=== PATIENT | male | born 1940 | race Caucasian/White ===

== ENCOUNTER → 2024-01-06 16:14 | Outpatient (REF) | payer MEDICARE, OTHER, SELFPAY | LOC: RAD 16:14 | PROVIDERS: ATTENDING PHYSICIAN Physician Assistant Medical; FAMILY PHYSICIAN Family Medicine | DX: M79.661 Pain in right lower leg (principal) | CPT/HCPCS: 93971 ==

== ENCOUNTER 2024-01-13 10:51 | Emergency (ER) | payer MEDICARE, OTHER, SELFPAY ==
[2024-01-13 11:08] VITALS: BP 124/60
[2024-01-13 11:27] LABS: % Basophils 0.6 % (0-2); % Eosinophils 2.1 % (0-6); % Immature Granulocytes 0.4 % (0-0.5); % Lymphocytes 11.5 % (20.5-51.1); % Monocytes 6.6 % (1.7-9.3); % Neutrophils 78.8 % (42.2-75.2); Absolute Basophils 0.1 10^3/uL (0-0.2); Absolute Eosinophils 0.3 10^3/uL (0-0.7); Absolute Immature Granulocytes 0.1 10^3/uL (0-0.05); Absolute Lymphocytes 1.5 10^3/uL (1.2-3.4); Absolute Monocytes 0.8 10^3/uL (0.1-0.6); Hematocrit 48.7 % (39.0-52.0); Hemoglobin 16.5 g/dL (13.0-18.0); Mean Corp Hgb Conc. 33.9 g/dL (33.0-37.0); Mean Corpuscular Hgb 29.3 pg (27.0-31.0); Mean Corpuscular Volume 86.3 fL (80.0-94.0); Mean Platelet Volume 9.5 fL (7.4-10.4); Nucleated Red Blood Cells % 0 % (-); Platelet Count 181 10^3/uL (130-400); Red Blood Cell Count 5.64 10^6/uL (4.70-6.10); Red Cell Dist. Width 15.6 % (11.5-14.5); White Blood Cell Count 12.6 10^3/uL (4.8-10.8)
[2024-01-13 11:42] LABS: ALT (SGPT) 22 U/L (0-50); AST (SGOT) 31 U/L (17-59); Albumin 4.7 g/dl (3.5-5.0); Alkaline Phosphatase 147 U/L (38-126); Blood Urea Nitrogen 36 mg/dl (9-20); Carbon Dioxide 25 mmol/L (22-30); Chloride 104 mmol/L (98-107); Glucose 98 mg/dl (70-99); Potassium 4.7 mmol/L (3.5-5.1); Sodium 139 mmol/L (135-145); Total Bilirubin 1.8 mg/dl (0.2-1.3); Total Protein 7.2 g/dl (6.3-8.2); eGFR 34.35
--- NOTE | 2024-01-13 11:59 | ED.GENMED ---
History of Present Illness
General
Chief Complaint: Hallucinations
Source: patient, spouse and family
Time Seen by Provider: 01/13/24 11:49
History of Present Illness
History of Present Illness:
83-year-old male who presents with family was concerned because he was hallucinating today and last night. for example, he was seeing ants on the floor in the waiting room and a woman that wasnt there. the pt does recongnize that he was
hallucinating. he recently had a fall about 2 weeks ago and had a RLE wound. he is on doxy and has been taking tramadol. he last took tramadol last night. he had sutures but they are now out. he has an appointment with wound care thursday. No
headache or vomiting.
Past History
Past History
ED Past Medical History: Arrthythmia (A. fib), CAD, CHF, COPD, GERD, HTN, Hypercholesterolemia, [place], Hypothyroidism and Other (PNA)
ED Past Surgical History: Cardiac (Stents, Pacer/Defib Ablation) and Cholecystectomy
Social History
Tobacco: Former smoker (quit 50 yrs ago)
Alcohol: Occasional
Drug: None
Personal:
Living: with family
Employment: Retired
Family History
Family History: Early CAD
Phy Exam
Physical Exam
Physical Exam:
CONSTITUTIONAL Patient alert and oriented to person, place and time. Well-appearing. Vital signs reviewed.
HEAD atraumatic, normocephalic.
EYES eyelids normal to inspection, Extraocular muscles intact, Conjunctiva normal, Sclera normal.
NECK normal range of motion, Trachea midline, no jugular venous distention.
RESPIRATORY CHEST No respiratory distress noted, Chest expansion equal
ABDOMEN abdomen nontender, Bowel sounds normal. No distention.
BACK normal inspection, no obvious deformities
UPPER EXTREMITY range of motion normal, Motor strength normal, no cyanosis, no edema.
LOWER EXTREMITY range of motion normal, Motor strength normal, no cyanosis, no edema. Healing wound to the right anterior lower leg. There is no surrounding swelling. There is no drainage. There is no surrounding cellulitis. There is no
bleeding.
NEURO Speech normal, No focal motor deficits, [place] coma scale 15, Memory normal, Cranial Nerves intact to screening exam.
SKIN skin warm, dry, and normal in color.
PSYCHIATRIC patient oriented to person place and time, Normal affect.
Course
Orders/Labs/Results
Orders:
Orders
01/13/24 11:17
CMP [Comprehensive Metabolic Panel] Urgent
Complete Blood Count/With Diff Urgent
01/13/24 11:58
CT Head W/o Iv Contrast Urgent
Comment:
Reason For Exam: change in ms, recent fall
01/13/24 12:51
Urinalysis Reflex To Culture Stat
Date Specimen was Collected: 01/13/24
Time Specimen was Collected: 13:08
Abnormal Lab Results
01/13/24
11:17
WBC 12.6 H 10^3/uL
(4.8-10.8)
RDW 15.6 H %
(11.5-14.5)
Abs Immat Gran (auto) 0.1 H 10^3/uL
(0-0.05)
Absolute Neuts (auto) 10.0 H 10^3/uL
(1.4-6.5)
Absolute Monos (auto) 0.8 H 10^3/uL
(0.1-0.6)
Neutrophils % 78.8 H %
(42.2-75.2)
Lymphocytes % 11.5 L %
(20.5-51.1)
BUN 36 H mg/dl
(9-20)
Creatinine 1.9 H mg/dL
(0.7-1.3)
Total Bilirubin 1.8 H mg/dl
(0.2-1.3)
Alkaline Phosphatase 147 H U/L
(38-126)
01/13/24 11:17
01/13/24 11:17
Vital Signs
Initial and Last Documented VS:
Initial Vital Signs
Temp Pulse Resp BP Pulse Ox
97.4 F 63 20 124/60 97
01/13/24 11:08 01/13/24 11:08 01/13/24 11:08 01/13/24 11:08 01/13/24 11:08
Last Documented Vital Signs
Temp Pulse Resp BP Pulse Ox
97.4 F 63 20 124/60 97
01/13/24 11:08 01/13/24 11:08 01/13/24 11:08 01/13/24 11:08 01/13/24 11:08
MDM/Problems Addressed
MDM/Problems Addressed:
Medication reaction, hallucinations, healing wound
*Radiology
Radiology exam reviewed: radiology read reviewed
*Critical Care Note
Total Time (30-74mins, 75-104mins- exclusive of procedures): Not Applicable
Data Reviewed
Source: patient and family
Further Testing Considered But Not Given:
Consider changing antibiotics but wound does appear at the expected stage of healing without evidence of infection
Patient Management
Escalation/DeEscalation of care consider admission/obs:
Patient appears well and does recognize his hallucinations. I suspect this is related to his tramadol and will advise him to stop however await urinalysis to be sure no signs of UTI which I doubt. Will refer to PCP for follow-up. Nonfocal motor
exam. Wound dressing applied and advised him to keep it in place until seen by wound care on Thursday.
ED Attending Note
-
Portions of this chart may have been created with voice recognition software.� Occasional wrong word or��sound alike� substitutions may have occurred due to the inherent limitations of voice recognition software.
Discharge Plan
Departure
Patient with high blood pressure during this ER visit?: No
Discharge Problem:
Acute alteration in mental status, Medication adverse effect
Instructions: Adverse Drug Reactions, Adult ED, Wound Care ED, [facility]
Prescriptions:
No Action
febuxostat 40 MG tablet
40 mg PO DAILY
multivitamin with folic acid [Tab-A-Elizabeth] 1 TABLET tablet
1 tab PO DAILY
nitroglycerin 0.4 MG tablet, sublingual
0.4 mg sublingual Q5-15M PRN (Reason: chest pain)
Patient Comments:
x3 tablets
metoprolol succinate 100 MG tablet extended release 24 hr
100 mg PO DAILY
finasteride 5 MG tablet
5 mg PO DAILY
Trelegy Ellipta 1 EACH blister with device
1 puff inhalation R DAILY
Patient Comments:
100-62.5-25
albuterol sulfate 1 PUFF HFA aerosol inhaler
2 puff inhalation R Q4 PRN (Reason: sob/wheezing)
pantoprazole 40 MG tablet,delayed release (DR/EC)
40 mg PO DAILY
atorvastatin 40 MG tablet
40 mg PO DAILY
ezetimibe 10 MG tablet
10 mg PO DAILY
potassium chloride [Klor-Con M20] 20 MEQ tablet,ER particles/crystals
40 meq PO DAILY
levothyroxine 75 mcg Tablet
75 mcg PO DAILY@0700 Qty: 30 0RF
Eliquis 5 mg Tablet
5 mg PO BID Qty: 1 0RF
risperidone 0.25 mg Tablet
0.25 mg PO HS Qty: 0 0RF
clopidogrel 75 MG tablet
75 mg PO DAILY Qty: 0 0RF
Patient Comments:
09/26/2021: Pt unsure if taking, listed as not taking on ECW
furosemide 40 MG tablet
80 mg PO MOWEFR Qty: 0 0RF
isosorbide mononitrate 60 mg Tablet Extended Release 24 Hr
60 mg PO BID Qty: 1 0RF
Referrals:
Des Hayes MD [Family Provider] -
Activity Restrictions/Additional Instructions:
Please stop your tramadol. Return immediately for changes in mentation, weakness of any kind, vomiting, fevers, headache, motor weakness or any other concerns. Please see wound care as planned on Thursday. Please keep dressing intact until then
Interventions
Interventions:
*Risk Screen - Suicide Last Done: 01/13/24 12:20
ED- Neurological Assessment Last Done: 01/13/24 12:18
ED-Psychological Assessment Last Done: 01/13/24 12:18
Discharge Date and Time
Print Language: SPANISH
[2024-01-13 13:35] LABS: Urine Albumin Negative (Neg - Trace); Urine Bilirubin Negative (Negative); Urine Character Clear (Clear); Urine Color Yellow; Urine Glucose 2+ (Negative); Urine Ketone Negative (Negative); Urine Leukocyte 1+ (Negative); Urine Nitrite Negative (Negative); Urine Occult Blood Negative (Negative); Urine Specific Gravity 1.015 (<1.030); Urine Urobilinogen Negative (Neg - 1+)
[2024-01-13 14:09] LABS: Urine Red Blood Cell 0-2 /HPF (0-2); Urine Squamous Cell 16-20 /LPF (Few)
[2024-01-13 14:10] LABS: Urine Yeast Few (Negative)
[2024-01-13 14:20] VITALS: BP 136/63
== END 2024-01-13 14:30 | disposition home or self-care (01) ==
LOC: EMR 10:51
PROVIDERS: EMERGENCY PHYSICIAN Emergency Medicine; FAMILY PHYSICIAN Family Medicine
DX: R41.82 Altered mental status, unspecified (principal); T40.425A Adverse effect of tramadol, initial encounter; S80.921D Unspecified superficial injury of right lower leg, subsequent encounter; W19.XXXD Unspecified fall, subsequent encounter; Z87.891 Personal history of nicotine dependence
CPT/HCPCS: 99284; 70450; 80053; 81003; 81015; 85025; 87086

== ENCOUNTER 2024-01-15 10:32 | Emergency (ER) | payer MEDICARE, OTHER, SELFPAY ==
[2024-01-15 10:39] VITALS: BP 154/57
--- NOTE | 2024-01-15 11:25 | ED.GENMED ---
History of Present Illness
General
Chief Complaint: Wound Check/Suture Removal
Source: patient and family
Exam Limitations: dementia
Time Seen by Provider: 01/15/24 10:54
Nursing documentation reviewed up to this point in time: agreed with
History of Present Illness
History of Present Illness:
83 y/o M H/O COPD, CHF, CAD, some mild confusion justyn
here by himself
missed his appt for wound care to check on a wound from 2+ weeks ago when he fell, had sutures placed and it never really healed wlel
completed abx
he says his alarm clock didn't ring
so he is here to have it checked
he was also here a few days ago for hallucinations, his work up was neg
today he comes without his daughter whom he lives with and says that he was supposed to be at wound care but he came here instead because he was too late for the apt
daughter wasn't aware he missed the appt, she thought he went, i spokiew ith her on the phone
pt has no pain, fever, drainage, bleeding etc
Past History
Past History
ED Past Medical History: Arrthythmia (A. fib), CAD, CHF, COPD, GERD, HTN, Hypercholesterolemia, [place], Hypothyroidism and Other (PNA)
ED Past Surgical History: Cardiac (Stents, Pacer/Defib Ablation) and Cholecystectomy
Social History
Tobacco: Former smoker (quit 50 yrs ago)
Alcohol: Occasional
Drug: None
Personal:
Living: with family
Employment: Retired
Family History
Family History: Early CAD
Review of Systems
Review of Systems
Allergies reviewed?: Yes
All Other Systems: Not applicable
Phy Exam
Physical Exam
Physical Exam:
GENERAL: Alert , in no apparent distress
NEUROLOGICAL: Alert and oriented, no focal neuro deficits, a& ox 3 currently
SKIN: Warm and dry,
wound is more of an abrasion right anterior lower leg with some grandulation tissue centrally, some underlying ecchymosis/hyperpigmentation and also a little dried blood
does not appear ulcerated
no surroudning erythema or swelling
MUSCULOSKELETAL: No edema, well perfused
PSYCH: Normal and appropriate interaction.
Course
Vital Signs
Initial and Last Documented VS:
Initial Vital Signs
Temp Pulse BP Pulse Ox
98.8 F 61 154/57 99
01/15/24 10:39 01/15/24 10:39 01/15/24 10:39 01/15/24 10:39
Last Documented Vital Signs
Temp Pulse BP Pulse Ox
98.8 F 61 154/57 99
01/15/24 10:39 01/15/24 10:39 01/15/24 10:39 01/15/24 10:39
MDM/Problems Addressed
Differential Diagnosis Includes:
wound check, abrasion, cellulitis
MDM/Problems Addressed:
83 y/o M
some chronic memory issues worsenign recently
here alone
syas he missed his wound care appt and wanted someone to change his dressing
had a wound 2 weeks ago that was sutured but hasn't healed well
no fever/chils
completed abx
wound appears not infected, some granulation, some hyperpigmenation
recommend wound are f/u
i did change the dressing, nonstick and bacitracin
return precautions
i spoke with pt's daughter chloe who will hep him reschedule
*Critical Care Note
Total Time (30-74mins, 75-104mins- exclusive of procedures): Not Applicable
ED Attending Note
-
Portions of this chart may have been created with voice recognition software.� Occasional wrong word or��sound alike� substitutions may have occurred due to the inherent limitations of voice recognition software.
Discharge Plan
Departure
Patient Disposition: Home (Routine Discharge)
Date of Disposition: 01/15/24
Time of Disposition: 11:28
Patient with high blood pressure during this ER visit?: Yes
Condition: Fair
Covid-19: Not Applicable
Discharge Problem:
Encounter for post-traumatic wound check
Instructions: Wound Care (DC)
Prescriptions:
No Action
febuxostat 40 MG tablet
40 mg PO DAILY
multivitamin with folic acid [Tab-A-Elizabeth] 1 TABLET tablet
1 tab PO DAILY
nitroglycerin 0.4 MG tablet, sublingual
0.4 mg sublingual Q5-15M PRN (Reason: chest pain)
Patient Comments:
x3 tablets
metoprolol succinate 100 MG tablet extended release 24 hr
100 mg PO DAILY
finasteride 5 MG tablet
5 mg PO DAILY
Trelegy Ellipta 1 EACH blister with device
1 puff inhalation R DAILY
Patient Comments:
100-62.5-25
albuterol sulfate 1 PUFF HFA aerosol inhaler
2 puff inhalation R Q4 PRN (Reason: sob/wheezing)
pantoprazole 40 MG tablet,delayed release (DR/EC)
40 mg PO DAILY
atorvastatin 40 MG tablet
40 mg PO DAILY
ezetimibe 10 MG tablet
10 mg PO DAILY
potassium chloride [Klor-Con M20] 20 MEQ tablet,ER particles/crystals
40 meq PO DAILY
levothyroxine 75 mcg Tablet
75 mcg PO DAILY@0700 Qty: 30 0RF
Eliquis 5 mg Tablet
5 mg PO BID Qty: 1 0RF
risperidone 0.25 mg Tablet
0.25 mg PO HS Qty: 0 0RF
clopidogrel 75 MG tablet
75 mg PO DAILY Qty: 0 0RF
Patient Comments:
09/26/2021: Pt unsure if taking, listed as not taking on ECW
furosemide 40 MG tablet
80 mg PO MOWEFR Qty: 0 0RF
isosorbide mononitrate 60 mg Tablet Extended Release 24 Hr
60 mg PO BID Qty: 1 0RF
Referrals:
Des Hayes MD [Family Provider] - Follow up in 2-3 days
Activity Restrictions/Additional Instructions:
YOUR WOUND DOES NOT LOOK NEWLY INFECTED BUT YOU SHOULD RESCHEDULE YOUR WOUND CARE APPOINTMENT TO GET THEIR ADVICE ON HELPING THIS HEAL
FOR NOW
ONCE A DAY YOU CAN CLEAN WITH MILD SOAP AND WATER AND APPLY NONSTICK DRESSING AND A WRAP
RETURN FOR WORSENING PAIN, SWELLIGN, REDNESS ETC
I SPOKE WITH RICKEY AND SHE WILL HELP GET YOUR APPOITNMENT WITH WOUND CARE RESCHEDULED
Interventions
Interventions:
*General Assessment Last Done: 01/15/24 10:40
ED- Fall Risk Assessment Last Done: 01/15/24 11:30
*ED COVID-19 Vaccine History Last Done: 01/15/24 10:40
ED-Skin Assessment Last Done: 01/15/24 11:29
Discharge Date and Time
Print Language: WELSH
== END 2024-01-15 11:41 | disposition home or self-care (01) ==
LOC: EMR 10:32
PROVIDERS: EMERGENCY PHYSICIAN Emergency Medicine; FAMILY PHYSICIAN Family Medicine
DX: Z48.02 Encounter for removal of sutures (principal); J44.9 Chronic obstructive pulmonary disease, unspecified; I11.0 Hypertensive heart disease with heart failure; I50.9 Heart failure, unspecified; I25.10 Atherosclerotic heart disease of native coronary artery without angina pectoris; I48.91 Unspecified atrial fibrillation; E78.00 Pure hypercholesterolemia, unspecified; E03.9 Hypothyroidism, unspecified; F03.90 Unspecified dementia, unspecified severity, without behavioral disturbance, psychotic disturbance, mood disturbance, and anxiety; K21.9 Gastro-esophageal reflux disease without esophagitis; Z82.49 Family history of ischemic heart disease and other diseases of the circulatory system; Z87.891 Personal history of nicotine dependence; Z90.49 Acquired absence of other specified parts of digestive tract; Z95.5 Presence of coronary angioplasty implant and graft
CPT/HCPCS: 99282

== ENCOUNTER → 2024-03-08 22:00 | Outpatient (REF) | payer MEDICARE, OTHER, SELFPAY | LOC: DHSLP 22:00 | PROVIDERS: ATTENDING PHYSICIAN Internal Medicine; FAMILY PHYSICIAN Family Medicine | DX: G47.33 Obstructive sleep apnea (adult) (pediatric) (principal); G47.31 Primary central sleep apnea | CPT/HCPCS: 95811 ==

== ENCOUNTER 2024-04-03 15:33 | Inpatient (IN) | payer MEDICARE, OTHER, SELFPAY ==
[2024-04-03] VITALS (16 sets, daily range): BP systolic 101–152; BP diastolic 38–121; BMI 23.6; BMI 22.9
[2024-04-03 13:37] LABS: % Basophils 0.9 % (0-2); % Eosinophils 1.4 % (0-6); % Immature Granulocytes 0.6 % (0-0.5); % Lymphocytes 20.5 % (20.5-51.1); % Monocytes 6.8 % (1.7-9.3); % Neutrophils 69.8 % (42.2-75.2); Absolute Basophils 0.1 10^3/uL (0-0.2); Absolute Eosinophils 0.2 10^3/uL (0-0.7); Absolute Immature Granulocytes 0.1 10^3/uL (0-0.05); Absolute Lymphocytes 2.5 10^3/uL (1.2-3.4); Absolute Monocytes 0.8 10^3/uL (0.1-0.6); Absolute Neutrophils 8.4 10^3/uL (1.4-6.5); Hematocrit 50.4 % (39.0-52.0); Hemoglobin 16.8 g/dL (13.0-18.0); Mean Corp Hgb Conc. 33.3 g/dL (33.0-37.0); Mean Corpuscular Hgb 28.9 pg (27.0-31.0); Mean Corpuscular Volume 86.7 fL (80.0-94.0); Mean Platelet Volume 10.4 fL (7.4-10.4); Nucleated Red Blood Cells % 0 % (-); Platelet Count 214 10^3/uL (130-400); Red Blood Cell Count 5.81 10^6/uL (4.70-6.10); Red Cell Dist. Width 15.5 % (11.5-14.5)
--- NOTE | 2024-04-03 13:37 | ED.GENMED ---
History of Present Illness
General
Chief Complaint: Heart Rate Problem
Source: patient
Exam Limitations: none
Time Seen by Provider: 04/03/24 13:27
History of Present Illness
History of Present Illness:
Daily chest pain for the last 2 weeks. Usually resolved with 1 or 2 nitroglycerin. Much worse later this morning. Patient's defibrillator activated en route to the hospital. Currently asymptomatic.
Past History
Past History
ED Past Medical History: Arrthythmia (A. fib), CAD, CHF, COPD, GERD, HTN, Hypercholesterolemia, [place], Hypothyroidism and Other (PNA)
ED Past Surgical History: Cardiac (Stents, Pacer/Defib Ablation) and Cholecystectomy
Social History
Tobacco: Former smoker (quit 50 yrs ago)
Alcohol: Occasional
Drug: None
Personal:
Living: with family
Employment: Retired
Family History
Family History: Early CAD
Review of Systems
Review of Systems
All Other Systems: Not applicable
Constitutional: Denies fever
Respiratory: Reports no symptoms
ABD/GI: Reports no symptoms
Phy Exam
Physical Exam
Physical Exam:
GENERAL: Alert and oriented in no apparent distress
EYE: Orbits normal.
NECK: Supple
CARDIAC: Tachycardic relatively regular with occasional irregular beat. Midsystolic murmur. Pacemaker upper chest wall
LUNGS: Clear breath sounds,normal
ABDOMEN: Soft, without focal tenderness or distention
NEUROLOGICAL: Alert and oriented , grossly non-focal
SKIN: Warm and dry, no rash or lesion, no discoloration, skin intact.
MUSCULOSKELETAL: No edema,no deformity.Good color
PSYCH: Normal and appropriate interaction.
Course
Orders/Labs/Results
Orders:
Orders
04/03/24 13:22
Electrocardiogram (*1) Urgent
Reason for Study: Other
Other Reason for Exam: heart rate issue
EKG- Treatment ONCE
04/03/24 13:25
Complete Blood Count/With Diff Urgent
Comprehensive Metabolic Panel Urgent
NT-proBNP Urgent
PTT Urgent
Troponin I Urgent
04/03/24 13:27
CXR Port [CR Chest Portable - 1 View] Urgent
Comment:
Reason For Exam: cp
Reason Study Needs to be Portable: Unable to Transport
04/03/24 14:24
Furosemide [Lasix] 40 mg IV NOW STA
04/03/24 14:28
Amiodarone [Cordarone] 900 mg DEXTROSE 5% PVC-free BAG [D5W PVC-free BAG] 500 ml IV NOW
Initial Dose in mg/min:: 1
Duration of initial dose (hours):: 6
Subsequent dose in mg/min:: 0.5
Duration of subsequent dose (hours):: 18
Maximum dose in mg/min:: 1
Hold and notify provider if:: Heart rate < 60 BPM or SBP < 90 mmHg or MAP < 60 mmHg
04/03/24 15:13
Admit/Transfer Patient As Directed
Co-Sign Provider:
Level of Care: Inpatient admission
Assign to:: IMU- Intermediate Care
Physician / Group: kae
Diagnosis: chest pain
Reason for Hospitalization: chest pain
Expected length of stay greater than two midnights?: Yes
ELOS- Estimated Length of Stay in days: 3
I certify the patient meets the requirements for IP care: Yes
PRN Pain Medication Management As Directed
May give lesser potent ordered pain med per pt: Yes
preference::
Protocol:: Medication orders for pain may be administered in a
manner that supports deferring to patient preference
when the pt is:
- Requesting an ordered lesser potent pain medication.
Least to most potent pain medications are defined
as: acetaminophen < NSAID < tramadol < opioids
(morphine, oxycodone, hydromorphone).
- Requesting a lesser dose of the same medication IF
ORDERED.
- Requesting a less intrusive route of administration
if both routes are prescribed by the provider (PO <
IV).
04/03/24 15:18
Code Status As Directed
Resuscitation Status: Full Code
04/03/24 15:27
Urinalysis Reflex To Culture Routine
Abnormal Lab Results
04/03/24
13:25
WBC 12.0 H 10^3/uL
(4.8-10.8)
RDW 15.5 H %
(11.5-14.5)
Abs Immat Gran (auto) 0.1 H 10^3/uL
(0-0.05)
Absolute Neuts (auto) 8.4 H 10^3/uL
(1.4-6.5)
Absolute Monos (auto) 0.8 H 10^3/uL
(0.1-0.6)
Immature Gran % 0.6 H %
(0-0.5)
APTT 22.1 L Sec
(23.4-35.0)
BUN 36 H mg/dl
(9-20)
Creatinine 2.0 H mg/dL
(0.7-1.3)
Glucose 128 H mg/dl
(70-99)
Total Bilirubin 1.7 H mg/dl
(0.2-1.3)
Alkaline Phosphatase 148 H U/L
(38-126)
04/03/24 13:25
04/03/24 13:25
Vital Signs
Initial and Last Documented VS:
Initial Vital Signs
BP
143/82
04/03/24 13:21
Last Documented Vital Signs
Temp Pulse Resp BP Pulse Ox
98.1 F 84 21 152/60 96
04/03/24 13:23 04/03/24 15:00 04/03/24 15:00 04/03/24 15:00 04/03/24 15:00
MDM/Problems Addressed
Differential Diagnosis Includes:
Patient describing unstable angina. In addition it sounds like his defibrillator was activated. Either V. tach or atrial tachycardia. Awaiting [employer] evaluation EKG shows a tachycardic rhythm with ischemic changes that are increased in nature.
Clearly warrants admission
*Radiology
Radiology exam reviewed: preliminary read by ED provider (CHF) and radiology read reviewed (Interstitial edema)
*Pulse Oximetry
Patient hypoxic: no
*EKG
Interpreted by ED Provider?: Yes
Interpretation: abnormal
Comparison EKG: changes noted
Heart Rate: 112
Rate: tachycardiac
Rhythm: other (Atrial tach)
[place]: normal axis
Interval: long QT
Ischemia: T-wave inversion
*Critical Care Note
Total Time (30-74mins, 75-104mins- exclusive of procedures): 40
Data Reviewed
Review of Other/Old Records Reveals: Records, Testing and Discharge Summary
Update Note
Update Note:
I was called into the room emergently on ER arrival. The patient currently stable and asymptomatic. EKG and previous EKG and test results reviewed with cardiology. Workup in progress
Seen by EP. Pacemaker adjustments on the defibrillator. Recommend starting amiodarone and treating for CHF
Case discussed with [employer] rep. Appears to have episodes of atrial tachycardia. Baseline setting of 40.
ED Attending Note
-
Portions of this chart may have been created with voice recognition software.� Occasional wrong word or��sound alike� substitutions may have occurred due to the inherent limitations of voice recognition software.
Discharge Plan
Departure
Patient Disposition: Admit
Date of Disposition: 04/03/24
Time of Disposition: 14:26
Presentation/result/management discussed w/ accepting MD/DO: Cardiology
Discharge Problem:
Unstable angina, Episodes of atrial tachycardia, Defibrillator firing, Pacer setting adjustments, Renal insufficiency
Interventions
Interventions:
*Risk Screen - Suicide Last Done: 04/03/24 13:27
*General Assessment Last Done: 04/03/24 13:23
*Neglect/Abuse Screening Last Done: 04/03/24 13:27
ED- Fall Risk Assessment Last Done: 04/03/24 13:27
*ED COVID-19 Vaccine History Last Done: 04/03/24 13:27
ED- Cardiac Assessment Last Done: 04/03/24 13:27
ED- Pulmonary Assessment Last Done: 04/03/24 13:27
[2024-04-03 14:03] LABS: APTT 22.1 Sec (23.4-35.0)
[2024-04-03 14:08] LABS: NT-proBNP 5010 pg/ml
[2024-04-03 14:10] LABS: ALT (SGPT) 31 U/L (0-50); AST (SGOT) 39 U/L (17-59); Albumin 4.7 g/dl (3.5-5.0); Alkaline Phosphatase 148 U/L (38-126); Blood Urea Nitrogen 36 mg/dl (9-20); Carbon Dioxide 23 mmol/L (22-30); Chloride 104 mmol/L (98-107); Estimated Creatinine Clearance 27 ml/min; Glucose 128 mg/dl (70-99); Potassium 5.1 mmol/L (3.5-5.1); Sodium 143 mmol/L (135-145); Total Bilirubin 1.7 mg/dl (0.2-1.3); Total Protein 7.2 g/dl (6.3-8.2)
--- NOTE | 2024-04-03 14:39 | HPS.HSE ---
Addendum entered and electronically signed by Jorden Lam DO 04/03/24 16:19:
Patient seen and examined independently. Agree with findings and plan as set forth by LAZARA Mora.
Patient is an 83y M with PMH significant for ASCVD, A-Fib and COPD who presents to ED complaining of chest pain for the past 2 weeks. Patient states that he has been having chest pain - mostly in the mornings for 2 weeks. No associated N/V,
dyspnea, diaphoresis, etc. He has been taking NTG daily with improvement in his symptoms - and had no further chest pain throughout the day. However, pain has been a daily AM occurrence for the past 2 weeks or so. This AM, patient had chest pain
and took two NTG, but with no improvement in his symptoms. He had no further NTG to take and so he presented to the ED for further evaluation.
En route to the ED, patient's defibrillator fired. He has had the device in place for about 5 years - no previous discharge.
In the ED, patient is resting comfortably. He has no chest pain or dyspnea at present.
Ass:
Chest Pain / Unstable Angina
Defibrillator Discharge
Paroxysmal A-Fib / Atrial Tachycardia
Chronic HFpEF
CKD III
DM-II
Hypothyroidism
COPD without Acute Exacerbation
Plan:
Admit for further evaluation and treatment.
Started on Amio in the ED after ICD firing en route to the hospital.
Initial troponin non-negative, but no significantly elevated.
Monitor on telemetry.
Follow serial troponin.
Cardiology evaluation / recommendations appreciated.
Continue other usual home medications - including Eliquis.
Original Note:
Family Physician
-
Family Physician: Des Hayes
Chief Complaint
-
mid sternum chest pain
History of Present Illness
83 year old with PMh for atrial fib, CAD, CHF, COPD, HTn, HLD, MO presented to us with non radiating, non exertional chest pain for past two weeks. stated relief with nitro but today he ran out of nitro. his chest pain persisted. his ICD fired with
atrial tachycardia. denied palpitation or sob. denied n,v, or diarrhea. denied fever, chills, runny nose, congestion, cough.denied abdominal pain,n,v,d. denied dysuria or hematuria.
admitting for further management. initiated on IV amio
Medical History
Past Medical History
Past Medical History: Reports Other
Additional Past Medical History:
BPH
PAF
pulm htn
Cindy
GERD
GOUT
cCAD
CKD
heart failure
Past Surgical History: Reports Other
Additional Past Surgical History:
coronary angioplasty
CAD stent
cardiac ablation
ICD
CABG
b/l cataract extraction
Social History
Tobacco: Non-smoker
Alcohol: None
Drug: None
Living: With Family
Family History
Family History: Not pertinent
Allergies / Home Medications
Allergies reflects when Allergies were last updated in [employer].
Home Medications with original date entered in [employer]
Allergy/Medication List:
Allergies
Allergy/AdvReac Type Severity Reaction Status Date / Time
allopurinol Allergy Rash Verified 04/03/24 13:21
meloxicam [From Mobic] Allergy Nausea/dizz Verified 04/03/24 13:21
iness/vomit
ing
meperidine HCl [From Demerol] Allergy Vomiting Verified 04/03/24 13:21
Home Medications
febuxostat 40 mg tablet 40 mg PO DAILY Gout 04/10/14
finasteride 5 mg tablet 5 mg PO DAILY Urinary issue 04/20/20
metoprolol succinate 100 mg tablet,extended release 24 hr 100 mg PO DAILY Heart disease/condition 04/20/20
nitroglycerin 0.4 mg sublingual tablet 0.4 mg sublingual [id number] PRN chest pain 04/20/20
albuterol sulfate 90 mcg/actuation aerosol inhaler 2 puff inhalation R Q4HPRN PRN sob/wheezing 03/05/21
pantoprazole 40 mg tablet,delayed release 40 mg PO DAILY Gastrointestinal issue 03/06/21
atorvastatin 40 mg tablet 40 mg PO HS High cholesterol 09/20/21
ezetimibe 10 mg tablet 10 mg PO DAILY High cholesterol 09/20/21
clopidogrel 75 mg tablet 75 mg PO DAILY Blood clot prevention/tx #0 tabs 08/01/22
apixaban 2.5 mg tablet (Eliquis) 2.5 mg PO BID 04/03/24
empagliflozin 10 mg tablet (Jardiance) 10 mg PO DAILY 04/03/24
fluticasone fur. 100 mcg-umeclid 62.5 mcg-vilant 25 mcg inhalat.powder (Trelegy Ellipta) 1 inh inhalation R DAILY 04/03/24
furosemide 80 mg tablet 80 mg PO MOWEFR 04/03/24
isosorbide mononitrate 60 mg tablet,extended release 24 hr 60 mg PO DAILY 04/03/24
levothyroxine 100 mcg tablet 100 mcg PO DAILY 04/03/24
bqdadkgy-szb-WJ 0.4 mg-calcium 162 mg-iron 18 yo-nphskqh-yergji tablet 1 tab PO DAILY 04/03/24
potassium 1 tab PO MOWEFR 04/03/24
vitamins A,C,V-gpaa-lqyeds 4,296 mcg-226 mg-90 mg capsule (PreserVision AREDS) 1 cap PO DAILY 04/03/24
Review of Systems
-
Constitutional: Reports No Symptoms
EENT: Reports No Symptoms
Respiratory: Reports No Symptoms
Cardiac: Reports No Symptoms and Chest Pain
Abdomen/GI: Reports No Symptoms
: Reports No Symptoms
Musculoskeletal: Reports No Symptoms
Skin: Reports No Symptoms
Neurological: Reports No Symptoms
Endocrine: Reports No Symptoms
Hematologic/Lymphatic: Reports No Symptoms
Psych: Reports No Symptoms
Physical Exam
Vital Signs
Vital Signs
Temp Pulse Resp BP Pulse Ox
98.1 F 124 20 143/82 95
04/03/24 13:23 04/03/24 13:23 04/03/24 13:23 04/03/24 13:23 04/03/24 13:23
Physical Exam
General: Well Developed, Well Nourished and No Apparent Distress
HEENT: NormoCephalic, Moist mucous membranes and Atraumatic
Respiratory: Clear
Cardiac: S1/S2 and Regular Rhythm; No Murmur or Rub
GI: Soft, Non Tender, Non Distended and Normal Bowel Sounds; No Organomegaly
Rectal: Deferred by Provider
Musculoskeletal: No Clubbing, No Cyanosis and No Edema
Skin: No Rash
Neuro: AO x 3 and Nonfocal/grossly intact
Psych: Calm
Laboratory Results
-
04/03/24 13:25
04/03/24 13:25
Laboratory Results
APTT 22.1 Sec (23.4-35.0) L 04/03/24 13:25
Total Bilirubin 1.7 mg/dl (0.2-1.3) H 04/03/24 13:25
AST 39 U/L (17-59) 04/03/24 13:25
ALT 31 U/L (0-50) 04/03/24 13:25
Alkaline Phosphatase 148 U/L (38-126) H 04/03/24 13:25
Troponin I 0.020 ng/ml 04/03/24 13:25
Data Reviewed
-
Lab Data: Labs Reviewed by me
Impression/Plan
-
#unstable angina
#hxt of CAD s/p CAD
#Atrial tachycardia
#hxt of PAF s/p cardiac ablation in the past
-trend trop
-EKg with sinus tachycardia
-amiodarone continued
-eliquis,Imdur, metoprolol continued
-plavix continued
-Nitro prn for chest pain
-cardiology consulted
#leukocytosis likely stress reaction
-wbc 12.0
-obtain UA
-chest x ray pending
-denied any URI and UA symptoms
#CKD stage 3b
-cr 2.0
#Diastolic heart failure
- BNP 5010
-lasix continued
-strict I &O
daily weight
-fluid restriction
#type 2 DM
-Jardiance continued
-CHO diet
-sliding scale
#hypothyroidism
-levothyroxine continued
#GERD
-PPI
#COPD
-albuterol continued
-trelegy continued
#BPH: Finasteride.
#Sleep Apnea: CPAP.
#Hypercholesterolemia
- Atorvastatin and zetia continued
#Gout: febuxostat
#DVT prophylaxis: eliqus
[2024-04-03] MEDS: LASIX 40 MG IV (14:45)
[2024-04-03] MEDS: CORDARONE 518 MG IV (14:46)
[2024-04-03 16:58] LABS: Urine Albumin Negative (Neg - Trace); Urine Bilirubin Negative (Negative); Urine Character Clear (Clear); Urine Color Yellow; Urine Glucose 2+ (Negative); Urine Ketone Negative (Negative); Urine Leukocyte Trace (Negative); Urine Nitrite Negative (Negative); Urine Occult Blood Negative (Negative); Urine Urobilinogen Negative (Neg - 1+); Urine pH 6.5 (5.0-9.0)
[2024-04-03 17:08] LABS: Urine Squamous Cell >30 /LPF (Few)
[2024-04-03 17:10] LABS: Urine Bacteria Few (Negative)
[2024-04-03 20:41] LABS: Troponin I 0.807 ng/ml
[2024-04-03 21:15] LABS: Glucose - Point of Care 138 mg/dl (70-99)
[2024-04-03] MEDS: LIPITOR 40 MG PO (21:41)
[2024-04-03] MEDS: ELIQUIS 2.5 MG PO (21:41)
--- NOTE | 2024-04-03 23:57 | PTCARENOTE ---
Rec'd pt. into room 2249 at change of shift from the ED- AAOx3, VSS, V-paced with frequent PVC's on the monitor. Pt. denied any chest pain/discomfort, very pleasant, no complaints. Amiodarone gtt infusing at 1 mg/min, decreased to 0.5 mg/min at
2049 as per order. HR 60's-80's. Serial troponin's & EKG's completed. Pt. oriented to room, prefers to use urinal in bed at this time; voiding clear yellow urine. CHF packet/education provided.
[2024-04-04] VITALS (13 sets, daily range): BP systolic 87–129; BP diastolic 48–87; BMI 23.0
[2024-04-04 00:19] LABS: Troponin I 0.904 ng/ml
--- NOTE | 2024-04-04 03:45 | PTCARENOTE ---
No runs of VT so far this shift, but patient does have frequent PVC's. Also observed to go into NSR and A-fib at times. Pt. remains chest pain free.
[2024-04-04 04:46] LABS: Hematocrit 43.2 % (39.0-52.0); Hemoglobin 14.6 g/dL (13.0-18.0); Mean Corp Hgb Conc. 33.8 g/dL (33.0-37.0); Mean Corpuscular Hgb 28.9 pg (27.0-31.0); Mean Corpuscular Volume 85.4 fL (80.0-94.0); Platelet Count 163 10^3/uL (130-400); Red Blood Cell Count 5.06 10^6/uL (4.70-6.10); Red Cell Dist. Width 15.5 % (11.5-14.5); White Blood Cell Count 12.1 10^3/uL (4.8-10.8)
[2024-04-04 05:00] LABS: Blood Urea Nitrogen 39 mg/dl (9-20); Calcium 9.2 mg/dl (8.4-10.2); Carbon Dioxide 22 mmol/L (22-30); Chloride 103 mmol/L (98-107); Estimated Creatinine Clearance 25 ml/min; Glucose 104 mg/dl (70-99); HDL Cholesterol 36 mg/dl; LDL Cholesterol, Calculated 41 mg/dl; Magnesium 2.2 mg/dl (1.6-2.3); Potassium 4.6 mmol/L (3.5-5.1); Sodium 139 mmol/L (135-145); Total Cholesterol 99 mg/dl (50-199); Triglyceride 113 mg/dl (10-149); Very Low Density Lipoprotein 22 mg/dl (0-30); eGFR 30.47
[2024-04-04 05:11] LABS: Troponin I 0.717 ng/ml
[2024-04-04] MEDS: SYNTHROID 100 MCG PO (05:38)
--- NOTE | 2024-04-04 06:48 | W.PN.HOSP.TC ---
Today's Communication/Plan
-
.
Assessment / Plan
Assessment / Plan
Physical Exam
General: Well Developed, Well Nourished and No Apparent Distress
HEENT: Normocephalic, Moist mucous membranes and Atraumatic
Respiratory: Clear
Cardiac: S1/S2 and Regular Rhythm; No Murmur or Rub
GI: Soft, Non Tender, Non Distended and Normal Bowel Sounds; No Organomegaly
Rectal: no rectal bleeding
Musculoskeletal: No Clubbing, No Cyanosis and No Edema
Skin: No Rash
Neuro: AO x 3 and Nonfocal/grossly intact
Psych: Calm
#unstable angina/ NSTEMI
#hxt of CAD s/p CAD
#Atrial tachycardia
#hxt of PAF s/p cardiac ablation in the past
No chest pain over night
Troponin peak at 0.9 then down to 0.7
c/w Plavix, Aspirin
Already on Eliquis
Consulted cardiology, Keep nPO for possible cardiac procedure , hold Eliquis
# NSVT, post shock with ICD
c/w amiodarone gtt
# #leukocytosis likely stress reaction
-wbc 12.0
-Clear UA
-chest x ray : Increased interstitial markings within the lower lungs, most suggestive of interstitial edema pattern. No significant pleural effusion.
- No cough or hypoxia
-denied any URI and UA symptoms
#CKD stage 3b
-cr 2.0 on admission
- creatinine 1.9 in January 2024
- Monitor for retention, add bladder scan
- Will do NS urban- procedure for renal prophylaxis
# Chronic systolic heart failure
Last echo in system was in 2022 showed EF 35%. Global hypokinesis, with moderate MR& AR
- BNP 5010
# Not DM per pt
Stop glucose monitoring
#hypothyroidism
-levothyroxine continued
#GERD
-PPI
#COPD
No wheezes
-albuterol continued
-Trelegy continued
#BPH: Finasteride.
#Sleep Apnea: CPAP.
#Hypercholesterolemia
- Atorvastatin and Zetia continued
#Gout: febuxostat
#DVT prophylaxis: Eliquis
# Paroxysmal atrial fibrillation/flutter status post ablation
- In Paced rhythm
-On Apixaban
Total time spent to see the patient, examine the patient on the floor, review data and lab results, discuss treatment plan with patient, nursing staff around 55 minutes
Anticipated Discharge: > 48 hours
Subjective/Interval History
-
Date of Service: April 04, 2024
No chest pain
No sob this morning or over night
d/w night nurse
Objective Data
-
Labs:
Laboratory Results
04/04/24
04:30
WBC 12.1 H
Hgb 14.6
Hct 43.2
Plt Count 163 D
Sodium 139
Potassium 4.6
Chloride 103
Carbon Dioxide 22
BUN 39 H
Creatinine 2.1 H
Glucose 104 H
Calcium 9.2
Vital Signs:
Vital Signs
Temp Pulse Resp BP Pulse Ox
98.4 F 70 18 112/69 94
04/04/24 04:20 04/04/24 04:19 04/04/24 04:20 04/04/24 04:19 04/04/24 04:20
I&O
04/02/24 04/03/24 04/04/24
06:59 06:59 06:59
Intake Total 473 / 473
Output Total 900 / 900
Balance -427 / -427
[2024-04-04 07:27] LABS: Glucose - Point of Care 99 mg/dl (70-99)
--- NOTE | 2024-04-04 07:50 | PTCARENOTE ---
Assumed care of pt from prev nsg shift; Pt AAOx3 w/no c/o CP or SOB. Pt's VS stable w/HR 70 & BP this AM 129/48; Pt is V-paced w/occas PVC's & underlying SR on telemetry monitoring. Pt w/IV Amio drip infusing through patent IV line as ordered. Pt
NPO awaiting cardiology for plan of care. Pt w/call cain within reach & plan of care ongoing.
[2024-04-04] MEDS: SPIRIVA RESPIMAT 2.5 MCG 2 PUFF INH (07:55)
[2024-04-04] MEDS: SYMBICORT 80/4.5 MCG INHALER 2 PUFF INH ×2 (07:55→19:42)
--- NOTE | 2024-04-04 08:34 | CON.CAR ---
Addendum entered and electronically signed by Gwyn Niño MD 04/04/24 11:41:
I saw and examined the patient.
The TEMPERING MACHINE OPERATOR's note was reviewed and I agree with the note.
Comment:
NSTEMI
Very severe navajo CAD
Recent increased angina with prolonged CP day of admit, ICD shock after CP onset
ICD interrogation showed ICD shock was for monomorphic VT and that led to appropriate ICD shock.
Agree with amio for VT
Will progress to cath for his increased angina and NSVT
Echo to follow valve disease
Last LVEDP was only 10 so perhaps we can use even less Lasix
Original Note:
Consultation
Consultation Request
Date/Time Consultation Requested: 04/03/2024 16:00
Date/Time Consultation Performed: 04/04/2024 07:50
Requesting Provider: LAZARA Mora
Performing Provider: LAZARA Yoo for Dr. Niño
Reason for Consultation: Chest pain, ICD fire
Medical History
-
Chief Complaint: chest pain
History of Present Illness:
Mr. Gan is an 83-year-old male with CAD (PCI 1994, 2004, 2019, 2020 & 2022), CABG x5 in 1995, hypertension, dyslipidemia, COPD, obstructive sleep apnea, gout, pulmonary hypertension, VT status post MDT SC ICD implant November 2017, HFmrEF, CKD,
recurrent atrial fibrillation and atrial flutter status post PVI and flutter ablation 09/20/[address] Saxena, who is here with complaints of chest pain. He has been having chest pain in the morning. This has been ongoing for about 2 weeks. He
describes it as a midsternal anterior pressure sensation. He has no associated symptoms of nausea, diaphoresis, nor dizziness. He has been taking a sublingual nitroglycerin and resting. Normally he has relief after 1 tablet. Yesterday, he
required a second tablet and decided to come to the emergency department when the pain persisted and he was out of nitroglycerin. While in the car with his daughter, he had an ICD shock. He had no symptoms prior to his ICD shock. Interrogation of
his Med[employer] device reveals a 35 J shock for ventricular tachycardia which restored sinus rhythm. At present, he has no cardiovascular complaints.
Past Medical History
Past Medical History: Arrhythmias (Paroxysmal atrial flutter/fibrillation s/p PVI 09/2021, VT with ICD), CAD (multiple PCI recent 04/2021), CHF (HFmrEF), COPD, GERD, HTN, Hypercholesterolemia, Renal Failure and Other (RAVINDRA, pulmonary hypertension)
Past Surgical History: Cardiac (Paroxysmal atrial flutter/fibrillation ablation 09/2021, MDT SC ICD 11/2017, CABG x 5 07/1995)
Social History
Tobacco: Former Smoker
Alcohol: None
Drug: None
Living: With Family
Employment: Retired
Family History
Family History: Early CAD (father age 43 PA)
Allergies / Home Medications
Allergy/AdvReac Type Severity Reaction Status Date / Time
allopurinol Allergy Rash Verified 04/03/24 13:21
meloxicam [From Mobic] Allergy Nausea/dizz Verified 04/03/24 13:21
iness/vomit
ing
meperidine HCl [From Demerol] Allergy Vomiting Verified 04/03/24 13:21
�Medication �Instructions �Recorded �Confirmed �Type
febuxostat 40 mg tablet 40 mg PO DAILY Gout 04/10/14 04/03/24 History
finasteride 5 mg tablet 5 mg PO DAILY Urinary issue 04/20/20 04/03/24 History
metoprolol succinate 100 mg 100 mg PO DAILY Heart 04/20/20 04/03/24 History
tablet,extended release 24 hr disease/condition
nitroglycerin 0.4 mg sublingual 0.4 mg sublingual [id number] PRN 04/20/20 04/03/24 History
tablet chest pain
albuterol sulfate 90 mcg/actuation 2 puff inhalation R Q4HPRN PRN 03/05/21 04/03/24 History
aerosol inhaler sob/wheezing
pantoprazole 40 mg tablet,delayed 40 mg PO DAILY Gastrointestinal 03/06/21 04/03/24 History
release issue
atorvastatin 40 mg tablet 40 mg PO HS High cholesterol 09/20/21 04/03/24 History
ezetimibe 10 mg tablet 10 mg PO DAILY High cholesterol 09/20/21 04/03/24 History
clopidogrel 75 mg tablet 75 mg PO DAILY Blood clot 08/01/22 04/03/24 Rx
prevention/tx #0 tabs
apixaban 2.5 mg tablet (Eliquis) 2.5 mg PO BID 04/03/24 04/03/24 History
empagliflozin 10 mg tablet 10 mg PO DAILY 04/03/24 04/03/24 History
(Jardiance)
fluticasone fur. 100 mcg-umeclid 1 inh inhalation R DAILY 04/03/24 04/03/24 History
62.5 mcg-vilant 25 mcg
inhalat.powder (Trelegy Ellipta)
furosemide 80 mg tablet 80 mg PO MOWEFR 04/03/24 04/03/24 History
isosorbide mononitrate 60 mg 60 mg PO DAILY 04/03/24 04/03/24 History
tablet,extended release 24 hr
levothyroxine 100 mcg tablet 100 mcg PO DAILY 04/03/24 04/03/24 History
tagsvwpk-lje-UE 0.4 mg-calcium 162 1 tab PO DAILY 04/03/24 04/03/24 History
mg-iron 18 vd-kavihiu-ewcnqh tablet
potassium 1 tab PO MOWEFR 04/03/24 04/03/24 History
vitamins A,C,E-ytsj-kaccpk 4,296 1 cap PO DAILY 04/03/24 04/03/24 History
mcg-226 mg-90 mg capsule
(PreserVision AREDS)
Review of Systems
-
History Source: Patient
All other systems: Negative unless noted
Constitutional: No Symptoms
EENT: No Symptoms
Respiratory: No Symptoms
Cardiac: No Symptoms
Abdomen/GI: No Symptoms
: No Symptoms
Musculoskeletal: No Symptoms
Skin: No Symptoms
Neurological: No Symptoms
Endocrine: No Symptoms
Hematologic/Lymphatic: No Symptoms
Physical Exam
Vital Signs
Temp Pulse Resp BP Pulse Ox
98.0 F 53 20 129/48 98
04/04/24 07:38 04/04/24 08:02 04/04/24 08:02 04/04/24 07:29 04/04/24 08:02
Lab Results
04/04/24 04:30
04/04/24 04:30
Troponin I 0.717 ng/ml H* 04/04/24 04:30
Bfl-Y-Rzcfawafqjs Pept 5010 pg/ml 04/03/24 13:25
Physical Exam
General: Well Developed, Well Nourished and No Apparent Distress
HEENT: Normocephalic, Anicteric and Moist Mucous Membranes
Respiratory: Non Labored Respirations
Cardiac: S1/S2 and Regular Rhythm
Breast: Deferred by me
GI: Soft, Non Tender, Non Distended and Normal Bowel Sounds
Rectal: Deferred by Provider
Genito-urinary: No Costovertebral Tender
Musculoskeletal: No Clubbing, No Cyanosis and No Edema
Skin: Warm and Dry
Neuro: AO x 3
Psych: Calm
Impression / Plan
-
NSTEMI
-Chest pain requiring daily nitroglycerin for the past 2 weeks
-ICD shock for VT as below
-Peak troponin 0.940
-Hold apixaban, give ASA 324 mg STAT
-Cardiac catheterization today
ICD Shock (Medtonic)
Ventricular tachycardia
-04/03/2024 ~12:30, 35J for VT
-On amiodarone drip
CAD
-CABG 1995
-PCI 2004, 2020, 2023
-Cardiac catheterization as above
-Continue medical therapy (LDL at goal, HgbA1c 5%)
Heart failure with mildly reduced EF (EF 42%, 2022), chronic
Ischemic cardiomyopathy
-He does not appear to be in acute/decompensated heart failure
-Lying flat without shortness of breath
-He has an abnormal proBNP but he also has chronic kidney disease
-Follow daily weight, I/O
-Update echocardiogram
Paroxysmal atrial fibrillation/flutter status post ablation
-Stable in sinus rhythm
-Oral Anticoagulation: Apixaban 2.5 mg twice daily on hold (age 83, creatinine >1.5)
-[id number]: Score at least 5 (Heart failure, HTN, age 75 or more, Vascular disease)
Hypertension, stable
CKD, stable
Dyslipidemia, LDL below goal on current therapy, continue
COPD, stable without acute exacerbation
Pulmonary hypertension
RAVINDRA, he plans to be evaluated for the inspire implant
Former smoker, continue station recommended
DATA:
Transthoracic echocardiogram, 08/06/2022:
Mildly reduced left ventricular systolic function.
Left ventricular ejection fraction is 42% by Pratt's method.
Global hypokinesis, with the apical reece best preserved.
Stage III diastolic dysfunction suggestive of restrictive filling pattern and
increased filling pressures.
Moderate mitral regurgitation.
Mild to moderate aortic regurgitation.
Moderate to severe tricuspid regurgitation with severe pulmonary hypertension.
Cardiac catheterization, 08/03/2022:
1: Moderate global hypokinesis with EF 37%
2: Severe multivessel CAD as described with patent MARTINI-LAD and patent but diseased SVG-OM2.
3. Successful stenting of 80% lesion in remotely stented segment in the proximal SVG-OM2 bypass graft (which is 27 yrs old) using 4.0 x 15 Xience CAITLIN with outstanding result
4. We will continue aspirin, Plavix, Eliquis for 3 days then transition to Eliquis and Plavix only for the next 12 months
Data Reviewed
-
EKG: Report Reviewed by me (Ventricular paced rhythm, PVCs, rate 69)
Medical Tests (Nuc Med, Echo etc): Report Reviewed by me (Prior echocardiogram cardiac catheterization as above)
Labs: Labs Reviewed by me
Old Records: Reviewed
[2024-04-04] MEDS: TOPROL XL 100 MG PO (09:24)
[2024-04-04] MEDS: PLAVIX 75 MG PO (09:24)
[2024-04-04] MEDS: LASIX 80 MG PO (09:24)
[2024-04-04] MEDS: LOW STRENGTH ASPIRIN 324 MG PO (09:24)
[2024-04-04] MEDS: PROTONIX 40 MG PO (09:24)
[2024-04-04] MEDS: FARXIGA 10 MG PO (09:25)
[2024-04-04] MEDS: ULORIC 40 MG PO (09:25)
[2024-04-04] MEDS: ZETIA 10 MG PO (09:25)
[2024-04-04] MEDS: IMDUR (EXTENDED RELEASE) 60 MG PO (09:25)
[2024-04-04] MEDS: PROSCAR 5 MG PO (09:25)
[2024-04-04] MEDS: ELIQUIS PO (09:40)
[2024-04-04] MEDS: NSS 1000 IV (10:17)
--- NOTE | 2024-04-04 10:45 | PTCARENOTE ---
Report given to Fabby in the screedman/laborer; Pt transported to screedman/laborer in bed at 1040 w/IV amio gtt & IVF still infusing.
--- NOTE | 2024-04-04 13:02 | ITS.CL.CATH ---
Electronic Gluing Machine Operator - Catheterization
Cardiac Catheterization
Procedure Report:
CARDIAC CATHETERIZATION REPORT
Date of Procedure: 04/04/2024
Referring: Gwyn Niño M.D.
INDICATION: Ventricular tachycardia, known coronary artery disease.
PROCEDURE:
1. Left heart catheterization.
2. Coronary angiography.
3. Bypass angiography.
ACCESS:
6 Indonesian left radial artery.
CATHETERS:
1. 5 Indonesian TRINITY.
2. 5 Indonesian JL 4.
3. 5 Indonesian JR4.
4. 5 Indonesian AL-1
HEMODYNAMIC DATA
Weight (kg): 68.5
AO (s/d/x, mmHg): 111/55/77
LV (s/x mmHg): 115/16
LEFT VENTRICULOGRAPHY: Not performed.
CORONARY ANGIOGRAPHY
Dominance: Right.
Left Main: Normal size, trifurcating vessel. There is a densely calcified, 80% lesion throughout the entire left main leading into the circumflex and LAD.
LAD: Normal size vessel giving rise to 1 significant diagonal. The vessel is chronically totally occluded in its midportion and supplied by patent MARTINI graft. There is a 95% lesion in the ostium of the first diagonal. There is a long, 40-50%
lesion in the mid LAD immediately after the MARTINI anastomosis.
Ramus: Small size vessel supplying the proximal anterolateral wall. The vessel is diffusely diseased.
Circumflex: Nondominant vessel which is chronically totally occluded in its proximal margin. The only visible obtuse marginal is supplied by a patent vein graft.
RCA: Normal size, dominant vessel. There are patent stents throughout the entire proximal and mid vessel. There is 10-20% in-stent restenosis within the stented segments. There are luminal irregularities in the distal RCA.
BYPASS GRAFT ANGIOGRAPHY
MARTINI to LAD: Normal size graft with end-to-side anastomosis to the mid LAD. There is no evidence of stenosis or degeneration.
SVG to OM1: Normal size graft with end-to-side anastomosis to the first obtuse marginal. Patent stents are visible in the proximal third of the vessel with approximately 20-30% in-stent restenosis. There is a patent stent in the distal graft
leading into the algaaciq vessel with approximately 10% in-stent restenosis.
SVG to diagonal: Chronically occluded at its origin.
INTERVENTION(S)
None.
Closure Device: Vascular band.
Radiation (mGy): 321.04
DAP (cm2.Gy): 21.6174
Fluoroscopy time (minutes): 4.1
Sedation time (minutes): 42
CONCLUSIONS
1. Right dominant circulation with an 80% lesion throughout the entire left main, chronically totally occluded mid LAD, 95% ostial D1, 40-50% mid LAD lesion, chronically occluded circumflex and its proximal margin and 10-20% in-stent restenosis
lesions within the proximal/mid RCA, status post prior bypass (patent MARTINI to LAD, patent SVG to OM, occluded SVG to D1) with 20-30% in-stent restenosis in the proximal stented segment of the vein graft to obtuse marginal and a 10% in-stent
restenosis lesion in the stented segment from the SVG into the algaaciq marginal.
2. Mildly elevated filling pressures (LVEDP = 16 mmHg at 68.5 kg).
3. No obvious nidus for new ventricular tachycardia/ICD shock.
RECOMMENDATIONS:
1. Expectant management after cardiac catheterization via left radial approach.
2. Limited weight bearing on the left for one week.
3. Continue aggressive secondary prevention.
4. Guideline directed medical therapy as hemodynamics will tolerate.
5. Amiodarone.
6. Echocardiogram ordered and pending.
Copy to: Gwyn Niño M.D., Des Hayes M.D.
Denzel Peacock DO, FACC, FACP
--- NOTE | 2024-04-04 14:52 | CM ---
Reviewed chart. Met with Mr. Cabral to review discharge plans. He states prior to admission he resides with his spouse and daughter in an apartment. He states he is planning on moving to a new apartment at [facility] tomorrow. This apartment is a
first floor apartment without any steps to enter. He states prior to admission he was independent with ambulation and adls. He states he does not have any DME . He states he has a prescription plan and uses [facility]. Medical work-up in
progress. The discharge plan is to return home with his spouse and daughter when medically stable. .
[2024-04-04] MEDS: PACERONE 200 MG PO (20:58)
[2024-04-04] MEDS: ELIQUIS 2.5 MG PO (20:58)
[2024-04-04] MEDS: DESENEX/MITRAZOL/ZEASORB 1 APPLIC TOPICAL (20:59)
[2024-04-04] MEDS: LIPITOR 40 MG PO (21:01)
[2024-04-04 22:01] LABS: Glucose - Point of Care 114 mg/dl (70-99)
[2024-04-05 04:01] VITALS: BP 124/50
[2024-04-05 04:19] VITALS: BMI 22.8
[2024-04-05] MEDS: SYNTHROID 100 MCG PO (04:25)
[2024-04-05 04:38] LABS: Hematocrit 42.6 % (39.0-52.0); Hemoglobin 14.5 g/dL (13.0-18.0); Mean Corpuscular Hgb 28.8 pg (27.0-31.0); Mean Corpuscular Volume 84.7 fL (80.0-94.0); Mean Platelet Volume 9.9 fL (7.4-10.4); Platelet Count 161 10^3/uL (130-400); Red Blood Cell Count 5.03 10^6/uL (4.70-6.10); Red Cell Dist. Width 15.3 % (11.5-14.5); White Blood Cell Count 11.6 10^3/uL (4.8-10.8)
[2024-04-05 05:00] LABS: Blood Urea Nitrogen 41 mg/dl (9-20); Carbon Dioxide 23 mmol/L (22-30); Chloride 102 mmol/L (98-107); Estimated Creatinine Clearance 26 ml/min; Glucose 102 mg/dl (70-99); Potassium 4.7 mmol/L (3.5-5.1); Sodium 140 mmol/L (135-145)
--- NOTE | 2024-04-05 06:34 | W.PN.HOSP.TC ---
Today's Communication/Plan
-
f/w cardiology recommendation
dc planning
Assessment / Plan
Assessment / Plan
Physical Exam
General: Well Developed, Well Nourished and No Apparent Distress
HEENT: Normocephalic, Moist mucous membranes and Atraumatic
Respiratory: Clear
Cardiac: S1/S2 and Regular Rhythm; No Murmur or Rub
GI: Soft, Non Tender, Non Distended and Normal Bowel Sounds; No Organomegaly
Rectal: no rectal bleeding
Musculoskeletal: No Clubbing, No Cyanosis and No Edema
Skin: No Rash
Neuro: AO x 3 and Nonfocal/grossly intact
Psych: Calm
#unstable angina/ NSTEMI
#hxt of CAD s/p CAD
#Atrial tachycardia
#hxt of PAF s/p cardiac ablation in the past
No chest pain over night
Troponin peak at 0.9 then down to 0.7
c/w Plavix, Aspirin
Already on Eliquis
Echo showed LVEF 35-40%, stage II diastolic dysfunction, Moderate to severe MR(progressed), mild to moderate AI( improved ), moderate to severe TR( improved ).
s/p cath, obvious nidus for new ventricular tachycardia, c/w directed medical therapy
Consulted cardiology, input appreciated
# NSVT, post shock with ICD
s/p amiodarone gtt, on oral amiodarone
# #leukocytosis likely stress reaction
-wbc 12.0
-Clear UA
-chest x ray : Increased interstitial markings within the lower lungs, most suggestive of interstitial edema pattern. No significant pleural effusion.
- No cough or hypoxia
-denied any URI and UA symptoms
#CKD stage 3b
-cr 2.0 on admission
- creatinine 1.9 in January 2024
- Monitor for retention, add bladder scan
- Will do NS urban- procedure for renal prophylaxis
# Chronic systolic heart failure
Last echo in system was in 2022 showed EF 35%. Global hypokinesis, with moderate MR& AR
- BNP 5010
# Not DM per pt
Stop glucose monitoring
#hypothyroidism
-levothyroxine continued
#GERD
-PPI
#COPD
No wheezes
-albuterol continued
-Trelegy continued
#BPH: Finasteride.
#Sleep Apnea: CPAP.
#Hypercholesterolemia
- Atorvastatin and Zetia continued
#Gout: febuxostat
#DVT prophylaxis: Eliquis
# Paroxysmal atrial fibrillation/flutter status post ablation
- In Paced rhythm
-On Apixaban
Total dc time spent to see the patient, examine the patient on the floor, review data and lab results, discuss discharge plan with patient, nursing staff around 65 minutes
Anticipated Discharge: Today
Subjective/Interval History
-
Date of Service: April 05, 2024
No chest pain
No sob
Objective Data
-
Labs:
Laboratory Results
04/05/24
04:09
WBC 11.6 H
Hgb 14.5
Hct 42.6
Plt Count 161
Sodium 140
Potassium 4.7
Chloride 102
Carbon Dioxide 23
BUN 41 H
Creatinine 2.0 H
Glucose 102 H
Calcium 9.0
Vital Signs:
Vital Signs
Temp Pulse Resp BP Pulse Ox
97.8 F 60 19 124/50 96
04/05/24 04:02 04/05/24 05:00 04/05/24 04:02 04/05/24 04:01 04/05/24 04:02
I&O
04/03/24 04/04/24 04/05/24
06:59 06:59 06:59
Intake Total 473 / 473 210 / 210
Output Total 900 / 900 425 / 425
Balance -427 / -427 -215 / -215
--- NOTE | 2024-04-05 07:05 | PTCARENOTE ---
Pt NSR with occasionally V paced. VSS, Pt denies Cp or any discomfort. Safety measures in place
[2024-04-05] MEDS: SPIRIVA RESPIMAT 2.5 MCG 2 PUFF INH (08:01)
[2024-04-05] MEDS: SYMBICORT 80/4.5 MCG INHALER 2 PUFF INH (08:02)
[2024-04-05 08:09] VITALS: BP 125/47
[2024-04-05 08:12] LABS: Glucose - Point of Care 102 mg/dl (70-99)
[2024-04-05] MEDS: ULORIC 40 MG PO (09:25)
[2024-04-05] MEDS: PROTONIX 40 MG PO (09:25)
[2024-04-05] MEDS: TOPROL XL 100 MG PO (09:25)
[2024-04-05] MEDS: IMDUR (EXTENDED RELEASE) 60 MG PO (09:25)
[2024-04-05] MEDS: ZETIA 10 MG PO (09:25)
[2024-04-05] MEDS: PACERONE 200 MG PO (09:25)
[2024-04-05] MEDS: ELIQUIS 2.5 MG PO (09:25)
[2024-04-05] MEDS: FARXIGA 10 MG PO (09:25)
[2024-04-05] MEDS: PLAVIX 75 MG PO (09:25)
[2024-04-05] MEDS: DESENEX/MITRAZOL/ZEASORB 1 APPLIC TOPICAL (09:25)
[2024-04-05] MEDS: PROSCAR 5 MG PO (09:25)
--- NOTE | 2024-04-05 09:40 | PTCARENOTE ---
Assumed care of pt from prev nsg shift; Pt AAOx3 w/no c/o CP or SOB. Pt's VS stable w/HR 60's & BP this AM 125/47. Pt is SR w/occas V-pacing w/PVC's on telemetry monitoring. Pt's R radial site w/dressing C/D/I w/no signs & symptoms of bleeding or
hematoma. Pt w/call cain within reach & plan of care ongoing.
--- NOTE | 2024-04-05 10:31 | W.PN.CD ---
Today's Communication / Plan
-
Med Rx for CAD/NSTEMI
- Back on Plavix with Eliquis
Amio for VT
Ok for home
F/u arranged
Impression / Plan
-
NSTEMI
-Chest pain requiring daily nitroglycerin for the past 2 weeks
-ICD shock for VT as below
-Peak troponin 0.940
-Cardiac catheterization: no new disease
ICD Shock (Medtronic)
- Ventricular tachycardia
- 04/03/2024 ~12:30, 35J for VT
- PO Amio
CAD
-CABG 1995
-PCI 2004, 2020, 2022
-Cardiac catheterization as above
-Continue medical therapy (LDL at goal, HgbA1c 5%)
Heart failure with mildly reduced EF (EF 42%, 2022), chronic
Ischemic cardiomyopathy
-He does not appear to be in acute/decompensated heart failure
-Lying flat without shortness of breath
-He has an abnormal proBNP but he also has chronic kidney disease
-Follow daily weight, I/O
-Update echocardiogram
Paroxysmal atrial fibrillation/flutter status post ablation
-Stable in sinus rhythm
-Oral Anticoagulation: Apixaban 2.5 mg twice daily on hold (age 83, creatinine >1.5)
-[id number]: Score at least 5 (Heart failure, HTN, age 75 or more, Vascular disease)
Hypertension, stable
CKD, stable
Dyslipidemia, LDL below goal on current therapy, continue
COPD, stable without acute exacerbation
Pulmonary hypertension
RAVINDRA, he plans to be evaluated for the inspire implant
Former smoker, continue station recommended
Subjective:
Feels well. Tele fine. NSR some V pace (VVI pacing)
DATA:
Transthoracic echocardiogram, 08/06/2022:
Mildly reduced left ventricular systolic function.
Left ventricular ejection fraction is 42% by Pratt's method.
Global hypokinesis, with the apical reece best preserved.
Stage III diastolic dysfunction suggestive of restrictive filling pattern and
increased filling pressures.
Moderate mitral regurgitation.
Mild to moderate aortic regurgitation.
Moderate to severe tricuspid regurgitation with severe pulmonary hypertension.
Cardiac catheterization, 08/03/2022:
1: Moderate global hypokinesis with EF 37%
2: Severe multivessel CAD as described with patent MARTINI-LAD and patent but diseased SVG-OM2.
3. Successful stenting of 80% lesion in remotely stented segment in the proximal SVG-OM2 bypass graft (which is 27 yrs old) using 4.0 x 15 Xience CAITLIN with outstanding result
4. We will continue aspirin, Plavix, Eliquis for 3 days then transition to Eliquis and Plavix only for the next 12 months
Physical Exam
Vital Signs/Labs
Vital Signs
Temp Pulse Resp BP Pulse Ox
97.6 F 61 18 125/47 96
04/05/24 08:13 04/05/24 08:09 04/05/24 08:13 04/05/24 08:09 04/05/24 08:13
04/04/24 04/05/24 04/06/24
06:59 06:59 06:59
Actual Weight 68.7 kg 67.9 kg
04/05/24 04:09
04/05/24 04:09
APTT 22.1 Sec (23.4-35.0) L 04/03/24 13:25
Magnesium 2.2 mg/dl (1.6-2.3) 04/04/24 04:30
Triglycerides 113 mg/dl (10-149) 04/04/24 04:30
LDL Cholesterol, Calc 41 mg/dl 04/04/24 04:30
VLDL Cholesterol, Calc 22 mg/dl (0-30) 04/04/24 04:30
HDL Cholesterol 36 mg/dl 04/04/24 04:30
04/03/24
13:25
Dnp-J-Cuhksijnswj Pept 5010
LAB Results
04/03/24 04/03/24 04/03/24
13:25 16:46 20:01
Troponin I 0.020 0.300 H* D 0.807 H* D
04/03/24 04/04/24
23:18 04:30
Troponin I 0.904 H* 0.717 H*
Physical Exam
Constitutional: No acute distress
EENT: Anicteric
Cardiovascular: Rhythm & rate is regular and Pedal edema is absent
Respiratory: Respiratory effort normal and Lungs clear to auscul.
GI: Soft and Distention absent
Data Reviewed
-
Date of Service: April 05, 2024
[2024-04-05 11:29] VITALS: BP 102/48
[2024-04-05 11:31] VITALS: BP 99/47
--- NOTE | 2024-04-05 13:35 | CM ---
Reviewed chart. Received consult for [facility]. Met with Mr. Gan to review discharge plans. Reviewed [facility] with him. He is declining VNA Service at this time. Prior to admission he resides with his spouse and daughter in an
apartment. He is planning on moving into a new apartment at [facility] soon. Prior to admission he was independent with ambulation and adls. He does not have any DME in the home. He has a prescription plan and uses [facility]. Medical work-up in
progress. The discharge plan is to return home with his spouse and daughter when medically stable.
[2024-04-05] MEDS: FLUAD (65 yr+) 2024-2025 FORMULA 0.5 ML IM (13:39)
--- NOTE | 2024-04-05 14:00 | PTCARENOTE ---
D/C'd pt's IV line & telemetry pack. Assisted pt w/dressing to leave & discussed D/C instructions w/pt. 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 Pt escorted out via wheelchair w/daughter driving him home.
--- NOTE | 2024-04-05 14:21 | W.DCSUMMARY ---
Discharge Summary
Discharge Data
Date of Admission: 04/03/24
Date of Discharge: 04/05/24
-
Pending Results: No
Hospital Course
83 years old male presented with chest pain. Patient described pain that midsternal pressure type, not associated with diaphoresis. Patient was taking sublingual nitroglycerin and resting. Patient decided to come to the emergency room and while
he was in the car with his daughter, he had an ICD shock. Interrogation of his Medtronic device revealed at 35 J shock for ventricular tachycardia with successful quaker of sinus rhythm. Patient had positive troponin with peak at 0.94.
Patient was started on intravenous amiodarone drip. He was evaluated by pre coder and underwent left heart catheterization that did not show any new obstructive coronary disease with no source for ventricular tachycardia found. Echocardiogram
showed left ventricular ejection fraction of 35 to 40%, stage II diastolic dysfunction, Moderate to severe MR(progressed), mild to moderate AI( improved ), moderate to severe TR( improved ). Patient did not have recurrent ventricular tachycardia.
He was maintained on Eliquis and Plavix. He was hemodynamically stable. He was started on oral amiodarone. He had mild leukocytosis which was felt to be reactive. He had clear urine with chest radiography that did not show infiltrate. He had no
cough or hypoxia. Patient had a stable creatinine around 2.0 upon discharge. Patient was scheduled to follow with cardiology in the office. He was discharged in a stable condition. Patient remained independent and declined home care services.
Discharge Plan
-
Patient Disposition: Home with Home Care
Discharge Diagnosis/Procedures: NSTEMI: status post cardiac catheterization
ICD Shock (Medtronic), ventricular tachycardia, you were started on medicine called amiodarone.
Diet: As tolerated
Driving Restrictions: No driving for 24 hours
Stand Alone Forms: DC Instructions- Cath/EP Lab
Referrals:
Susan Carranza CRNP [Specified Professional Personl] - 04/20/24 8:40 am
Des Hayes MD [Family Provider] - in one to two weeks
Prescriptions:
New
amiodarone 200 mg Tablet
200 mg PO BID Qty: 60 0RF
Continued
febuxostat 40 MG tablet
40 mg PO DAILY
nitroglycerin 0.4 MG tablet, sublingual
0.4 mg sublingual [id number] PRN (Reason: chest pain)
metoprolol succinate 100 MG tablet extended release 24 hr
100 mg PO DAILY
finasteride 5 MG tablet
5 mg PO DAILY
albuterol sulfate 1 PUFF HFA aerosol inhaler
2 puff inhalation R Q4HPRN PRN (Reason: sob/wheezing)
pantoprazole 40 MG tablet,delayed release (DR/EC)
40 mg PO DAILY
atorvastatin 40 MG tablet
40 mg PO HS
ezetimibe 10 MG tablet
10 mg PO DAILY
clopidogrel 75 MG tablet
75 mg PO DAILY Qty: 0 0RF
furosemide 80 mg Tablet
80 mg PO MOWEFR
yg-jxq-XV-Nm-Wp-qozbkef-lutein 0.4-162-18 mg Tablet
1 tab PO DAILY
PreserVision AREDS 4,296 mcg-226 mg-90 mg Capsule
1 cap PO DAILY
Eliquis 2.5 mg Tablet
2.5 mg PO BID
Jardiance 10 mg Tablet
10 mg PO DAILY
Trelegy Ellipta 100-62.5-25 mcg Blister With Device
1 inh INHALATION R DAILY
isosorbide mononitrate 60 mg tablet extended release 24 hr
60 mg PO DAILY
levothyroxine 100 mcg Tablet
100 mcg PO DAILY
potassium tablet
1 tab PO MOWEFR
Discharge Orders:
Discharge Patient (As Directed); Ordered 04/05/24
Ordered By: Smith Brown
Care Plan Goals
Care Plan Goals:
Problem: Readiness for enhanced knowledge related to diagnosis and treatment plan
Goal: Understand your diagnosis and treatment plan needs, including medications if applicable.
Instructions: Know your diagnosis, underlying causes and treatment plan options, including medications if applicable. Consult with your health care team to learn about your diagnosis and treatment plan, including medications if applicable.
Discharge Date and Time
Print Language: VIETNAMESE
== END 2024-04-05 14:30 | disposition home or self-care (01) | DRG 281 ==
LOC: IVU 15:33
PROVIDERS: Internal Medicine Cardiovascular Disease; Registered Nurse; ADMITTING PHYSICIAN Hospitalist; ATTENDING PHYSICIAN Internal Medicine; CONSULT PHYSICIAN Internal Medicine Cardiovascular Disease; EMERGENCY PHYSICIAN Emergency Medicine; FAMILY PHYSICIAN Family Medicine
PROC: B2131ZZ Fluoroscopy of Multiple Coronary Artery Bypass Grafts using Low Osmolar Contrast (ICD-10-PCS; 2024-04-04)
PROC: 4A023N7 Measurement of Cardiac Sampling and Pressure, Left Heart, Percutaneous Approach (ICD-10-PCS; 2024-04-04)
PROC: B2111ZZ Fluoroscopy of Multiple Coronary Arteries using Low Osmolar Contrast (ICD-10-PCS; 2024-04-04)
PROC: B2181ZZ Fluoroscopy of Left Internal Mammary Bypass Graft using Low Osmolar Contrast (ICD-10-PCS; 2024-04-04)
DX: I21.4 Non-ST elevation (NSTEMI) myocardial infarction (principal); I13.0 Hypertensive heart and chronic kidney disease with heart failure and stage 1 through stage 4 chronic kidney disease, or unspecified chronic kidney disease; I47.20 Ventricular tachycardia, unspecified; I50.32 Chronic diastolic (congestive) heart failure; I48.92 Unspecified atrial flutter; J44.1 Chronic obstructive pulmonary disease with (acute) exacerbation; I25.10 Atherosclerotic heart disease of native coronary artery without angina pectoris; I48.0 Paroxysmal atrial fibrillation; N18.32 Chronic kidney disease, stage 3b; E03.9 Hypothyroidism, unspecified; I25.5 Ischemic cardiomyopathy; G47.33 Obstructive sleep apnea (adult) (pediatric); I08.3 Combined rheumatic disorders of mitral, aortic and tricuspid valves; Z87.891 Personal history of nicotine dependence; Z79.01 Long term (current) use of anticoagulants; Z79.02 Long term (current) use of antithrombotics/antiplatelets
CPT/HCPCS: 71045; 80048; 80053; 80061; 81003; 81015; 82962; 83036; 83735; 83880; 84484; 85025; 85027; 85730; 90662; 93005; 93306; 93459; 94640; 96374; 96375; 99291; C1894; G0008; Q9967

== ENCOUNTER → 2024-04-27 14:28 | Outpatient (REF) | payer MEDICARE, OTHER, SELFPAY | LOC: RAD 14:28 | PROVIDERS: ATTENDING PHYSICIAN Family Medicine | DX: E44.1 Mild protein-calorie malnutrition (principal) | CPT/HCPCS: 71046 ==

== ENCOUNTER → 2024-05-03 09:11 | Outpatient (REF) | payer MEDICARE, OTHER, SELFPAY | LOC: RAD 09:11 | PROVIDERS: ATTENDING PHYSICIAN Family Medicine | DX: E44.1 Mild protein-calorie malnutrition (principal) | CPT/HCPCS: 74177; Q9967 ==

== ENCOUNTER 2024-05-20 16:36 | Inpatient (IN) | payer MEDICARE, OTHER, SELFPAY ==
[2024-05-20] VITALS (7 sets, daily range): BP systolic 108–143; BP diastolic 51–69; BMI 21.0
[2024-05-20 13:22] LABS: % Basophils 0.5 % (0-2); % Eosinophils 0.9 % (0-6); % Immature Granulocytes 0.5 % (0-0.5); % Lymphocytes 10.8 % (20.5-51.1); % Monocytes 5.6 % (1.7-9.3); % Neutrophils 81.7 % (42.2-75.2); Absolute Basophils 0.1 10^3/uL (0-0.2); Absolute Eosinophils 0.1 10^3/uL (0-0.7); Absolute Immature Granulocytes 0.1 10^3/uL (0-0.05); Absolute Lymphocytes 1.4 10^3/uL (1.2-3.4); Absolute Monocytes 0.7 10^3/uL (0.1-0.6); Absolute Neutrophils 10.7 10^3/uL (1.4-6.5); Hematocrit 49.5 % (39.0-52.0); Hemoglobin 16.8 g/dL (13.0-18.0); Mean Corp Hgb Conc. 33.9 g/dL (33.0-37.0); Mean Corpuscular Hgb 29.1 pg (27.0-31.0); Mean Corpuscular Volume 85.8 fL (80.0-94.0); Mean Platelet Volume 10.2 fL (7.4-10.4); Nucleated Red Blood Cells % 0 % (-); Platelet Count 212 10^3/uL (130-400); Red Blood Cell Count 5.77 10^6/uL (4.70-6.10); Red Cell Dist. Width 16.2 % (11.5-14.5); White Blood Cell Count 13.1 10^3/uL (4.8-10.8)
[2024-05-20 13:38] LABS: ALT (SGPT) 24 U/L (0-50); AST (SGOT) 29 U/L (17-59); Albumin 4.7 g/dl (3.5-5.0); Alkaline Phosphatase 157 U/L (38-126); Blood Urea Nitrogen 86 mg/dl (9-20); Calcium 10.2 mg/dl (8.4-10.2); Carbon Dioxide 19 mmol/L (22-30); Chloride 99 mmol/L (98-107); Glucose 101 mg/dl (70-99); Potassium 5.3 mmol/L (3.5-5.1); Sodium 138 mmol/L (135-145); Total Bilirubin 1.3 mg/dl (0.2-1.3); Total Protein 7.2 g/dl (6.3-8.2); eGFR 17.71
--- NOTE | 2024-05-20 14:15 | ED.GENMED ---
History of Present Illness
General
Chief Complaint: Abnormal Lab Value
Source: patient and family
Exam Limitations: none
Time Seen by Provider: 05/20/24 13:28
History of Present Illness
History of Present Illness:
83-year-old male who presents due to abnormal labs. Patient states for about a week he has been fatigued and weak and has had nausea. Patient states he has had difficulty sleeping and unable to eat or drink very much at all. Patient denies any
abdominal pain. States he tried to eat the other night and he vomited. Denies abdominal distention. No fevers.
Past History
Past History
ED Past Medical History: Arrthythmia (A. fib), CAD, CHF, COPD, GERD, HTN, Hypercholesterolemia, [place], Hypothyroidism and Other (PNA)
ED Past Surgical History: Cardiac (Stents, Pacer/Defib Ablation) and Cholecystectomy
Social History
Tobacco: Former smoker (quit 50 yrs ago)
Alcohol: Occasional
Drug: None
Personal:
Living: with family
Employment: Retired
Family History
Family History: Early CAD
Phy Exam
Physical Exam
Physical Exam:
CONSTITUTIONAL Patient alert and oriented to person, place and time. Well-appearing. Vital signs reviewed. Dry mucous membranes
HEAD atraumatic, normocephalic.
EYES eyelids normal to inspection, Extraocular muscles intact, Conjunctiva normal, Sclera normal.
NECK normal range of motion, Trachea midline, no jugular venous distention.
RESPIRATORY CHEST No respiratory distress noted, Chest expansion equal
ABDOMEN abdomen nontender, Bowel sounds normal. No distention.
UPPER EXTREMITY range of motion normal, Motor strength normal, no cyanosis, no edema.
LOWER EXTREMITY range of motion normal, Motor strength normal, no cyanosis, no edema.
NEURO Speech normal, No focal motor deficits, [place] coma scale 15, Memory normal, Cranial Nerves intact to screening exam.
SKIN skin warm, dry, and normal in color.
Course
Orders/Labs/Results
Orders:
Orders
05/20/24 13:05
CMP [Comprehensive Metabolic Panel] Urgent
Complete Blood Count/With Diff Urgent
05/20/24 14:13
Electrocardiogram (*1) Urgent
Reason for Study: Other
Other Reason for Exam: hyperkalemia
Bladder Scan- Treatment ONCE
EKG- Treatment ONCE
05/20/24 14:14
0.9% Sodium Chloride 1000 ml [Nss] 1,000 ml IV BOLUS
Abnormal Lab Results
05/20/24
13:05
WBC 13.1 H 10^3/uL
(4.8-10.8)
RDW 16.2 H %
(11.5-14.5)
Abs Immat Gran (auto) 0.1 H 10^3/uL
(0-0.05)
Absolute Neuts (auto) 10.7 H 10^3/uL
(1.4-6.5)
Absolute Monos (auto) 0.7 H 10^3/uL
(0.1-0.6)
Neutrophils % 81.7 H %
(42.2-75.2)
Lymphocytes % 10.8 L %
(20.5-51.1)
Potassium 5.3 H mmol/L
(3.5-5.1)
Carbon Dioxide 19 L mmol/L
(22-30)
BUN 86 H mg/dl
(9-20)
Creatinine 3.3 H mg/dL
(0.7-1.3)
Glucose 101 H mg/dl
(70-99)
Alkaline Phosphatase 157 H U/L
(38-126)
05/20/24 13:05
05/20/24 13:05
Vital Signs
Initial and Last Documented VS:
Initial Vital Signs
Temp Pulse Resp BP Pulse Ox
98.1 F 69 18 122/57 98
05/20/24 12:58 05/20/24 12:58 05/20/24 12:58 05/20/24 12:58 05/20/24 12:58
Last Documented Vital Signs
Temp Pulse Resp BP Pulse Ox
98.1 F 69 18 122/57 98
05/20/24 12:58 05/20/24 12:58 05/20/24 12:58 05/20/24 12:58 05/20/24 12:58
MDM/Problems Addressed
MDM/Problems Addressed:
Acute kidney injury, volume depletion
*Pulse Oximetry
Patient hypoxic: no
*Central Sterilization Technician Interpretation
Rate: normal
Interpretation: abnormal
Rhythm: ventricular paced
*Critical Care Note
Total Time (30-74mins, 75-104mins- exclusive of procedures): Not Applicable
Data Reviewed
Review of Other/Old Records Reveals: Labs (Previous labs reviewed)
Source: patient and family
Prescriptions/Medications Considered But Not Given:
Considered insulin for hyperkalemia but not needed at this time and watch closely. Paced on EKG
Patient Management
Discussion with other providers: Hospitalist
Escalation/DeEscalation of care consider admission/obs:
Worsening renal failure. Patient does appear dry. Unable to eat and drink and unclear source as to whether this could be related to his renal dysfunction or something else. His abdomen is benign. Admit for further workup, hydration and
reassessment of renal for
ED Attending Note
-
Portions of this chart may have been created with voice recognition software.� Occasional wrong word or��sound alike� substitutions may have occurred due to the inherent limitations of voice recognition software.
Discharge Plan
Departure
Patient Disposition: Admit
Date of Disposition: 05/20/24
Time of Disposition: 14:47
Admit to: Telemetry
Presentation/result/management discussed w/ accepting MD/DO: Hospitalist
Discharge Problem:
Acute renal failure
Prescriptions:
No Action
febuxostat 40 MG tablet
40 mg PO DAILY
nitroglycerin 0.4 MG tablet, sublingual
0.4 mg sublingual [id number] PRN (Reason: chest pain)
metoprolol succinate 100 MG tablet extended release 24 hr
100 mg PO DAILY
finasteride 5 MG tablet
5 mg PO DAILY
albuterol sulfate 1 PUFF HFA aerosol inhaler
2 puff inhalation R Q4HPRN PRN (Reason: sob/wheezing)
pantoprazole 40 MG tablet,delayed release (DR/EC)
40 mg PO DAILY
atorvastatin 40 MG tablet
40 mg PO HS
ezetimibe 10 MG tablet
10 mg PO DAILY
clopidogrel 75 MG tablet
75 mg PO DAILY Qty: 0 0RF
furosemide 80 mg Tablet
80 mg PO MOWEFR
es-eab-YM-Zq-Iv-nogjyfb-lutein 0.4-162-18 mg Tablet
1 tab PO DAILY
PreserVision AREDS 4,296 mcg-226 mg-90 mg Capsule
1 cap PO DAILY
Eliquis 2.5 mg Tablet
2.5 mg PO BID
Jardiance 10 mg Tablet
10 mg PO DAILY
Trelegy Ellipta 100-62.5-25 mcg Blister With Device
1 inh INHALATION R DAILY
isosorbide mononitrate 60 mg tablet extended release 24 hr
60 mg PO DAILY
levothyroxine 100 mcg Tablet
100 mcg PO DAILY
potassium tablet
1 tab PO MOWEFR
amiodarone 200 mg Tablet
200 mg PO BID Qty: 60 0RF
Referrals:
Emilia Rodriguez MD [Family Provider] -
Interventions
Interventions:
*Risk Screen - Suicide Last Done: 05/20/24 13:00
*General Assessment Last Done: 05/20/24 13:00
*Neglect/Abuse Screening Last Done: 05/20/24 13:00
ED- Fall Risk Assessment Last Done: 05/20/24 13:40
*ED COVID-19 Vaccine History Last Done: 05/20/24 13:00
Discharge Date and Time
Print Language: FAROESE
[2024-05-20] MEDS: NSS 1000 IV ×2 (14:20→18:26)
--- NOTE | 2024-05-20 15:41 | HPS.HSE ---
Family Physician
-
Family Physician: Emilia Rodriguez
Chief Complaint
-
Weakness and Poor Appetite
History of Present Illness
Patient is a 83 y/o male past medical history of CAD, CHF, A-Fib, CKD and COPD who presents with weakness and poor appetite. Patient reports worsening symptoms over the past week. He reports no appetite stating he has consumed a few Boost shakes
over the past few days, but when he tried to eat some solid food on Thursday night he developed vomiting. He repots weight loss related to poor oral intake. He denies abdominal pain, diarrhea or constipation. He reports some difficulty urinating
over the past week. He denies dysuria.
Medical History
Past Medical History
Past Medical History: Reports Other
Additional Past Medical History:
Coronary Artery Disease s/p CABG and Stent
Chronic HFrEF (EF 35-40%. Stage II diastolic dysfunction)
Valvular Heart Disease: Moderate/Severe Mitral Regurg, Moderate/Severe Tricuspid Regurg, Mild/Moderate Aortic Regurg
Paroxysmal Atrial Fibrillation
Ventricular Tachycardia
Hyperlipidemia
CKD Stage IIIB
COPD
Pulmonary Hypertension
Hypothyroidism
BPH
RAVINDRA
Gout
Past Surgical History: Reports Other
Additional Past Surgical History:
CABG
Cardiac Stent
Cardiac Ablation
ICD
Social History
Tobacco: Non-smoker
Alcohol: None
Drug: None
Living: With Family
Family History
Family History: Not pertinent
Allergies / Home Medications
Allergies reflects when Allergies were last updated in [employer].
Home Medications with original date entered in [employer]
Allergy/Medication List:
Allergies
Allergy/AdvReac Type Severity Reaction Status Date / Time
allopurinol Allergy Rash Verified 05/20/24 12:59
meloxicam [From Mobic] Allergy Nausea/dizz Verified 05/20/24 12:59
iness/vomit
ing
meperidine HCl [From Demerol] Allergy Vomiting Verified 05/20/24 12:59
Home Medications
febuxostat 40 mg tablet 40 mg PO DAILY Gout 04/10/14
finasteride 5 mg tablet 5 mg PO DAILY Urinary issue 04/20/20
metoprolol succinate 100 mg tablet,extended release 24 hr 100 mg PO DAILY Heart disease/condition 04/20/20
nitroglycerin 0.4 mg sublingual tablet 0.4 mg sublingual [id number] PRN chest pain 04/20/20
albuterol sulfate 90 mcg/actuation aerosol inhaler 2 puff inhalation R Q4HPRN PRN sob/wheezing 03/05/21
pantoprazole 40 mg tablet,delayed release 40 mg PO DAILY Gastrointestinal issue 03/06/21
atorvastatin 40 mg tablet 40 mg PO HS High cholesterol 09/20/21
ezetimibe 10 mg tablet 10 mg PO DAILY High cholesterol 09/20/21
clopidogrel 75 mg tablet 75 mg PO DAILY Blood clot prevention/tx #0 tabs 08/01/22
apixaban 2.5 mg tablet (Eliquis) 2.5 mg PO BID 04/03/24
empagliflozin 10 mg tablet (Jardiance) 10 mg PO DAILY 04/03/24
fluticasone fur. 100 mcg-umeclid 62.5 mcg-vilant 25 mcg inhalat.powder (Trelegy Ellipta) 1 inh inhalation R DAILY 04/03/24
furosemide 80 mg tablet 80 mg PO MOWEFR 04/03/24
isosorbide mononitrate 60 mg tablet,extended release 24 hr 60 mg PO DAILY 04/03/24
levothyroxine 100 mcg tablet 100 mcg PO DAILY 04/03/24
hydrvkji-yrf-AF 0.4 mg-calcium 162 mg-iron 18 qy-bsttwhw-fwenny tablet (Centravites) 1 tab PO DAILY 04/03/24
potassium chloride 20 mEq tablet,extended release 20 meq PO MOWEFR ##0 04/03/24
vitamins A,C,A-dvzu-xyuzcx 4,296 mcg-226 mg-90 mg capsule (PreserVision AREDS) 1 cap PO DAILY 04/03/24
amiodarone 200 mg tablet 200 mg PO BID #60 tabs 04/05/24
sulfamethoxazole 800 mg-trimethoprim 160 mg tablet (Bactrim DS) 1 tab PO BID 05/20/24
Review of Systems
-
A 12 point ROS was completed and negative except as noted: Yes
Constitutional: Denies Fever or Chills
Respiratory: Denies Cough or Trouble Breathing
Cardiac: Denies Chest Pain or Palpitations
Abdomen/GI: Reports See HPI
Physical Exam
Vital Signs
Vital Signs
Temp Pulse Resp BP Pulse Ox
98.1 F 78 23 108/59 99
05/20/24 12:58 05/20/24 15:30 05/20/24 15:30 05/20/24 15:00 05/20/24 15:30
Physical Exam
General: Comfortable and Conversant
HEENT: NormoCephalic, Anicteric and Atraumatic
Respiratory: Clear and Non Labored Respirations
Cardiac: S1/S2 and Regular Rhythm
GI: Soft, Non Tender and Normal Bowel Sounds
Genito-urinary: Other (Palpable distended bladder)
Musculoskeletal: No Clubbing and No Cyanosis
Skin: Warm and Dry
Neuro: Awake, Alert, Oriented and Nonfocal/grossly intact
Psych: Calm
Laboratory Results
-
05/20/24 13:05
05/20/24 13:05
Laboratory Results
Total Bilirubin 1.3 mg/dl (0.2-1.3) 05/20/24 13:05
AST 29 U/L (17-59) 05/20/24 13:05
ALT 24 U/L (0-50) 05/20/24 13:05
Alkaline Phosphatase 157 U/L (38-126) H 05/20/24 13:05
Data Reviewed
-
Lab Data: Labs Reviewed by me
Old Records: Reviewed
Impression/Plan
-
Acute Kidney Injury on CKD Stage IIIB with mild Hyperkalemia, multifactorial related to hypovolemia due to poor oral intake, recent Bactrim and possible urinary retention given palpable bladder on exam
-Check renal/bladder ultrasound
-Monitor bladder scans
-Hold Lasix and Jardiance
-Stop Bactrim which was started two days ago
-Continue IVFs
-Recheck labs in AM
Coronary Artery Disease s/p CABG and Stent
-Continue Plavix
-Continue Isosorbide mononitrate
Chronic HFrEF (EF 35-40%. Stage II diastolic dysfunction)
Valvular Heart Disease: Moderate/Severe Mitral Regurg, Moderate/Severe Tricuspid Regurg, Mild/Moderate Aortic Regurg
-Lasix and Jardience on hold
-Monitor Is&Os and Daily Weights
Paroxysmal Atrial Fibrillation
Hx NSVT s/p ICD
-Continue Eliquis
-Continue amiodarone and Toprol XL
Hyperlipidemia
-Continue atorvastatin and ezetimibe
COPD, no acute exacerbation
-Continue Trelegy
Hypothyroidism
-Continue levothyroxine
BPH
-Continue finasteride
DVT proph: Eliquis
Code Status: Full Code
--- NOTE | 2024-05-20 16:01 | W.PN.UPDATE ---
Update Note
Progress Note Update
This is an addendum to the H&P written by Radha Arellano on 05/20/2024. Patient seen and examined independently with PA.
83-year-old male past medical history of CAD status post stent, atrial tachycardia, paroxysmal atrial fibrillation status post ablation on Eliquis, chronic HFrEF,, NSVT with ICD, CKD 3, hypothyroidism, COPD, GERD, BPH, sleep apnea,
hypercholesteremia, gout, presenting with fatigue, nausea, decreased p.o. intake over the past 2 weeks.
Was started on Bactrim 2 days ago for abnormal urinalysis although denied specific urinary symptoms.
He has been having difficulty urinating over the past week and has to pump his penis to urinate. On examination there appears to be some bladder fullness. Bladder scan reportedly only showed 100 cc of fluid.
Labs show leukocytosis, BRITTANIE on CKD with creatinine of 3.3 from 2 and hyperkalemia with potassium 5.3. Patient with symptomatic uremia. Causes of BRITTANIE could be multifactorial secondary to hypovolemia, urinary retention and recent addition of Bactrim
2 days ago for abnormal urinalysis. IV fluids, bladder scan protocol and Morton if necessary, renal ultrasound, hold Bactrim. Hold Lasix, potassium, Jardiance.
[2024-05-20 16:44] LABS: Urine Albumin Trace (Neg - Trace); Urine Bilirubin Negative (Negative); Urine Character Slightly Cloudy (Clear); Urine Color Yellow; Urine Glucose Negative (Negative); Urine Ketone Negative (Negative); Urine Leukocyte 2+ (Negative); Urine Nitrite Negative (Negative); Urine Occult Blood 2+ (Negative); Urine Urobilinogen Negative (Neg - 1+)
[2024-05-20 16:52] LABS: Urine Bacteria Many (Negative); Urine Red Blood Cell 0-2 /HPF (0-2); Urine White Cell >100 /HPF (0-5)
--- NOTE | 2024-05-20 19:06 | W.PN.UPDATE ---
Update Note
Progress Note Update
Renal Ultrasound without evidence of hydronephrosis, and post-void residual of 100cc.
Urinalysis is consistent with urinary tract infection. Given patient reports increased urinary hesitancy will start empiric Ceftriaxone.
[2024-05-20] MEDS: SYMBICORT 80/4.5 MCG INHALER 2 PUFF INH (19:47)
[2024-05-20] MEDS: ELIQUIS 2.5 MG PO (20:02)
[2024-05-20] MEDS: PACERONE 200 MG PO (20:02)
[2024-05-20] MEDS: STERILE WATER FOR INJECTION 10 ML IV (20:05)
[2024-05-20] MEDS: ROCEPHIN 1000 MG IV (20:05)
[2024-05-20] MEDS: LIPITOR 40 MG PO (20:11)
[2024-05-21] VITALS (7 sets, daily range): BP systolic 113–140; BP diastolic 54–67; PULSE 66–70; O2SAT 98–99; BMI 21.2
[2024-05-21] MEDS: SYNTHROID 100 MCG PO (05:59)
[2024-05-21] MEDS: NSS 1000 IV ×2 (05:59→19:38)
[2024-05-21] MEDS: PLAVIX 75 MG PO (08:05)
[2024-05-21] MEDS: PACERONE 200 MG PO ×2 (08:05→19:39)
[2024-05-21] MEDS: ELIQUIS 2.5 MG PO ×2 (08:05→19:38)
[2024-05-21] MEDS: PROTONIX 40 MG PO (08:05)
[2024-05-21] MEDS: IMDUR (EXTENDED RELEASE) 60 MG PO (08:05)
[2024-05-21] MEDS: PROSCAR 5 MG PO (08:06)
[2024-05-21] MEDS: ZETIA 10 MG PO (08:07)
[2024-05-21] MEDS: TOPROL XL PO (08:07)
[2024-05-21] MEDS: SYMBICORT 80/4.5 MCG INHALER 2 PUFF INH ×2 (08:20→20:50)
[2024-05-21] MEDS: SPIRIVA RESPIMAT 2.5 MCG 2 PUFF INH (08:21)
[2024-05-21 08:27] LABS: Blood Urea Nitrogen 70 mg/dl (9-20); Calcium 8.8 mg/dl (8.4-10.2); Carbon Dioxide 21 mmol/L (22-30); Chloride 104 mmol/L (98-107); Estimated Creatinine Clearance 17 ml/min; Glucose 70 mg/dl (70-99); Magnesium 2.1 mg/dl (1.6-2.3); Phosphorus 3.7 mg/dl (2.5-4.5); Potassium 4.3 mmol/L (3.5-5.1); Sodium 140 mmol/L (135-145); eGFR 20.68
[2024-05-21 08:47] LABS: TSH Reflex To Free T4 2.27 uIU/ml (0.47-4.68)
[2024-05-21 09:26] LABS: Hematocrit 43.3 % (39.0-52.0); Hemoglobin 14.1 g/dL (13.0-18.0); Mean Corp Hgb Conc. 32.6 g/dL (33.0-37.0); Mean Corpuscular Hgb 28.7 pg (27.0-31.0); Mean Corpuscular Volume 88.2 fL (80.0-94.0); Mean Platelet Volume 10.1 fL (7.4-10.4); Platelet Count 164 10^3/uL (130-400); Red Blood Cell Count 4.91 10^6/uL (4.70-6.10); Red Cell Dist. Width 15.6 % (11.5-14.5); White Blood Cell Count 8.2 10^3/uL (4.8-10.8)
--- NOTE | 2024-05-21 09:41 | W.PN.HOSP.TC ---
Today's Communication/Plan
-
see bold
Assessment / Plan
Assessment / Plan
Gen: NAD, awake and alert
Eyes: EOMI, PERRLA, no scleral icterus.
Neck: supple.
CV: RRR, +S1/S2, no m/r/g.
Resp: CTAB, no rales, wheezes, or rhonchi.
Abd: +BS, soft, NT, ND
Skin: No rashes.
Neuro: CN 2-12 intact, non-focal.
Psych: Normal mood and affect.
Renal U/S: Unremarkable exam of the kidneys. Moderate prostate hypertrophy. Stable. Moderate postvoid bladder residual. New.
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
-with mild Hyperkalemia, multifactorial related to hypovolemia due to poor oral intake, recent Bactrim and possible urinary retention given palpable bladder on exam
-Renal/bladder U/S unremarkable
-Monitor bladder scans
-Holding Lasix and Jardiance
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
-Continue IVFs
Chronic HFrEF (EF 35-40%. Stage II diastolic dysfunction)
Valvular Heart Disease: Moderate/Severe Mitral Regurg, Moderate/Severe Tricuspid Regurg, Mild/Moderate Aortic Regurg
-Lasix and Jardience on hold
-Monitor Is&Os and Daily Weights
Other problems:
Hyperkalemia, resolved
CAD s/p CABG and Stent: cont Plavix/Imdur
PAF, h/o NSVT s/p ICD: cont amio/BB/Eliquis
Hyperlipidemia: cont atorvastatin/ezetimibe
COPD: no acute exacerbation, cont Trelegy
Hypothyroidism: cont levothyroxine
BPH: cont finasteride
FULL/Eliquis
Anticipated Discharge: 24 - 48 hours
Subjective/Interval History
-
Date of Service: May 21, 2024
No acute complaints.
Objective Data
-
Labs:
Laboratory Results
05/21/24
07:09
WBC 8.2
Hgb 14.1
Hct 43.3
Plt Count 164 D
Sodium 140
Potassium 4.3
Chloride 104
Carbon Dioxide 21 L
BUN 70 H
Creatinine 2.9 H
Glucose 70
Calcium 8.8
Vital Signs:
Vital Signs
Temp Pulse Resp BP Pulse Ox
97.8 F 71 18 113/63 97
05/21/24 07:00 05/21/24 08:29 05/21/24 08:29 05/21/24 08:07 05/21/24 08:29
I&O
05/20/24 05/21/24 05/22/24
06:59 06:59 06:59
Intake Total 1380 / 1380
Output Total 250 / 250
Balance 1130 / 1130
--- NOTE | 2024-05-21 15:39 | CM ---
international project manager reviewed patient's chart and met with patient and patient lives with his spouse and daughter in a 1st floor apartment, no steps to enter, patient is independent with adl's and ambulation, no dme. Physical therapy are recommending home
health for patient, options reviewed and patient has selected [facility]. Referral sent to [facility].
PCP: Emilia Rodriguez
Pharmacy [facility]
Plan; Home with spouse and [facility] when stable.
[2024-05-21] MEDS: ROCEPHIN 1000 MG IV (19:38)
[2024-05-21] MEDS: STERILE WATER FOR INJECTION 10 ML IV (19:38)
[2024-05-21] MEDS: LIPITOR 40 MG PO (19:39)
[2024-05-22 03:43] VITALS: BP 129/62
[2024-05-22 05:46] VITALS: BMI 21.3
[2024-05-22] MEDS: SYNTHROID 100 MCG PO (05:54)
[2024-05-22 07:10] VITALS: BP 114/60
[2024-05-22] MEDS: ZETIA PO (07:32)
[2024-05-22] MEDS: ELIQUIS PO (07:32)
[2024-05-22] MEDS: PACERONE PO (07:32)
[2024-05-22] MEDS: TOPROL XL PO (07:32)
[2024-05-22] MEDS: PLAVIX PO (07:32)
[2024-05-22] MEDS: PROSCAR PO (07:32)
[2024-05-22] MEDS: PROTONIX PO (07:32)
[2024-05-22] MEDS: IMDUR (EXTENDED RELEASE) PO (07:32)
[2024-05-22] MEDS: NSS 1000 IV (07:36)
[2024-05-22] MEDS: PLAVIX 75 MG PO (07:58)
[2024-05-22] MEDS: ZETIA 10 MG PO (07:58)
[2024-05-22] MEDS: PACERONE 200 MG PO ×2 (07:59→20:32)
[2024-05-22] MEDS: PROSCAR 5 MG PO (07:59)
[2024-05-22] MEDS: ELIQUIS 2.5 MG PO ×2 (07:59→20:32)
[2024-05-22] MEDS: PROTONIX 40 MG PO (07:59)
[2024-05-22] MEDS: IMDUR (EXTENDED RELEASE) 60 MG PO (07:59)
[2024-05-22] MEDS: SPIRIVA RESPIMAT 2.5 MCG 2 PUFF INH (08:02)
[2024-05-22] MEDS: SYMBICORT 80/4.5 MCG INHALER 2 PUFF INH ×2 (08:03→20:21)
--- NOTE | 2024-05-22 10:44 | W.PN.HOSP.TC ---
Today's Communication/Plan
-
see bold
Assessment / Plan
Assessment / Plan
Gen: NAD, awake and alert
Eyes: EOMI, PERRLA, no scleral icterus.
Neck: supple.
CV: Remains RRR, +S1/S2, no m/r/g.
Resp: Remains CTAB, no rales, wheezes, or rhonchi.
Abd: Remains +BS, soft, NT, ND
Skin: No rashes.
Neuro: CN 2-12 intact, non-focal.
Psych: Normal mood and affect.
Renal U/S: Unremarkable exam of the kidneys. Moderate prostate hypertrophy. Stable. Moderate postvoid bladder residual. New.
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
-with mild Hyperkalemia, multifactorial related to hypovolemia due to poor oral intake, recent Bactrim and possible urinary retention given palpable bladder on exam
-Renal/bladder U/S unremarkable
-Monitor bladder scans
-Holding Lasix and Jardiance
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
-Continue IVFs, today's Cr pending
Chronic HFrEF (EF 35-40%. Stage II diastolic dysfunction)
Valvular Heart Disease: Moderate/Severe Mitral Regurg, Moderate/Severe Tricuspid Regurg, Mild/Moderate Aortic Regurg
-Lasix and Jardience on hold
-Monitor Is&Os and Daily Weights
Other problems:
Hyperkalemia, resolved
CAD s/p CABG and Stent: cont Plavix/Imdur
PAF, h/o NSVT s/p ICD: cont amio/BB/Eliquis
Hyperlipidemia: cont atorvastatin/ezetimibe
COPD: no acute exacerbation, cont Trelegy
Hypothyroidism: cont levothyroxine
BPH: cont finasteride
FULL/Eliquis
Anticipated Discharge: Within 24 hours
Subjective/Interval History
-
Date of Service: May 22, 2024
No new complaints.
Objective Data
-
Vital Signs:
Vital Signs
Temp Pulse Resp BP Pulse Ox
97.8 F 68 14 114/60 98
05/22/24 07:10 05/22/24 08:08 05/22/24 08:08 05/22/24 07:32 05/22/24 08:08
I&O
05/21/24 05/22/24 05/23/24
06:59 06:59 06:59
Intake Total 1380 / 1380 2520 / 2520
Output Total 250 / 250 1050 / 1050
Balance 1130 / 1130 1470 / 1470
[2024-05-22 11:06] VITALS: BP 105/41
[2024-05-22 11:43] LABS: Blood Urea Nitrogen 48 mg/dl (9-20); Calcium 8.6 mg/dl (8.4-10.2); Carbon Dioxide 16 mmol/L (22-30); Chloride 111 mmol/L (98-107); Estimated Creatinine Clearance 22 ml/min; Glucose 118 mg/dl (70-99); Potassium 4.2 mmol/L (3.5-5.1); Sodium 142 mmol/L (135-145); eGFR 28.81
[2024-05-22 15:25] VITALS: BP 112/54
[2024-05-22 19:54] VITALS: BP 106/74
[2024-05-22] MEDS: ROCEPHIN 1000 MG IV (20:34)
[2024-05-22] MEDS: STERILE WATER FOR INJECTION 10 ML IV (20:34)
[2024-05-22] MEDS: LIPITOR 40 MG PO (22:26)
[2024-05-22 23:10] VITALS: BP 95/47
[2024-05-23 03:29] VITALS: BP 119/58
[2024-05-23] MEDS: SYNTHROID 100 MCG PO (05:00)
[2024-05-23 05:46] VITALS: BMI 21.5
[2024-05-23 07:40] VITALS: BP 141/59
[2024-05-23] MEDS: PROSCAR 5 MG PO (07:55)
[2024-05-23] MEDS: PACERONE 200 MG PO (07:55)
[2024-05-23] MEDS: TOPROL XL 100 MG PO (07:55)
[2024-05-23] MEDS: IMDUR (EXTENDED RELEASE) 60 MG PO (07:56)
[2024-05-23] MEDS: PROTONIX 40 MG PO (07:56)
[2024-05-23] MEDS: ZETIA 10 MG PO (07:56)
[2024-05-23] MEDS: ELIQUIS 2.5 MG PO (07:56)
[2024-05-23] MEDS: PLAVIX 75 MG PO (07:56)
[2024-05-23] MEDS: SPIRIVA RESPIMAT 2.5 MCG 2 PUFF INH (08:15)
[2024-05-23] MEDS: SYMBICORT 80/4.5 MCG INHALER 2 PUFF INH (08:15)
[2024-05-23 08:33] LABS: Hematocrit 45.6 % (39.0-52.0); Hemoglobin 14.6 g/dL (13.0-18.0); Mean Corpuscular Volume 90.7 fL (80.0-94.0); Mean Platelet Volume 10.1 fL (7.4-10.4); Platelet Count 178 10^3/uL (130-400); Red Blood Cell Count 5.03 10^6/uL (4.70-6.10); Red Cell Dist. Width 16.5 % (11.5-14.5); White Blood Cell Count 9.9 10^3/uL (4.8-10.8)
[2024-05-23 09:23] LABS: Blood Urea Nitrogen 40 mg/dl (9-20); Calcium 9.4 mg/dl (8.4-10.2); Carbon Dioxide 16 mmol/L (22-30); Chloride 111 mmol/L (98-107); Estimated Creatinine Clearance 26 ml/min; Glucose 91 mg/dl (70-99); Potassium 4.7 mmol/L (3.5-5.1); Sodium 144 mmol/L (135-145); eGFR 34.35
[2024-05-23 11:19] VITALS: BP 132/58
[2024-05-23 11:48] VITALS: BP 130/64; PULSE 70; O2SAT 98
[2024-05-23 15:00] VITALS: BP 117/58
--- NOTE | 2024-05-23 15:02 | CM ---
Patient seen at bedside with physicians. Patient stated that he would go home with [facility] and a daughter. Patient completed IMM and form placed on chart. CM will confirm with [facility] and follow for discharge planning needs.
PLan; home with [facility]
--- NOTE | 2024-05-23 15:38 | VNURNOTE ---
Home Health Liaison spoke with patient to discuss [facility] nurse/therapy, visits, schedule and homebound status. Patient is agreeable and understands that visits at home will be 2-3 x per week to assess and teach medical management. Patient is aware
that [facility] will contact them for start of care in 1-2 days after discharge from .
[facility] referral updated in [facility].
--- NOTE | 2024-05-23 16:35 | W.PN.HOSP.TC ---
Addendum entered and electronically signed by Aram Calvo MD, Resident 05/24/24 16:03:
Per nutrition this patient meets criteria for severe protein calorie malnutrition
Addendum entered and electronically signed by Jayla Jose MD 05/24/24 08:44:
as per nutrition: pt meets criteria for protein calorie malnutrition
Addendum entered and electronically signed by Jayla Jose MD 05/23/24 19:20:
I saw and evaluated the patient independently. I reviewed the resident�s note and agree with findings and plan as documented by Dr. Calvo.
GENERAL: well developed, well nourished, male in no apparent distress
HEENT: NC/AT
HEART: regular rate and rhythm, +S1, +S2
LUNGS : clear to auscultation bilaterally
ABDOM: soft, nontender, nondistended, + bowel sounds
EXT: no cyanosis, clubbing, or edema
NEUROLOGIC: grossly intact
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
Chronic HFrEF (EF 35-40%. Stage II diastolic dysfunction)/Valvular Heart Disease: Moderate/Severe Mitral Regurg, Moderate/Severe Tricuspid Regurg, Mild/Moderate Aortic Regurg--Resume Lasix and Jardiance--cont daily weights, I/Os
Abnormal UA--urine culture with lactobacillus--was on ceftriaxone--consideration for f/u with urology--pt denies sexual activity
CAD s/p CABG and Stent-- cont Plavix/Imdur
PAF, h/o NSVT s/p ICD-- cont amio/BB/Eliquis
Hyperlipidemia-- cont atorvastatin/ezetimibe
COPD-- no acute exacerbation, cont Trelegy
Hypothyroidism-- cont levothyroxine
BPH-- cont finasteride
code status --FULL
DVT proph --Eliquis
Original Note:
Today's Communication/Plan
-
Discharge home with visiting nurse
Assessment / Plan
Assessment / Plan
83-year-old male past medical history of CAD status post stent, atrial tachycardia, paroxysmal atrial fibrillation status post ablation on Eliquis, chronic HFrEF,, NSVT with ICD, CKD 3, hypothyroidism, COPD, GERD, BPH, sleep apnea,
hypercholesteremia, gout, presented with fatigue, nausea, decreased p.o. intake over the past 2 weeks on day of admission.
05/20/24 Renal U/S: Unremarkable exam of the kidneys. Moderate prostate hypertrophy. Stable. Moderate postvoid bladder residual. New.
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
-mild Hyperkalemia, multifactorial related to hypovolemia due to poor oral intake, recent Bactrim and possible urinary retention given palpable bladder on exam-resolved
-Renal/bladder U/S unremarkable
-Resume Lasix and Jardiance
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
-Creatinine 1.9 today (baseline around 2.0)
#Chronic HFrEF (EF 35-40%. Stage II diastolic dysfunction)
Valvular Heart Disease: Moderate/Severe Mitral Regurg, Moderate/Severe Tricuspid Regurg, Mild/Moderate Aortic Regurg
-Resume Lasix and Jardience
# Abnormal UA
-Stop IV ceftriaxone
Chronic problems:
CAD s/p CABG and Stent: cont Plavix/Imdur
PAF, h/o NSVT s/p ICD: cont amio/BB/Eliquis
Hyperlipidemia: cont atorvastatin/ezetimibe
COPD: no acute exacerbation, cont Trelegy
Hypothyroidism: cont levothyroxine
BPH: cont finasteride
FULL/Eliquis
Anticipated Discharge: Today
Subjective/Interval History
-
Date of Service: May 23, 2024
Interval events: No new complaints
Objective Data
-
Labs:
Laboratory Results
05/23/24
08:09
WBC 9.9
Hgb 14.6
Hct 45.6
Plt Count 178
Sodium 144
Potassium 4.7
Chloride 111 H
Carbon Dioxide 16 L
BUN 40 H
Creatinine 1.9 H
Glucose 91
Calcium 9.4
Vital Signs:
Vital Signs
Temp Pulse Resp BP Pulse Ox
97.9 F 77 18 117/58 99
05/23/24 15:00 05/23/24 15:00 05/23/24 15:00 05/23/24 15:00 05/23/24 15:00
I&O
05/22/24 05/23/24 05/24/24
06:59 06:59 06:59
Intake Total 2520 / 2520 720 / 720 480 / 480
Output Total 1050 / 1050 850 / 850
Balance 1470 / 1470 -130 / -130 480 / 480
Review of Systems
-
History Source: Patient
Constitutional: Reports No Symptoms
Respiratory: Reports No Symptoms
Cardiac: Reports No Symptoms
Abdomen/GI: Reports No Symptoms
Genitourinary: Reports No Symptoms
Skin: Reports No Symptoms
Neuro: Reports No Symptoms
Physical Exam
-
General: Well Developed, Well Nourished and No Apparent Distress
Respiratory: Clear to Auscultation
Cardiac: Regular Rhythm and S1/S2
GI: Soft and Nontender
Musculoskeletal: No Edema
Skin: Warm and Dry
Neuro: Awake, Alert and Oriented
Psych: Calm
Data Reviewed
-
Labs: Labs Reviewed by me, Discussed with Physician and Discussed with Patient
--- NOTE | 2024-05-23 17:10 | W.DCSUMMARY ---
Addendum entered and electronically signed by Jayla Jose MD 05/23/24 20:29:
Read, reviewed, and agree. See same day progress note for additional details. Time spent coordinating care, DC planning, review of DC plan of care with resident, transition of care, review of records in EMR, med rec, consults, notes, d/w
consultants, nursing, family, and CM = 43 minutes
Original Note:
Discharge Summary
Discharge Data
Date of Admission: 05/20/24
Date of Discharge: 05/23/24
Total time spent discharging patient (in min): 43
-
Pending Results: No
Hospital Course
Discharging Physician : Aram Calvo MD ; Jayla Jose MD
Disposition : Home with [facility]
Primary care physician : Emilia Rodriguez MD
Principal Discharge diagnosis : BRITTANIE on CKD3b
Chronic Discharge diagnosis : Chronic HFrEF (EF 35-40%. Stage II diastolic dysfunction), CAD s/p CABG and Stent, PAF, h/o NSVT s/p ICD, Hyperlipidemia, COPD, Hypothyroidism, BPH
Hospital Course : 83-year-old male past medical history of CAD status post stent, atrial tachycardia, paroxysmal atrial fibrillation status post ablation on Eliquis, chronic HFrEF,, NSVT with ICD, CKD 3, hypothyroidism, COPD, GERD, BPH, sleep
apnea, hypercholesteremia, gout, presented with fatigue, nausea, decreased p.o. intake over the past 2 weeks on day of admission. Blood work showed creatinine of 3.3 and BUN of 86. His Bactrim was discontinued which he was taking for abnormal
urinalysis. Bladder scan was done; results below. He was started on IV fluids. Empiric IV ceftriaxone was started given his repeat abdominal urinalysis and complains of increased urinary hesitancy. He completed 3-day course. Daily blood work
showed creatinine trending down to 1.9 on day of discharge. Advised to resume home medications and follow-up with family doctor within a week. Mr. Gan verified understanding and agreed with the plan. 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
nurse.
Important imaging findings : US Renal With Bladder: IMPRESSION: unremarkable exam of the kidneys.
Moderate prostate hypertrophy. Stable
Moderate postvoid bladder residual. New
Discharge Plan
-
Patient Disposition: Home with Home Care
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 Stage II diastolic dysfunction), CAD s/p CABG and Stent, PAF, h/o NSVT s/p ICD, Hyperlipidemia, COPD, Hypothyroidism, BPH
Condition: Good
Diet: 2 Gram Sodium
Activity: No restrictions and As tolerated
Driving Restrictions: As prior to admission
Bathing Restrictions: None
Other Services: [facility]
Referrals:
Emilia Rodriguez MD [Family Provider] - in less than 1 week
Additional Discharge Medication Instructions: Resume all home medications as noted below.
Discontinue Bactrim.
Prescriptions:
Continued
febuxostat 40 MG tablet
40 mg PO DAILY
nitroglycerin 0.4 MG tablet, sublingual
0.4 mg sublingual [id number] PRN (Reason: chest pain)
metoprolol succinate 100 MG tablet extended release 24 hr
100 mg PO DAILY
finasteride 5 MG tablet
5 mg PO DAILY
albuterol sulfate 1 PUFF HFA aerosol inhaler
2 puff inhalation R [id number] PRN (Reason: sob/wheezing)
pantoprazole 40 MG tablet,delayed release (DR/EC)
40 mg PO DAILY
atorvastatin 40 MG tablet
40 mg PO HS
ezetimibe 10 MG tablet
10 mg PO DAILY
clopidogrel 75 MG tablet
75 mg PO DAILY Qty: 0 0RF
Trelegy Ellipta 100-62.5-25 mcg Blister With Device
1 inh INHALATION R DAILY
amiodarone 200 mg Tablet
200 mg PO BID Qty: 60 0RF
levothyroxine 100 mcg Tablet
100 mcg PO DAILY Qty: 0 0RF
isosorbide mononitrate 60 mg tablet extended release 24 hr
60 mg PO DAILY Qty: 0 0RF
furosemide 80 mg Tablet
80 mg PO MOWEFR Qty: 0 0RF
Centravites 0.4-162-18 mg Tablet
1 tab PO DAILY Qty: 0 0RF
PreserVision AREDS 4,296 mcg-226 mg-90 mg Capsule
1 cap PO DAILY Qty: 0 0RF
Eliquis 2.5 mg Tablet
2.5 mg PO BID Qty: 0 0RF
potassium chloride 20 mEq Tablet Extended Release
20 meq PO MOWEFR Qty: 0 0RF
Patient Comments:
no pharmacy fills
Jardiance 10 mg Tablet
10 mg PO DAILY Qty: 0 0RF
Discontinued
sulfamethoxazole-trimethoprim [Bactrim DS] 800-160 mg Tablet
1 tab PO BID
Discharge Orders:
Discharge Patient (As Directed); Ordered 05/23/24
Ordered By: Aram Calvo
Discharge Date and Time
Print Language: SPANISH
--- NOTE | 2024-05-24 07:19 | PN.CDI ---
CDI
- -
CDI:
Physician Documentation Request
Admit Date: 05/20/24 16:36
Dear Doctor Umesh,
Please review the following and provide your response in the progress notes.
Clinical Indicators:
Pt admitted with acute kidney injury.
05/21 dietitian note: 'Consult weight loss, poor appetite.... Po intake remains poor <25% per intake records. 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
CBW (05/21) 139lb 6oz BMI 21.2 normal wt/ht, (05/20) 138lb
Wt hx per previous admissions- (04/05) 149lb, (04/04) 151lb, (04/03) 155lb, (01/12) 158lb. Significant 7% wt loss x the past 1 months and 11.5% wt loss over the past 3 months....Pt meets criteria for severe protein calorie malnutrition of chronic
illness with >5% wt loss x 1 month, >7.5% wt loss x 3 months and prolonged poor intake at present time and prior to admission...'
Based on the above information and your assessment, which of the following most accurately represents the patient's nutritional status?
Severe protein calorie malnutrition
Other (please specify)
[place] Criteria (ACP Hospitalist 2017)
2 or more criteria must be present for either
non severe or severe malnutrition
Note that the criteria differs related to the
presence of an acute or chronic illness
Chronic Illness
Energy Intake Non Severe: <75% for >1 month
Severe: <75% for >1 month
Weight Loss Non Severe: 5% over 1 month
7.5% over 3 months
10% over 6 months
20% over 1 year
Severe: >5% over 1 month
>7.5% over 3 months
>10% over 6 months
>20% over 1 year
Additional criteria that can be used to Determine if Mild or Moderate Malnutrition ([employer]ck Manual 2018)
Use of terms such as suspected, likely, concern for, or probable (associated with a specific diagnosis that is being evaluated, monitored, or treated as if it exists) are acceptable and can be coded in the inpatient setting, when documented at the
time of discharge.
Thank you,
Shelby Cruz RN, BSN
CDI Specialist
Available via [employer]
Please use your independent medical judgment in providing your response.
== END 2024-05-23 18:33 | disposition home health service (06) | DRG 683 ==
LOC: 4 WEST ACU 16:36
PROVIDERS: Emergency Medicine; Internal Medicine; Physician Assistant Medical; ADMITTING PHYSICIAN Hospitalist; ATTENDING PHYSICIAN Internal Medicine; EMERGENCY PHYSICIAN Emergency Medicine; FAMILY PHYSICIAN Family Medicine
DX: N17.9 Acute kidney failure, unspecified (principal); E46 Unspecified protein-calorie malnutrition; I13.0 Hypertensive heart and chronic kidney disease with heart failure and stage 1 through stage 4 chronic kidney disease, or unspecified chronic kidney disease; J44.0 Chronic obstructive pulmonary disease with (acute) lower respiratory infection; N39.0 Urinary tract infection, site not specified; E87.5 Hyperkalemia; N18.32 Chronic kidney disease, stage 3b; E86.1 Hypovolemia; I25.10 Atherosclerotic heart disease of native coronary artery without angina pectoris; I48.0 Paroxysmal atrial fibrillation; E78.00 Pure hypercholesterolemia, unspecified; E03.9 Hypothyroidism, unspecified; Z95.1 Presence of aortocoronary bypass graft; Z68.21 Body mass index [BMI] 21.0-21.9, adult; Z87.891 Personal history of nicotine dependence
CPT/HCPCS: 51798; 76770; 80048; 80053; 81003; 81015; 83735; 84100; 84443; 85025; 85027; 87086; 93005; 94640; 96360; 97116; 97162; 97166; 99285

== ENCOUNTER 2024-06-02 18:16 | Inpatient (IN) | payer MEDICARE, OTHER, SELFPAY ==
[2024-06-02] VITALS (8 sets, daily range): BP systolic 88–146; BP diastolic 58–75; BMI 21.1; BMI 20.4
--- NOTE | 2024-06-02 16:01 | ED.GENMED ---
History of Present Illness
General
Chief Complaint: Failure to Thrive
Source: patient and family
Time Seen by Provider: 06/02/24 15:42
History of Present Illness
History of Present Illness:
83-year-old male presents to the emergency room for evaluation due to inability to eat or drink. Patient states when he tries to consume anything he has a horrible taste in his mouth. Because of this he has had very little intake of food or water.
Patient does not believe he is had a fever. He does feel nauseous but has not vomited. He had diarrhea today but is not having diarrhea on a regular basis. He does not believe that he is having an obstruction of swallowing but rather the
horrible taste and nauseous was preventing him from swallowing. He is lost about 12 pounds since being discharged from the hospital per his daughter. He does have a cough. Patient was hospitalized for similar symptoms and discharged on May
. Patient denies abdominal pain.
Past History
Past History
ED Past Medical History: Arrthythmia (A. fib), CAD, CHF, COPD, GERD, HTN, Hypercholesterolemia, MO, Hypothyroidism and Other (PNA)
ED Past Surgical History: Cardiac (Stents, Pacer/Defib Ablation) and Cholecystectomy
Social History
Tobacco: Former smoker (quit 50 yrs ago)
Alcohol: Occasional
Drug: None
Personal:
Living: with family
Employment: Retired
Family History
Family History: Early CAD
Phy Exam
Physical Exam
Physical Exam:
General: Awake, Alert, Oriented X3. Ill-appearing
Vitals: Mildly hypotensive
Head: Atraumatic
Eyes: Pupils equal, EOMI
Throat: Airway intact, no exudates, very dry mucosa
Neck: Trachea midline
Lungs: Clear and equal b/l
Heart: Regular rate, no murmurs
Abd: Soft, Nontender, No pulsatile mass
Neuro: Grossly nonfocal
Skin: Warm, dry, no rash
Extremities: pulses equal b/l, no edema
Course
Orders/Labs/Results
Orders:
Orders
06/02/24 Dinner
Regular
At Your Request: Full Participation
Does patient need a safe tray?: No
06/02/24 15:55
Urinalysis Reflex To Culture Urgent
06/02/24 16:00
0.9% Sodium Chloride 1000 ml [Nss] 1,000 ml IV BOLUS
CR Chest - 2 Views Urgent
Comment:
Reason For Exam: cough, weakness
06/02/24 16:06
Complete Blood Count/With Diff Urgent
Comprehensive Metabolic Panel Urgent
Lipase Urgent
06/02/24 17:16
Bladder Scan- Treatment ONCE
06/02/24 17:23
US Abdomen Complete/Upper Urgent
Comment:
Reason For Exam: elevated lipase, acute on chronic renal failure
06/02/24 17:30
0.9% Sodium Chloride 1000 ml [Nss] 1,000 ml IV 200 mls/hr
06/02/24 17:49
Admit/Transfer Patient As Directed
Co-Sign Provider:
Level of Care: Inpatient admission
Assign to:: Telemetry
Physician / Group: Delores
Diagnosis: BRITTANIE on CKD
Reason for Telemetry: Arrhythmia
Date to Stop Telemetry: 06/05/24
Time to Stop Telemetry: 11:00
Reason for Hospitalization: IVF, nephrology consult
Expected length of stay greater than two midnights?: Yes
ELOS- Estimated Length of Stay in days: 3
I certify the patient meets the requirements for IP care: Yes
PRN Pain Medication Management As Directed
May give lesser potent ordered pain med per pt: Yes
preference::
Protocol:: Medication orders for pain may be administered in a
manner that supports deferring to patient preference
when the pt is:
- Requesting an ordered lesser potent pain medication.
Least to most potent pain medications are defined
as: acetaminophen < NSAID < tramadol < opioids
(morphine, oxycodone, hydromorphone).
- Requesting a lesser dose of the same medication IF
ORDERED.
- Requesting a less intrusive route of administration
if both routes are prescribed by the provider (PO <
IV).
06/02/24 17:53
Code Status As Directed
Resuscitation Status: Full Code
06/02/24 19:33
0.9% Sodium Chloride 1000 ml [Nss] 1,000 ml IV 100 mls/hr
Acetaminophen [Tylenol] 650 mg PO Q6HPRN PRN
Albuterol [ProAIR HFA INHALER] 2 puff INH R Q4HPRN PRN
Nitroglycerin Sublingual [Nitrostat (Sublingual)] 0.4 mg SL [id number] PRN
06/02/24 19:33
NEPHROLOGY CONSULT Routine
Consulting Provider: Chasity Vick
Was physician already notified: Yes
Activity As Directed
Activity Level: Ambulate
Ot Eval And Treat Routine
Pt Eval And Treat Routine
Activity Level: With Assistance
06/02/24 20:00
Apixaban [Eliquis] 2.5 mg PO BID
Fluticasone/Salmeterol 230/21 [Advair Hfa 230/21 Mcg Inhaler] 2 puff INH R BID
06/02/24 22:00
Atorvastatin [Lipitor] 40 mg PO HS
06/03/24 06:00
BMP [Basic Metabolic Panel] IN AM
Levothyroxine [Synthroid] 100 mcg PO DAILY@0600
06/03/24 08:00
Amiodarone [Pacerone] 200 mg PO DAILY
Clopidogrel Bisulfate [Plavix] 75 mg PO DAILY
Ezetimibe [Zetia] 10 mg PO DAILY
Febuxostat (Non-Form) [Uloric] 40 mg PO DAILY
Finasteride [Proscar] 5 mg PO DAILY
Pantoprazole [Protonix] 40 mg PO DAILY
Tiotropium Morgan 2.5 Mcg [Spiriva Respimat 2.5 Mcg] 2 puff INH R DAILY
06/04/24 06:00
BMP [Basic Metabolic Panel] IN AM
06/05/24 06:00
BMP [Basic Metabolic Panel] IN AM
06/05/24 11:00
DC Protocol for Telemetry ONCE
Abnormal Lab Results
06/02/24
16:06
RDW 16.6 H %
(11.5-14.5)
Abs Immat Gran (auto) 0.1 H 10^3/uL
(0-0.05)
Absolute Neuts (auto) 6.9 H 10^3/uL
(1.4-6.5)
Absolute Lymphs (auto) 1.1 L 10^3/uL
(1.2-3.4)
Immature Gran % 0.6 H %
(0-0.5)
Neutrophils % 78.8 H %
(42.2-75.2)
Lymphocytes % 12.7 L %
(20.5-51.1)
Carbon Dioxide 19 L mmol/L
(22-30)
BUN 47 H mg/dl
(9-20)
Creatinine 3.0 H mg/dL
(0.7-1.3)
Glucose 112 H mg/dl
(70-99)
Alkaline Phosphatase 177 H U/L
(38-126)
Lipase 623 H U/L
(23-300)
06/02/24 16:06
06/02/24 16:06
Vital Signs
Initial and Last Documented VS:
Initial Vital Signs
Pulse Resp BP Pulse Ox
64 16 95/60 96
06/02/24 15:39 06/02/24 15:39 06/02/24 15:39 06/02/24 15:39
Last Documented Vital Signs
Temp Pulse Resp BP Pulse Ox
98.2 F 80 13 146/75 97
06/02/24 19:42 06/02/24 20:44 06/02/24 20:44 06/02/24 19:42 06/02/24 20:44
MDM/Problems Addressed
Differential Diagnosis Includes:
dehydration, acute renal failure, electrolyte abn, esophageal dysfunction
MDM/Problems Addressed:
Patient presents with weakness, poor oral intake. Labs show significant change in his renal function with a BUN of 47 and creatinine 3.0. In particular creatinine is significantly elevated from when he was discharged a couple weeks ago. IV fluid
resuscitation initiated. Bladder scan obtained which shows no significant urinary retention. Chest x-ray is unremarkable. Abdominal ultrasound shows no evidence of hydronephrosis nor any pancreatic abnormalities though somewhat obscured by bowel
gas. Patient require hospitalization for continued hydration and evaluation for the reason the patient is unable to tolerate oral intake
*Radiology
Radiology exam reviewed: preliminary read by ED provider (No acute disease noted on chest x-ray) and radiology read reviewed
*Pulse Oximetry
Patient hypoxic: no
*Critical Care Note
Total Time (30-74mins, 75-104mins- exclusive of procedures): Not Applicable
ED Attending Note
-
Portions of this chart may have been created with voice recognition software.� Occasional wrong word or��sound alike� substitutions may have occurred due to the inherent limitations of voice recognition software.
Discharge Plan
Departure
Patient Disposition: Admit
Date of Disposition: 06/02/24
Time of Disposition: 17:26
Admit to: Med/Surg
Presentation/result/management discussed w/ accepting MD/DO: Hospitalist
Condition: Fair
Discharge Problem:
Acute on chronic renal failure, Acute dehydration
Interventions
Interventions:
*Risk Screen - Suicide Last Done: 06/02/24 15:39
*General Assessment Last Done: 06/02/24 16:15
*Neglect/Abuse Screening Last Done: 06/02/24 15:39
ED- Fall Risk Assessment Last Done: 06/02/24 16:15
*ED COVID-19 Vaccine History Last Done: 06/02/24 16:15
*Nursing Disposition Last Done: 06/02/24 19:31
Discharge Date and Time
Discharge Date/Time: 06/02/24 19:32
[2024-06-02] MEDS: NSS 1000 IV ×2 (16:08→19:55)
[2024-06-02 16:20] LABS: % Basophils 0.7 % (0-2); % Eosinophils 0.3 % (0-6); % Immature Granulocytes 0.6 % (0-0.5); % Lymphocytes 12.7 % (20.5-51.1); % Monocytes 6.9 % (1.7-9.3); % Neutrophils 78.8 % (42.2-75.2); Absolute Basophils 0.1 10^3/uL (0-0.2); Absolute Immature Granulocytes 0.1 10^3/uL (0-0.05); Absolute Lymphocytes 1.1 10^3/uL (1.2-3.4); Absolute Monocytes 0.6 10^3/uL (0.1-0.6); Absolute Neutrophils 6.9 10^3/uL (1.4-6.5); Hemoglobin 15.9 g/dL (13.0-18.0); Mean Corp Hgb Conc. 33.1 g/dL (33.0-37.0); Mean Corpuscular Hgb 28.6 pg (27.0-31.0); Mean Corpuscular Volume 86.5 fL (80.0-94.0); Mean Platelet Volume 9.7 fL (7.4-10.4); Nucleated Red Blood Cells % 0 % (-); Platelet Count 213 10^3/uL (130-400); Red Blood Cell Count 5.55 10^6/uL (4.70-6.10); Red Cell Dist. Width 16.6 % (11.5-14.5); White Blood Cell Count 8.7 10^3/uL (4.8-10.8)
[2024-06-02 17:07] LABS: ALT (SGPT) 41 U/L (0-50); AST (SGOT) 36 U/L (17-59); Albumin 4.1 g/dl (3.5-5.0); Alkaline Phosphatase 177 U/L (38-126); Blood Urea Nitrogen 47 mg/dl (9-20); Calcium 9.3 mg/dl (8.4-10.2); Carbon Dioxide 19 mmol/L (22-30); Chloride 105 mmol/L (98-107); Estimated Creatinine Clearance 16 ml/min; Glucose 112 mg/dl (70-99); Lipase 623 U/L (23-300); Potassium 4.6 mmol/L (3.5-5.1); Sodium 141 mmol/L (135-145); Total Bilirubin 1.3 mg/dl (0.2-1.3); Total Protein 6.7 g/dl (6.3-8.2); eGFR 19.86
--- NOTE | 2024-06-02 17:57 | HPS.HSE ---
Family Physician
-
Family Physician: Emilia Rodriguez
Chief Complaint
-
Hold falls, anorexia, abnormal taste
History of Present Illness
83-year-old male with chronic kidney disease here with complaints of 15 pound weight loss over the past few weeks, metallic taste in his mouth, anorexia.
Recently hospitalized and discharged May 23 with a diagnosis of BRITTANIE on CKD, attributed to Bactrim exposure.
Does not have a social work assistant. Only new home medication is sertraline. Denies dysphagia or odynophagia. Does have mild intermittent nausea but no vomiting.
Medical History
Past Medical History
Past Medical History: Reports Other
Additional Past Medical History:
CKD 3B
CAD
Paroxysmal atrial fibrillation
Chronic heart failure reduced EF
COPD
GERD
RAVINDRA
Gout
NSVT
Hyperlipidemia
Hypothyroidism
BPH
Pulmonary hypertension
Valvular heart disease
Past Surgical History: Reports Other
Additional Past Surgical History:
CABG
ICD
Social History
Tobacco: Non-smoker
Alcohol: None
Drug: None
Family History
Family History: Not pertinent
Allergies / Home Medications
Allergies reflects when Allergies were last updated in [employer].
Home Medications with original date entered in [employer]
Allergy/Medication List:
Allergies
Allergy/AdvReac Type Severity Reaction Status Date / Time
allopurinol Allergy Rash Verified 06/02/24 15:41
meloxicam [From Mobic] Allergy Nausea/dizz Verified 06/02/24 15:41
iness/vomit
ing
meperidine HCl [From Demerol] Allergy Vomiting Verified 06/02/24 15:41
Home Medications
febuxostat 40 mg tablet 40 mg PO DAILY Gout 04/10/14
finasteride 5 mg tablet 5 mg PO DAILY Urinary issue 10/16/20
metoprolol succinate 100 mg tablet,extended release 24 hr 100 mg PO DAILY Heart disease/condition 04/20/20
nitroglycerin 0.4 mg sublingual tablet 0.4 mg sublingual [id number] PRN chest pain 04/20/20
albuterol sulfate 90 mcg/actuation aerosol inhaler 2 puff inhalation R Q4HPRN PRN sob/wheezing 03/05/21
pantoprazole 40 mg tablet,delayed release 40 mg PO DAILY Gastrointestinal issue 03/06/21
atorvastatin 40 mg tablet 40 mg PO HS High cholesterol 09/20/21
ezetimibe 10 mg tablet 10 mg PO DAILY High cholesterol 09/20/21
clopidogrel 75 mg tablet 75 mg PO DAILY Blood clot prevention/tx #0 tabs 08/01/22
fluticasone fur. 100 mcg-umeclid 62.5 mcg-vilant 25 mcg inhalat.powder (Trelegy Ellipta) 1 inh inhalation R DAILY 04/03/24
apixaban 2.5 mg tablet (Eliquis) 2.5 mg PO BID Arrhythmia #0 tabs 05/23/24
empagliflozin 10 mg tablet (Jardiance) 10 mg PO DAILY Heart disease/condition #0 tabs 05/23/24
furosemide 80 mg tablet 80 mg PO MOWEFR Heart disease/condition #0 tabs 05/23/24
isosorbide mononitrate 60 mg tablet,extended release 24 hr 60 mg PO DAILY Heart disease/condition #0 tabs 05/23/24
levothyroxine 100 mcg tablet 100 mcg PO DAILY Thyroid #0 tabs 05/23/24
dfiidbkw-qrj-TW 0.4 mg-calcium 162 mg-iron 18 ib-aivkchy-qciujm tablet (Centravites) 1 tab PO DAILY Supplement #0 tabs 05/23/24
vitamins A,C,Z-jcjq-hkxhqm 4,296 mcg-226 mg-90 mg capsule (PreserVision AREDS) 1 cap PO DAILY Eye condition #0 caps 05/23/24
amiodarone 200 mg tablet 200 mg PO DAILY Arrhythmia 06/02/24
amlodipine 5 mg tablet (Norvasc) 5 mg PO DAILY 06/02/24
potassium 99 mg tablet 99 mg PO MOWEFR 06/02/24
sertraline 25 mg tablet 25 mg PO DAILY 06/02/24
spironolactone 25 mg tablet 25 mg PO DAILY 06/02/24
Review of Systems
-
History Source: Patient and Family
A 12 point ROS was completed and negative except as noted: Yes
Physical Exam
Vital Signs
Vital Signs
Temp Pulse Resp BP Pulse Ox
97.5 F 69 20 115/63 98
06/02/24 16:04 06/02/24 17:15 06/02/24 17:15 06/02/24 17:00 06/02/24 17:15
Physical Exam
General: Well Developed, Well Nourished, No Apparent Distress and Comfortable
HEENT: NormoCephalic and Anicteric; No Moist mucous membranes
Respiratory: Clear
Cardiac: S1/S2 and Regular Rhythm
GI: Soft, Non Tender and Non Distended
Genito-urinary: Deferred by me
Musculoskeletal: No Clubbing, No Cyanosis and No Edema
Skin: Warm and Dry
Neuro: AO x 3
Hematologic/Lymphatic: No Lymphadenopathy
Psych: Calm
Laboratory Results
-
06/02/24 16:06
06/02/24 16:06
Laboratory Results
Total Bilirubin 1.3 mg/dl (0.2-1.3) 06/02/24 16:06
AST 36 U/L (17-59) 06/02/24 16:06
ALT 41 U/L (0-50) 06/02/24 16:06
Alkaline Phosphatase 177 U/L (38-126) H 06/02/24 16:06
Lipase 623 U/L (23-300) H 06/02/24 16:06
Impression/Plan
-
Hypovolemic shock -due to profound volume depletion. Blood pressure improved with IV fluid bolus in the emergency room. Continue IV fluids. Admit to telemetry. Hold antihypertensives, diuretics.
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 Stop diuretics, antihypertensives. No evidence of retention on bladder scan. Consult nephrology, unclear etiology of chronic kidney disease.
Renal ultrasound on May 20 showed unremarkable kidneys, moderate prostatic hypertrophy, moderate postvoid bladder residual, 105 cc. Chronic bladder outlet obstruction likely contributing to CKD. Will need outpatient urology follow-up.
Asymptomatic lipase elevation -623. Clinically does not have pancreatitis.
CAD/CABG -stable.
Paroxysmal atrial fibrillation -continue Eliquis.
Chronic heart failure with reduced EF -hold furosemide in light of volume depletion, BRITTANIE.
COPD without exacerbation
Hyperlipidemia -atorvastatin.
Hypothyroidism -continue levothyroxine. Recent TSH 2.2.
Severe protein calorie malnutrition
Gout
Full code
Updated daughter at the bedside.
--- NOTE | 2024-06-02 20:00 | PTCARENOTE ---
Pt arrived from ED via stretcher and ambulated to bed. Pt is AAOx3, VSS, and w/o complaints of pain. Pt is oriented to unit, resting comfortably w/ call cain within reach.
[2024-06-02] MEDS: ADVAIR HFA 230/21 MCG INHALER 2 PUFF INH (20:40)
[2024-06-02] MEDS: LIPITOR 40 MG PO (20:59)
[2024-06-02] MEDS: ELIQUIS 2.5 MG PO (20:59)
[2024-06-02] MEDS: TYLENOL 650 MG PO (22:38)
[2024-06-03] VITALS (8 sets, daily range): BP systolic 123–178; BP diastolic 56–67; PULSE 62–63; O2SAT 100; BMI 20.4; BMI 21.0
[2024-06-03 05:38] LABS: Urine Albumin Negative (Neg - Trace); Urine Bilirubin Negative (Negative); Urine Character Clear (Clear); Urine Color Yellow; Urine Glucose 1+ (Negative); Urine Ketone 1+ (Negative); Urine Leukocyte Negative (Negative); Urine Nitrite Negative (Negative); Urine Occult Blood Negative (Negative); Urine Urobilinogen Negative (Neg - 1+)
[2024-06-03] MEDS: NSS 1000 IV (05:56)
[2024-06-03] MEDS: SYNTHROID 100 MCG PO (05:56)
[2024-06-03] MEDS: SPIRIVA RESPIMAT 2.5 MCG 2 PUFF INH (06:59)
[2024-06-03] MEDS: ADVAIR HFA 230/21 MCG INHALER 2 PUFF INH ×2 (06:59→20:02)
--- NOTE | 2024-06-03 08:34 | VNURNOTE ---
Chart reviewed. Patient is current with [facility] nursing, PT. Will continue to follow hospital course and DC plans.
[2024-06-03] MEDS: PROTONIX 40 MG PO (08:39)
[2024-06-03] MEDS: PLAVIX 75 MG PO (08:39)
[2024-06-03] MEDS: PACERONE 200 MG PO (08:39)
[2024-06-03] MEDS: PROSCAR 5 MG PO (08:39)
[2024-06-03] MEDS: ZETIA 10 MG PO (08:39)
[2024-06-03] MEDS: ELIQUIS 2.5 MG PO ×2 (08:39→20:30)
[2024-06-03] MEDS: ULORIC 40 MG PO (08:39)
[2024-06-03] MEDS: DESENEX/MITRAZOL/ZEASORB 1 APPLIC TOPICAL (08:40)
[2024-06-03 09:41] LABS: Blood Urea Nitrogen 42 mg/dl (9-20); Calcium 8.4 mg/dl (8.4-10.2); Carbon Dioxide 18 mmol/L (22-30); Chloride 111 mmol/L (98-107); Estimated Creatinine Clearance 19 ml/min; Glucose 82 mg/dl (70-99); Potassium 4.1 mmol/L (3.5-5.1); Sodium 142 mmol/L (135-145); eGFR 24.72
--- NOTE | 2024-06-03 10:21 | W.PN.HOSP.TC ---
Addendum entered and electronically signed by Scott Estrella DO 06/03/24 16:25:
Spoke with daughter and appears that his symptoms of dysgeusia started in August 2022 when he had COVID infection.
Therefore suspect COVID induced dysgeusia.
We can give a trial of steroids, zinc, clonazepam. Discussed with ENT, Dr. Domínguez.
Consult nutrition.
Monitor electrolytes.
Original Note:
Today's Communication/Plan
-
Check labs
Nephrology consult
PT/OT
Assessment / Plan
Assessment / Plan
Gen-AAOx3, NAD
HEENT-NC, AT, anicteric, clear oral mm
Neck-supple
CV-reg, no M, +S1/S2
Lungs-clear B/L
Abd-soft, NT, ND
Ext-no edema
Musculoskeletal-no cyanosis, clubbing
Skin-warm and dry
Neuro-grossly non-focal
Psych-calm, cooperative
Dysgeusia -present for several weeks now. Severe enough to cause hypotension, shock, BRITTANIE on arrival. Etiology unclear but differential diagnosis includes medication induced versus vitamin deficiency versus chronic kidney disease. It can also be
due to normal aging. Check B12 level. TSH recently normal.
He is on several medications that can cause this problem including clopidogrel
Hypovolemic shock -due to profound volume depletion. Shock resolved with IV fluids.
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 Stop diuretics, antihypertensives. No evidence of retention on bladder scan. Consult nephrology, unclear etiology of chronic kidney disease. Renal function improving with IV fluids.
Renal ultrasound on May 20 showed unremarkable kidneys, moderate prostatic hypertrophy, moderate postvoid bladder residual, 105 cc. Chronic bladder outlet obstruction likely contributing to CKD. Will need outpatient urology follow-up.
Asymptomatic lipase elevation -623. Clinically does not have pancreatitis.
CAD/CABG -stable.
Paroxysmal atrial fibrillation -continue Eliquis.
Chronic heart failure with reduced EF -hold furosemide in light of volume depletion, BRITTANIE.
COPD without exacerbation
Hyperlipidemia -atorvastatin.
Hypothyroidism -continue levothyroxine. Recent TSH 2.2.
Severe protein calorie malnutrition
Gout
Full code
Anticipated Discharge: 24 - 48 hours
Subjective/Interval History
-
Date of Service: June 03, 2024
Patient seen and examined. Still with metallic taste in the mouth but managed to eat most of his breakfast. Looks better overall. No complaints.
Objective Data
-
Labs:
Laboratory Results
06/03/24
08:20
Sodium 142
Potassium 4.1
Chloride 111 H
Carbon Dioxide 18 L
BUN 42 H
Creatinine 2.5 H
Glucose 82
Calcium 8.4
Vital Signs:
Vital Signs
Temp Pulse Resp BP Pulse Ox
97.5 F 68 20 143/67 99
06/03/24 07:14 06/03/24 08:39 06/03/24 07:14 06/03/24 08:39 06/03/24 07:14
I&O
06/02/24 06/03/24 06/04/24
06:59 06:59 06:59
Intake Total 480 / 480
Output Total 150 / 150
Balance 330 / 330
Review of Systems
-
History Source: Patient
All other systems: Reviewed and negative
[2024-06-03] MEDS: TYLENOL 650 MG PO (10:33)
--- NOTE | 2024-06-03 11:00 | PTCARENOTE ---
Made Dr. Estrella aware of pt's weight gain over night, up 4 lbs. No noted edema, no SOB.
[2024-06-03 12:11] LABS: Vitamin B12 978 pg/ml (239-931)
--- NOTE | 2024-06-03 12:22 | W.CON.NEPH ---
Consultation
-
Date/Time Consultation Requested: 06/02/24 193
Date/Time Consultation Performed: 06/03/24 1200
Requesting Provider: Thomas Michaud
Performing Provider: Chasity Chong
Reason for Consultation: BRITTANIE with CKD
Medical History
-
Chief Complaint: anorexia, abnormal taste, fall
History of Present Illness:
83-year-old male with a past medical history of cardiomyopathy EF of 35-40% on lasix, valvular heart disease mitral regurgitation, tricuspid regurgitation, history of ventricular tachycardia s/p ICD started on amiodarone in Mar 2024, on goal
directed therapy with Jardiance and spironolactone, CAD status post stent, atrial tachycardia, paroxysmal atrial fibrillation status post ablation on Eliquis rate control with the metoprolol, CKD 3b baseline creatinine 1.9 recently, hypothyroidism,
COPD, GERD, BPH, sleep apnea, hypercholesteremia, gout on Uloric presentsd with complaints of 15 pound weight loss over the past few weeks, metallic taste in his mouth, anorexia. patient reports he cannot taste any food, denies any nausea or
abdominal pain. Had loose bowel movements, no constipation. Reports no fever or chest pain or shortness of breath. Complains about dizziness. On arrival blood pressures were low 80-90s systolic, creatinine elevated at 3, started with IV fluids
with improvement of creatinine to 2.5. Denies any dysuria. He reports taking sertraline only a few doses since the last discharge.
Past Medical History
CKD 3B
CAD
Paroxysmal atrial fibrillation
Chronic heart failure reduced EF 35-40%
COPD
GERD
RAVINDRA
Gout
NSVT
Hyperlipidemia
Hypothyroidism
BPH
Pulmonary hypertension
Valvular heart disease
Past Surgical History: Other (CABG ICD)
Social History
Tobacco: Non-Smoker
Alcohol: None
Drug: None
Personal:
Living: With Family
Family History
no CKD
Family History: Not Pertinent
Allergies / Home Medications
Allergy/AdvReac Type Severity Reaction Status Date / Time
allopurinol Allergy Rash Verified 06/02/24 15:41
meloxicam [From Mobic] Allergy Nausea/dizz Verified 06/02/24 15:41
iness/vomit
ing
meperidine HCl [From Demerol] Allergy Vomiting Verified 06/02/24 15:41
�Medication �Instructions �Recorded �Confirmed �Type
febuxostat 40 mg tablet 40 mg PO DAILY Gout 04/10/14 06/02/24 History
finasteride 5 mg tablet 5 mg PO DAILY Urinary issue 04/20/20 06/02/24 History
metoprolol succinate 100 mg 100 mg PO DAILY Heart 04/20/20 06/02/24 History
tablet,extended release 24 hr disease/condition
nitroglycerin 0.4 mg sublingual 0.4 mg sublingual [id number] PRN 04/20/20 06/02/24 History
tablet chest pain
albuterol sulfate 90 mcg/actuation 2 puff inhalation R [id number] PRN 03/05/21 06/02/24 History
aerosol inhaler sob/wheezing
pantoprazole 40 mg tablet,delayed 40 mg PO DAILY Gastrointestinal 03/06/21 06/02/24 History
release issue
atorvastatin 40 mg tablet 40 mg PO HS High cholesterol 09/20/21 06/02/24 History
ezetimibe 10 mg tablet 10 mg PO DAILY High cholesterol 09/20/21 06/02/24 History
clopidogrel 75 mg tablet 75 mg PO DAILY Blood clot 08/01/22 06/02/24 Rx
prevention/tx #0 tabs
fluticasone fur. 100 mcg-umeclid 1 inh inhalation R DAILY 04/03/24 06/02/24 History
62.5 mcg-vilant 25 mcg Lung/Breathing Issues
inhalat.powder (Trelegy Ellipta)
apixaban 2.5 mg tablet (Eliquis) 2.5 mg PO BID Arrhythmia #0 tabs 05/23/24 06/02/24 Rx
empagliflozin 10 mg tablet 10 mg PO DAILY Heart 05/23/24 06/02/24 Rx
(Jardiance) disease/condition #0 tabs
furosemide 80 mg tablet 80 mg PO MOWEFR Heart 05/23/24 06/02/24 Rx
disease/condition #0 tabs
isosorbide mononitrate 60 mg 60 mg PO DAILY Heart 05/23/24 06/02/24 Rx
tablet,extended release 24 hr disease/condition #0 tabs
levothyroxine 100 mcg tablet 100 mcg PO DAILY Thyroid #0 tabs 05/23/24 06/02/24 Rx
bclrbwpp-ofh-VK 0.4 mg-calcium 162 1 tab PO DAILY Supplement #0 tabs 05/23/24 06/02/24 Rx
mg-iron 18 jm-eqghlqb-asnudr
tablet (Centravites)
vitamins A,C,M-irpy-keosxw 4,296 1 cap PO DAILY Eye condition #0 05/23/24 06/02/24 Rx
mcg-226 mg-90 mg capsule caps
(PreserVision AREDS)
amiodarone 200 mg tablet 200 mg PO DAILY Arrhythmia 06/02/24 06/02/24 History
amlodipine 5 mg tablet (Norvasc) 5 mg PO DAILY Blood Pressure 06/02/24 06/02/24 History
potassium 99 mg tablet 99 mg PO MOWEFR Electrolyte 06/02/24 06/02/24 History
Repletion
sertraline 25 mg tablet 25 mg PO DAILY Depression 06/02/24 06/02/24 History
spironolactone 25 mg tablet 25 mg PO DAILY Fluid 06/02/24 06/02/24 History
Retention/Swelling
Review of Systems
-
all completed to help address his tumor been inquired and found negative other than stated in HPI
Physical Exam
Vital Signs
Vital Signs
Temp Pulse Resp BP Pulse Ox
97.4 F 67 20 125/58 99
06/03/24 11:52 06/03/24 11:52 06/03/24 11:52 06/03/24 11:52 06/03/24 11:52
Lab Results
WBC 8.7 10^3/uL (4.8-10.8) 06/02/24 16:06
RBC 5.55 10^6/uL (4.70-6.10) 06/02/24 16:06
Hgb 15.9 g/dL (13.0-18.0) 06/02/24 16:06
Hct 48.0 % (39.0-52.0) 06/02/24 16:06
Plt Count 213 10^3/uL (130-400) 06/02/24 16:06
Sodium 142 mmol/L (135-145) 06/03/24 08:20
Potassium 4.1 mmol/L (3.5-5.1) 06/03/24 08:20
Chloride 111 mmol/L (98-107) H 06/03/24 08:20
Carbon Dioxide 18 mmol/L (22-30) L 06/03/24 08:20
BUN 42 mg/dl (9-20) H 06/03/24 08:20
Creatinine 2.5 mg/dL (0.7-1.3) H 06/03/24 08:20
eGFR 24.72 06/03/24 08:20
Glucose 82 mg/dl (70-99) 06/03/24 08:20
Calcium 8.4 mg/dl (8.4-10.2) 06/03/24 08:20
Albumin 4.1 g/dl (3.5-5.0) 06/02/24 16:06
US abd:
COMPARISON: June 02, 2024
FINDINGS: The liver is normal in size, measuring 13.2 cm with a smooth capsular contour and homogeneous relative diffuse increased echogenicity. There is no focal hepatic lesion or intrahepatic biliary dilation. The gallbladder is surgically
absent.. The common duct is normal, measuring 0.41 cm. The pancreas, abdominal aorta and IVC are significantly obscured, most likely by overlying bowel gas. The spleen is normal in size and shows no focal abnormality. There is a suggestion of some
bilateral chronic medical renal disease. There are no findings to suggest renal collecting system dilatation bilaterally. The right kidney measured 9.0 cm in greatest length; the left kidney measured 9.1 cm in greatest length. No free fluid is seen
in the abdomen. Normal directional blood flow is seen in the main portal vein.
IMPRESSION: Prior cholecystectomy. No findings to suggest biliary tract dilatation.
Probable diffuse fatty liver.
Pancreas, abdominal aorta and IVC significantly obscured, most likely by overlying bowel gas.
Findings suggesting bilateral chronic medical renal disease. No renal collecting system dilatation bilaterally.
CXR:
IMPRESSION:
No acute pulmonary process.
Physical Exam
General: Awake, Alert, Oriented, AOx3, No Distress and Nontoxic
HEENT: EOMI, Anicteric, Conjunctivae Clear, Facial Symmetry and Neck Supple
Respiratory: Clear, Normal Excursion and Nonlabored Respirations
Cardiac: S1/S2 and Regular Rate/Rhythm
Abdomen: Soft, Nontender and Nondistended
Musculoskeletal: No Cyanosis and No Edema
Skin: No Rash
Neuro: Nonfocal/Grossly Intact
Psych: Mood/afflect pleasant, Insight/judgement good and Appropriate
Data Reviewed
-
Radiology: Report Reviewed by me, Discussed with Patient and Discussed with Family
Labs: Labs Reviewed by me, Discussed with Patient and Discussed with Family
Assessment/Plan
-
IMP:
Dysgeusia -present for several weeks now.
Hypotension
BRITTANIE with CKD [id number]
Non gap met acidosis
Asymptomatic lipase elevation -623.
CAD/CABG
Paroxysmal atrial fibrillation
Chronic heart failure with reduced EF 35-40%
Mod to severe MR and mod to severe TR
COPD without exacerbation
Pulm HTN
Hyperlipidemia
Hypothyroidism
Severe protein calorie malnutrition
Gout
Plan:
A/w anorexia, dysgeusia and wt loss
no clear etiology, stopped sertraline only few doses
Amiodarone was new since Sep visit for VT
TSH recently was good, check cortisol
Brittanie with CKD-prerenal, bland UA and non acute renal US
follow bladder scan , monitor UOP
cont IVF for another day or till po intake is adequate
change to 1/2ns with bicarb for met acidosis
BP better holding meds-BB and AMlodipine
cont to hold lasix, Spironolactone and jardiance
labs in am
d/w pt and family
d/w primary
--- NOTE | 2024-06-03 16:17 | CM ---
Alert awake oriented patient who lives with his johanna Henderson who lives in an apartment with 0 step to enter. He is assisted in all activities of daily living.He was offered VN he requested [facility] . Sonja Torrez liaison notified .
[facility] hx / No SNF history
Pharmacy [facility]
PCP DR Emilia Rodriguez
PLAN Home with [facility] if accepted
[2024-06-03] MEDS: ZINC 50 MG PO (16:25)
[2024-06-03] MEDS: SODIUM BICARBONATE 1075 MEQ IV (16:26)
[2024-06-03 16:47] LABS: Magnesium 1.8 mg/dl (1.6-2.3)
--- NOTE | 2024-06-03 18:26 | PTCARENOTE ---
Pt complaining of feeling nauseous, no abdominal pain. Pt continues to complain of nothing having any taste, having no appetite. Dr. Estrella aware of nausea, ordering PRN med for pt. Updated pt on plan.
[2024-06-03] MEDS: COMPAZINE 5 MG IV (18:38)
[2024-06-03] MEDS: LIPITOR 40 MG PO (20:30)
[2024-06-03] MEDS: KLONOPIN 0.5 MG PO (20:30)
[2024-06-04] MEDS: NSS 1000 IV (01:06)
[2024-06-04 03:10] VITALS: BP 118/54
[2024-06-04] MEDS: SYNTHROID 100 MCG PO (05:07)
[2024-06-04 06:00] VITALS: BMI 21.1
[2024-06-04 07:11] LABS: Blood Urea Nitrogen 32 mg/dl (9-20); Calcium 8.2 mg/dl (8.4-10.2); Carbon Dioxide 20 mmol/L (22-30); Chloride 111 mmol/L (98-107); Estimated Creatinine Clearance 25 ml/min; Glucose 70 mg/dl (70-99); Magnesium 1.7 mg/dl (1.6-2.3); Phosphorus 3.5 mg/dl (2.5-4.5); Sodium 144 mmol/L (135-145)
[2024-06-04 07:25] VITALS: BP 118/57
[2024-06-04] MEDS: ADVAIR HFA 230/21 MCG INHALER 2 PUFF INH ×2 (08:36→19:34)
[2024-06-04] MEDS: SPIRIVA RESPIMAT 2.5 MCG 2 PUFF INH (08:37)
[2024-06-04] MEDS: PROTONIX 40 MG PO (09:06)
[2024-06-04] MEDS: PROSCAR 5 MG PO (09:06)
[2024-06-04] MEDS: PACERONE 200 MG PO (09:06)
[2024-06-04] MEDS: ELIQUIS 2.5 MG PO ×2 (09:06→19:43)
[2024-06-04] MEDS: ULORIC 40 MG PO (09:06)
[2024-06-04] MEDS: ZINC 50 MG PO (09:06)
[2024-06-04] MEDS: ZETIA 10 MG PO (09:07)
[2024-06-04] MEDS: PLAVIX 75 MG PO (09:07)
[2024-06-04] MEDS: DELTASONE 30 MG PO (09:08)
[2024-06-04] MEDS: NITROSTAT (SUBLINGUAL) 0.4 MG SL (10:01)
--- NOTE | 2024-06-04 10:24 | PTCARENOTE ---
Addendum entered by Abraham Kenney RN 06/04/24 10:45:
Chest pain now completely resolved.
Original Note:
Pt calls and reports 03/15 mid/sub sternal chest pain. EKG done. Dr Estrella made aware. Troponins ordered. PRN nitro administered. Pain 4-5 5-10min post nitro. 15min later pain 1-2. Pt resting in bed.
--- NOTE | 2024-06-04 10:45 | W.PN.HOSP.TC ---
Today's Communication/Plan
-
Check troponin
Assessment / Plan
Assessment / Plan
Gen-AAOx3, NAD
HEENT-NC, AT, anicteric, clear oral mm
Neck-supple
CV-reg, no M, +S1/S2
Lungs-clear B/L
Abd-soft, NT, ND
Ext-no edema
Musculoskeletal-no cyanosis, clubbing
Skin-warm and dry
Neuro-grossly non-focal
Psych-calm, cooperative
Chronic dysgeusia -suspect due to COVID infection last year. Getting empiric steroids, zinc, Klonopin. If no improvement, may need feeding tube placement as his poor oral intake is causing severe malnutrition. Discussed in detail with patient and
family.
Hypovolemic shock -due to profound volume depletion. Shock resolved with IV fluids.
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 Diuretics on hold. No evidence of retention on bladder scan. Renal function improving with IV fluids.
Renal ultrasound on May 20 showed unremarkable kidneys, moderate prostatic hypertrophy, moderate postvoid bladder residual, 105 cc. Chronic bladder outlet obstruction likely contributing to CKD. Will need outpatient urology follow-up.
Asymptomatic lipase elevation -623. Clinically does not have pancreatitis.
CAD/CABG -stable. Episode of chest pain this morning with nonspecific EKG changes. Troponin pending. Chest pain resolved with nitroglycerin.
Paroxysmal atrial fibrillation -continue Eliquis.
Chronic heart failure with reduced EF -hold furosemide in light of volume depletion, BRITTANIE.
COPD without exacerbation
Hyperlipidemia -atorvastatin.
Hypothyroidism -continue levothyroxine. Recent TSH 2.2.
Severe protein calorie malnutrition -nutrition consulted.
Gout
Full code
Anticipated Discharge: > 48 hours
Subjective/Interval History
-
Date of Service: June 04, 2024
Patient seen and examined. Still complaining of metallic taste, poor appetite. Had chest pain this morning but now resolved.
Objective Data
-
Labs:
Laboratory Results
06/04/24
05:55
Sodium 144
Potassium 4.0
Chloride 111 H
Carbon Dioxide 20 L
BUN 32 H
Creatinine 2.0 H
Glucose 70
Calcium 8.2 L
Vital Signs:
Vital Signs
Temp Pulse Resp BP Pulse Ox
97.6 F 75 16 148/75 96
06/04/24 07:25 06/04/24 08:41 06/04/24 08:41 06/04/24 10:06 06/04/24 08:41
I&O
06/03/24 06/04/24 06/05/24
06:59 06:59 06:59
Intake Total 480 / 480 2380 / 2380
Output Total 150 / 150 250 / 250
Balance 330 / 330 2130 / 2130
Review of Systems
-
History Source: Patient
All other systems: Reviewed and negative
[2024-06-04 10:56] LABS: Troponin I 0.024 ng/ml
[2024-06-04 11:05] VITALS: BP 153/69
--- NOTE | 2024-06-04 12:11 | W.PN.NEPH.PH ---
Today's Communication / Plan
-
Poor p.o. and fluid intake
Maintain IV fluids
Assessment/Plan
-
IMP:
Dysgeusia -present for several weeks now.
Hypotension
MAGGIE with CKD [id number]
Non gap met acidosis
Asymptomatic lipase elevation -623.
CAD/CABG
Paroxysmal atrial fibrillation
Chronic heart failure with reduced EF 35-40%
Mod to severe MR and mod to severe TR
COPD without exacerbation
Pulm HTN
Hyperlipidemia
Hypothyroidism
Severe protein calorie malnutrition
Gout
Plan:
A/w anorexia, dysgeusia and wt loss , poor po and fluid intake
no clear etiology, stopped sertraline only few doses
Amiodarone was new since Mar visit for VT
TSH recently was good, check cortisol
Maggie with CKD-prerenal, bland UA and non acute renal US , creatinine at baseline 2.0
No hydronephrosis on abdominal ultrasound
follow bladder scan , monitor UOP
continue to 1/2ns with bicarb for met acidosis and hypernatremia
BP better holding meds-BB and Amlodipine
continue to hold lasix, Spironolactone and jardiance
labs in am
-
-
Date of Service: June 04, 2024
CC / HPI / ROS
-
Chief Complaint:
Acute kidney injury
History of Present Illness:
Serum sodium up to 144
Metabolic acidosis improving with alkaline IV fluid
Creatinine down to 2
Review of Systems:
Oliguric at 250 cc
Weight stable
Extremely poor p.o. intake
No fevers
Labs
-
Labs:
WBC 8.7 10^3/uL (4.8-10.8) 06/02/24 16:06
RBC 5.55 10^6/uL (4.70-6.10) 06/02/24 16:06
Hgb 15.9 g/dL (13.0-18.0) 06/02/24 16:06
Hct 48.0 % (39.0-52.0) 06/02/24 16:06
Plt Count 213 10^3/uL (130-400) 06/02/24 16:06
Sodium 144 mmol/L (135-145) 06/04/24 05:55
Potassium 4.0 mmol/L (3.5-5.1) 06/04/24 05:55
Chloride 111 mmol/L (98-107) H 06/04/24 05:55
Carbon Dioxide 20 mmol/L (22-30) L 06/04/24 05:55
BUN 32 mg/dl (9-20) H 06/04/24 05:55
Creatinine 2.0 mg/dL (0.7-1.3) H 06/04/24 05:55
eGFR 32.30 06/04/24 05:55
Glucose 70 mg/dl (70-99) 06/04/24 05:55
Calcium 8.2 mg/dl (8.4-10.2) L 06/04/24 05:55
Phosphorus 3.5 mg/dl (2.5-4.5) 06/04/24 05:55
Albumin 4.1 g/dl (3.5-5.0) 06/02/24 16:06
Physical Exam
-
Vital Signs:
Vital Signs
Temp Pulse Resp BP Pulse Ox
97.6 F 67 16 153/69 98
06/04/24 11:05 06/04/24 11:05 06/04/24 11:05 06/04/24 11:05 06/04/24 11:05
Cardiovascular:: Regular rate and rhythm
Respiratory:: Bilateral: CTA
Lung Excursion:: Normal
Abdomen:: Nontender and Soft
Bowel Sounds:: Decreased
Extremity Edema:: None: Bilateral:
Morton Catheter: No
[2024-06-04] MEDS: NSS IV (12:57)
[2024-06-04] MEDS: 0.45%NACL 500 IV ×2 (13:20→19:03)
[2024-06-04 15:25] VITALS: BP 158/65
[2024-06-04 17:52] LABS: Troponin I 0.032 ng/ml
--- NOTE | 2024-06-04 18:14 | PTCARENOTE ---
Troponin 0.032. Pt is not having chest pain. Dr Estrella notified. No new orders.
[2024-06-04 19:49] VITALS: BP 137/56
[2024-06-04] MEDS: KLONOPIN 0.5 MG PO (20:32)
[2024-06-04] MEDS: LIPITOR 40 MG PO (20:32)
[2024-06-04 23:06] VITALS: BP 133/49
[2024-06-04 23:39] LABS: Troponin I 0.034 ng/ml
[2024-06-05] MEDS: 0.45%NACL 500 IV ×4 (01:17→21:33)
[2024-06-05 03:24] VITALS: BP 143/59
[2024-06-05] MEDS: SYNTHROID 100 MCG PO (04:45)
[2024-06-05 06:00] VITALS: BMI 21.6
[2024-06-05 07:25] VITALS: BP 126/61
[2024-06-05] MEDS: SPIRIVA RESPIMAT 2.5 MCG 2 PUFF INH (07:56)
[2024-06-05] MEDS: ADVAIR HFA 230/21 MCG INHALER 2 PUFF INH ×2 (07:56→20:52)
[2024-06-05] MEDS: PACERONE 200 MG PO (08:29)
[2024-06-05] MEDS: ZETIA 10 MG PO (08:29)
[2024-06-05] MEDS: DELTASONE 30 MG PO (08:30)
[2024-06-05] MEDS: PLAVIX 75 MG PO (08:30)
[2024-06-05] MEDS: ELIQUIS 2.5 MG PO (08:30)
[2024-06-05] MEDS: PROTONIX 40 MG PO (08:30)
[2024-06-05] MEDS: ULORIC 40 MG PO (08:30)
[2024-06-05] MEDS: PROSCAR 5 MG PO (08:30)
[2024-06-05] MEDS: ZINC 50 MG PO (08:31)
[2024-06-05 09:25] LABS: Troponin I 0.029 ng/ml
[2024-06-05 09:38] LABS: Blood Urea Nitrogen 28 mg/dl (9-20); Calcium 8.3 mg/dl (8.4-10.2); Carbon Dioxide 20 mmol/L (22-30); Chloride 110 mmol/L (98-107); Estimated Creatinine Clearance 33 ml/min; Glucose 120 mg/dl (70-99); Magnesium 1.7 mg/dl (1.6-2.3); Phosphorus 3.4 mg/dl (2.5-4.5); Sodium 141 mmol/L (135-145); eGFR 45.62
[2024-06-05 11:25] VITALS: BP 155/70
--- NOTE | 2024-06-05 12:16 | W.PN.HOSP.TC ---
Today's Communication/Plan
-
Continue current care
Encourage p.o. intake
Assessment / Plan
Assessment / Plan
Gen-AAOx3, NAD
HEENT-NC, AT, anicteric, clear oral mm
Neck-supple
CV-reg, no M, +S1/S2
Lungs-clear B/L
Abd-soft, NT, ND
Ext-no edema
Musculoskeletal-no cyanosis, clubbing
Skin-warm and dry
Neuro-grossly non-focal
Psych-calm, cooperative
Chronic dysgeusia -suspect due to COVID infection last year. Getting empiric steroids, zinc, Klonopin. If no improvement, may need feeding tube placement as his poor oral intake is causing severe malnutrition. Discussed in detail with patient and
family. Today he states less metallic taste in his mouth.
Hypovolemic shock -due to profound volume depletion. Shock resolved with IV fluids.
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 Diuretics on hold. No evidence of retention on bladder scan. Renal function improving with IV fluids.
Renal ultrasound on May 20 showed unremarkable kidneys, moderate prostatic hypertrophy, moderate postvoid bladder residual, 105 cc. Chronic bladder outlet obstruction likely contributing to CKD. Will need outpatient urology follow-up.
Asymptomatic lipase elevation -623. Clinically does not have pancreatitis.
CAD/CABG -stable. Episode of chest pain this morning with nonspecific EKG changes. Troponin negative. Chest pain resolved with nitroglycerin.
Paroxysmal atrial fibrillation -continue Eliquis.
Chronic heart failure with reduced EF -hold furosemide in light of volume depletion, BRITTANIE.
COPD without exacerbation
Hyperlipidemia -atorvastatin.
Hypothyroidism -continue levothyroxine. Recent TSH 2.2.
Severe protein calorie malnutrition -nutrition consulted. Ensure 3 times daily.
Gout
Full code
Updated daughter Milagros on the phone.
Anticipated Discharge: 24 - 48 hours
Subjective/Interval History
-
Date of Service: June 05, 2024
Patient seen/examined. Less dysgeusia today but appetite still not good.
Objective Data
-
Labs:
Laboratory Results
06/05/24
07:13
Sodium 141
Potassium 4.0
Chloride 110 H
Carbon Dioxide 20 L
BUN 28 H
Creatinine 1.5 H
Glucose 120 H
Calcium 8.3 L
Vital Signs:
Vital Signs
Temp Pulse Resp BP Pulse Ox
97.6 F 75 16 155/70 97
06/05/24 11:25 06/05/24 11:25 06/05/24 11:25 06/05/24 11:25 06/05/24 11:25
I&O
06/04/24 06/05/24 06/06/24
06:59 06:59 06:59
Intake Total 2380 / 2380 1200 / 1200
Output Total 250 / 250 500 / 500
Balance 2130 / 2130 700 / 700
Review of Systems
-
History Source: Patient
All other systems: Reviewed and negative
--- NOTE | 2024-06-05 13:38 | PTCARENOTE ---
Pt has 3 small skin tears on his right AC area. Pressure dressing applied yesterday and renewed today d/t continued bleeding, small amount of blood. Dr Martines notified. Advised to contact IV team to apply Quickclot to the site. IVT applied
Quickclot dressing and a new pressure dressing was applied. Eliquis placed on hold.
--- NOTE | 2024-06-05 15:24 | W.PN.NEPH.PH ---
Today's Communication / Plan
-
Observe off Lasix
No more IV fluid
Creatinine better than baseline
Assessment/Plan
-
IMP:
Dysgeusia -present for several weeks now.
Hypotension
MAGGIE with CKD [id number]
Non gap met acidosis
Asymptomatic lipase elevation -623.
CAD/CABG
Paroxysmal atrial fibrillation
Chronic heart failure with reduced EF 35-40%
Mod to severe MR and mod to severe TR
COPD without exacerbation
Pulm HTN
Hyperlipidemia
Hypothyroidism
Severe protein calorie malnutrition
Gout
Plan:
A/w anorexia, dysgeusia and wt loss , poor po and fluid intake
no clear etiology, stopped sertraline only few doses
Amiodarone was new since Mar visit for VT
TSH recently was good, check cortisol
Maggie with CKD-prerenal, bland UA and non acute renal US , creatinine better then baseline 1.5
No hydronephrosis on abdominal ultrasound
follow bladder scan , monitor UOP
DC further IV fluids given history of cardiomyopathy and increasing weights
Will likely reinitiate Lasix tomorrow
BP better holding meds-BB and Amlodipine
continue to hold lasix, Spironolactone and jardiance
labs in am
-
-
Date of Service: June 05, 2024
CC / HPI / ROS
-
Chief Complaint:
Acute kidney injury
History of Present Illness:
Serum sodium down to 141
Metabolic acidosis improving with alkaline IV fluid
Creatinine down to 1.5
Review of Systems:
Nonoliguric
Weight slightly up
Starting to eat
Noted some diarrhea after Ensure given
No fevers
Labs
-
Labs:
WBC 8.7 10^3/uL (4.8-10.8) 06/02/24 16:06
RBC 5.55 10^6/uL (4.70-6.10) 06/02/24 16:06
Hgb 15.9 g/dL (13.0-18.0) 06/02/24 16:06
Hct 48.0 % (39.0-52.0) 06/02/24 16:06
Plt Count 213 10^3/uL (130-400) 06/02/24 16:06
Sodium 141 mmol/L (135-145) 06/05/24 07:13
Potassium 4.0 mmol/L (3.5-5.1) 06/05/24 07:13
Chloride 110 mmol/L (98-107) H 06/05/24 07:13
Carbon Dioxide 20 mmol/L (22-30) L 06/05/24 07:13
BUN 28 mg/dl (9-20) H 06/05/24 07:13
Creatinine 1.5 mg/dL (0.7-1.3) H 06/05/24 07:13
eGFR 45.62 06/05/24 07:13
Glucose 120 mg/dl (70-99) H 06/05/24 07:13
Calcium 8.3 mg/dl (8.4-10.2) L 06/05/24 07:13
Phosphorus 3.4 mg/dl (2.5-4.5) 06/05/24 07:13
Albumin 4.1 g/dl (3.5-5.0) 06/02/24 16:06
Physical Exam
-
Vital Signs:
Vital Signs
Temp Pulse Resp BP Pulse Ox
97.6 F 75 16 155/70 97
06/05/24 11:25 06/05/24 11:25 06/05/24 11:25 06/05/24 11:25 06/05/24 11:25
Cardiovascular:: Regular rate and rhythm
Respiratory:: Bilateral: CTA
Lung Excursion:: Normal
Abdomen:: Nontender and Soft
Bowel Sounds:: Decreased
Extremity Edema:: None: Bilateral:
Morton Catheter: No
[2024-06-05 15:25] VITALS: BP 157/61
--- NOTE | 2024-06-05 16:27 | CM ---
Pt still not interested in eating much.
Plan: Discharge to home with [facility].
[2024-06-05] MEDS: KLONOPIN 0.5 MG PO (21:33)
[2024-06-05] MEDS: LIPITOR 40 MG PO (21:33)
[2024-06-05 23:25] VITALS: BP 137/65
[2024-06-06] MEDS: SYNTHROID 100 MCG PO (05:35)
[2024-06-06] MEDS: ADVAIR HFA 230/21 MCG INHALER 2 PUFF INH ×2 (07:15→19:55)
[2024-06-06] MEDS: SPIRIVA RESPIMAT 2.5 MCG 2 PUFF INH (07:15)
[2024-06-06] MEDS: PLAVIX 75 MG PO (07:58)
[2024-06-06] MEDS: DELTASONE 30 MG PO (07:58)
[2024-06-06] MEDS: PROSCAR 5 MG PO (07:58)
[2024-06-06] MEDS: ULORIC 40 MG PO (07:58)
[2024-06-06] MEDS: PROTONIX 40 MG PO (07:58)
[2024-06-06] MEDS: ZETIA 10 MG PO (07:58)
[2024-06-06] MEDS: ZINC 50 MG PO (07:58)
[2024-06-06] MEDS: PACERONE 200 MG PO (07:59)
[2024-06-06 08:10] VITALS: BP 134/69
--- NOTE | 2024-06-06 08:49 | W.PN.HOSP.TC ---
Today's Communication/Plan
-
Monitor renal function
Assessment / Plan
Assessment / Plan
Gen-AAOx3, NAD
HEENT-NC, AT, anicteric, clear oral mm
Neck-supple
CV-reg, no M, +S1/S2
Lungs-clear B/L
Abd-soft, NT, ND
Ext-no edema
Musculoskeletal-no cyanosis, clubbing
Skin-warm and dry
Neuro-grossly non-focal
Psych-calm, cooperative
A/P:
Chronic dysgeusia -suspect due to COVID infection last year but would recommend OP formal ENT eval. Getting empiric steroids, zinc, Klonopin.
Hypovolemic shock -due to profound volume depletion. Shock resolved with IV fluids.
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 Cr down to 1.3 today. Diuretics on hold. No evidence of retention on bladder scan. Renal function improved with IV fluids.
Renal ultrasound on May 20 showed unremarkable kidneys, moderate prostatic hypertrophy, moderate postvoid bladder residual, 105 cc. Chronic bladder outlet obstruction likely contributing to CKD. Will need outpatient urology follow-up.
Asymptomatic lipase elevation -623. Clinically does not have pancreatitis.
CAD/CABG -stable. Episode of chest pain this morning with nonspecific EKG changes. Troponin negative. Chest pain resolved with nitroglycerin.
Paroxysmal atrial fibrillation -continue Eliquis.
Chronic heart failure with reduced EF -hold furosemide in light of volume depletion, BRITTANIE. Restart when ok with nephro
COPD without exacerbation
Hyperlipidemia -atorvastatin.
Hypothyroidism -continue levothyroxine. Recent TSH 2.2.
Severe protein calorie malnutrition -nutrition consulted. Ensure 3 times daily.
DVT prophylaxis--> Eliquis
Full code
Anticipated Discharge: 24 - 48 hours
Subjective/Interval History
-
Date of Service: June 06, 2024
Patient feels better today. States he is eating a bit more. Afebrile
Objective Data
-
Labs:
Laboratory Results
06/06/24
08:39
Sodium Pending
Potassium Pending
Chloride Pending
Carbon Dioxide Pending
BUN Pending
Creatinine Pending
Glucose Pending
Calcium Pending
Vital Signs:
Vital Signs
Temp Pulse Resp BP Pulse Ox
97.8 F 76 18 134/69 98
06/06/24 08:10 06/06/24 08:10 06/06/24 08:10 06/06/24 08:10 06/06/24 08:10
I&O
06/05/24 06/06/24 06/07/24
06:59 06:59 06:59
Intake Total 1200 / 1200 2000 / 2000
Output Total 500 / 500 630 / 630
Balance 700 / 700 1370 / 1370
[2024-06-06 11:29] LABS: Blood Urea Nitrogen 28 mg/dl (9-20); Calcium 8.7 mg/dl (8.4-10.2); Carbon Dioxide 19 mmol/L (22-30); Chloride 108 mmol/L (98-107); Estimated Creatinine Clearance 39 ml/min; Glucose 117 mg/dl (70-99); Magnesium 1.8 mg/dl (1.6-2.3); Phosphorus 2.8 mg/dl (2.5-4.5); Sodium 140 mmol/L (135-145); eGFR 54.17
--- NOTE | 2024-06-06 15:18 | W.PN.NEPH.PH ---
Today's Communication / Plan
-
encourage po intake
Assessment/Plan
-
IMP:
Dysgeusia -present for several weeks now.
Hypotension
MAGGIE with CKD [id number]
Non gap met acidosis
Asymptomatic lipase elevation -623.
CAD/CABG
Paroxysmal atrial fibrillation
Chronic heart failure with reduced EF 35-40%
Mod to severe MR and mod to severe TR
COPD without exacerbation
Pulm HTN
Hyperlipidemia
Hypothyroidism
Severe protein calorie malnutrition
Gout
Plan:
A/w anorexia, dysgeusia and wt loss , poor po intake
Maggie with CKD-prerenal, bland UA and non acute renal US
cr is improving to 1.3, po intake remain poor so holding lasix still and d/c IVF
follow bladder scan , monitor UOP
monitor daily wts and resume lasix as needed
BP stable holding meds-BB and Amlodipine
monitor met acidosis
continue to hold lasix, Spironolactone and jardiance
follow labs
-
-
Date of Service: June 06, 2024
CC / HPI / ROS
-
Chief Complaint:
Acute kidney injury
History of Present Illness:
Serum sodium down to 140
Metabolic acidosis stable bicarb at 19
Creatinine down to 1.3
Review of Systems:
Nonoliguric
Weight slightly up, not done today
still metallic taste
No fevers
no cp or sob
no dizziness
Labs
-
Labs:
WBC 8.7 10^3/uL (4.8-10.8) 06/02/24 16:06
RBC 5.55 10^6/uL (4.70-6.10) 06/02/24 16:06
Hgb 15.9 g/dL (13.0-18.0) 06/02/24 16:06
Hct 48.0 % (39.0-52.0) 06/02/24 16:06
Plt Count 213 10^3/uL (130-400) 06/02/24 16:06
Sodium 140 mmol/L (135-145) 06/06/24 08:39
Potassium 4.0 mmol/L (3.5-5.1) 06/06/24 08:39
Chloride 108 mmol/L (98-107) H 06/06/24 08:39
Carbon Dioxide 19 mmol/L (22-30) L 06/06/24 08:39
BUN 28 mg/dl (9-20) H 06/06/24 08:39
Creatinine 1.3 mg/dL (0.7-1.3) 06/06/24 08:39
eGFR 54.17 06/06/24 08:39
Glucose 117 mg/dl (70-99) H 06/06/24 08:39
Calcium 8.7 mg/dl (8.4-10.2) 06/06/24 08:39
Phosphorus 2.8 mg/dl (2.5-4.5) 06/06/24 08:39
Albumin 4.1 g/dl (3.5-5.0) 06/02/24 16:06
Physical Exam
-
Vital Signs:
Vital Signs
Temp Pulse Resp BP Pulse Ox
97.8 F 76 18 134/69 95
06/06/24 08:10 06/06/24 08:10 06/06/24 08:10 06/06/24 08:10 06/06/24 11:00
Cardiovascular:: Regular rate and rhythm
Respiratory:: Bilateral: CTA (anteriorly)
Lung Excursion:: Normal
Abdomen:: Nontender and Soft
Extremity Edema:: None: Bilateral:
Morton Catheter: No
[2024-06-06 15:27] VITALS: BP 134/69; PULSE 76; O2SAT 95
[2024-06-06 16:04] VITALS: BP 150/60
[2024-06-06] MEDS: LIPITOR 40 MG PO (22:54)
[2024-06-06] MEDS: KLONOPIN 0.5 MG PO (22:54)
[2024-06-06 23:25] VITALS: BP 141/66
[2024-06-07 05:47] LABS: Blood Urea Nitrogen 27 mg/dl (9-20); Calcium 8.8 mg/dl (8.4-10.2); Carbon Dioxide 21 mmol/L (22-30); Chloride 110 mmol/L (98-107); Estimated Creatinine Clearance 39 ml/min; Glucose 108 mg/dl (70-99); Potassium 4.2 mmol/L (3.5-5.1); Sodium 139 mmol/L (135-145); eGFR 54.17
[2024-06-07] MEDS: SYNTHROID 100 MCG PO (05:47)
[2024-06-07 06:00] VITALS: BMI 21.8
[2024-06-07 07:05] VITALS: BP 150/70
--- NOTE | 2024-06-07 07:48 | W.PN.HOSP.TC ---
Today's Communication/Plan
-
Discharge planning today.
Assessment / Plan
Assessment / Plan
Gen-AAOx3, NAD
HEENT-NC, AT, anicteric, clear oral mm
Neck-supple
CV-reg, no M, +S1/S2
Lungs-clear B/L
Abd-soft, NT, ND
Ext-no edema
Musculoskeletal-no cyanosis, clubbing
Skin-warm and dry
Neuro-grossly non-focal
Psych-calm, cooperative
A/P:
Chronic dysgeusia -suspect due to COVID infection last year but would recommend OP formal ENT eval or long COVID clinic evaluation at a tertiary care center. Getting empiric steroids, zinc. No need for Klonopin. Discussed with daughter over the
phone today.
Hypovolemic shock -due to profound volume depletion. Shock resolved with IV fluids.
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 Cr down to 1.3 today. Diuretics on hold but can be resumed upon discharge. No evidence of retention on bladder scan. Renal function improved with IV fluids.
Renal ultrasound on May 20 showed unremarkable kidneys, moderate prostatic hypertrophy, moderate postvoid bladder residual, 105 cc. Chronic bladder outlet obstruction likely contributing to CKD. Will need outpatient urology follow-up.
Asymptomatic lipase elevation -623. Clinically does not have pancreatitis.
CAD/CABG -stable. Episode of chest pain this morning with nonspecific EKG changes. Troponin negative. Chest pain resolved with nitroglycerin.
Paroxysmal atrial fibrillation -continue Eliquis.
Chronic heart failure with reduced EF -hold furosemide in light of volume depletion, BRITTANIE. Restart upon discharge since renal function has remained stable over the last 48 hours.
COPD without exacerbation
Hyperlipidemia -atorvastatin.
Hypothyroidism -continue levothyroxine. Recent TSH 2.2.
Severe protein calorie malnutrition -nutrition consulted. Ensure 3 times daily while in house.
DVT prophylaxis--> Eliquis
Full code
Anticipated Discharge: Today
Subjective/Interval History
-
Date of Service: June 07, 2024
Patient feels overall better. Still has a metallic taste in his mouth but able to eat and drink a little bit more. His renal function remained stable. No chest pain or shortness of breath. Afebrile
Objective Data
-
Labs:
Laboratory Results
06/07/24
04:29
Sodium 139
Potassium 4.2
Chloride 110 H
Carbon Dioxide 21 L
BUN 27 H
Creatinine 1.3
Glucose 108 H
Calcium 8.8
Vital Signs:
Vital Signs
Temp Pulse Resp BP Pulse Ox
97.6 F 76 19 141/66 96
06/06/24 23:25 06/06/24 23:25 06/06/24 23:25 06/06/24 23:25 06/06/24 23:25
I&O
06/06/24 06/07/24 06/08/24
06:59 06:59 06:59
Intake Total 1999 / 1999 0 / 0
Output Total 630 / 630 400 / 400
Balance 1370 / 1370 -400 / -400
[2024-06-07] MEDS: SPIRIVA RESPIMAT 2.5 MCG 2 PUFF INH (08:11)
[2024-06-07] MEDS: ADVAIR HFA 230/21 MCG INHALER 2 PUFF INH (08:11)
[2024-06-07] MEDS: ULORIC 40 MG PO (09:28)
[2024-06-07] MEDS: ZETIA 10 MG PO (09:28)
[2024-06-07] MEDS: PROTONIX 40 MG PO (09:28)
[2024-06-07] MEDS: DELTASONE 30 MG PO (09:29)
[2024-06-07] MEDS: PACERONE 200 MG PO (09:29)
[2024-06-07] MEDS: PROSCAR 5 MG PO (09:29)
[2024-06-07] MEDS: ZINC 50 MG PO (09:29)
[2024-06-07] MEDS: PLAVIX 75 MG PO (09:30)
--- NOTE | 2024-06-07 13:03 | W.DCSUMMARY ---
Discharge Summary
Discharge Data
Date of Admission: 06/02/24
Date of Discharge: 06/07/24
-
Pending Results: No
Hospital Course
Patient 83 years old male with history of CHF, valvular heart disease, ventricular tachycardia with AICD, CKD, paroxysmal A-fib, COPD, presented to the hospital with anorexia, dysgeusia, and BRITTANIE along with hypotension. Patient was started on IV
fluids and diuretics and hypertensive and antiheart failure medications were held. Patient hemodynamics improved as well as his kidney function. It was also felt that he had some long COVID symptoms and he was started empirically on short course
of steroids and zinc as well as Klonopin that was subsequently discontinued there is no role for that. He was able to eat more as inpatient. We discussed that if symptoms persist or come back he is to follow-up with long COVID clinic as outpatient
and or ENT. Nephrology follow him throughout this hospital stay. Patient's renal function has remained stable and given his underlying heart failure it was recommended to resume his oral diuretics upon discharge. Also we recommend to have a
follow-up BMP patient within the next week or so. Otherwise, patient is afebrile hemodynamically stable and able to ambulate without any problems. He participated with PT and OT who recommended home health. Creatinine upon discharge is 1.3 and at
its peak it was 3.3. Patient will be discharged in stable condition today.
Discharge duration: 35 minutes
Discharge Plan
-
Patient Disposition: Home with Home Care
Discharge Diagnosis/Procedures: Acute kidney injury. 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 Chronic systolic congestive heart failure. Severe protein calorie malnutrition.
Diet: Regular
Activity: As tolerated
Blood Work: Please PCP to order CBC, BMP within 1 week
Referrals:
Emilia Rodriguez MD [Family Provider] - in less than 1 week
Chasity Vick MD [Active] - in one to two weeks
Prescriptions:
New
zinc sulfate 50 mg zinc (220 mg) Capsule
50 mg PO DAILY 30 Days Qty: 30 0RF
prednisone 10 mg Tablet
See Rx Instructions .ROUTE .COMPLEX Qty: 30 0RF
Rx Instructions:
Take By Mouth:
40 mg daily x3 days, 30 mg daily x3 days,
20 mg daily x3 days, 10 mg daily x3 days.
Continued
febuxostat 40 MG tablet
40 mg PO DAILY
nitroglycerin 0.4 MG tablet, sublingual
0.4 mg sublingual [id number] PRN (Reason: chest pain)
metoprolol succinate 100 MG tablet extended release 24 hr
100 mg PO DAILY
finasteride 5 MG tablet
5 mg PO DAILY
albuterol sulfate 1 PUFF HFA aerosol inhaler
2 puff inhalation R Q4HPRN PRN (Reason: sob/wheezing)
pantoprazole 40 MG tablet,delayed release (DR/EC)
40 mg PO DAILY
atorvastatin 40 MG tablet
40 mg PO HS
ezetimibe 10 MG tablet
10 mg PO DAILY
clopidogrel 75 MG tablet
75 mg PO DAILY Qty: 0 0RF
Trelegy Ellipta 100-62.5-25 mcg Blister With Device
1 inh INHALATION R DAILY
levothyroxine 100 mcg Tablet
100 mcg PO DAILY Qty: 0 0RF
isosorbide mononitrate 60 mg tablet extended release 24 hr
60 mg PO DAILY Qty: 0 0RF
furosemide 80 mg Tablet
80 mg PO MOWEFR Qty: 0 0RF
Centravites 0.4-162-18 mg Tablet
1 tab PO DAILY Qty: 0 0RF
PreserVision AREDS 4,296 mcg-226 mg-90 mg Capsule
1 cap PO DAILY Qty: 0 0RF
Eliquis 2.5 mg Tablet
2.5 mg PO BID Qty: 0 0RF
Jardiance 10 mg Tablet
10 mg PO DAILY Qty: 0 0RF
amlodipine [Norvasc] 5 mg Tablet
5 mg PO DAILY
Patient Comments:
06/02/24- ecw has this stopped on 04/14/24 but spouse stay she still gives this to patient
spironolactone 25 mg Tablet
25 mg PO DAILY
potassium 99 mg Tablet
99 mg PO MOWEFR
sertraline 25 mg Tablet
25 mg PO DAILY
amiodarone 200 mg tablet
200 mg PO DAILY
Discharge Orders:
Discharge Patient (As Directed); Ordered 06/07/24
Ordered By: Pepito Hernández
Discharge Date and Time
Discharge Date/Time: 06/07/24 16:32
Print Language: ALBANIAN
--- NOTE | 2024-06-07 14:01 | CM ---
entered order for discharge.
Spoke with pts Gayle [phone] she agrees with dc.
IMM reviewed and she agreed with IMM .
Pt set up with [facility].
Milagros dgt will drive pt home.
PLAN Home with [facility]
--- NOTE | 2024-06-07 15:44 | W.PN.NEPH.PH ---
Today's Communication / Plan
-
seee plan
Assessment/Plan
-
IMP:
Dysgeusia -present for several weeks now.
Hypotension
MAGGIE with CKD [id number]
Non gap met acidosis
Asymptomatic lipase elevation -623.
CAD/CABG
Paroxysmal atrial fibrillation
Chronic heart failure with reduced EF 35-40%
Mod to severe MR and mod to severe TR
COPD without exacerbation
Pulm HTN
Hyperlipidemia
Hypothyroidism
Severe protein calorie malnutrition
Gout
Plan:
A/w anorexia, dysgeusia and wt loss , poor po intake
Maggie with CKD-prerenal, bland UA and non acute renal US
cr is stable at 1.3, holding lasix still
resume lasix for any symp or wt gain
encourage po intake, on steroids
follow bladder scan , monitor UOP
monitor daily wts
BP are increasing trend likely resume BB and Amlodipine later
slowly improving met acidosis
slowly resume Spironolactone and jardiance in out pt setting if cr stable
if d/c today, BMP on Thursday with PCP
d/w pt
-
-
Date of Service: June 07, 2024
CC / HPI / ROS
-
Chief Complaint:
Acute kidney injury
History of Present Illness:
Metabolic acidosis stable bicarb at 21
BP increasing trend, no fever
Creatinine stable at 1.3
Review of Systems:
Nonoliguric
Weight slightly up
improving metallic taste
No fevers
no cp or sob
no dizziness
Labs
-
Labs:
WBC 8.7 10^3/uL (4.8-10.8) 06/02/24 16:06
RBC 5.55 10^6/uL (4.70-6.10) 06/02/24 16:06
Hgb 15.9 g/dL (13.0-18.0) 06/02/24 16:06
Hct 48.0 % (39.0-52.0) 06/02/24 16:06
Plt Count 213 10^3/uL (130-400) 06/02/24 16:06
Sodium 139 mmol/L (135-145) 06/07/24 04:29
Potassium 4.2 mmol/L (3.5-5.1) 06/07/24 04:29
Chloride 110 mmol/L (98-107) H 06/07/24 04:29
Carbon Dioxide 21 mmol/L (22-30) L 06/07/24 04:29
BUN 27 mg/dl (9-20) H 06/07/24 04:29
Creatinine 1.3 mg/dL (0.7-1.3) 06/07/24 04:29
eGFR 54.17 06/07/24 04:29
Glucose 108 mg/dl (70-99) H 06/07/24 04:29
Calcium 8.8 mg/dl (8.4-10.2) 06/07/24 04:29
Phosphorus 2.8 mg/dl (2.5-4.5) 06/06/24 08:39
Albumin 4.1 g/dl (3.5-5.0) 06/02/24 16:06
Physical Exam
-
Vital Signs:
Vital Signs
Temp Pulse Resp BP Pulse Ox
97.4 F 70 15 150/70 95
06/07/24 07:05 06/07/24 08:17 06/07/24 08:17 06/07/24 07:05 06/07/24 08:17
Cardiovascular:: Regular rate and rhythm
Respiratory:: Bilateral: CTA
Lung Excursion:: Normal
Abdomen:: Nontender and Soft
Extremity Edema:: None: Bilateral:
Morton Catheter: No
== END 2024-06-07 16:32 | disposition home health service (06) | DRG 91 ==
LOC: 4 EAST ACU 18:16
PROVIDERS: ADMITTING PHYSICIAN Hospitalist; ATTENDING PHYSICIAN Hospitalist; CONSULT PHYSICIAN Internal Medicine; EMERGENCY PHYSICIAN Emergency Medicine; FAMILY PHYSICIAN Family Medicine
DX: R43.2 Parageusia (principal); E43 Unspecified severe protein-calorie malnutrition; R57.1 Hypovolemic shock; I50.22 Chronic systolic (congestive) heart failure; I13.0 Hypertensive heart and chronic kidney disease with heart failure and stage 1 through stage 4 chronic kidney disease, or unspecified chronic kidney disease; J44.0 Chronic obstructive pulmonary disease with (acute) lower respiratory infection; N17.9 Acute kidney failure, unspecified; I47.20 Ventricular tachycardia, unspecified; I42.9 Cardiomyopathy, unspecified; E87.20 Acidosis, unspecified; E87.0 Hyperosmolality and hypernatremia; U09.9 Post COVID-19 condition, unspecified; R62.7 Adult failure to thrive; R19.7 Diarrhea, unspecified; E03.9 Hypothyroidism, unspecified; K76.0 Fatty (change of) liver, not elsewhere classified; E86.0 Dehydration; R63.4 Abnormal weight loss; E78.00 Pure hypercholesterolemia, unspecified; N18.32 Chronic kidney disease, stage 3b; I25.10 Atherosclerotic heart disease of native coronary artery without angina pectoris; G47.33 Obstructive sleep apnea (adult) (pediatric); M10.9 Gout, unspecified; N40.0 Benign prostatic hyperplasia without lower urinary tract symptoms; I27.20 Pulmonary hypertension, unspecified; K21.9 Gastro-esophageal reflux disease without esophagitis; N32.0 Bladder-neck obstruction; I48.0 Paroxysmal atrial fibrillation; Z87.891 Personal history of nicotine dependence; Z95.5 Presence of coronary angioplasty implant and graft; Z90.49 Acquired absence of other specified parts of digestive tract; Z68.21 Body mass index [BMI] 21.0-21.9, adult; Z88.6 Allergy status to analgesic agent; Z88.8 Allergy status to other drugs, medicaments and biological substances; Z79.02 Long term (current) use of antithrombotics/antiplatelets; Z79.01 Long term (current) use of anticoagulants; Z79.84 Long term (current) use of oral hypoglycemic drugs; Z79.890 Hormone replacement therapy; Z79.51 Long term (current) use of inhaled steroids; Z95.1 Presence of aortocoronary bypass graft; Z95.810 Presence of automatic (implantable) cardiac defibrillator; Z86.79 Personal history of other diseases of the circulatory system
CPT/HCPCS: 51798; 71046; 76700; 80048; 80053; 81003; 82607; 83690; 83735; 84100; 84484; 85025; 93005; 94640; 96360; 97116; 97163; 97166; 97530; 99285; J7030

== ENCOUNTER 2024-06-15 21:10 | Inpatient (IN) | payer MEDICARE, OTHER, SELFPAY ==
[2024-06-15] VITALS (7 sets, daily range): BP systolic 106–133; BP diastolic 53–84; BMI 21.5
[2024-06-15 13:41] LABS: % Basophils 0.1 % (0-2); % Immature Granulocytes 0.7 % (0-0.5); % Lymphocytes 5.8 % (20.5-51.1); % Monocytes 4.4 % (1.7-9.3); Absolute Immature Granulocytes 0.1 10^3/uL (0-0.05); Absolute Lymphocytes 0.9 10^3/uL (1.2-3.4); Absolute Monocytes 0.7 10^3/uL (0.1-0.6); Absolute Neutrophils 13.6 10^3/uL (1.4-6.5); Hematocrit 48.2 % (39.0-52.0); Hemoglobin 15.7 g/dL (13.0-18.0); Mean Corp Hgb Conc. 32.6 g/dL (33.0-37.0); Mean Corpuscular Hgb 29.5 pg (27.0-31.0); Mean Corpuscular Volume 90.4 fL (80.0-94.0); Mean Platelet Volume 10.2 fL (7.4-10.4); Nucleated Red Blood Cells % 0.2 % (-); Platelet Count 182 10^3/uL (130-400); Red Blood Cell Count 5.33 10^6/uL (4.70-6.10); Red Cell Dist. Width 19.5 % (11.5-14.5); White Blood Cell Count 15.3 10^3/uL (4.8-10.8)
[2024-06-15 15:45] LABS: AST (SGOT) 41 U/L (17-59); Alkaline Phosphatase 100 U/L (38-126); Blood Urea Nitrogen 48 mg/dl (9-20); Calcium 9.1 mg/dl (8.4-10.2); Carbon Dioxide 20 mmol/L (22-30); Chloride 105 mmol/L (98-107); Glucose 118 mg/dl (70-99); Sodium 140 mmol/L (135-145); Total Bilirubin 1.8 mg/dl (0.2-1.3); Total Protein 6.4 g/dl (6.3-8.2)
[2024-06-15 16:10] LABS: ALT (SGPT) 63 U/L (0-50)
--- NOTE | 2024-06-15 16:19 | ED.GENMED ---
History of Present Illness
General
Chief Complaint: Failure to Thrive
Time Seen by Provider: 06/15/24 15:56
History of Present Illness
History of Present Illness:
83-year-old male history of COPD, atrial fibrillation, CHF, CAD, hypertension presenting with failure to thrive. Family reports poor p.o. intake for the past 2 months, 2 hospitalizations for dehydration. Patient states that he was just discharged
approximately 10 days ago. Patient states that he is lost 15 pounds since admission. Patient states that after having COVID earlier this year, he lost his sense of taste and smell and has had food aversion. Patient reports poor p.o. intake.
Patient denies chest pain, shortness of breath, fever, chills, abdominal pain, nausea, or vomiting. Patient reports diarrhea starting 10 days ago. Family at bedside states that patient has been having visual hallucinations starting today, seeing
people, which happened during previous hospitalization
Past History
Past History
ED Past Medical History: Arrthythmia (A. fib), CAD, CHF, COPD, GERD, HTN, Hypercholesterolemia, CO, Hypothyroidism and Other (PNA)
ED Past Surgical History: Cardiac (Stents, Pacer/Defib Ablation) and Cholecystectomy
Social History
Tobacco: Former smoker (quit 50 yrs ago)
Alcohol: Occasional
Drug: None
Personal:
Living: with family
Employment: Retired
Family History
Family History: Early CAD
Phy Exam
Physical Exam
Physical Exam:
General: Alert, no acute distress, thin appearing
Head: NCAT
Eyes: clear conjunctiva
Neck: supple
Cardiac: regular rate and rhythm, no murmur
Lungs: clear to auscultation bilaterally. No wheezes, rales, or rhonchi. Speaking full unlabored sentences. No respiratory distress.
Abdomen: soft, nondistended nontender. No rebound or guarding.
MSK: no lower extremity edema bilaterally. No deformity
Skin: warm, dry. stage 1 sacral wound, no discharge
Neuro: Alert and oriented x3. no focal deficits
Course
Orders/Labs/Results
Orders:
Orders
06/15/24 Breakfast
Sodium, 2 Gram
Oral Supplement (If unsure of flavor order apple or vanilla): Ensure Enlive Vanilla
Supplement Frequency: TID
06/15/24 13:28
Complete Blood Count/With Diff Urgent
Comprehensive Metabolic Panel Urgent
06/15/24 16:17
CXR2 [CR Chest - 2 Views ] Urgent
Comment:
Reason For Exam: r/o pneumonia
06/15/24 16:18
0.9% Sodium Chloride 1000 ml [Nss] 1,000 ml IV BOLUS
06/15/24 18:38
UA Reflex to Culture [Urinalysis Reflex To Culture] Urgent
Date Specimen was Collected: 06/15/24
Time Specimen was Collected: 18:36
Urine Microscopic Reflex Cult Urgent
06/15/24 20:32
Admit/Transfer Patient As Directed
Co-Sign Provider:
Level of Care: Inpatient admission
Assign to:: Medical/Surgical
Physician / Group: Paty
Diagnosis: BRITTANIE
Reason for Hospitalization: IVFs
Expected length of stay greater than two midnights?: Yes
ELOS- Estimated Length of Stay in days: 3
I certify the patient meets the requirements for IP care: Yes
06/15/24 20:33
Code Status As Directed
Resuscitation Status: Full Code
PRN Pain Medication Management As Directed
May give lesser potent ordered pain med per pt: Yes
preference::
Protocol:: Medication orders for pain may be administered in a
manner that supports deferring to patient preference
when the pt is:
- Requesting an ordered lesser potent pain medication.
Least to most potent pain medications are defined
as: acetaminophen < NSAID < tramadol < opioids
(morphine, oxycodone, hydromorphone).
- Requesting a lesser dose of the same medication IF
ORDERED.
- Requesting a less intrusive route of administration
if both routes are prescribed by the provider (PO <
IV).
06/15/24 22:18
0.9% Sodium Chloride 1000 ml [Nss] 1,000 ml IV 60 mls/hr
Acetaminophen [Tylenol] 650 mg PO Q4HPRN PRN
Atorvastatin [Lipitor] 40 mg PO HS
06/15/24 22:18
DIETARY CONSULT Routine
Reason for Consult: weight loss
Activity As Directed
Activity Level: Out of Bed-Early Mobility
With Assistance
Calorie Count As Directed
Duration: 3
Comment: 3 Days
I&O [Intake/ Output] As Directed
Frequency: q12h
Vital Signs As Directed
Frequency: Per unit guidelines
Weight As Directed
Frequency: Daily
06/16/24 06:00
Basic Metabolic Panel IN AM
Complete Blood Count/No Diff IN AM
Levothyroxine [Synthroid] 100 mcg PO DAILY @ 0600
06/16/24 08:00
Amiodarone [Pacerone] 200 mg PO DAILY
Amlodipine [Norvasc] 5 mg PO DAILY
Apixaban [Eliquis] 2.5 mg PO BID
Clopidogrel Bisulfate [Plavix] 75 mg PO DAILY
Dapagliflozin [Farxiga] 10 mg PO DAILY
Ezetimibe [Zetia] 10 mg PO DAILY
Febuxostat (Non-Form) [Uloric] 40 mg PO DAILY
Finasteride [Proscar] 5 mg PO DAILY
ISOSORBIDE MONOnitrate ER [Imdur (Extended Release)] 60 mg PO DAILY
Metoprolol Xl [Toprol Xl] 100 mg PO DAILY
Pantoprazole [Protonix] 40 mg PO DAILY
Prednisone [Deltasone] 10 mg PO DAILY
Sertraline HCl [Zoloft] 50 mg PO DAILY
Zinc 50mg (Zinc Sulfate 220mg) [Zinc] 50 mg PO DAILY
fmemdjhlhcw-kvwgowmyh-dlqqriwv [Trelegy Ellipta] 1 inh INH R DAILY
Abnormal Lab Results
06/15/24 06/15/24
13:28 18:38
WBC 15.3 H 10^3/uL
(4.8-10.8)
MCHC 32.6 L g/dL
(33.0-37.0)
RDW 19.5 H %
(11.5-14.5)
Abs Immat Gran (auto) 0.1 H 10^3/uL
(0-0.05)
Absolute Neuts (auto) 13.6 H 10^3/uL
(1.4-6.5)
Absolute Lymphs (auto) 0.9 L 10^3/uL
(1.2-3.4)
Absolute Monos (auto) 0.7 H 10^3/uL
(0.1-0.6)
Immature Gran % 0.7 H %
(0-0.5)
Neutrophils % 89.0 H %
(42.2-75.2)
Lymphocytes % 5.8 L %
(20.5-51.1)
Carbon Dioxide 20 L mmol/L
(22-30)
BUN 48 H mg/dl
(9-20)
Creatinine 2.0 H mg/dL
(0.7-1.3)
Glucose 118 H mg/dl
(70-99)
Total Bilirubin 1.8 H mg/dl
(0.2-1.3)
ALT 63 H U/L
(0-50)
Leukocyte Esterase Rfl Trace A
(Negative)
Urine Bacteria (Reflex) Few A
(Negative)
Urine Glucose 3+ A
(Negative)
06/15/24 13:28
06/15/24 13:28
Vital Signs
Initial and Last Documented VS:
Initial Vital Signs
Temp Pulse Resp BP Pulse Ox
98.2 F 70 16 128/53 98
06/15/24 13:18 06/15/24 13:18 06/15/24 13:18 06/15/24 13:18 06/15/24 13:18
Last Documented Vital Signs
Temp Pulse Resp BP Pulse Ox
98.2 F 70 18 129/70 98
06/15/24 13:18 06/15/24 21:15 06/15/24 21:15 06/15/24 21:00 06/15/24 21:15
MDM/Problems Addressed
Differential Diagnosis Includes:
BRITTANIE, electrolyte abnormality, UTI, pneumonia, viral syndrome
MDM/Problems Addressed:
83-year-old male history of COPD, atrial fibrillation, CHF, CAD, hypertension presenting with failure to thrive. Patient reports decreased p.o. intake ever since he got COVID months ago and has had metallic taste in his mouth/food aversion.
Patient states that he was just discharged from the hospital for dehydration. Family reports 15 pound weight loss since discharge 10 days ago. Family discussed with primary care doctor who recommended feeding tube, or if patient did not want it
then hospice. Patient agreeable for feeding tube. Labs reviewed, remarkable for WBC 15.3. Creatinine 2 (baseline 1.3), electrolytes within normal limits. UA negative for UTI. Gave 1 L normal saline for hydration. Discussed with hospitalist for
admission
*Critical Care Note
Total Time (30-74mins, 75-104mins- exclusive of procedures): Not Applicable
ED Attending Note
-
Portions of this chart may have been created with voice recognition software.� Occasional wrong word or��sound alike� substitutions may have occurred due to the inherent limitations of voice recognition software.
Discharge Plan
Departure
Patient Disposition: Admit
Date of Disposition: 06/15/24
Time of Disposition: 20:03
Presentation/result/management discussed w/ accepting MD/DO: Hospitalist
Discharge Problem:
Failure to thrive
Interventions
Interventions:
*Risk Screen - Suicide Last Done: 06/15/24 13:18
*General Assessment Last Done: 06/15/24 16:04
*Neglect/Abuse Screening Last Done: 06/15/24 13:18
ED- Fall Risk Assessment Last Done: 06/15/24 16:46
*ED COVID-19 Vaccine History Last Done: 06/15/24 16:04
[2024-06-15] MEDS: NSS 1000 IV ×2 (16:27→23:38)
[2024-06-15 18:45] LABS: Urine Albumin Negative (Neg - Trace); Urine Bilirubin Negative (Negative); Urine Character Clear (Clear); Urine Color Yellow; Urine Glucose 3+ (Negative); Urine Ketone Negative (Negative); Urine Leukocyte Trace (Negative); Urine Nitrite Negative (Negative); Urine Occult Blood Negative (Negative); Urine Urobilinogen Negative (Neg - 1+)
[2024-06-15 19:49] LABS: Urine Bacteria Few (Negative); Urine Hyaline Cast 0-2 /LPF (0-2); Urine Red Blood Cell 0-2 /HPF (0-2)
--- NOTE | 2024-06-15 20:06 | HPS.HSE ---
Family Physician
-
Family Physician: Emilia Rodriguez
Chief Complaint
-
Poor oral intake
History of Present Illness
Patient is an 83 y/o male past medical history of CAD, CHF, A-Fib, CKD and COPD who presents with poor oral intake. Patient reports he had COVID about 2m months ago, and ever since then he has had poor oral intake. He reports all food and drink
has a metallic taste which makes him not want to eat. He has lost about 15lb over the last two months. This will be his third hospitalization for acute kidney injury due to volume depletion and poor oral intake.
Medical History
Past Medical History
Past Medical History: Reports Other
Additional Past Medical History:
Coronary Artery Disease s/p CABG and Stent
Chronic HFrEF (EF 35-40%. Stage II diastolic dysfunction)
Valvular Heart Disease: Moderate/Severe Mitral Regurg, Moderate/Severe Tricuspid Regurg, Mild/Moderate Aortic Regurg
Paroxysmal Atrial Fibrillation
Ventricular Tachycardia
Hyperlipidemia
CKD Stage IIIB
COPD
Pulmonary Hypertension
Hypothyroidism
BPH
RAVINDRA
Gout
Past Surgical History: Reports Other
Additional Past Surgical History:
CABG
Cardiac Stent
Cardiac Ablation
ICD
Social History
Tobacco: Non-smoker
Alcohol: None
Drug: None
Living: With Family
Family History
Family History: Not pertinent
Allergies / Home Medications
Allergies reflects when Allergies were last updated in [facility].
Home Medications with original date entered in [facility]
Allergy/Medication List:
Allergies
Allergy/AdvReac Type Severity Reaction Status Date / Time
allopurinol Allergy Rash Verified 06/15/24 13:20
meloxicam [From Mobic] Allergy Nausea/dizz Verified 06/15/24 13:20
iness/vomit
ing
meperidine HCl [From Demerol] Allergy Vomiting Verified 06/15/24 13:20
Home Medications
febuxostat 40 mg tablet 40 mg PO DAILY Gout 04/10/14
finasteride 5 mg tablet 5 mg PO DAILY Urinary issue 04/20/20
metoprolol succinate 100 mg tablet,extended release 24 hr 100 mg PO DAILY Heart disease/condition 04/20/20
nitroglycerin 0.4 mg sublingual tablet 0.4 mg sublingual [id number] PRN chest pain 04/20/20
albuterol sulfate 90 mcg/actuation aerosol inhaler 2 puff inhalation R [id number] PRN sob/wheezing 03/05/21
pantoprazole 40 mg tablet,delayed release 40 mg PO DAILY Gastrointestinal issue 03/06/21
atorvastatin 40 mg tablet 40 mg PO HS High cholesterol 09/20/21
ezetimibe 10 mg tablet 10 mg PO DAILY High cholesterol 09/20/21
clopidogrel 75 mg tablet 75 mg PO DAILY Blood clot prevention/tx #0 tabs 08/01/22
fluticasone fur. 100 mcg-umeclid 62.5 mcg-vilant 25 mcg inhalat.powder (Trelegy Ellipta) 1 inh inhalation R DAILY Lung/Breathing Issues 04/03/24
apixaban 2.5 mg tablet (Eliquis) 2.5 mg PO BID Arrhythmia #0 tabs 05/23/24
empagliflozin 10 mg tablet (Jardiance) 10 mg PO DAILY Heart disease/condition #0 tabs 05/23/24
furosemide 80 mg tablet 80 mg PO MOWEFR Heart disease/condition #0 tabs 05/23/24
isosorbide mononitrate 60 mg tablet,extended release 24 hr 60 mg PO DAILY Heart disease/condition #0 tabs 05/23/24
levothyroxine 100 mcg tablet 100 mcg PO DAILY Thyroid #0 tabs 05/23/24
rsizllhf-tpk-XB 0.4 mg-calcium 162 mg-iron 18 gx-oumlgzh-xyvihy tablet (Centravites) 1 tab PO DAILY Supplement #0 tabs 05/23/24
vitamins A,C,H-curm-htwoyk 4,296 mcg-226 mg-90 mg capsule (PreserVision AREDS) 1 cap PO DAILY Eye condition #0 caps 05/23/24
amiodarone 200 mg tablet 200 mg PO DAILY Arrhythmia 06/02/24
amlodipine 5 mg tablet (Norvasc) 5 mg PO DAILY Blood Pressure 06/02/24
potassium 99 mg tablet 99 mg PO MOWEFR Electrolyte Repletion 06/02/24
spironolactone 25 mg tablet 25 mg PO DAILY Fluid Retention/Swelling 06/02/24
prednisone 10 mg tablet See Rx Instructions .Route .COMPLEX #30 tabs 06/07/24
zinc sulfate 50 mg zinc (220 mg) capsule 50 mg PO DAILY 30 days #30 caps 06/07/24
sertraline 50 mg tablet 50 mg PO DAILY 06/15/24
Review of Systems
-
A 12 point ROS was completed and negative except as noted: Yes
Constitutional: Reports Weight Loss
Respiratory: Denies Cough or Trouble Breathing
Cardiac: Denies Chest Pain or Palpitations
Physical Exam
Vital Signs
Vital Signs
Temp Pulse Resp BP Pulse Ox
98.2 F 70 22 133/58 95
06/15/24 13:18 06/15/24 19:08 06/15/24 19:08 06/15/24 19:08 06/15/24 19:08
Physical Exam
General: Comfortable and Conversant
HEENT: NormoCephalic and Atraumatic
Respiratory: Clear and Non Labored Respirations
Cardiac: S1/S2 and Regular Rhythm
GI: Soft and Non Tender
Rectal: Deferred by Provider
Musculoskeletal: No Clubbing, No Cyanosis and No Edema
Skin: Warm and Dry
Neuro: Awake, Alert, Oriented and Nonfocal/grossly intact
Psych: Calm
Laboratory Results
-
06/15/24 13:28
06/15/24 13:28
Laboratory Results
Total Bilirubin 1.8 mg/dl (0.2-1.3) H 12/11/24 13:28
AST 41 U/L (17-59) 06/15/24 13:28
ALT 63 U/L (0-50) H 06/15/24 13:28
Alkaline Phosphatase 100 U/L (38-126) 06/15/24 13:28
Data Reviewed
-
Lab Data: Labs Reviewed by me
Old Records: Reviewed
Impression/Plan
-
BRITTANIE on CKD IIIB secondary to volume depletion
-Give 1L IVFs overnight
-Hold furosemide and spironolactone
-Recheck Cr in AM
Chronic Dysgeusia
-Patient reports metallic taste of all food/drink since COVID two months ago
-Recommended patient follow-up with ENT or long COVID clinic at tertiary care center as outpatient
-Discussed trying smell retraining therapy to help recover both sense of smell and taste
Severe Protein Calore Malnutrition
-Consult Dietary
-Plan for calorie count during hospitalization
-Continue supplements
Coronary Artery Disease s/p CABG and Stent
-Continue Plavix
-Continue Isosorbide mononitrate
Chronic HFrEF (EF 35-40%. Stage II diastolic dysfunction)
Valvular Heart Disease: Moderate/Severe Mitral Regurg, Moderate/Severe Tricuspid Regurg, Mild/Moderate Aortic Regurg
-Hold Lasix and Spironolactone
-Continue Jardiance
-Monitor Is&Os and Daily Weights
Paroxysmal Atrial Fibrillation
Hx NSVT s/p ICD
-Continue Eliquis
-Continue amiodarone and Toprol XL
Essential Hypertension
-Continue amlodipine and metoprolol with hold parameters
Hyperlipidemia
-Continue atorvastatin and ezetimibe
COPD, no acute exacerbation
-Continue Trelegy
Hypothyroidism
-Continue levothyroxine
GERD
-Continue Protonix
BPH
-Continue finasteride
Depression
-Continue sertraline
DVT proph: Eliquis
Code Status: Full Code
--- NOTE | 2024-06-15 20:40 | W.PN.UPDATE ---
Update Note
Progress Note Update
Patient seen and conjunction with ADMINISTRATIVE STAFF SUPERVISOR. I agree with the findings on history and physical. I concur with the assessment and plan unless stated otherwise.
This is an 83-year-old with past medical history that is complex including proximal atrial fibrillation, congestive heart failure, pulmonary hypertension, CKD, COPD, CAD status post AICD, presenting to the emergency department for recurrent episodes
of failure to thrive and BRITTANIE. Patient was admitted here about 3 weeks ago for similar symptoms. At that time he had BRITTANIE with a creatinine that peaked around 3 but improved with appropriate management including initial hydration and holding of
diuretics. Patient has been having dysgeusia for several months with weight loss per family 15 pounds in the last 3 weeks since discharge. They reported their findings and his lack of p.o. intake due to dysgeusia to the PMD who recommended
evaluation at the hospital and possible feeding tube. Patient and family reports muscle wasting, weakness and ambulatory dysfunction. They denied any signs of acute infection.
In the emergency department he was hemodynamically stable with a blood pressure of 133/68 pulse of 70 afebrile and normal saturation on room air. He had a white count of 15 otherwise CBC was unremarkable. His BUN was 48 with a creatinine of 2.0,
electrolytes were unremarkable except for a bicarb of 20. Lactic acid was normal. LFTs normal Htay bilirubin slightly elevated 1.8. UA was unremarkable.
Exam shows slightly cachectic man with facial tissue loss but no prominent bones. Dry mucous membrane. Otherwise exam is unremarkable without crackles or peripheral edema.
Assessment and plan
Failure to thrive secondary to persistent dysgeusia possibly secondary to COVID - Suspect trial of medical management, training and pyschosocial adjustment appropriate before feeding tube. However family fearful that they do not have time to wait
for ENT or long COVID clinic appointments. Prior trial of klonopin for dysgeusia unsuccessful.
BRITTANIE - hold furosemide, IV fluids, daily weights and serial creatinine and exams. Avoid nephrotoxins. Nephrology consult if no improvement in 24 hours.
Failure to thrive - Start calorie counts. Supplements. Dietary consult. Readdress issue of PEG tube after calorie evaluation
CHF - continue imdur, metoprolol, aldactone and jardiance for now
HTN - in addition, continue amlodipine, monitor BP
AFIB - continue amio and eliquis
DVT PPx - on apixaban
Code status - Full Code
[2024-06-15] MEDS: LIPITOR 40 MG PO (23:38)
[2024-06-16 01:30] VITALS: BMI 21.4
[2024-06-16 01:31] VITALS: BP 129/61
[2024-06-16 01:32] VITALS: BMI 21.4
[2024-06-16] MEDS: SYNTHROID 100 MCG PO (06:00)
[2024-06-16 07:49] LABS: Hematocrit 43.7 % (39.0-52.0); Hemoglobin 13.7 g/dL (13.0-18.0); Mean Corp Hgb Conc. 31.4 g/dL (33.0-37.0); Mean Corpuscular Hgb 28.9 pg (27.0-31.0); Mean Corpuscular Volume 92.2 fL (80.0-94.0); Mean Platelet Volume 10.5 fL (7.4-10.4); Platelet Count 117 10^3/uL (130-400); Red Blood Cell Count 4.74 10^6/uL (4.70-6.10); White Blood Cell Count 10.5 10^3/uL (4.8-10.8)
[2024-06-16 07:52] VITALS: BP 120/56
[2024-06-16 07:54] LABS: Blood Urea Nitrogen 41 mg/dl (9-20); Calcium 8.3 mg/dl (8.4-10.2); Carbon Dioxide 20 mmol/L (22-30); Chloride 112 mmol/L (98-107); Estimated Creatinine Clearance 32 ml/min; Glucose 94 mg/dl (70-99); Potassium 3.6 mmol/L (3.5-5.1); Sodium 139 mmol/L (135-145); eGFR 45.62
[2024-06-16] MEDS: SYMBICORT 80/4.5 MCG INHALER 2 PUFF INH ×2 (08:01→19:13)
[2024-06-16] MEDS: SPIRIVA RESPIMAT 2.5 MCG 2 PUFF INH (08:01)
[2024-06-16] MEDS: DELTASONE 10 MG PO (08:16)
[2024-06-16] MEDS: PLAVIX 75 MG PO (08:16)
[2024-06-16] MEDS: ZETIA 10 MG PO (08:16)
[2024-06-16] MEDS: IMDUR (EXTENDED RELEASE) 60 MG PO (08:16)
[2024-06-16] MEDS: ELIQUIS 2.5 MG PO ×2 (08:16→20:44)
[2024-06-16] MEDS: TOPROL XL 100 MG PO (08:16)
[2024-06-16] MEDS: FARXIGA 10 MG PO (08:16)
[2024-06-16] MEDS: PROSCAR 5 MG PO (08:16)
[2024-06-16] MEDS: PROTONIX 40 MG PO (08:16)
[2024-06-16] MEDS: ZOLOFT 50 MG PO (08:17)
[2024-06-16] MEDS: NORVASC 5 MG PO (08:17)
[2024-06-16] MEDS: PACERONE 200 MG PO (08:17)
--- NOTE | 2024-06-16 08:41 | VNURNOTE ---
Chart reviewed. Patient is current with [facility] nursing, PT. Will continue to follow hospital course and DC plans.
[2024-06-16] MEDS: ULORIC 40 MG PO (08:44)
[2024-06-16] MEDS: ZINC 50 MG PO (08:44)
--- NOTE | 2024-06-16 10:48 | CM ---
Patient seen at bedside.
IA completed
Dx: BRITTANIE
PMH: AFIB, COPD, CAD, COVID 2mos ago
recent hospitalizations - recurrent failure to thrive
?palliative
dietary consult, calorie counts
Patient current with [facility]
CM to continue to follow
PT screen only-tt hospitalist for therapy orders
PCP: Emilia Rodriguez
Pharmacy: [facility] (in [place])
PLAN: Discharge when medically stable, [facility]
[2024-06-16 11:00] VITALS: BMI 21.4
--- NOTE | 2024-06-16 11:29 | PTCARENOTE ---
Pt c/o nausea, MD made aware, new order provided, see MAR. Will obtain ECG per order.
[2024-06-16] MEDS: ZOFRAN 4 MG IV (11:30)
[2024-06-16 15:00] VITALS: BP 105/54
--- NOTE | 2024-06-16 15:42 | RESPNOTE ---
Patient did not bring his own CPAP machine from home. He is not interested in using one of the hospital machines.
--- NOTE | 2024-06-16 16:00 | W.PN.HOSP.TC ---
Today's Communication/Plan
-
Add Remeron for appetite
Nystatin
500 ml IVF
PT OT
Assessment / Plan
Assessment / Plan
83-year-old man presented with poor p.o. intake patient had COVID 2 months ago and ever since then his p.o. intake has been poor. He has a metallic taste in his mouth lost 15 pounds in 2 months this is third hospitalization for volume depletion and
acute kidney injury
Oral thrush
CVS: S1-S2 normal
Chest: CTA B/L
Abdomen: Soft, NT
Extremities: No edema
# BRITTANIE on CKD stage III
Likely prerenal reasons because of poor p.o. intake
IV fluids given
Holding Lasix and Aldactone
Follow creatinine
# Dysgeusia for the past 2 months metallic taste Since his COVID 2 months ago
Patient was started on steroids for long COVID symptoms. Discontinue steroids. Clearly has not helped him
He has Oral thrush on exam
Add Nystatin.
Outpatient follow-up with ENT/long COVID clinic at tertiary facility
Recent CT scan of the abdomen and pelvis on 05/03/2024 without any masses or indicative of malignancy he also had an ultrasound on 05/25/2024.
Patient does not likely need Aldactone and Lasix at discharge
# Severe protein calorie malnutrition-dietary evaluation. Calorie count ordered. Continue supplements
# Coronary artery disease with history of CABG 1995 and stents-continue Plavix, Imdur
# Chronic HFrEF and also stage II diastolic dysfunction
Hold Lasix and Aldactone. Continue Jardiance
Daily weights and intake output charting
# Mild thrombocytopenia-follow
# Valvular heart disease-moderate to severe MR, moderate to severe TR, mild to moderate AI
# Paroxysmal atrial fibrillation-history of ablation 2021-continue amiodarone, Toprol-XL, Eliquis
# History of NSVT status post ICD 2017-continue Amiodarone
# Essential Hypertension-continue Amlodipine, Metoprolol
# Hyperlipidemia-continue atorvastatin and Zetia
# COPD-continue Trelegy. Chronic respiratory failure on home oxygen
# Hypothyroidism-continue Synthroid 100 mcg daily
# GERD/Batres's esophagus/hiatal hernia-continue Protonix
# Gout-continue febuxostat
# Enlarged prostate-continue finasteride
# Depression-continue sertraline
# Sleep apnea-CPAP
# Spinal stenosis
# DVT prophylaxis-continue Eliquis
# Full code
Discussed with patient's and daughter on the phone
Anticipated Discharge: 24 - 48 hours
Subjective/Interval History
-
Date of Service: June 16, 2024
Objective Data
-
Labs:
Laboratory Results
06/16/24
06:59
WBC 10.5
Hgb 13.7
Hct 43.7
Plt Count 117 L D
Sodium 139
Potassium 3.6
Chloride 112 H
Carbon Dioxide 20 L
BUN 41 H
Creatinine 1.5 H
Glucose 94
Calcium 8.3 L
Vital Signs:
Vital Signs
Temp Pulse Resp BP Pulse Ox
97.6 F 71 18 120/56 100
06/16/24 07:52 06/16/24 08:17 06/16/24 08:06 06/16/24 08:17 06/16/24 08:06
[2024-06-16] MEDS: VITAMIN B1 100 MG PO (16:22)
[2024-06-16] MEDS: NSS IV (16:22)
[2024-06-16] MEDS: MYCOSTATIN ORAL SUSPENSION 5 ML PO ×2 (18:16→21:05)
[2024-06-16] MEDS: NSS 500 IV (18:16)
[2024-06-16] MEDS: LIPITOR 40 MG PO (21:05)
[2024-06-16] MEDS: REMERON 7.5 MG PO (21:05)
--- NOTE | 2024-06-16 22:53 | PTCARENOTE ---
Pts roommate 317-1 from earlier in the day tested positive for covid. Pt moved from room 317-2 to 321. Will swab pt for covid tomorrow.
[2024-06-16 23:56] VITALS: BP 102/61
[2024-06-17] MEDS: SYNTHROID 100 MCG PO (05:04)
[2024-06-17 06:33] LABS: Hemoglobin 13.2 g/dL (13.0-18.0); Mean Corp Hgb Conc. 32.2 g/dL (33.0-37.0); Mean Corpuscular Hgb 29.5 pg (27.0-31.0); Mean Corpuscular Volume 91.5 fL (80.0-94.0); Mean Platelet Volume 10.3 fL (7.4-10.4); Platelet Count 115 10^3/uL (130-400); Red Blood Cell Count 4.48 10^6/uL (4.70-6.10); Red Cell Dist. Width 18.8 % (11.5-14.5); White Blood Cell Count 11.2 10^3/uL (4.8-10.8)
[2024-06-17 06:36] VITALS: BMI 21.2
[2024-06-17 06:40] VITALS: BMI 21.4
[2024-06-17 06:59] LABS: Blood Urea Nitrogen 32 mg/dl (9-20); Calcium 7.9 mg/dl (8.4-10.2); Carbon Dioxide 20 mmol/L (22-30); Chloride 113 mmol/L (98-107); Estimated Creatinine Clearance 39 ml/min; Glucose 75 mg/dl (70-99); Magnesium 2.3 mg/dl (1.6-2.3); Phosphorus 2.9 mg/dl (2.5-4.5); Potassium 3.9 mmol/L (3.5-5.1); Sodium 139 mmol/L (135-145); eGFR 59.26
[2024-06-17 07:30] VITALS: BP 129/62
[2024-06-17] MEDS: SYMBICORT 80/4.5 MCG INHALER 2 PUFF INH ×2 (08:17→18:07)
[2024-06-17] MEDS: SPIRIVA RESPIMAT 2.5 MCG 2 PUFF INH (08:17)
[2024-06-17] MEDS: PACERONE 200 MG PO (09:56)
[2024-06-17] MEDS: PROSCAR 5 MG PO (09:56)
[2024-06-17] MEDS: PROTONIX 40 MG PO (09:56)
[2024-06-17] MEDS: ZOLOFT 50 MG PO (09:56)
[2024-06-17] MEDS: TOPROL XL 100 MG PO (09:56)
[2024-06-17] MEDS: ZETIA 10 MG PO (09:57)
[2024-06-17] MEDS: NORVASC 5 MG PO (09:57)
[2024-06-17] MEDS: VITAMIN B1 100 MG PO (09:57)
[2024-06-17] MEDS: PLAVIX 75 MG PO (09:57)
[2024-06-17] MEDS: FARXIGA 10 MG PO (09:57)
[2024-06-17] MEDS: ZINC 50 MG PO (09:57)
[2024-06-17] MEDS: ULORIC 40 MG PO (09:58)
[2024-06-17] MEDS: IMDUR (EXTENDED RELEASE) 60 MG PO (09:58)
[2024-06-17] MEDS: MYCOSTATIN ORAL SUSPENSION 5 ML PO ×4 (09:58→21:09)
[2024-06-17] MEDS: ELIQUIS 2.5 MG PO ×2 (09:58→21:09)
--- NOTE | 2024-06-17 10:05 | PN.CDI ---
CDI
- -
CDI:
Physician Documentation Request
Admit Date: 06/15/24 21:10
Dear Doctor Efe,
Patient admitted with BRITTANIE.
06/16 Nursing skin assessment, 'Stage 2 sacral pressure injury, POA.'
Physician documentation of the type and location of wounds is required for compliant documentation. Based on the above clinical findings and your assessment, please provide the following in your progress note:
Type (etiology) of ulcer/wound:
- Pressure (decubitus) ulcer
- Other
- Unable to determine
For a pressure ulcer, please also include the stage* of the ulcer:
- Stage 1 - Skin intact, non-blanchable redness
- Stage 2 - Partial thickness loss of dermis, includes intact or open blister
- Stage 3 - Full thickness tissue not including bone, tendon or muscle
- Stage 4 - Full thickness tissue loss, including exposed bone, tendon or muscle
- Unstageable - Full thickness loss in which the base of the ulcer is covered by slough (yellow, camejo, king, green or brown) and/or eschar (camejo, brown or black) in the wound bed.
- Unable to determine
Use of terms such as suspected, likely, concern for, or probable (associated with a specific diagnosis that is being evaluated, monitored, or treated as if it exists) are acceptable and can be coded in the inpatient setting, when documented at the
time of discharge.
Thank you,
Kayli COELHO,RN,CCDS
CDI Specialist
Available via tiger text
Please use your independent medical judgment in providing your response.
*Source: National Pressure Ulcer Advisory Panel (NPUAP)
--- NOTE | 2024-06-17 10:17 | W.PN.HOSP.TC ---
Today's Communication/Plan
-
see A/P
Assessment / Plan
Assessment / Plan
HPI: 83-year-old man presented with poor p.o. intake. Patient had COVID 2 months ago and ever since his p.o. intake has been poor. He has a metallic taste in his mouth, lost 15 pounds in 2 months, this is third hospitalization for volume depletion
and acute kidney injury
A/P:
# Clinical deconditioning with loss of appetite, poor PO intake and FTT, since COVID infection 2 months ago
# Severe protein calorie malnutrition-dietary evaluation.
Recent CT scan of the abdomen and pelvis on 05/03/2024 without any masses or indicative of malignancy
Calorie count ordered. Continue supplements
Follow COVID test result
Check CRP, ESR to r/o underlying inflammatory/infectious conditions
UA noted, urine WBC 3-5 which does NOT suggest UTI
Could depression be contributing to his CUONG?
Pt already on Zoloft, consider Remeron, Psych CS to assist with assessment and meds
PT OT eval
# Prerenal BRITTANIE on CKD stage III
BRITTANIE has resolved
Cr 2.0 on admission to 1.2
Can hold further IVF
Holding Lasix and Aldactone, consider DC altogether going forward
Follow creatinine
# Dysgeusia for the past 2 months with metallic taste, started since COVID infection 2 months ago
Patient was started with steroids for long COVID symptoms.
Discontinued steroids since not helping him
SPL eval to assess for concurrent dysphagia
Outpatient follow-up with ENT/long COVID clinic at tertiary facility
# Oral thrush on exam
Added Nystatin.
Other medical conditions:
# Depression
continue sertraline
# Coronary artery disease with history of CABG 1995 and stents
continue Plavix, Imdur
# Chronic HFrEF and also stage II diastolic dysfunction
Hold Lasix and Aldactone. Continue Jardiance
Daily weights and intake output charting
# Mild thrombocytopenia
follow
# Mild leucocytosis, likely reactive
follow
# Valvular heart disease
moderate to severe MR, moderate to severe TR, mild to moderate AI
# Paroxysmal atrial fibrillation
# history of ablation 2021
continue amiodarone, Toprol-XL, Eliquis
# History of NSVT status post ICD 2018
continue Amiodarone
# Essential Hypertension
continue Amlodipine, Metoprolol
# Hyperlipidemia
continue atorvastatin and Zetia
# COPD
continue Trelegy. Chronic respiratory failure on home oxygen
# Hypothyroidism
continue Synthroid 100 mcg daily
# GERD/Batres's esophagus/hiatal hernia
continue Protonix
# Gout
continue febuxostat
# Enlarged prostate
continue finasteride
# Sleep apnea-CPAP
# Spinal stenosis
DVT prophylaxis-continue Eliquis
Full code
Discussed with daughter Milagros on the phone
total time spent 51 min
Anticipated Discharge: > 48 hours
Subjective/Interval History
-
Date of Service: June 17, 2024
Objective Data
-
Labs:
Laboratory Results
06/17/24
06:14
WBC 11.2 H
Hgb 13.2
Hct 41.0
Plt Count 115 L
Sodium 139
Potassium 3.9
Chloride 113 H
Carbon Dioxide 20 L
BUN 32 H
Creatinine 1.2
Glucose 75
Calcium 7.9 L
Vital Signs:
Vital Signs
Temp Pulse Resp BP Pulse Ox
36.2 C 71 18 129/62 99
06/17/24 07:30 06/17/24 07:30 06/17/24 07:30 06/17/24 07:30 06/17/24 07:30
I&O
06/16/24 06/17/24 06/18/24
06:59 06:59 06:59
Intake Total 740 / 740
Output Total 200 / 200
Balance 540 / 540
Review of Systems
-
All other systems: Reviewed and negative
Physical Exam
-
General: Well Developed, Well Nourished, No Apparent Distress, Comfortable and Appears Chronically Ill
HEENT: Nose Appears Normal and Ears Appear Normal
Respiratory: Clear to Auscultation and Non Labored Respirations; Negative Accessory Resp Muscle Use
Cardiac: Regular Rhythm and S1/S2
GI: Soft, Nontender, Nondistended and Normal Bowel Sounds
Musculoskeletal: No Edema
Skin: Warm and Dry
Neuro: Awake and Alert
Psych: Calm and Depressed
Data Reviewed
-
Labs: Labs Reviewed by me
--- NOTE | 2024-06-17 12:20 | W.PN.UPDATE ---
Update Note
Progress Note Update
Psychiatric evaluation dictated.
patient seems depressed although he denies symptoms and is not aware as to why he was placed on Zoloft. His affect is flat and restricted, mood seems sad. Has very poor appetite and reports insomnia. Denies hopelessness or suicidal thoughts.
Will decrease the Zoloft to 25 mg and plan to D/C
Would continue the Remeron 7.5 which was started yesterday, can increase to 15 mg hs if needed.
We will F/U
[2024-06-17 12:33] LABS: Erythrocyte Sed Rate 6 mm/hour (0-20)
[2024-06-17 12:39] VITALS: BP 125/57; BP 129/66; PULSE 71; O2SAT 96
[2024-06-17 12:40] VITALS: BP 125/57; BP 129/66; PULSE 72; O2SAT 98
[2024-06-17 13:10] LABS: COVID-19 Antigen Negative (Negative)
--- NOTE | 2024-06-17 14:42 | PTOTSP ---
Dysphagia Evaluation
Oral/pharyngeal swallowing within functional limits for limited PO accepted (thin liquids). Patient refused additional solid trials. Patient with risk factors for dysphagia (i.e., COPD, GERD, Batres's esophagus, hiatal hernia) but denied any
symptoms at this time.
Recommend:
1. Continue diet as ordered per MD (Regular, Thin textures)
2. General aspiration and reflux precautions
3. Medications as best tolerated
4. Will attempt to eval with solids in subsequent session x1.
[2024-06-17 15:45] VITALS: BP 109/54
[2024-06-17] MEDS: LIPITOR 40 MG PO (21:09)
[2024-06-17] MEDS: REMERON 7.5 MG PO (21:09)
[2024-06-17 23:00] VITALS: BP 120/64
[2024-06-18] MEDS: SYNTHROID 100 MCG PO (03:44)
[2024-06-18 04:00] VITALS: BMI 21.3
[2024-06-18 06:31] LABS: Hematocrit 41.9 % (39.0-52.0); Hemoglobin 13.5 g/dL (13.0-18.0); Mean Corp Hgb Conc. 32.2 g/dL (33.0-37.0); Mean Corpuscular Hgb 29.3 pg (27.0-31.0); Mean Corpuscular Volume 91.1 fL (80.0-94.0); Mean Platelet Volume 10.4 fL (7.4-10.4); Platelet Count 107 10^3/uL (130-400); Red Cell Dist. Width 19.1 % (11.5-14.5); White Blood Cell Count 14.3 10^3/uL (4.8-10.8)
[2024-06-18 07:00] VITALS: BP 141/66
[2024-06-18 07:11] LABS: Blood Urea Nitrogen 28 mg/dl (9-20); Calcium 8.1 mg/dl (8.4-10.2); Carbon Dioxide 21 mmol/L (22-30); Chloride 111 mmol/L (98-107); Estimated Creatinine Clearance 39 ml/min; Glucose 53 mg/dl (70-99); Magnesium 2.2 mg/dl (1.6-2.3); Sodium 141 mmol/L (135-145); eGFR 59.26
[2024-06-18 07:30] LABS: Glucose - Point of Care 60 mg/dl (70-99)
[2024-06-18] MEDS: SYMBICORT 80/4.5 MCG INHALER 2 PUFF INH ×2 (07:31→21:00)
[2024-06-18] MEDS: SPIRIVA RESPIMAT 2.5 MCG 2 PUFF INH (07:31)
[2024-06-18 07:53] LABS: Glucose - Point of Care 61 mg/dl (70-99)
[2024-06-18] MEDS: DEXTROSE 50% SYRINGE 12.5 GRAMS IV (08:04)
[2024-06-18] MEDS: ZETIA 10 MG PO (08:17)
[2024-06-18] MEDS: ULORIC 40 MG PO (08:17)
[2024-06-18] MEDS: ZINC 50 MG PO (08:17)
[2024-06-18] MEDS: MYCOSTATIN ORAL SUSPENSION 5 ML PO ×3 (08:17→22:01)
[2024-06-18] MEDS: FARXIGA 10 MG PO (08:19)
[2024-06-18] MEDS: TOPROL XL 100 MG PO (08:19)
[2024-06-18] MEDS: ZOLOFT 25 MG PO (08:20)
[2024-06-18] MEDS: ELIQUIS 2.5 MG PO ×2 (08:20→22:01)
[2024-06-18] MEDS: IMDUR (EXTENDED RELEASE) 60 MG PO (08:20)
[2024-06-18] MEDS: PLAVIX 75 MG PO (08:20)
[2024-06-18] MEDS: PACERONE 200 MG PO (08:21)
[2024-06-18] MEDS: NORVASC 5 MG PO (08:21)
[2024-06-18] MEDS: PROTONIX 40 MG PO (08:22)
[2024-06-18 08:23] LABS: Glucose - Point of Care 129 mg/dl (70-99)
[2024-06-18] MEDS: PROSCAR 5 MG PO (08:24)
[2024-06-18] MEDS: VITAMIN B1 100 MG PO (08:24)
[2024-06-18] MEDS: NOVOLOG FLEXPEN-LOW RESISTANCE SC ×3 (08:25→17:38)
[2024-06-18 10:24] LABS: Glucose - Point of Care 149 mg/dl (70-99)
--- NOTE | 2024-06-18 10:30 | PTCARENOTE ---
Pt BG 53 in morning labs. Fruit juice given per protocol. 15 min follow-up BG 60. MD made aware. another juice given, pt refused. 12.5g dextrose 50% syringe given IV. 15 min follow-up BG 129. 2-hr follow-up 149. Pt made ACHS accu-check. will
continue to monitor
--- NOTE | 2024-06-18 11:19 | W.PN.HOSP.TC ---
Today's Communication/Plan
-
see A/P
Assessment / Plan
Assessment / Plan
HPI: 83-year-old man presented with poor p.o. intake. Patient had COVID 2 months ago and ever since his p.o. intake has been poor. He has a metallic taste in his mouth, lost 15 pounds in 2 months, this is third hospitalization for volume depletion
and acute kidney injury
A/P:
# Clinical deconditioning with loss of appetite, poor PO intake and FTT, since COVID infection 2 months ago
# Severe protein calorie malnutrition-dietary evaluation.
# Hypoglycemia due to poor PO intake
Recent CT scan of the abdomen and pelvis on 05/03/2024 without any masses or indicative of malignancy
Calorie count ordered. Continue supplements
COVID negative. CRP, ESR negative which r/o underlying inflammatory/infectious conditions
UA noted, urine WBC 3-5 which does NOT suggest UTI
Globe likely depression could be contributing to his CUONG and listlessness
Appreciate Psych input
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 ?Would ECT benefit him- defer to Psych.
AccuCheck for hypoglycemia, D50 pushes PRN
PT OT eval recc HH
# Prerenal BRITTANIE on CKD stage III
BRITTANIE has resolved
Cr 2.0 on admission to 1.2
Can hold further IVF
Holding Lasix and Aldactone, would DC altogether going forward
Follow creatinine
# Dysgeusia for the past 2 months with metallic taste, started since COVID infection 2 months ago
Patient was started with steroids for long COVID symptoms. Discontinued steroids since not helping him
Pt declined SPL eval with solid
# Oral thrush on exam
Added Nystatin.
Other medical conditions:
# Depression
continue sertraline
# Coronary artery disease with history of CABG 1995 and stents
continue Plavix, Imdur
# Chronic HFrEF and also stage II diastolic dysfunction
Hold Lasix and Aldactone. Continue Jardiance
Daily weights and intake output charting
# Mild thrombocytopenia
follow
# Mild leucocytosis, likely reactive due to steroid
CRP, ESR negative
follow WBC
# Valvular heart disease
moderate to severe MR, moderate to severe TR, mild to moderate AI
# Paroxysmal atrial fibrillation
# history of ablation 2021
continue amiodarone, Toprol-XL, Eliquis
# History of NSVT status post ICD 2017
continue Amiodarone
# Essential Hypertension
continue Amlodipine, Metoprolol, Imdur with hold parameter
# Hyperlipidemia
continue atorvastatin and Zetia
# COPD
continue Trelegy. Chronic respiratory failure on home oxygen
# Hypothyroidism
continue Synthroid 100 mcg daily
# GERD/Batres's esophagus/hiatal hernia
continue Protonix
# Gout
continue febuxostat
# Enlarged prostate
continue finasteride
# Sleep apnea-CPAP
# Spinal stenosis
DVT prophylaxis-continue Eliquis
Full code
Discussed with daughter Milagros on the phone
DW Psych
total time spent 51 min
Anticipated Discharge: > 48 hours
Subjective/Interval History
-
Date of Service: June 18, 2024
Objective Data
-
Labs:
Laboratory Results
06/18/24
05:59
WBC 14.3 H
Hgb 13.5
Hct 41.9
Plt Count 107 L
Sodium 141
Potassium 4.0
Chloride 111 H
Carbon Dioxide 21 L
BUN 28 H
Creatinine 1.2
Glucose 53 L*
Calcium 8.1 L
Vital Signs:
Vital Signs
Temp Pulse Resp BP Pulse Ox
36.4 C 70 16 120/64 99
06/18/24 07:00 06/18/24 10:09 06/18/24 10:09 06/18/24 08:21 06/18/24 10:09
I&O
06/17/24 06/18/24 06/19/24
06:59 06:59 06:59
Intake Total 980 / 980 600 / 600
Output Total 500 / 500 450 / 450
Balance 480 / 480 150 / 150
Review of Systems
-
All other systems: Reviewed and negative
Constitutional: Reports Weakness and Other (loss of appetite )
Physical Exam
-
General: Well Developed, Well Nourished, No Apparent Distress, Comfortable and Appears Chronically Ill
HEENT: Nose Appears Normal and Ears Appear Normal
Respiratory: Clear to Auscultation and Non Labored Respirations; Negative Accessory Resp Muscle Use
Cardiac: Regular Rhythm and S1/S2
GI: Soft, Nontender, Nondistended and Normal Bowel Sounds
Musculoskeletal: No Edema
Skin: Warm and Dry
Neuro: Awake and Alert
Psych: Calm, Depressed and Other (no appetite)
Data Reviewed
-
Labs: Labs Reviewed by me
[2024-06-18 12:41] LABS: Glucose - Point of Care 129 mg/dl (70-99)
--- NOTE | 2024-06-18 13:07 | W.PN.UPDATE ---
Update Note
Progress Note Update
Psychiatry follow up for possible depression. Patient denies feeling depressed. He states his lack of appetite is medically related and that he is tired of his condition not improving. He states he slept well last night. He does not know why he was
prescribed Zoloft as an outpatient. He denies a mental health history.
I Spoke with patient's daughter Milagros who lives with him and does not think patient is depressed. She denies a past mental health history for him. She states PCP had started zoloft hoping it could indirectly increase appetite. She states he has been
very frustrated with and tired of his medical condition as he has struggled with several COVID infections and their sequelae.
MSE- good eye contact. lying in bed. food tray untouched. Speech is nonspontaneous and impoverished. Affect is constricted. He denies depression. He denies SI (active or passive). He denies HI/AVH. No delusions. Fair I/J. fully oriented.
A/P- 84 yo male with clinical presentation consistent with depression but denying this condition as is his family. He is however agreeable to continuing Remeron which was started on 06/16 and seeing if it helps stimulate his appetite. This will take
time to show effect. Zoloft was decreased to 25mg daily yesterday and I agree with gradually tapering that off. Psychiatry will continue to monitor.
[2024-06-18 15:00] VITALS: BP 119/57
[2024-06-18 16:24] LABS: TSH Reflex To Free T4 3.39 uIU/ml (0.47-4.68)
[2024-06-18 16:37] LABS: Glucose - Point of Care 97 mg/dl (70-99)
[2024-06-18] MEDS: MYCOSTATIN ORAL SUSPENSION PO (18:54)
[2024-06-18 22:01] VITALS: BMI 21.3
[2024-06-18] MEDS: REMERON ODT 15 MG PO (22:01)
[2024-06-18] MEDS: LIPITOR 40 MG PO (22:01)
[2024-06-18 22:02] LABS: Glucose - Point of Care 88 mg/dl (70-99)
[2024-06-18 23:00] VITALS: BP 119/48
[2024-06-19] LABS: Glucose - Point of Care 121 mg/dl (70-99)
[2024-06-19] MEDS: SYNTHROID 100 MCG PO (05:24)
[2024-06-19 06:00] VITALS: BMI 21.3
[2024-06-19 07:00] VITALS: BP 125/59
[2024-06-19 07:14] LABS: Hematocrit 41.3 % (39.0-52.0); Hemoglobin 13.1 g/dL (13.0-18.0); Mean Corp Hgb Conc. 31.7 g/dL (33.0-37.0); Mean Corpuscular Volume 91.6 fL (80.0-94.0); Mean Platelet Volume 10.2 fL (7.4-10.4); Platelet Count 99 10^3/uL (130-400); Red Blood Cell Count 4.51 10^6/uL (4.70-6.10); Red Cell Dist. Width 19.2 % (11.5-14.5); White Blood Cell Count 20.3 10^3/uL (4.8-10.8)
[2024-06-19] MEDS: SYMBICORT 80/4.5 MCG INHALER 2 PUFF INH ×2 (07:29→19:40)
[2024-06-19] MEDS: SPIRIVA RESPIMAT 2.5 MCG 2 PUFF INH (07:29)
[2024-06-19 07:33] LABS: Blood Urea Nitrogen 28 mg/dl (9-20); Calcium 8.3 mg/dl (8.4-10.2); Carbon Dioxide 23 mmol/L (22-30); Chloride 110 mmol/L (98-107); Estimated Creatinine Clearance 39 ml/min; Glucose 77 mg/dl (70-99); Magnesium 2.2 mg/dl (1.6-2.3); Potassium 4.1 mmol/L (3.5-5.1); Sodium 141 mmol/L (135-145); eGFR 59.26
[2024-06-19 07:53] LABS: Glucose - Point of Care 79 mg/dl (70-99)
[2024-06-19] MEDS: PROTONIX 40 MG PO (08:41)
[2024-06-19] MEDS: VITAMIN B1 100 MG PO (08:41)
[2024-06-19] MEDS: ZETIA 10 MG PO (08:41)
[2024-06-19] MEDS: ZOLOFT 25 MG PO (08:41)
[2024-06-19] MEDS: NORVASC 5 MG PO (08:41)
[2024-06-19] MEDS: PROSCAR 5 MG PO (08:41)
[2024-06-19] MEDS: PACERONE 200 MG PO (08:42)
[2024-06-19] MEDS: PLAVIX 75 MG PO (08:42)
[2024-06-19] MEDS: ELIQUIS 2.5 MG PO (08:42)
[2024-06-19] MEDS: TOPROL XL 100 MG PO (08:43)
[2024-06-19] MEDS: ULORIC 40 MG PO (08:43)
[2024-06-19] MEDS: FARXIGA 10 MG PO (08:44)
[2024-06-19] MEDS: IMDUR (EXTENDED RELEASE) 60 MG PO (08:44)
[2024-06-19] MEDS: NOVOLOG FLEXPEN-LOW RESISTANCE SC ×3 (08:44→18:06)
[2024-06-19] MEDS: MYCOSTATIN ORAL SUSPENSION PO ×5 (08:46→22:21)
[2024-06-19 11:47] LABS: Glucose - Point of Care 108 mg/dl (70-99)
--- NOTE | 2024-06-19 11:51 | W.PN.HOSP.TC ---
Addendum entered and electronically signed by Sonja Constantino MD 06/19/24 12:23:
d/w GI Dr. Costello, he will see pt tmr and can potentially add pt for EGD tmr
Will make pt NPO, Hold CHICKEN TENDER Eliquis and plavix in prep for EGD
Original Note:
Today's Communication/Plan
-
see A/P
Assessment / Plan
Assessment / Plan
HPI: 83-year-old man presented with poor p.o. intake. Patient had COVID 2 months ago and ever since his p.o. intake has been poor. He has a metallic taste in his mouth, lost 15 pounds in 2 months, this is third hospitalization for volume depletion
and acute kidney injury
A/P:
# Clinical deconditioning with loss of appetite, poor PO intake and FTT, since COVID infection 2 months ago
# Severe protein calorie malnutrition-dietary evaluation.
# Hypoglycemia due to poor PO intake
Recent CT scan of the abdomen and pelvis on 05/03/2024 without any masses or indicative of malignancy
Calorie count ordered. Continue supplements
Cont Regular diet without restriction, encourage intake
COVID negative. CRP/ESR negative which r/o underlying inflammatory/infectious conditions
UA noted, urine WBC 3-5 which does NOT suggest UTI
Basco likely depression could be contributing to his CUONG and listlessness
TSH WNL at 3.39
Appreciate Psych input
Added Remeron increased to 15 mg HS, wean CHICKEN TENDER Zoloft slowly. ?Would ECT benefit him- need to discuss with Psych.
AccuCheck for hypoglycemia, D50 pushes PRN
PT OT eval
# Prerenal BRITTANIE on CKD stage III
BRITTANIE has resolved
Cr 2.0 on admission to 1.2
Can hold further IVF
Holding Lasix and Aldactone, would DC altogether going forward
Follow creatinine
# Dysgeusia for the past 2 months with metallic taste, started since COVID infection 2 months ago
Patient was started with steroids for long COVID symptoms. Discontinued steroids since not helping him
Pt declined SPL eval with solid
GI CS for EGD eval
# Oral thrush on exam
Added Nystatin.
Other medical conditions:
# Depression
continue sertraline
# Coronary artery disease with history of CABG 1995 and stents
continue Plavix, Imdur
# Chronic HFrEF and also stage II diastolic dysfunction
Hold Lasix and Aldactone. Continue Jardiance
Daily weights and intake output charting
# Mild thrombocytopenia
follow
# Mild leucocytosis, likely reactive due to steroid
CRP, ESR negative
follow WBC
# Valvular heart disease
moderate to severe MR, moderate to severe TR, mild to moderate AI
# Paroxysmal atrial fibrillation
# history of ablation 2021
continue amiodarone, Toprol-XL, Eliquis
# History of NSVT status post ICD 2017
continue Amiodarone
# Essential Hypertension
continue Amlodipine, Metoprolol, Imdur with hold parameter
# Hyperlipidemia
continue atorvastatin and Zetia
# COPD
continue Trelegy. Chronic respiratory failure on home oxygen
# Hypothyroidism
continue Synthroid 100 mcg daily
# GERD/Batres's esophagus/hiatal hernia
continue Protonix
# Gout
continue febuxostat
# Enlarged prostate
continue finasteride
# Sleep apnea-CPAP
# Spinal stenosis
DVT prophylaxis-continue Eliquis
Full code
DW RN
Discussed with daughter Milagros on the phone
Anticipated Discharge: 24 - 48 hours
Subjective/Interval History
-
Date of Service: June 19, 2024
Objective Data
-
Labs:
Laboratory Results
06/19/24
06:24
WBC 20.3 H
Hgb 13.1
Hct 41.3
Plt Count 99 L
Sodium 141
Potassium 4.1
Chloride 110 H
Carbon Dioxide 23
BUN 28 H
Creatinine 1.2
Glucose 77
Calcium 8.3 L
Vital Signs:
Vital Signs
Temp Pulse Resp BP Pulse Ox
36.4 C 70 16 125/59 94
06/19/24 07:00 06/19/24 08:43 06/19/24 07:32 06/19/24 08:43 06/19/24 07:32
I&O
06/18/24 06/19/24 06/20/24
06:59 06:59 06:59
Intake Total 600 / 600 360 / 360
Output Total 450 / 450 0 / 0
Balance 150 / 150 360 / 360
Review of Systems
-
All other systems: Reviewed and negative
Constitutional: Reports Weakness and Other (loss of appetite )
Physical Exam
-
General: Well Developed, Well Nourished, No Apparent Distress, Comfortable and Appears Chronically Ill
HEENT: Nose Appears Normal and Ears Appear Normal
Respiratory: Clear to Auscultation and Non Labored Respirations; Negative Accessory Resp Muscle Use
Cardiac: Regular Rhythm and S1/S2
GI: Soft, Nontender, Nondistended and Normal Bowel Sounds
Musculoskeletal: No Edema
Skin: Warm and Dry
Neuro: Awake and Alert
Psych: Calm, Depressed and Other (no appetite)
Data Reviewed
-
Labs: Labs Reviewed by me
[2024-06-19 14:44] LABS: Glycohemoglobin (HgbA1c) 5.3 % (4.0-5.6)
[2024-06-19 15:00] VITALS: BP 100/69
[2024-06-19 16:16] LABS: Glucose - Point of Care 99 mg/dl (70-99)
[2024-06-19] MEDS: REMERON ODT PO (22:31)
[2024-06-19] MEDS: LIPITOR PO (22:31)
[2024-06-19 23:00] VITALS: BP 121/55
[2024-06-20 00:07] LABS: Glucose - Point of Care 119 mg/dl (70-99)
--- NOTE | 2024-06-20 02:24 | PTCARENOTE ---
Pt refusing meds and is confused, disoriented, and agitated. Pt. doesnt believe this RN is his nurse and said 'you don't have any identification, how do I know you are not feeding me junk?' This RN reassured pt and showed identification and had
another RN come in to reassure him. Pt. still refused meds and yelled at this RN to get out of his room. This RN rentered pt room approximately one hour later to reposition him in bed and patient was calm and accepting care. Pt. did not remember
previous interaction. Pt. resting comfortably in bed and now sleeping.
[2024-06-20] MEDS: SYNTHROID 100 MCG PO (05:24)
[2024-06-20 06:00] VITALS: BMI 21.1
[2024-06-20 06:14] LABS: Glucose - Point of Care 101 mg/dl (70-99)
[2024-06-20 07:10] VITALS: BP 103/48
[2024-06-20] MEDS: SPIRIVA RESPIMAT 2.5 MCG 2 PUFF INH (07:40)
[2024-06-20] MEDS: SYMBICORT 80/4.5 MCG INHALER 2 PUFF INH ×2 (07:41→20:23)
[2024-06-20] MEDS: ULORIC 40 MG PO (08:57)
[2024-06-20] MEDS: ZOLOFT 25 MG PO (08:57)
[2024-06-20] MEDS: VITAMIN B1 100 MG PO (08:58)
[2024-06-20] MEDS: ZETIA 10 MG PO (08:58)
[2024-06-20] MEDS: IMDUR (EXTENDED RELEASE) 60 MG PO (08:58)
[2024-06-20] MEDS: PACERONE 200 MG PO (08:58)
[2024-06-20] MEDS: NORVASC PO (09:05)
[2024-06-20] MEDS: MYCOSTATIN ORAL SUSPENSION PO ×4 (09:07→22:00)
[2024-06-20] MEDS: TOPROL XL 100 MG PO (09:07)
[2024-06-20] MEDS: PROTONIX 40 MG PO (09:07)
[2024-06-20] MEDS: PROSCAR 5 MG PO (09:08)
[2024-06-20] MEDS: FARXIGA 10 MG PO (09:08)
[2024-06-20] MEDS: NOVOLOG FLEXPEN-LOW RESISTANCE SC ×3 (09:11→18:27)
[2024-06-20] MEDS: TYLENOL 650 MG PO (09:21)
--- NOTE | 2024-06-20 09:49 | CON.GI ---
Addendum entered and electronically signed by LAZARA Summers 06/20/24 16:56:
Attempted to reach patient daughter Milagros to discuss EGD planned for 06/21/24. Patient declining PEG tube at this time. Left message for her to call office in am. We will also try to reach her again in the am.
Addendum entered and electronically signed by Jeff Costello DO 06/20/24 14:03:
I saw and examined the patient.
The OPTIC FIB[employer] DRAWER's note was reviewed and I agree with the note.
Comment: Mr. Gan is a 84 y.o male with extensive medical history as outlined below who presented with poor p.o intake, loss of appetite and concern for [id number] and found to have hypoglycemia and severe protein calorie malnutrition. He
has had prior admissions in the past for poor p.o intake and generalized weakness. He was started on Remeron along with Zoloft given concern for underlying depression as well. Otherwise, he denies any epigastric abdominal pain, lower abdominal
discomfort, reflux/heartburn, nausea/vomiting, dysphagia/odynophagia or other significant upper GI symptoms except for persistent dysgeusia for the past 2 months since his prior COVID-19 infection. No other post-prandial fullness, early satiety or
bloating/distension. A CT Abd/pelvis this admission was unrevealing for any mass or other concerning findings of malignancy. He was found to have oral thrush and was started on nystatin by his primary internal medicine team. Given concern for
possible esophageal candidiasis GI was consulted to consider EGD for diagnostic evaluation. Of note, he is also on plavix and eliquis (last doses back on 06/19). In extensive review of prior records by his PCP as well, he has had persistent ongoing
symptoms despite supplementation and treatment of depression without any improvement of symptoms. Doubt esophageal candidiasis would result in this type of presentation but certainly would be beneficial to rule out and other potential underlying
causes. COVID-19 infection has been associated with a post-viral induced gastroparesis, however clinically he is without any symptoms to suggest delayed gastric emptying. In discussions with his family there were also possible discussions about a
possible feeding tube as well, however patient is adamant that he would not want this.
Recommendations:
- Diet as tolerated, keep NPO at MN
- Empiric PPI 40 mg BiD
- Defer further plans for EGD today pending further discussions with family regarding potential feeding tube
- If patient and family decline PEG, would plan to perform diagnostic EGD tomorrow, 06/21/2024, to evaluate for esophageal candidiasis
- However if patient were to want a PEG tube, would need at least a 5-day washout of plavix
- Continue to hold eliquis and plavix (last dose 06/19- )
- Rest of care as outlined below
Will attempt to reach family (patient's daughter) later this afternoon to further discuss possible PEG versus diagnostic EGD. GI team will continue to follow.
Thank you for allowing me to participate in the care of this patient. Please do not hesitate to call for any further questions.
Original Note:
Consultation
-
Date/Time Consultation Requested: 06/19/24 1200
Date/Time Consultation Performed: 06/20/24 1100
Requesting Provider: Sonja Constantino MD
Performing Provider: LAZARA Walls, Jeff Costello DO
Reason for Consultation: decreased oral intakes dysgeusia
Medical History
Chief Complaint / HPI
Chief Complaint: failure to thrive
History of Present Illness:
Pt is an 84yo with hx CAD with prior CABG and stent, CHF, ICD, valvular disease, PAF with prior ablation , hyperlipidemia, CKD, pulm HTN, hypothyroidism, BPH, RAVINDRA, COPD, gout and prior covid x 3 last about 1 1/2 years ago. In review of chart
patient with several recent admissions. At end of March with chest pain with VT with ICD shock prior to admission. He was then admitted in mid May with acute on chronic BRITTANIE with recent Bactrim use and poor PO intakes. 06/02 with
complaints of dysgeusia with hx covid, hypovolemia and acute on chronic CKD and now returns 06/15 with third admission with poor PO intakes and asked to eval. There was concern for depression adding to symptoms and psych has been following with med
adjustment with with Remeron use and taper of Zoloft. Pt was also placed on nystatin for possible oral thrush. Per family baseline weight was 160 lbs now down to 134 lbs. Pt has been treated for depression, supplements added and peg was discussed
and pt considering.
At this time patient with some forgetfulness but in review with staff limited oral intakes. He will take ensure and liquids but some limited with solids and decline some meds. He admits to some diarrhea but not noted during admission and denies
odynophagia, GERD, abdominal pain, nausea/vomiting, or rectal bleeding. Hx EGD 2013 - [facility], with HH, gastritis, normal duodenum and esophagus. Colonoscopy 2013 [facility]-diverticulosis, internal hemorrhoids.
Past Medical History
Past Medical History: Arrhythmias (PAF, T tachy), CAD, CHF, COPD, Hypercholesterolemia, Hypothyroidism, Renal Failure (CKD), Valvular Disease (moderate to severe MR, moderate to severe TR, mild to moderate AR) and Other (CKD, recent covid , Pulm
HTN, BPH, RAVINDRA, Gout )
Past Surgical History: Cardiac (prior CABG and stent, ablation, ICD)
Social History
Tobacco: Former Smoker
Alcohol: Occasional
Drug: None
Personal:
Living: With Family
Employment: Retired
Family History
Family History: Other (denies hx colon CA or GI issues , father from [place] and mother hx DM)
Allergies / Home Medications
Allergy/AdvReac Type Severity Reaction Status Date / Time
allopurinol Allergy Rash Verified 06/15/24 13:20
meloxicam [From Mobic] Allergy Nausea/dizz Verified 06/15/24 13:20
iness/vomit
ing
meperidine HCl [From Demerol] Allergy Vomiting Verified 06/15/24 13:20
�Medication �Instructions �Recorded
febuxostat 40 mg tablet 40 mg PO DAILY Gout 04/10/14
finasteride 5 mg tablet 5 mg PO DAILY Urinary issue 04/20/20
metoprolol succinate 100 mg 100 mg PO DAILY Heart 04/20/20
tablet,extended release 24 hr disease/condition
nitroglycerin 0.4 mg sublingual 0.4 mg sublingual [id number] PRN 04/20/20
tablet chest pain
albuterol sulfate 90 mcg/actuation 2 puff inhalation R Q4HPRN PRN 03/05/21
aerosol inhaler sob/wheezing
pantoprazole 40 mg tablet,delayed 40 mg PO DAILY Gastrointestinal 03/06/21
release issue
atorvastatin 40 mg tablet 40 mg PO HS High cholesterol 09/20/21
ezetimibe 10 mg tablet 10 mg PO DAILY High cholesterol 09/20/21
clopidogrel 75 mg tablet 75 mg PO DAILY Blood clot 08/01/22
prevention/tx #0 tabs
fluticasone fur. 100 mcg-umeclid 1 inh inhalation R DAILY 04/03/24
62.5 mcg-vilant 25 mcg Lung/Breathing Issues
inhalat.powder (Trelegy Ellipta)
apixaban 2.5 mg tablet (Eliquis) 2.5 mg PO BID Arrhythmia #0 tabs 05/23/24
empagliflozin 10 mg tablet 10 mg PO DAILY Heart 05/23/24
(Jardiance) disease/condition #0 tabs
furosemide 80 mg tablet 80 mg PO MOWEFR Heart 05/23/24
disease/condition #0 tabs
isosorbide mononitrate 60 mg 60 mg PO DAILY Heart 05/23/24
tablet,extended release 24 hr disease/condition #0 tabs
levothyroxine 100 mcg tablet 100 mcg PO DAILY Thyroid #0 tabs 05/23/24
rxcvbnun-evn-XV 0.4 mg-calcium 162 1 tab PO DAILY Supplement #0 tabs 05/23/24
mg-iron 18 [id number]
tablet (Centravites)
vitamins A,C,U-xebc-pkcdcy 4,296 1 cap PO DAILY Eye condition #0 05/23/24
mcg-226 mg-90 mg capsule caps
(PreserVision AREDS)
amiodarone 200 mg tablet 200 mg PO DAILY Arrhythmia 06/02/24
amlodipine 5 mg tablet (Norvasc) 5 mg PO DAILY Blood Pressure 06/02/24
potassium 99 mg tablet 99 mg PO MOWEFR Electrolyte 06/02/24
Repletion
spironolactone 25 mg tablet 25 mg PO DAILY Fluid 06/02/24
Retention/Swelling
zinc sulfate 50 mg zinc (220 mg) 50 mg PO DAILY 30 days #30 caps 06/07/24
capsule
sertraline 50 mg tablet 50 mg PO DAILY Mental 06/15/24
Health/Anxiety
prednisone 10 mg tablet See Rx Instructions .Route 06/16/24
.COMPLEX Anti-Inflammatory
Review of Systems
-
Unable to obtain full review of systems at this time due to: Other (forgetful to some questions )
History Source: Patient and Family (daughter )
Constitutional: Reports Weight Loss
EENT: Reports Other (metallic taste in mouth )
Respiratory: Reports No Symptoms
Cardiac: Reports No Symptoms
Abdomen/GI: Reports Diarrhea (but not noted per staff with regular stool formed 06/19 -- per family occasional loose but not not frequent diarrhea )
: Reports No Symptoms
Musculoskeletal: Reports No Symptoms
Skin: Reports No Symptoms
Neurological: Reports Weakness
Endocrine: Reports No Symptoms
Hematologic/Lymphatic: Reports No Symptoms
Vital Signs
Temp Pulse Resp BP Pulse Ox
97.5 F 64 15 103/48 93
06/20/24 07:10 06/20/24 09:07 06/20/24 07:43 06/20/24 09:07 06/20/24 07:43
Physical Exam
Exam
General: Well Developed, Well Nourished and No Apparent Distress
HEENT: Normocephalic and Anicteric
Respiratory: Clear
Cardiac: Regular Rhythm
GI: Soft, Non Tender and Non Distended
Musculoskeletal: No Clubbing and No Cyanosis
Skin: Warm and Dry
Neuro: Awake (awakens to voice, noted with some hallucinations and per staff noted at time when awakening ) and Other (forgetful at time with awakening )
Psych: Calm
Results
WBC 20.3 10^3/uL (4.8-10.8) H 06/19/24 06:24
Hgb 13.1 g/dL (13.0-18.0) 06/19/24 06:24
Hct 41.3 % (39.0-52.0) 06/19/24 06:24
MCV 91.6 fL (80.0-94.0) 06/19/24 06:24
Plt Count 99 10^3/uL (130-400) L 06/19/24 06:24
Absolute Neuts (auto) 13.6 10^3/uL (1.4-6.5) H 06/15/24 13:28
Sodium 141 mmol/L (135-145) 06/19/24 06:24
Potassium 4.1 mmol/L (3.5-5.1) 06/19/24 06:24
Chloride 110 mmol/L (98-107) H 06/19/24 06:24
Carbon Dioxide 23 mmol/L (22-30) 06/19/24 06:24
BUN 28 mg/dl (9-20) H 06/19/24 06:24
Creatinine 1.2 mg/dL (0.7-1.3) 06/19/24 06:24
Calcium 8.3 mg/dl (8.4-10.2) L 06/19/24 06:24
Total Bilirubin 1.8 mg/dl (0.2-1.3) H 06/15/24 13:28
AST 41 U/L (17-59) 06/15/24 13:28
ALT 63 U/L (0-50) H 06/15/24 13:28
Alkaline Phosphatase 100 U/L (38-126) 06/15/24 13:28
Diagnostic Image Results:
06/15/2024- CXR
No acute cardiopulmonary process
06/02/24- US abdomen
Prior cholecystectomy. No findings to suggest biliary tract dilatation.
Probable diffuse fatty liver.
Pancreas, abdominal aorta and IVC significantly obscured, most likely by overlying bowel gas.
Findings suggesting bilateral chronic medical renal disease. No renal collecting system dilatation bilaterally.
05/2024- Renal US with bladder remarkable exam of the kidneys.
Moderate prostate hypertrophy. Stable
Moderate postvoid bladder residual. New
04/2024- CT A/p with IV and oral
Relative small size/atrophic kidneys bilaterally.
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
At least mildly enlarged prostate gland.
No intestinal obstruction or free air.
Prior cholecystectomy.
Heterogeneous pattern of post contrast enhancement of the spleen most likely within the limits of normal. If there is a clinical concern for splenic space-occupying lesion, ultrasound could be obtained.
07597- HCT
No acute intracranial abnormalities.
Findings compatible with diffuse cortical atrophy with mild nonspecific white matter changes as described above
Prior GI Procedures:
EGD: 2013 - [facility], with HH, gastritis, normal duodenum and esophagus. Colonoscopy 2013 [facility]-diverticulosis, internal hemorrhoids.
Colonoscopy: 2013 [facility]-diverticulosis, internal hemorrhoids.
Assessment / Plan
-
Pt is an 84yo with hx CAD with prior CABG and stent, CHF, ICD, valvular disease, PAF with prior ablation , hyperlipidemia, CKD, pulm HTN, hypothyroidism, BPH, RAVINDRA, COPD, gout and prior covid x 3 last about 1 1/2 years ago. Pt now with 3rd
admission with dehydration, BRITTANIE with decreased oral intakes and complaints of dysgeusia with metallic taste in mouth. Pt has had trial of supplement, treatment of depression, zinc supplementation, treatment of oral thrush, and review with PCP
without improvement. Hx EGD 2013 - [facility], with HH, gastritis, normal duodenum and esophagus. Colonoscopy 2013 [facility]-diverticulosis, internal hemorrhoids.
-dysgeusia
-wt loss with failure to thrive
-oral thrush on Nystatin
-leukocytosis - on prednisone prior to admission
-thrombocytopenia
-BRITTANIE on admission
-hypoglycemia on admission
other medical problems:
-CAD with prior CABG and stent
-CHF
-ICD
-valvular disease
-PAF
-hyperlipidemia
-CKD
-Pulm HTN
-hypothyroidism
-BPH
-RAVINDRA
-COPD
PLAN:
Etiology of symptoms with concern for decreased appetite from Dysgeusia with prior covid, underlying depression related , FTT with mulltiple med problems vs other
I reviewed Etiology of dysgeusia per up to date may be related to dara- infection, aging, nerve damage, B12/Zinc deficiency, hypothyroidism, DM, dementia/parkinson etc, vs chemical exposure
I also reviewed medications per up to to date no current meds associated with Dysgeusia
pt with recent Zinc treatment without improvement and B12 and TSH stable
s/p psych eval for depression and consider further ECT treatement
I reviewed with patient and daughter Milagros about EGD and they have also reviewed recently for peg over last 2 weeks
will further review with Dr. Costello for consider EGD to rule out dara esophagitis and if pt wishes consider peg during EGD
last Eliquis and Plavix 06/19
cont regular diet for today- per staff taking some supplement but minimal diet
pt with some persistent leukocytosis (noted recent prednisone taper) and thrombocytopenia etiology unclear
cont PPI
-
-
Thank you for consultation and allowing me to participate in the patient's care. Please call the elementary education tutor GI physician during the after hours with any questions or concerns.
[2024-06-20 10:15] LABS: Hematocrit 48.7 % (39.0-52.0); Hemoglobin 15.2 g/dL (13.0-18.0); Mean Corp Hgb Conc. 31.2 g/dL (33.0-37.0); Mean Corpuscular Hgb 29.5 pg (27.0-31.0); Mean Corpuscular Volume 94.6 fL (80.0-94.0); Platelet Count 104 10^3/uL (130-400); Red Blood Cell Count 5.15 10^6/uL (4.70-6.10); Red Cell Dist. Width 20.2 % (11.5-14.5); White Blood Cell Count 25.8 10^3/uL (4.8-10.8)
[2024-06-20 10:30] LABS: Blood Urea Nitrogen 27 mg/dl (9-20); Calcium 8.8 mg/dl (8.4-10.2); Carbon Dioxide 20 mmol/L (22-30); Chloride 108 mmol/L (98-107); Estimated Creatinine Clearance 33 ml/min; Glucose 96 mg/dl (70-99); Magnesium 2.2 mg/dl (1.6-2.3); Sodium 141 mmol/L (135-145); eGFR 49.25
--- NOTE | 2024-06-20 12:38 | WOUNDNOTE ---
[facility] RN NOTE: Reviewed chart and met with patient. Patient assessed with RNLeatha. Patient has severe protein calorie malnutrition as noted in medical record. Bilateral UE with skin tears with moderate/heavy bleeding. Dressings have been applied
about every 3 hours to manage bleeding. Local wound care provided with Vaseline gauze and 4x4 and clementine to provide greater pressure. JAMES Zhang describes stage 2 vs stage 3 sacral wound. Patient refused to have sacrum and heels assessed at time of
assessment. This process description writer called [facility] for sacral foams. Air cushion to chair. Static air overlay will be added when patient sits in chair. Patient refusing lunch at time of assessment. GI following. Will follow up for sacral wound assessment.
[2024-06-20 15:10] VITALS: BP 129/60
[2024-06-20 15:12] LABS: Glucose - Point of Care 90 mg/dl (70-99)
--- NOTE | 2024-06-20 16:35 | W.PN.HOSP.TC ---
Today's Communication/Plan
-
Check blood cultures, chest x-ray, urinalysis with cultures
IV fluids
GI will have a conversation with the family with regards to whether they would want a PEG tube or not.
Assessment / Plan
Assessment / Plan
HPI: 83-year-old man presented with poor p.o. intake. Patient had COVID 2 months ago and ever since his p.o. intake has been poor. He has a metallic taste in his mouth, lost 15 pounds in 2 months, this is third hospitalization for volume depletion
and acute kidney injury
Patient does not want to engage in a conversation. Awake and alert. Answers and avoid all 2.
He states that he feels cold. When asked why he does not want to eat he states that he does not have an appetite.
Cardiovascular system S1-S2 appreciated
Chest clear to auscultation
Abdomen soft and nontender
No pedal edema he sat up in bed but refused To stay seated
A/P:
# Clinical deconditioning with loss of appetite, poor PO intake and FTT, since COVID infection 2 months ago
# Severe protein calorie malnutrition-dietary evaluation.
# Hypoglycemia due to poor PO intake
Recent CT scan of the abdomen and pelvis on 05/03/2024 without any masses or indicative of malignancy
Calorie count ordered. Continue supplements
Cont Regular diet without restriction, encourage intake
COVID negative. CRP/ESR negative which r/o underlying inflammatory/infectious conditions
[place] likely depression could be contributing to his CUONG and listlessness
TSH WNL at 3.39
Appreciate Psych input
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
PT OT eval
# Prerenal BRITTANIE on CKD stage III
BRITTANIE has resolved
Cr 2.0 on admission to 1.2
Creatinine went up to 1.4 today. Restart IV fluids as p.o. intake is poor
Holding Lasix and Aldactone, would DC altogether going forward
Follow creatinine
# Dysgeusia for the past 2 months with metallic taste, started since COVID infection 2 months ago
Patient was started with steroids for long COVID symptoms. Discontinued steroids since not helping him
Pt declined SPL eval with solid
GI CS for EGD eval
GI will talk to patient's daughter
Plavix and Eliquis are on hold
If patient needs a PEG tube will need 5 days of Plavix washout-last dose was 06/19/2024
# Oral thrush on exam-on nystatin
# Depression- Remeron started on 06/16/2024. Zoloft was decreased to 25 mg daily taper off.
# Coronary artery disease with history of CABG 1995 and stents-continue Plavix, Imdur
# Chronic HFrEF and also stage II diastolic dysfunction
Hold Lasix and Aldactone. Continue Jardiance
Daily weights and intake output charting
# Mild thrombocytopenia-follow
# Leukocytosis-CRP and sed rate low. Unclear reason. Patient was on steroids prior to admission but stopped. Check urinalysis with culture, repeat chest x-ray, would send stool studies if he has diarrhea. Also check blood cultures. Afebrile at
present hold off on any antibiotics
# Valvular heart disease-moderate to severe MR, moderate to severe TR, mild to moderate AI
# Paroxysmal atrial fibrillation-History of ablation 2021-continue amiodarone, Toprol-XL, Eliquis
# History of NSVT status post ICD 2017-continue Amiodarone
# Essential Hypertension-continue Amlodipine, Metoprolol, Imdur with hold parameter
# Hyperlipidemia-continue atorvastatin and Zetia
# COPD-continue Trelegy. Chronic respiratory failure on home oxygen
# Hypothyroidism-continue Synthroid 100 mcg daily
# GERD/Batres's esophagus/hiatal hernia-continue Protonix
# Gout-continue febuxostat
# Enlarged prostate-continue finasteride
# Sleep apnea-CPAP
# Spinal stenosis
#DVT prophylaxis-continue Eliquis
#Full code
D/W RN
Discussed with GI GI is planning to call the daughter therefore I have not called.
Anticipated Discharge: > 48 hours
Subjective/Interval History
-
Date of Service: June 20, 2024
Objective Data
-
Labs:
Laboratory Results
06/20/24
10:04
WBC 25.8 H
Hgb 15.2
Hct 48.7
Plt Count 104 L
Sodium 141
Potassium 4.0
Chloride 108 H
Carbon Dioxide 20 L
BUN 27 H
Creatinine 1.4 H
Glucose 96
Calcium 8.8
Vital Signs:
Vital Signs
Temp Pulse Resp BP Pulse Ox
97.5 F 73 18 129/60 98
06/20/24 15:10 06/20/24 15:10 06/20/24 15:10 06/20/24 15:10 06/20/24 15:10
I&O
06/19/24 06/20/24 06/21/24
06:59 06:59 06:59
Intake Total 360 / 360 360 / 360
Output Total 0 / 0
Balance 360 / 360 360 / 360
[2024-06-20] MEDS: D5/0.45%NACL 1000 IV (18:29)
--- NOTE | 2024-06-20 21:21 | PTCARENOTE ---
Pt ate very little of dinner stating it had no flavor. Pt transported to x-ray via stretcher for 2 view CXR. Pt refused blood cultures to be done.
[2024-06-20 21:50] LABS: Glucose - Point of Care 150 mg/dl (70-99)
[2024-06-20] MEDS: LIPITOR 40 MG PO (22:00)
[2024-06-20] MEDS: REMERON ODT 15 MG PO (22:00)
--- NOTE | 2024-06-20 22:25 | PTCARENOTE ---
Pt able to turn self in bed. Pt able to ambulate to stretcher with stand-by assist and rolling walker earlier this evening. Agreed to take some po meds. Refused mycostatin and continues to refuse blood work.
[2024-06-20 23:00] VITALS: BP 132/65
--- NOTE | 2024-06-21 05:44 | W.PN.GI.CBS2 ---
Today's Communication / Plan
-
Patient now interested in possible PEG, still have yet to discuss further with family. Continue ongoing GOC discussions and will consider EGD w/ PEG placement tentatively later this week on Thursday, 06/24, if patient and family are agreeable. Rest of
care as outlined below.
Assessment / Plan
-
#Dysgeusia
#Weight Loss c/f
#Failure to Thrive
#Severe Protein Calorie Malnutrition
#Hypoglycemia 2/2 #Poor P.O Intake
#Hx of CAD (prior CABG, on plavix)
#PAF (on eliquis)
Mr. Gan is a 84 y.o male with extensive medical history as outlined below who presented with poor p.o intake, loss of appetite and concern for [id number] and found to have hypoglycemia and severe protein calorie malnutrition. He has had
prior admissions in the past for poor p.o intake and generalized weakness. He was started on Remeron along with Zoloft given concern for underlying depression as well. Otherwise, he denies any epigastric abdominal pain, lower abdominal discomfort,
reflux/heartburn, nausea/vomiting, dysphagia/odynophagia or other significant upper GI symptoms except for persistent dysgeusia for the past 2 months since his prior COVID-19 infection. No other post-prandial fullness, early satiety or
bloating/distension. A CT Abd/pelvis this admission was unrevealing for any mass or other concerning findings of malignancy. He was found to have oral thrush and was started on nystatin by his primary internal medicine team. Given concern for
possible esophageal candidiasis GI was consulted to consider EGD for diagnostic evaluation. Of note, he is also on plavix and eliquis (last doses back on 06/19). In extensive review of prior records by his PCP as well, he has had persistent ongoing
symptoms despite supplementation and treatment of depression without any improvement of symptoms. Doubt esophageal candidiasis would result in this type of presentation but certainly would be beneficial to rule out and other potential underlying
causes. COVID-19 infection has been associated with a post-viral induced gastroparesis, however clinically he is without any symptoms to suggest delayed gastric emptying.
Recommendations:
- Diet as tolerated
- Recent CXR concerning for LLL PNA, defer to primary team regarding IV abx
- Empiric PPI 40 mg BiD
- Patient now seems amenable to pursuing a PEG after further discussions this AM. Still have been unable to reach family yesterday
- Given this, recommend ongoing discussions with both patient and family if pursuing a feeding tube is in line with patient's goals of care
- For now, will tentatively plan for an EGD w/ possible PEG (if no significant findings on EGD) on Thursday, 06/24 to allow for a 5-day washout of plavix
- Eliquis and plavix remain on hold (last dose 06/19- )
- Rest of care as outlined below
Will continue ongoing discussions with both patient and family later today. Discussed with primary internal medicine team. GI will continue to follow while inpatient.
Subjective
Subjective
Date of Service: June 21, 2024
- Rising leukocytosis with WBC 14k -> 20.3k -> 25.8k
- CXR concerning for mild left lower lobe pneumonia
- Otherwise, no acute events overnight
Multiple attempts to reach family yesterday morning and later in afternoon regarding pursuing EGD and previous discussions regarding possible PEG.
Discussed with patient this AM again about EGD with possible PEG. He doesn't seem to recall declining the PEG tube during our discussions yesterday, thinks he was hallucinating. Otherwise, he does express interest but wants to discuss with his
family further regarding the possibility of a feeding tube if no obvious source were found during the EGD. Otherwise, he denies any abdominal pain/discomfort, nausea/vomiting or reflux/heartburn. Still with poor p.o intake and reported dysgeusia.
Additionally, does not worsening cough but without any chest pain or SOB.
Objective
Data Reviewed
Laboratory Data:
Laboratory Results
Phosphorus 2.9 mg/dl (2.5-4.5) 06/17/24 06:14
Magnesium 2.2 mg/dl (1.6-2.3) 06/20/24 10:04
Total Bilirubin 1.8 mg/dl (0.2-1.3) H 06/15/24 13:28
AST 41 U/L (17-59) 06/15/24 13:28
ALT 63 U/L (0-50) H 06/15/24 13:28
Alkaline Phosphatase 100 U/L (38-126) 06/15/24 13:28
Vital Signs and I&O:
Vital Signs
Temp Pulse Resp BP Pulse Ox
97.2 F 73 16 132/65 97
06/20/24 23:00 06/20/24 23:00 06/20/24 23:00 06/20/24 23:00 06/20/24 23:00
I&O
06/19/24 06/20/24 06/21/24
06:59 06:59 06:59
Intake Total 360 / 360 360 / 360 120 / 120
Output Total 0 / 0
Balance 360 / 360 360 / 360 120 / 120
Physical Exam
Physical Exam
HEENT: Anicteric and Moist mucous membranes
Pulmonary: Other (Normal WOB on room air)
GI: Soft, Non Distended and Non Tender
Extremities: No Edema
Neuro: Non Focal
[2024-06-21 06:16] VITALS: BMI 21.2
[2024-06-21 07:46] VITALS: BP 110/52
[2024-06-21 08:06] LABS: Glucose - Point of Care 101 mg/dl (70-99)
[2024-06-21] MEDS: SYMBICORT 80/4.5 MCG INHALER 2 PUFF INH ×2 (08:11→19:32)
[2024-06-21] MEDS: SPIRIVA RESPIMAT 2.5 MCG 2 PUFF INH (08:11)
[2024-06-21] MEDS: NOVOLOG FLEXPEN-LOW RESISTANCE SC ×3 (08:24→16:49)
[2024-06-21 08:30] LABS: Hematocrit 35.5 % (39.0-52.0); Hemoglobin 11.3 g/dL (13.0-18.0); Mean Corp Hgb Conc. 31.8 g/dL (33.0-37.0); Mean Corpuscular Hgb 29.4 pg (27.0-31.0); Mean Corpuscular Volume 92.2 fL (80.0-94.0); Platelet Count 107 10^3/uL (130-400); Red Blood Cell Count 3.85 10^6/uL (4.70-6.10); Red Cell Dist. Width 19.7 % (11.5-14.5); White Blood Cell Count 12.8 10^3/uL (4.8-10.8)
[2024-06-21] MEDS: D5/0.45%NACL 1000 IV (08:35)
[2024-06-21 08:50] LABS: Blood Urea Nitrogen 26 mg/dl (9-20); Carbon Dioxide 25 mmol/L (22-30); Chloride 109 mmol/L (98-107); Estimated Creatinine Clearance 36 ml/min; Glucose 95 mg/dl (70-99); Phosphorus 2.1 mg/dl (2.5-4.5); Potassium 3.7 mmol/L (3.5-5.1); Sodium 140 mmol/L (135-145); eGFR 53.84
[2024-06-21] MEDS: VITAMIN B1 100 MG PO (10:37)
[2024-06-21] MEDS: ZETIA 10 MG PO (10:37)
[2024-06-21] MEDS: ROCEPHIN 1000 MG IV (10:37)
[2024-06-21] MEDS: FARXIGA 10 MG PO (10:37)
[2024-06-21] MEDS: ZOLOFT 25 MG PO (10:37)
[2024-06-21] MEDS: STERILE WATER FOR INJECTION 10 ML IV (10:37)
[2024-06-21] MEDS: ULORIC 40 MG PO (10:37)
[2024-06-21] MEDS: PACERONE 200 MG PO (10:37)
[2024-06-21] MEDS: PROTONIX 40 MG PO (10:38)
[2024-06-21] MEDS: SYNTHROID 100 MCG PO (10:38)
[2024-06-21] MEDS: MYCOSTATIN ORAL SUSPENSION PO ×4 (10:38→22:09)
[2024-06-21] MEDS: PROSCAR 5 MG PO (10:38)
[2024-06-21] MEDS: TOPROL XL 100 MG PO (10:42)
[2024-06-21] MEDS: IMDUR (EXTENDED RELEASE) 60 MG PO (10:43)
[2024-06-21] MEDS: NORVASC 5 MG PO (10:43)
--- NOTE | 2024-06-21 11:25 | W.PN.UPDATE ---
Update Note
Progress Note Update
Pt seen, resting/sleeping quietly in bed. He reports feeling not good, c/o having no appetite for weeks. Tolerating med change- tapering down Zoloft- on 25 mg QD since 06/18, started Remeron, adjusted to 15 mg HS. Pt denies any SI. No agitation,
no signs of psychosis. Pt asked about possible PEG tube placement.
Imp: Unspecified depression, although pt and family have denied he is depressed per record
Rec: continue trial of Remeron; continue to taper off Zoloft- day #4 on 25 mg
Will follow
[2024-06-21 12:00] LABS: Glucose - Point of Care 113 mg/dl (70-99)
--- NOTE | 2024-06-21 12:06 | WOUNDNOTE ---
SACRUM AND GLUTEAL CLEFT
--- NOTE | 2024-06-21 12:10 | WOUNDNOTE ---
ADALBERTO RN NOTE: Followed up today with assist from nurse Lazo. Patient remains on air overlay and has air chair cushion. Palm check done with adequate inflation. Patient able to turn with minimal assist, sacrum is blanchable red, gluteal cleft with
small stage 2 vs evolving stage 3 PI, sacral silicone foam applied. Heels are blanchable red and very dry, foams applied and pillow placed under calves. Nurse reports patient deciding on Peg Tube placement due to continued poor appetite. Will
update wound care and follow as needed.
[2024-06-21 13:37] LABS: Urine Albumin Trace (Neg - Trace); Urine Bilirubin 1+ (Negative); Urine Character Clear (Clear); Urine Color Yellow; Urine Glucose 3+ (Negative); Urine Ketone Negative (Negative); Urine Leukocyte 1+ (Negative); Urine Nitrite Positive (Negative); Urine Occult Blood Negative (Negative); Urine Urobilinogen 4+ (Neg - 1+)
[2024-06-21 13:50] LABS: Urine Squamous Cell 16-20 /LPF (Few)
[2024-06-21 13:51] LABS: Urine Bacteria Moderate (Negative); Urine Red Blood Cell 0-2 /HPF (0-2); Urine White Cell 21-25 /HPF (0-5)
[2024-06-21 15:00] VITALS: BP 121/60; BP 135/61; PULSE 69; O2SAT 99
[2024-06-21 15:46] VITALS: BP 129/59
--- NOTE | 2024-06-21 16:34 | W.PN.HOSP.TC ---
Today's Communication/Plan
-
Ceftriaxone
Continue low-dose IV fluids as he is not taking anything by mouth
Replace phosphorus
PEG tube Thursday
Assessment / Plan
Assessment / Plan
HPI: 83-year-old man presented with poor p.o. intake. Patient had COVID 2 months ago and ever since his p.o. intake has been poor. He has a metallic taste in his mouth, lost 15 pounds in 2 months, this is third hospitalization for volume depletion
and acute kidney injury
More awake and alert. Answering questions.
Agreeable for PEG tube
Cardiovascular system S1-S2 appreciated
Chest clear to auscultation
Abdomen soft and nontender
A/P:
# Leukocytosis-CRP and sed rate low.
Slight pneumonia on chest x-ray-start ceftriaxone possible aspiration
Urinalysis has a lot of squamous cells possibly not a good specimen-wait for cultures. Patient has no symptoms of UTI
# Clinical deconditioning with loss of appetite, poor PO intake and FTT, since COVID infection 2 months ago
# Severe protein calorie malnutrition-dietary evaluation.
# Hypoglycemia due to poor PO intake
Recent CT scan of the abdomen and pelvis on 05/03/2024 without any masses or indicative of malignancy
Calorie count ordered. Continue supplements
Cont Regular diet without restriction, encourage intake
COVID negative. CRP/ESR negative which r/o underlying inflammatory/infectious conditions
[place] likely depression could be contributing to his CUONG and listlessness
TSH WNL at 3.39
Appreciate Psych input
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
PT OT eval
# Prerenal BRITTANIE on CKD stage III
BRITTANIE has resolved
Cr 2.0 on admission to 1.2
Creatinine went up to 1.4 today. Restart IV fluids as p.o. intake is poor
Holding Lasix and Aldactone, would DC altogether going forward
Follow creatinine
# Dysgeusia for the past 2 months with metallic taste, started since COVID infection 2 months ago
Patient was started with steroids for long COVID symptoms. Discontinued steroids since not helping him
Pt declined SPL eval with solid
Plavix and Eliquis are on hold
Patient wants EGD. Plavix washout-last dose was 06/19/2024
EGD planned for 06/24/2024
# Oral thrush on exam-on nystatin
# Depression- Remeron started on 06/16/2024. Zoloft was decreased to 25 mg daily taper off.
# Coronary artery disease with history of CABG 1995 and stents-continue Plavix, Imdur
# Chronic HFrEF and also stage II diastolic dysfunction
Hold Lasix and Aldactone. Continue Jardiance
Daily weights and intake output charting
# Mild thrombocytopenia-follow
# Valvular heart disease-moderate to severe MR, moderate to severe TR, mild to moderate AI
# Paroxysmal atrial fibrillation-History of ablation 2021-continue amiodarone, Toprol-XL, Eliquis
# History of NSVT status post ICD 2017-continue Amiodarone
# Essential Hypertension-continue Amlodipine, Metoprolol, Imdur with hold parameter
# Hyperlipidemia-continue atorvastatin and Zetia
# COPD-continue Trelegy. Chronic respiratory failure on home oxygen
# Hypothyroidism-continue Synthroid 100 mcg daily
# GERD/Batres's esophagus/hiatal hernia-continue Protonix
# Gout-continue febuxostat
# Enlarged prostate-continue finasteride
# Sleep apnea-CPAP
# Spinal stenosis
#DVT prophylaxis-continue Eliquis
#Full code
D/W RN
Discussed with GI -GI is planning for PEG Thursday
Spoke to daughter Milagros Gan-updated
Anticipated Discharge: > 48 hours
Subjective/Interval History
-
Date of Service: June 21, 2024
Objective Data
-
Labs:
Laboratory Results
06/21/24
07:31
WBC 12.8 H
Hgb 11.3 L D
Hct 35.5 L
Plt Count 107 L
Sodium 140
Potassium 3.7
Chloride 109 H
Carbon Dioxide 25
BUN 26 H
Creatinine 1.3
Glucose 95
Calcium 8.0 L
Vital Signs:
Vital Signs
Temp Pulse Resp BP Pulse Ox
97.4 F 71 16 129/59 99
06/21/24 15:46 06/21/24 15:46 06/21/24 15:46 06/21/24 15:46 06/21/24 15:46
I&O
06/20/24 06/21/24 06/22/24
06:59 06:59 06:59
Intake Total 360 / 360 1040 / 1040
Output Total 140 / 140
Balance 360 / 360 900 / 900
[2024-06-21 16:49] LABS: Glucose - Point of Care 138 mg/dl (70-99)
[2024-06-21] MEDS: NEUTRA-PHOS POWDER PACKET 250 MG PO ×2 (17:02→22:10)
--- NOTE | 2024-06-21 17:06 | PTCARENOTE ---
Offered multiple times, patient not interested in dinner. For lunch only had a few sips of hot chocolate and few bites of jello. Dr. Wilks aware of decreased urine output. Offered emotional support but patient not interested, often agitated when
bothered.
[2024-06-21] MEDS: LIPITOR 40 MG PO (22:09)
[2024-06-21] MEDS: REMERON ODT 15 MG PO (22:10)
[2024-06-21 22:13] LABS: Glucose - Point of Care 123 mg/dl (70-99)
[2024-06-21 23:00] VITALS: BP 110/47
[2024-06-22] MEDS: D5/0.45%NACL 1000 IV ×2 (02:12→21:37)
[2024-06-22] MEDS: SYNTHROID 100 MCG PO (05:45)
[2024-06-22 06:00] VITALS: BMI 21.3
--- NOTE | 2024-06-22 06:21 | W.PN.GI.CBS2 ---
Today's Communication / Plan
-
Still with ongoing poor p.o intake this admission. Patient agreeable to pursuing EGD with PEG this Thursday. Continue to hold plavix to allow for 5-day washout. D/w primary team. See rest of care as outlined below.
Assessment / Plan
-
#Dysgeusia
#Weight Loss c/f
#Failure to Thrive
#Severe Protein Calorie Malnutrition
#Hypoglycemia 2/2 #Poor P.O Intake
#Hx of CAD (prior CABG, on plavix)
#PAF (on eliquis)
Mr. Gan is a 84 y.o male with extensive medical history as outlined below who presented with poor p.o intake, loss of appetite and concern for [id number] and found to have hypoglycemia and severe protein calorie malnutrition. He has had
prior admissions in the past for poor p.o intake and generalized weakness. He was started on Remeron along with Zoloft given concern for underlying depression as well. Otherwise, he denies any epigastric abdominal pain, lower abdominal discomfort,
reflux/heartburn, nausea/vomiting, dysphagia/odynophagia or other significant upper GI symptoms except for persistent dysgeusia for the past 2 months since his prior COVID-19 infection. No other post-prandial fullness, early satiety or
bloating/distension. A CT Abd/pelvis this admission was unrevealing for any mass or other concerning findings of malignancy. He was found to have oral thrush and was started on nystatin by his primary internal medicine team. Given concern for
possible esophageal candidiasis GI was consulted to consider EGD for diagnostic evaluation. Of note, he is also on plavix and eliquis (last doses back on 06/19). In extensive review of prior records by his PCP as well, he has had persistent ongoing
symptoms despite supplementation and treatment of depression without any improvement of symptoms. Doubt esophageal candidiasis would result in this type of presentation but certainly would be beneficial to rule out and other potential underlying
causes. COVID-19 infection has been associated with a post-viral induced gastroparesis, however clinically he is without any symptoms to suggest delayed gastric emptying.
Recommendations:
- Diet as tolerated
- Started on IV abx given recent CXR with concern for PNA
- Empiric PPI 40 mg BiD
- Patient now amenable to pursuing a PEG after further discussions this AM and again on yesterday. Still have been unable to reach family yesterday. Will attempt to further discuss with family later this afternoon
- Given this, recommend ongoing discussions with both patient and family if pursuing a feeding tube is in line with patient's goals of care
- For now, plan for an EGD w/ possible PEG (if no significant findings on EGD) on Thursday, 06/24 to allow for a 5-day washout of plavix
- Eliquis and plavix remain on hold (last dose 06/19- )
- Rest of care as outlined below
Discussed with primary internal medicine team. GI will continue to follow while inpatient.
Subjective
Subjective
Date of Service: June 22, 2024
- No acute events overnight
Resting comfortably and continues to deny any upper abdominal pain, nausea/vomiting or dysphagia/odynophagia. In discussion with nursing, his appetite continues to remain quite poor and minimal to no oral intake. Discussed again about pursuing an
EGD with potential PEG placement and patient is agreeable to this. Still have not been able to reach family.
Objective
Data Reviewed
Laboratory Data:
Laboratory Results
Phosphorus 2.1 mg/dl (2.5-4.5) L 06/21/24 07:31
Magnesium 2.2 mg/dl (1.6-2.3) 06/20/24 10:04
Total Bilirubin 1.8 mg/dl (0.2-1.3) H 06/15/24 13:28
AST 41 U/L (17-59) 06/15/24 13:28
ALT 63 U/L (0-50) H 06/15/24 13:28
Alkaline Phosphatase 100 U/L (38-126) 06/15/24 13:28
Vital Signs and I&O:
Vital Signs
Temp Pulse Resp BP Pulse Ox
97.9 F 70 19 110/47 93
06/21/24 23:00 06/21/24 23:00 06/21/24 23:00 06/21/24 23:00 06/21/24 23:00
I&O
06/20/24 06/21/24 06/22/24
06:59 06:59 06:59
Intake Total 360 / 360 1040 / 1040 1090 / 1090
Output Total 140 / 140 175 / 175
Balance 360 / 360 900 / 900 915 / 915
Physical Exam
Physical Exam
HEENT: Anicteric and Moist mucous membranes
Cardiology: Normal Sinus Rhythm
Pulmonary: Other (Normal WOB)
GI: Soft, Non Distended and Non Tender
Extremities: No Edema
Neuro: Non Focal
[2024-06-22] MEDS: SPIRIVA RESPIMAT 2.5 MCG 2 PUFF INH (07:13)
[2024-06-22] MEDS: SYMBICORT 80/4.5 MCG INHALER 2 PUFF INH (07:13)
[2024-06-22 07:19] LABS: Hematocrit 33.4 % (39.0-52.0); Hemoglobin 10.9 g/dL (13.0-18.0); Mean Corp Hgb Conc. 32.6 g/dL (33.0-37.0); Mean Corpuscular Hgb 29.1 pg (27.0-31.0); Mean Corpuscular Volume 89.3 fL (80.0-94.0); Mean Platelet Volume 10.9 fL (7.4-10.4); Platelet Count 113 10^3/uL (130-400); Red Blood Cell Count 3.74 10^6/uL (4.70-6.10); Red Cell Dist. Width 19.4 % (11.5-14.5); White Blood Cell Count 10.4 10^3/uL (4.8-10.8)
[2024-06-22 07:27] VITALS: BP 107/52
[2024-06-22 07:29] LABS: Blood Urea Nitrogen 18 mg/dl (9-20); Calcium 7.7 mg/dl (8.4-10.2); Carbon Dioxide 22 mmol/L (22-30); Chloride 108 mmol/L (98-107); Estimated Creatinine Clearance 43 ml/min; Glucose 76 mg/dl (70-99); Magnesium 1.9 mg/dl (1.6-2.3); Sodium 136 mmol/L (135-145); eGFR > 60.00
[2024-06-22 07:47] LABS: Glucose - Point of Care 77 mg/dl (70-99)
[2024-06-22] MEDS: NOVOLOG FLEXPEN-LOW RESISTANCE SC ×2 (08:55→12:12)
[2024-06-22] MEDS: STERILE WATER FOR INJECTION 10 ML IV (09:04)
[2024-06-22] MEDS: ROCEPHIN 1000 MG IV (09:04)
[2024-06-22] MEDS: TYLENOL 650 MG PO (09:04)
[2024-06-22] MEDS: NEUTRA-PHOS POWDER PACKET 250 MG PO ×4 (09:07→21:08)
[2024-06-22] MEDS: TOPROL XL 100 MG PO (09:14)
[2024-06-22] MEDS: NORVASC 5 MG PO (09:14)
[2024-06-22] MEDS: VITAMIN B1 100 MG PO (09:14)
[2024-06-22] MEDS: FARXIGA 10 MG PO (09:14)
[2024-06-22] MEDS: ULORIC 40 MG PO (09:14)
[2024-06-22] MEDS: PROTONIX 40 MG PO (09:14)
[2024-06-22] MEDS: ZETIA 10 MG PO (09:14)
[2024-06-22] MEDS: IMDUR (EXTENDED RELEASE) 60 MG PO (09:14)
[2024-06-22] MEDS: MYCOSTATIN ORAL SUSPENSION PO ×4 (09:15→21:13)
[2024-06-22] MEDS: PACERONE 200 MG PO (09:15)
[2024-06-22] MEDS: ZOLOFT 25 MG PO (09:15)
[2024-06-22] MEDS: PROSCAR 5 MG PO (09:15)
[2024-06-22 11:35] LABS: Glucose - Point of Care 107 mg/dl (70-99)
--- NOTE | 2024-06-22 12:03 | W.PN.UPDATE ---
Update Note
Progress Note Update
patient seen chart reviewed. spoke with nursing and with patient's aide. mr zepeda is doing somewhat better. he is still w poor intake of food. he told me 'my mouth is dry' i explained to him that the medication he has been receiving at [facility] can cause dry mouth. explained to that one of the benefits is that it may increase his appetite so he wanted to continue it. have ordered [facility] artificial saliva qid which may help w dry mouth. have also dc'ed zoloft which can contribute to
dry mouth and really does not have to be tapered skilled nursing. he was oriented x3 told me about his kids grandkids and four great grandkids! will follow
[2024-06-22] MEDS: OASIS 1 SPRAY PO (13:37)
--- NOTE | 2024-06-22 14:30 | W.PN.HOSP.TC ---
Today's Communication/Plan
-
PEG tube Thursday
Continue antibiotics
Maintain IVF
Assessment / Plan
Assessment / Plan
HPI: 83-year-old man presented with poor p.o. intake. Patient had COVID 2 months ago and ever since his p.o. intake has been poor. He has a metallic taste in his mouth, lost 15 pounds in 2 months, this is third hospitalization for volume depletion
and acute kidney injury
More awake and alert. Answering questions.
Agreeable for PEG tube
Cardiovascular system S1-S2 appreciated
Chest clear to auscultation
Abdomen soft and nontender
A/P:
# Leukocytosis-CRP and sed rate low.
Slight pneumonia on chest x-ray-start ceftriaxone possible aspiration
# Possible E. coli UTI-continue ceftriaxone
# Clinical deconditioning with loss of appetite, poor PO intake and FTT, since COVID infection 2 months ago
# Severe protein calorie malnutrition-dietary evaluation.
# Hypoglycemia due to poor PO intake
Recent CT scan of the abdomen and pelvis on 05/03/2024 without any masses or indicative of malignancy
Calorie count ordered. Continue supplements
Cont Regular diet without restriction, encourage intake
COVID negative. CRP/ESR negative which r/o underlying inflammatory/infectious conditions
[place] likely depression could be contributing to his CUONG and listlessness
TSH WNL at 3.39
Appreciate Psych input
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
PT OT eval
# Prerenal BRITTANIE on CKD stage III
BRITTANIE has resolved
Cr 2.0 on admission to 1.2
Creatinine went up to 1.4 today. Restart IV fluids as p.o. intake is poor
Holding Lasix and Aldactone, would DC altogether going forward
Follow creatinine
# Dysgeusia for the past 2 months with metallic taste, started since COVID infection 2 months ago
Patient was started with steroids for long COVID symptoms. Discontinued steroids since not helping him
Pt declined SPL eval with solid
Plavix and Eliquis are on hold
Patient wants EGD. Plavix washout-last dose was 06/19/2024
EGD planned for 06/24/2024
# Oral thrush on exam-on nystatin
# Depression- Remeron started on 06/16/2024. Zoloft was decreased to 25 mg daily taper off.
# Coronary artery disease with history of CABG 1995 and stents-continue Plavix, Imdur
# Chronic HFrEF and also stage II diastolic dysfunction
Hold Lasix and Aldactone. Continue Jardiance
Daily weights and intake output charting
# Mild thrombocytopenia-follow
# Valvular heart disease-moderate to severe MR, moderate to severe TR, mild to moderate AI
# Paroxysmal atrial fibrillation-History of ablation 2021-continue amiodarone, Toprol-XL, Eliquis
# History of NSVT status post ICD 2017-continue Amiodarone
# Essential Hypertension-continue Amlodipine, Metoprolol, Imdur with hold parameter
# Hyperlipidemia-continue atorvastatin and Zetia
# COPD-continue Trelegy. Chronic respiratory failure on home oxygen
# Hypothyroidism-continue Synthroid 100 mcg daily
# GERD/Batres's esophagus/hiatal hernia-continue Protonix
# Gout-continue febuxostat
# Enlarged prostate-continue finasteride
# Sleep apnea-CPAP
# Spinal stenosis
#DVT prophylaxis-continue Eliquis
#Full code
D/W RN
Discussed with GI -GI is planning for PEG Thursday
Spoke to daughter Milagros Gan-updated 06/21/2024
Anticipated Discharge: > 48 hours
Subjective/Interval History
-
Date of Service: June 22, 2024
Objective Data
-
Labs:
Laboratory Results
06/22/24
06:40
WBC 10.4
Hgb 10.9 L
Hct 33.4 L
Plt Count 113 L
Sodium 136
Potassium 4.0
Chloride 108 H
Carbon Dioxide 22
BUN 18
Creatinine 1.1
Glucose 76
Calcium 7.7 L
Vital Signs:
Vital Signs
Temp Pulse Resp BP Pulse Ox
99.3 F 72 17 128/56 95
06/22/24 07:27 06/22/24 09:14 06/22/24 07:27 06/22/24 09:14 06/22/24 07:27
I&O
06/21/24 06/22/24 06/23/24
06:59 06:59 06:59
Intake Total 1040 / 1040 1790 / 1790
Output Total 140 / 140 375 / 375
Balance 900 / 900 1415 / 1415
[2024-06-22 14:58] VITALS: BP 93/43
[2024-06-22 16:17] LABS: Glucose - Point of Care 153 mg/dl (70-99)
[2024-06-22] MEDS: NOVOLOG FLEXPEN-LOW RESISTANCE 1 UNITS SC (18:09)
[2024-06-22] MEDS: OASIS PO ×2 (18:12→21:13)
[2024-06-22] MEDS: SYMBICORT 80/4.5 MCG INHALER INH (19:31)
[2024-06-22] MEDS: REMERON ODT 15 MG PO (21:08)
[2024-06-22] MEDS: LIPITOR 40 MG PO (21:09)
[2024-06-22 21:53] LABS: Glucose - Point of Care 90 mg/dl (70-99)
[2024-06-22 23:06] VITALS: BP 123/52
[2024-06-23] MEDS: SYNTHROID 100 MCG PO (05:48)
[2024-06-23 06:00] VITALS: BMI 21.7
[2024-06-23 07:20] LABS: Hematocrit 32.8 % (39.0-52.0); Hemoglobin 10.8 g/dL (13.0-18.0); Mean Corp Hgb Conc. 32.9 g/dL (33.0-37.0); Mean Corpuscular Volume 88.2 fL (80.0-94.0); Platelet Count 116 10^3/uL (130-400); Red Blood Cell Count 3.72 10^6/uL (4.70-6.10); Red Cell Dist. Width 19.5 % (11.5-14.5); White Blood Cell Count 8.2 10^3/uL (4.8-10.8)
[2024-06-23] MEDS: SYMBICORT 80/4.5 MCG INHALER INH ×2 (07:28→19:29)
[2024-06-23] MEDS: SPIRIVA RESPIMAT 2.5 MCG INH (07:28)
[2024-06-23 07:45] VITALS: BP 120/54
[2024-06-23 07:52] LABS: Blood Urea Nitrogen 15 mg/dl (9-20); Calcium 7.6 mg/dl (8.4-10.2); Carbon Dioxide 21 mmol/L (22-30); Chloride 108 mmol/L (98-107); Estimated Creatinine Clearance 44 ml/min; Glucose 70 mg/dl (70-99); Potassium 3.8 mmol/L (3.5-5.1); Sodium 135 mmol/L (135-145); eGFR > 60.00
[2024-06-23 07:55] LABS: Glucose - Point of Care 76 mg/dl (70-99)
[2024-06-23] MEDS: ZETIA 10 MG PO (08:43)
[2024-06-23] MEDS: NOVOLOG FLEXPEN-LOW RESISTANCE SC ×3 (08:43→17:19)
[2024-06-23] MEDS: FARXIGA 10 MG PO (08:43)
[2024-06-23] MEDS: PROSCAR 5 MG PO (08:44)
[2024-06-23] MEDS: VITAMIN B1 100 MG PO (08:44)
[2024-06-23] MEDS: PROTONIX 40 MG PO (08:44)
[2024-06-23] MEDS: TOPROL XL 100 MG PO (08:44)
[2024-06-23] MEDS: ULORIC 40 MG PO (08:44)
[2024-06-23] MEDS: IMDUR (EXTENDED RELEASE) 60 MG PO (08:45)
[2024-06-23] MEDS: NORVASC 5 MG PO (08:45)
[2024-06-23] MEDS: PACERONE 200 MG PO (08:45)
--- NOTE | 2024-06-23 09:01 | W.PN.GI.CBS2 ---
Today's Communication / Plan
-
EGD with PEG tomorrow, continue to hold eliquis/plavix. Keep NPO at MN. Rest of care as outlined below.
Assessment / Plan
-
#Dysgeusia
#Weight Loss c/f
#Failure to Thrive
#Severe Protein Calorie Malnutrition
#Hypoglycemia 2/2 #Poor P.O Intake
#Hx of CAD (prior CABG, on plavix)
#PAF (on eliquis)
Mr. Gan is a 84 y.o male with extensive medical history as outlined below who presented with poor p.o intake, loss of appetite and concern for [id number]-xhiugi and found to have hypoglycemia and severe protein calorie malnutrition. He has had
prior admissions in the past for poor p.o intake and generalized weakness. He was started on Remeron along with Zoloft given concern for underlying depression as well. Otherwise, he denies any epigastric abdominal pain, lower abdominal discomfort,
reflux/heartburn, nausea/vomiting, dysphagia/odynophagia or other significant upper GI symptoms except for persistent dysgeusia for the past 2 months since his prior COVID-19 infection. No other post-prandial fullness, early satiety or
bloating/distension. A CT Abd/pelvis this admission was unrevealing for any mass or other concerning findings of malignancy. He was found to have oral thrush and was started on nystatin by his primary internal medicine team. Given concern for
possible esophageal candidiasis GI was consulted to consider EGD for diagnostic evaluation. Of note, he is also on plavix and eliquis (last doses back on 06/19). In extensive review of prior records by his PCP as well, he has had persistent ongoing
symptoms despite supplementation and treatment of depression without any improvement of symptoms. Doubt esophageal candidiasis would result in this type of presentation but certainly would be beneficial to rule out and other potential underlying
causes. COVID-19 infection has been associated with a post-viral induced gastroparesis, however clinically he is without any symptoms to suggest delayed gastric emptying.
Recommendations:
- Diet as tolerated, keep NPO at MN
- Started on IV abx given recent CXR with concern for PNA
- Empiric PPI 40 mg BiD
- Patient and family agree with pursuing EGD with placement of PEG given his ongoing malnutrition and continued poor p.o intake
- Plan for EGD with PEG placement tomorrow, 06/24/24, to allow for 5-day plavix washout
- Eliquis and plavix remain on hold (last dose 06/19- )
- Rest of care as outlined below
GI will continue to follow while inpatient. Discussed with internal medicine team this morning.
Subjective
Subjective
Date of Service: June 23, 2024
- No acute events overnight
Patient resting comfortably, his appetite and overall oral intake continues to remain poor since admission. Still agreeable to pursuing EGD with PEG tomorrow. Plavix continues to remain on hold.
Objective
Data Reviewed
Laboratory Data:
Laboratory Results
06/23/24 07:03
06/23/24 07:03
Laboratory Results
Phosphorus 2.1 mg/dl (2.5-4.5) L 06/21/24 07:31
Magnesium 1.9 mg/dl (1.6-2.3) 06/22/24 06:40
Total Bilirubin 1.8 mg/dl (0.2-1.3) H 06/15/24 13:28
AST 41 U/L (17-59) 06/15/24 13:28
ALT 63 U/L (0-50) H 06/15/24 13:28
Alkaline Phosphatase 100 U/L (38-126) 06/15/24 13:28
Vital Signs and I&O:
Vital Signs
Temp Pulse Resp BP Pulse Ox
97.9 F 70 16 120/54 95
06/23/24 07:45 06/23/24 08:44 06/23/24 07:45 06/23/24 08:44 06/23/24 07:45
I&O
06/22/24 06/23/24 06/24/24
06:59 06:59 06:59
Intake Total 1790 / 1790 1350 / 1350
Output Total 375 / 375
Balance 1415 / 1415 1350 / 1350
Physical Exam
Physical Exam
HEENT: Anicteric and Moist mucous membranes
Cardiology: Normal Sinus Rhythm
Pulmonary: Other (Normal WOB )
GI: Soft, Non Distended and Non Tender
Extremities: No Edema
Neuro: Non Focal and Other
[2024-06-23] MEDS: MYCOSTATIN ORAL SUSPENSION PO (09:25)
[2024-06-23] MEDS: OASIS PO ×4 (09:25→21:16)
--- NOTE | 2024-06-23 10:25 | W.PN.HOSP.TC ---
Today's Communication/Plan
-
Gentle IV fluids-maintenance
PEG tube tomorrow
Assessment / Plan
Assessment / Plan
HPI: 83-year-old man presented with poor p.o. intake. Patient had COVID 2 months ago and ever since his p.o. intake has been poor. He has a metallic taste in his mouth, lost 15 pounds in 2 months, this is third hospitalization for volume depletion
and acute kidney injury
More awake and alert. Answering questions.
Agreeable for PEG tube
Cardiovascular system S1-S2 appreciated
Chest clear to auscultation
Abdomen soft and nontender
A/P:
# Pneumonia on chest x-ray-start ceftriaxone possible aspiration reasons
# Possible E. coli UTI-continue ceftriaxone
# Clinical deconditioning with loss of appetite, poor PO intake and FTT, since COVID infection 2 months ago
# Severe protein calorie malnutrition-dietary evaluation.
# Hypoglycemia due to poor PO intake
Recent CT scan of the abdomen and pelvis on 05/03/2024 without any masses or indicative of malignancy
Calorie count ordered. Continue supplements
Cont Regular diet without restriction, encourage intake patient's p.o. intake is still not adequate and hence may need a PEG tube.
COVID negative. CRP/ESR negative which r/o underlying inflammatory/infectious conditions
[place] likely depression could be contributing to his CUONG and listlessness
TSH WNL at 3.39
Added Remeron increased to 15 mg HS, Weaned off of Zoloft slowly.
# Prerenal BRITTANIE on CKD stage III
BRITTANIE has resolved
Cr 2.0 on admission to 1.1
Holding Lasix and Aldactone
# Dysgeusia for the past 2 months with metallic taste, started since COVID infection 2 months ago
Patient was started with steroids for long COVID symptoms. Discontinued steroids since not helping him
Plavix and Eliquis are on hold
Patient wants PEG. Plavix washout-last dose was 06/19/2024
EGD planned for 06/24/2024
# Oral thrush on exam-on nystatin, stop
# Depression- Remeron started on 06/16/2024. Zoloft tapered off.
# Coronary artery disease with history of CABG 1995 and stents-continue , Imdur. Holding Plavix for the procedure
# Chronic HFrEF and also stage II diastolic dysfunction
Hold Lasix and Aldactone. Hold Jardiance for the procedure
Daily weights and intake output charting
# Mild thrombocytopenia-follow
# Valvular heart disease-moderate to severe MR, moderate to severe TR, mild to moderate AI
# Paroxysmal atrial fibrillation-History of ablation 2021-continue amiodarone, Toprol-XL, Eliquis on hold
# History of NSVT status post ICD 2017-continue Amiodarone
# Essential Hypertension-continue Amlodipine, Metoprolol, Imdur with hold parameter
# Hyperlipidemia-continue atorvastatin and Zetia
# COPD-continue Trelegy. Chronic respiratory failure on home oxygen
# Hypothyroidism-continue Synthroid 100 mcg daily
# GERD/Batres's esophagus/hiatal hernia-continue Protonix
# Gout-continue febuxostat
# Enlarged prostate-continue finasteride
# Sleep apnea-CPAP
# Spinal stenosis
#DVT prophylaxis-continue Eliquis
#Full code
D/W RN
Discussed with GI -GI is planning for PEG Thursday
Spoke to daughter Milagros Gan-updated 06/23/2024
Anticipated Discharge: 24 - 48 hours
Subjective/Interval History
-
Date of Service: June 23, 2024
Objective Data
-
Labs:
Laboratory Results
06/23/24
07:03
WBC 8.2
Hgb 10.8 L
Hct 32.8 L
Plt Count 116 L
Sodium 135
Potassium 3.8
Chloride 108 H
Carbon Dioxide 21 L
BUN 15
Creatinine 1.1
Glucose 70
Calcium 7.6 L
Vital Signs:
Vital Signs
Temp Pulse Resp BP Pulse Ox
97.9 F 70 16 120/54 95
06/23/24 07:45 06/23/24 08:44 06/23/24 07:45 06/23/24 08:44 06/23/24 07:45
I&O
06/22/24 06/23/24 06/24/24
06:59 06:59 06:59
Intake Total 1790 / 1790 1350 / 1350
Output Total 375 / 375
Balance 1415 / 1415 1350 / 1350
[2024-06-23] MEDS: STERILE WATER FOR INJECTION 10 ML IV (10:39)
[2024-06-23] MEDS: ROCEPHIN 1000 MG IV (10:39)
[2024-06-23] MEDS: TYLENOL 650 MG PO ×2 (10:40→17:19)
[2024-06-23 11:42] LABS: Glucose - Point of Care 103 mg/dl (70-99)
--- NOTE | 2024-06-23 12:06 | W.PN.UPDATE ---
Update Note
Progress Note Update
patient seen chart reviewed. mr zepeda was much more alert and interactive with me today. he was watching tv news and we talked about the vote on the [employer] moving to [facility]. he was quite informed on the subject and offered his
assessment that it was a mistake and would ruin that area. he also said it was depressing to watch the news. asked him if he had tried the oasis (dry mouth aid) but he said he did not want to. mr zepeda felt metallic taste was the reason for his
decreased appetite and weight loss. (peg tube planned) i did some research on metallic taste...dry mouth can contribute to taste change as can many medication. of those he takes amiodarone and synthroid both can cause this although i would say
covid is more likely. other possiblities include dementia itself though brain changes, . some remedies include rinsing mouth before eating with bicarb solution using stronger tastes to diminish the metallic taste such as citrus and sweet. he was
started on remeron on the in the hope it would help w appetite. dry mouth is a side effect of remeron. i do note an improvement in his mood and affect today from yesterday but it would seem too soon for remeron to be the cause. in any case he
did not appear depressed particularly today. when i came in the room he laughed and said 'doctor do you know how many people have come in my room since 430 am? he told me he had counted and the number is currently at 19! whether to continue remeron
should be addressed at some point in the future. as stated he does look better. if his appetite picks up as well would continue it. psych will sign off.
[2024-06-23 14:26] VITALS: BP 121/56; PULSE 65; O2SAT 92
[2024-06-23 15:44] VITALS: BP 116/53
--- NOTE | 2024-06-23 16:36 | CM ---
CM reviewed chart, [facility] Patient for peg tube placement tomorrow. Patient seen bedside with and daughter. Daughter, Milagros, reports she will be person to assist with tube feeds, contact [phone], asking for literature
on tube feeds, will relay to [facility]. CM will continue to follow for all discharge planning needs.
Plan; peg tube tomorrow.
[2024-06-23 17:15] LABS: Glucose - Point of Care 88 mg/dl (70-99)
[2024-06-23] MEDS: REMERON ODT 15 MG PO (21:16)
[2024-06-23] MEDS: LIPITOR 40 MG PO (21:16)
[2024-06-23 21:47] LABS: Glucose - Point of Care 95 mg/dl (70-99)
[2024-06-23] MEDS: D5/0.45%NACL 1000 IV (22:30)
[2024-06-23 23:00] VITALS: BP 110/53
[2024-06-24] VITALS (15 sets, daily range): BP systolic 16–147; BP diastolic 50–69; BMI 22.3
[2024-06-24] MEDS: SYNTHROID PO (05:09)
[2024-06-24] MEDS: SPIRIVA RESPIMAT 2.5 MCG 2 PUFF INH (07:39)
[2024-06-24] MEDS: SYMBICORT 80/4.5 MCG INHALER 2 PUFF INH (07:39)
[2024-06-24] MEDS: NOVOLOG FLEXPEN-LOW RESISTANCE SC (07:49)
[2024-06-24 08:00] LABS: Glucose - Point of Care 74 mg/dl (70-99)
--- NOTE | 2024-06-24 09:43 | VNURNOTE ---
[facility] liaison spoke with patient's daughter Milagros. She confirms would like [facility] resumption at DC. Milagros lives with patient and his spouse (spouse w/dementia per formerly [facility]). Milagros agreeable to learn PEG care/Tube feedings at home. Explained that
equipment will be ordered once orders obtained for home tube feed regime. When ready for DC, request that patient is D/C'ed early in day so same day [facility] visit can occur.
Milagros verbalized understanding, general patient edu on PEG/Tube feed left at bedside per daughter request.
Spoke w/daughter about hospital bed for HOB elevation w/TF. Milagros declined stating apartment is small and patient uses a recliner that elevates HOB.
CM to send tube feed rx to DME
[facility] to see patient same day when stable for DC.
Resumption referral accepted in [facility]. Will update prior to DC.
[2024-06-24] MEDS: NORVASC 5 MG PO (11:18)
[2024-06-24] MEDS: VITAMIN B1 100 MG PO (11:18)
[2024-06-24] MEDS: FARXIGA 10 MG PO (11:18)
[2024-06-24] MEDS: PROTONIX 40 MG PO (11:18)
[2024-06-24] MEDS: IMDUR (EXTENDED RELEASE) 60 MG PO (11:19)
[2024-06-24] MEDS: TOPROL XL 100 MG PO (11:19)
[2024-06-24] MEDS: ULORIC 40 MG PO (11:19)
[2024-06-24] MEDS: OASIS PO ×3 (11:19→18:04)
[2024-06-24] MEDS: PROSCAR 5 MG PO (11:19)
[2024-06-24] MEDS: ZETIA 10 MG PO (11:19)
[2024-06-24] MEDS: FLAGYL 500 MG IV (11:20)
[2024-06-24] MEDS: PACERONE 200 MG PO (11:20)
[2024-06-24] MEDS: STERILE WATER FOR INJECTION IV ×2 (12:21→14:33)
[2024-06-24] MEDS: ROCEPHIN IV ×2 (12:21→14:32)
[2024-06-24 12:27] LABS: Glucose - Point of Care 72 mg/dl (70-99)
--- NOTE | 2024-06-24 14:33 | W.PN.HOSP.TC ---
Today's Communication/Plan
-
see bold
Assessment / Plan
Assessment / Plan
HPI: 83-year-old man presented with poor p.o. intake. Patient had COVID 2 months ago and ever since his p.o. intake has been poor. He has a metallic taste in his mouth, lost 15 pounds in 2 months, this is third hospitalization for volume depletion
and acute kidney injury
A/P:
# Pneumonia on chest x-ray
Suspect aspiration
Continue Rocephin day 4/
Add Flagyl D1
# Possible E. coli UTI
Continue Rocephin day 10/08
# Clinical deconditioning with loss of appetite, poor PO intake and FTT, since COVID infection 2 months ago
# Severe protein calorie malnutrition-dietary evaluation.
# Hypoglycemia due to poor PO intake
Recent CT scan of the abdomen and pelvis on 05/03/2024 without any masses or indicative of malignancy
Calorie count ordered. Continue supplements
Cont Regular diet without restriction, encourage intake patient's p.o. intake is still not adequate and hence may need a PEG tube.
COVID negative. CRP/ESR negative which r/o underlying inflammatory/infectious conditions
[place] likely depression could be contributing to his CUONG and listlessness
TSH WNL at 3.39
Added Remeron, increased to 15 mg HS, weaned off of Zoloft slowly.
# Prerenal BRITTANIE on CKD stage III
BRITTANIE has resolved, creatinine 1.1, was 2.0 on admission
Holding Lasix and Aldactone
# Dysgeusia for the past 2 months with metallic taste, started since COVID infection 2 months ago
Patient was started with steroids for long COVID symptoms. Discontinued steroids since not helping him
Plavix and Eliquis are on hold - resume when ok w/ GI
Patient wants PEG. Plavix washout-last dose was 06/19/2024
Status post EGD with PEG placement 06/24/2024
# Oral thrush on exam-status post nystatin
# Depression- Remeron started on 06/16/2024. Zoloft tapered off.
# Coronary artery disease with history of CABG 1995 and stents-continue , Imdur. Holding Plavix for the procedure
# Chronic HFrEF and also stage II diastolic dysfunction
Hold Lasix and Aldactone. Hold Jardiance for the procedure
Daily weights and intake output charting
# Mild thrombocytopenia-follow
# Valvular heart disease-moderate to severe MR, moderate to severe TR, mild to moderate AI
# Paroxysmal atrial fibrillation-History of ablation 2021-continue amiodarone, Toprol-XL, Eliquis on hold
# History of NSVT status post ICD 2017-continue Amiodarone
# Essential Hypertension-continue Amlodipine, Metoprolol, Imdur with hold parameter
# Hyperlipidemia-continue atorvastatin and Zetia
# COPD-continue Trelegy. Chronic respiratory failure on home oxygen
# Hypothyroidism-continue Synthroid 100 mcg daily
# GERD/Batres's esophagus/hiatal hernia-continue Protonix
# Gout-continue febuxostat
# Enlarged prostate-continue finasteride
# Sleep apnea-CPAP
# Spinal stenosis
#DVT prophylaxis-continue Eliquis
#Full code
D/W RN
Dr. Wilks updated daughter Milagros Gan- 06/23/2024
Total time spent to see the patient on the floor, examine the patient, review data and lab results, discuss treatment plan with patient, nursing staff around 40 minutes.
Physical Exam
General: No acute distress
HEENT: Normocephalic, Atraumatic, EOMI, MMM
Respiratory: Clear to Auscultation bilaterally
Cardiac: Normal S1/S2, Regular Rate and Rhythm
GI: Soft, mild appropriate tenderness, PEG in place
Extremities: No Clubbing, Cyanosis, or Edema
Neuro: Nonfocal/Grossly Intact
Psych: Calm, Cooperative
Derm: No Visible lesions
Anticipated Discharge: 24 - 48 hours
Subjective/Interval History
-
Date of Service: June 24, 2024
Patient seen after his PEG was placed today. Denies pain, denies nausea, denies vomiting. No fever. No chest pain, no shortness of breath. Has a productive cough, same as prior.
Objective Data
-
Vital Signs:
Vital Signs
Temp Pulse Resp BP Pulse Ox
98.1 F 68 16 112/56 93
06/24/24 07:31 06/24/24 07:40 06/24/24 07:40 06/24/24 07:31 06/24/24 07:40
I&O
06/23/24 06/24/24 06/25/24
06:59 06:59 06:59
Intake Total 1350 / 1350 1320 / 1320
Output Total 400 / 400
Balance 1350 / 1350 920 / 920
--- NOTE | 2024-06-24 15:20 | W.IMMPOSTOP ---
Surgical Immed Post Op Note
-
Primary Surgeon: King
Assisting Surgeon: Celestine
Pre-op Diagnosis: Malnutrition
Post-op Diagnosis: Malnutrition
Procedure Performed: Percutaneous endoscopic gastrostomy tube placement
Anesthesia Type: MAC/local
Specimen / Cultures: None
Estimated Blood Loss: < 1 cc
Complications: None
Operative Findings:
1. EGD unremarkable, see separate procedure note for details
2. 20 fr PEG tub inserted in LUQ using standard pull technique; transillumination, 1:1 palpation, + bubble
3. Secured at 3 cm at the skin
[2024-06-24] MEDS: POTASSIUM PHOSPHATE 259.0909 MEQ IV (15:52)
[2024-06-24] MEDS: ROCEPHIN 1000 MG IV (16:11)
[2024-06-24] MEDS: STERILE WATER FOR INJECTION 10 ML IV (16:11)
[2024-06-24 17:11] LABS: Glucose - Point of Care 76 mg/dl (70-99)
[2024-06-24] MEDS: FLAGYL 500 MG 100 IV (18:03)
[2024-06-24] MEDS: SYMBICORT 80/4.5 MCG INHALER INH (18:49)
[2024-06-24] MEDS: D5/0.45%NACL IV (20:56)
[2024-06-24] MEDS: LIPITOR 40 MG PO (21:17)
[2024-06-24] MEDS: REMERON ODT 15 MG PO (21:19)
[2024-06-24] MEDS: OASIS 1 SPRAY PO (21:23)
[2024-06-24 21:33] LABS: Glucose - Point of Care 65 mg/dl (70-99)
[2024-06-25 00:50] LABS: Glucose - Point of Care 67 mg/dl (70-99)
[2024-06-25] MEDS: FLAGYL 500 MG 100 IV ×3 (02:28→16:51)
[2024-06-25 06:00] VITALS: BMI 22.6
[2024-06-25] MEDS: SYNTHROID 100 MCG PO (06:28)
[2024-06-25 06:46] LABS: Glucose - Point of Care 55 mg/dl (70-99)
[2024-06-25 07:05] LABS: Glucose - Point of Care 60 mg/dl (70-99)
[2024-06-25] MEDS: SPIRIVA RESPIMAT 2.5 MCG INH (07:25)
[2024-06-25] MEDS: SYMBICORT 80/4.5 MCG INHALER INH ×2 (07:25→19:37)
[2024-06-25 07:46] LABS: Glucose - Point of Care 69 mg/dl (70-99)
[2024-06-25 08:05] VITALS: BP 130/58
[2024-06-25] MEDS: PROTONIX 40 MG PO (08:07)
[2024-06-25] MEDS: PACERONE 200 MG PO (08:07)
[2024-06-25] MEDS: NORVASC 5 MG PO (08:08)
[2024-06-25] MEDS: ZETIA 10 MG PO (08:08)
[2024-06-25] MEDS: PROSCAR 5 MG PO (08:08)
[2024-06-25] MEDS: TOPROL XL 100 MG PO (08:08)
[2024-06-25] MEDS: ULORIC 40 MG PO (08:08)
[2024-06-25] MEDS: FARXIGA 10 MG PO (08:08)
[2024-06-25] MEDS: OASIS 1 SPRAY PO (08:08)
[2024-06-25 08:10] LABS: Hematocrit 32.3 % (39.0-52.0); Hemoglobin 10.6 g/dL (13.0-18.0); Mean Corp Hgb Conc. 32.8 g/dL (33.0-37.0); Mean Corpuscular Hgb 29.4 pg (27.0-31.0); Mean Corpuscular Volume 89.5 fL (80.0-94.0); Mean Platelet Volume 10.2 fL (7.4-10.4); Platelet Count 147 10^3/uL (130-400); Red Blood Cell Count 3.61 10^6/uL (4.70-6.10); Red Cell Dist. Width 19.5 % (11.5-14.5); White Blood Cell Count 9.6 10^3/uL (4.8-10.8)
[2024-06-25] MEDS: VITAMIN B1 100 MG PO (08:10)
[2024-06-25] MEDS: IMDUR (EXTENDED RELEASE) 60 MG PO (08:10)
[2024-06-25 08:18] LABS: Glucose - Point of Care 82 mg/dl (70-99)
[2024-06-25 08:25] LABS: Blood Urea Nitrogen 11 mg/dl (9-20); Calcium 7.5 mg/dl (8.4-10.2); Carbon Dioxide 16 mmol/L (22-30); Chloride 108 mmol/L (98-107); Estimated Creatinine Clearance 45 ml/min; Glucose 44 mg/dl (70-99); Magnesium 1.7 mg/dl (1.6-2.3); Phosphorus 3.7 mg/dl (2.5-4.5); Potassium 4.2 mmol/L (3.5-5.1); Sodium 136 mmol/L (135-145); eGFR > 60.00
--- NOTE | 2024-06-25 09:05 | W.PN.GI.CBS2 ---
Today's Communication / Plan
-
Please see assessment and plan for details.
Assessment / Plan
-
1. Failure to thrive: Likely multifactorial, now status post PEG tube. PEG site is clean, dry and intact with appropriate tightness at 3 cm, without any tenderness, erythema or exudate. At this point is okay to restart oral diet and tube feedings
per nutrition recommendations. Would continue to trend magnesium and phosphorus and potassium for the next day to check for refeeding syndrome. We will sign off for now, please call back with any further questions.
Subjective
Subjective
Date of Service: June 25, 2024
Patient feeling okay, some minimal discomfort at PEG site, no nausea, vomiting, fever or chills.
Objective
Data Reviewed
Laboratory Data:
Laboratory Results
06/25/24 06:08
06/25/24 06:08
Laboratory Results
Phosphorus 3.7 mg/dl (2.5-4.5) 06/25/24 06:08
Magnesium 1.7 mg/dl (1.6-2.3) 06/25/24 06:08
Total Bilirubin 1.8 mg/dl (0.2-1.3) H 06/15/24 13:28
AST 41 U/L (17-59) 06/15/24 13:28
ALT 63 U/L (0-50) H 06/15/24 13:28
Alkaline Phosphatase 100 U/L (38-126) 06/15/24 13:28
Vital Signs and I&O:
Vital Signs
Temp Pulse Resp BP Pulse Ox
98.6 F 68 16 130/58 93
06/25/24 08:05 06/25/24 08:05 06/25/24 08:05 06/25/24 08:05 06/25/24 08:05
I&O
06/24/24 06/25/24 06/26/24
06:59 06:59 06:59
Intake Total 1320 / 1320
Output Total 400 / 400 100 / 100
Balance 920 / 920 -100 / -100
Physical Exam
Physical Exam
General: NAD
Abdomen: normal bowel sounds, soft, no tenderness, no masses or bruits, no ascites, PEG site clean, dry and intact, appropriate tightness at 3 cm
[2024-06-25] MEDS: SODIUM BICARBONATE 1075 MEQ IV (10:27)
[2024-06-25] MEDS: SODIUM BICARBONATE 1300 MG PO ×3 (10:27→22:00)
[2024-06-25 10:41] LABS: Glucose - Point of Care 76 mg/dl (70-99)
--- NOTE | 2024-06-25 12:40 | W.PN.HOSP.TC ---
Today's Communication/Plan
-
Start tube feeds
Monitor electrolytes for refeeding syndrome
Continue antibiotic
Assessment / Plan
Assessment / Plan
HPI: 83-year-old man presented with poor p.o. intake. Patient had COVID 2 months ago and ever since his p.o. intake has been poor. He has a metallic taste in his mouth, lost 15 pounds in 2 months, this is third hospitalization for volume depletion
and acute kidney injury
A/P:
# Pneumonia on chest x-ray
Suspect aspiration
Continue Rocephin day 11/07
Added Flagyl D2
# Possible E. coli UTI
Continue Rocephin day 11/07
# Clinical deconditioning with loss of appetite, poor PO intake and FTT, since COVID infection 2 months ago
# Severe protein calorie malnutrition-dietary evaluation.
# Hypoglycemia due to poor PO intake
Recent CT scan of the abdomen and pelvis on 05/03/2024 without any masses or indicative of malignancy
Calorie count ordered. Continue supplements
Cont Regular diet without restriction, encourage intake patient's p.o. intake is still not adequate and hence may need a PEG tube.
COVID negative. CRP/ESR negative which r/o underlying inflammatory/infectious conditions
[place] likely depression could be contributing to his CUONG and listlessness
TSH WNL at 3.39
Added Remeron, increased to 15 mg HS, weaned off of Zoloft slowly.
# Prerenal BRITTANIE on CKD stage III
BRITTANIE has resolved, creatinine 1.1, was 2.0 on admission
Holding Lasix and Aldactone
# Dysgeusia for the past 2 months with metallic taste, started since COVID infection 2 months ago
Patient was started with steroids for long COVID symptoms. Discontinued steroids since not helping him
Patient wants PEG. Plavix washout-last dose was 06/19/2024
Status post EGD with PEG placement 06/24/2024
Okay to resume regular diet and start tube feeds 06/25/2024 as per GI
# Hypophosphatemia
Repleted and resolved
# Oral thrush on exam-status post nystatin
# Depression- Remeron started on 06/16/2024. Zoloft tapered off.
# Coronary artery disease with history of CABG 1995 and stents-continue , Imdur. Cleared by GI to resume Plavix 06/25
# Chronic HFrEF and also stage II diastolic dysfunction
Hold Lasix and Aldactone. Hold Jardiance for the procedure
Daily weights and intake output charting
# Mild thrombocytopenia-follow
# Valvular heart disease-moderate to severe MR, moderate to severe TR, mild to moderate AI
# Paroxysmal atrial fibrillation-History of ablation 2021-continue amiodarone, Toprol-XL, cleared by GI to resume Eliquis 06/25
# History of NSVT status post ICD 2018-continue Amiodarone
# Essential Hypertension-continue Amlodipine, Metoprolol, Imdur with hold parameter
# Hyperlipidemia-continue atorvastatin and Zetia
# COPD-continue Trelegy. Chronic respiratory failure on home oxygen
# Hypothyroidism-continue Synthroid 100 mcg daily
# GERD/Batres's esophagus/hiatal hernia-continue Protonix
# Gout-continue febuxostat
# Enlarged prostate-continue finasteride
# Sleep apnea-CPAP
# Spinal stenosis
DVT prophylaxis-continue Eliquis
Full code
Updated daughter Milagros Gan- 06/25/2024
Total time spent to see the patient on the floor, examine the patient, review data and lab results, discuss treatment plan with patient, nursing staff around 50 minutes.
Physical Exam
General: No acute distress
HEENT: Normocephalic, Atraumatic, EOMI, MMM
Respiratory: Clear to Auscultation bilaterally
Cardiac: Normal S1/S2, Regular Rate and Rhythm
GI: Soft, mild appropriate tenderness, PEG in place
Extremities: No Clubbing, Cyanosis, or Edema
Neuro: Nonfocal/Grossly Intact
Psych: Calm, Cooperative
Derm: No Visible lesions
Anticipated Discharge: Within 24 hours
Subjective/Interval History
-
Date of Service: June 24, 2024
Patient reports some discomfort around his PEG tube site. His cough continues to improve. No shortness of breath, no chest pain. No fever, no vomiting.
Objective Data
-
Vital Signs:
Vital Signs
Temp Pulse Resp BP Pulse Ox
98.2 F 69 18 147/66 95
06/24/24 10:00 06/24/24 12:30 06/24/24 10:25 06/24/24 12:30 06/24/24 10:25
I&O
06/23/24 06/24/24 06/25/24
06:59 06:59 06:59
Intake Total 1350 / 1350 1320 / 1320
Output Total 400 / 400
Balance 1350 / 1350 920 / 920
--- NOTE | 2024-06-25 12:46 | W.PN.HOSP.TC ---
Today's Communication/Plan
-
see bold
Assessment / Plan
Assessment / Plan
HPI: 83-year-old man presented with poor p.o. intake. Patient had COVID 2 months ago and ever since his p.o. intake has been poor. He has a metallic taste in his mouth, lost 15 pounds in 2 months, this is third hospitalization for volume depletion
and acute kidney injury
A/P:
# Pneumonia on chest x-ray
Suspect aspiration
Status post Rocephin for 5 days
Continue Flagyl D3/5
# Possible E. coli UTI
Status post Rocephin for 5 days
# Clinical deconditioning with loss of appetite, poor PO intake and FTT, since COVID infection 2 months ago
# Severe protein calorie malnutrition-dietary evaluation.
# Hypoglycemia due to poor PO intake
Recent CT scan of the abdomen and pelvis on 05/03/2024 without any masses or indicative of malignancy
Calorie count ordered. Continue supplements
Cont Regular diet without restriction, encourage intake patient's p.o. intake is still not adequate and hence may need a PEG tube.
COVID negative. CRP/ESR negative which r/o underlying inflammatory/infectious conditions
[place] likely depression could be contributing to his CUONG and listlessness
TSH WNL at 3.39
Added Remeron, increased to 15 mg HS, weaned off of Zoloft slowly.
# Prerenal BRITTANIE on CKD stage III
BRITTANIE has resolved, creatinine 1.1, was 2.0 on admission
Holding Lasix and Aldactone
#Non-anion gap metabolic acidosis
Resolved on sodium bicarb, will discontinue
# Dysgeusia for the past 2 months with metallic taste, started since COVID infection 2 months ago
Patient was started with steroids for long COVID symptoms. Discontinued steroids since not helping him
Patient wants PEG. Plavix washout-last dose was 06/19/2024
Status post EGD with PEG placement 06/24/2024
Okay to resume regular diet and start tube feeds 06/25/2024 as per GI
Asked nursing to teach family tube feeds 06/26
Asked case management to set up for supplies 06/26
# Hypophosphatemia
Repleted and resolved
# Oral thrush on exam-status post nystatin
# Depression- Remeron started on 06/16/2024. Zoloft tapered off.
# Coronary artery disease with history of CABG 1995 and stents-continue , Imdur. Cleared by GI to resume Plavix 06/25
# Chronic HFrEF and also stage II diastolic dysfunction
Hold Lasix and Aldactone. Resume Jardiance
Daily weights and intake output charting
# Mild thrombocytopenia-follow
# Valvular heart disease-moderate to severe MR, moderate to severe TR, mild to moderate AI
# Paroxysmal atrial fibrillation-History of ablation 2021-continue amiodarone, Toprol-XL, cleared by GI to resume Eliquis 06/25
# History of NSVT status post ICD 2018-continue Amiodarone
# Essential Hypertension-continue Amlodipine, Metoprolol, Imdur with hold parameter
# Hyperlipidemia-continue atorvastatin and Zetia
# COPD-continue Trelegy. Chronic respiratory failure on home oxygen
# Hypothyroidism-continue Synthroid 100 mcg daily
# GERD/Batres's esophagus/hiatal hernia-continue Protonix
# Gout-continue febuxostat
# Enlarged prostate-continue finasteride
# Sleep apnea-CPAP
# Spinal stenosis
DVT prophylaxis-continue Eliquis
Full code
Updated daughter Milagros Gan- 06/26/2024
Total time spent to see the patient on the floor, examine the patient, review data and lab results, discuss treatment plan with patient, nursing staff around 51 minutes.
Physical Exam
General: No acute distress
HEENT: Normocephalic, Atraumatic, EOMI, MMM
Respiratory: Clear to Auscultation bilaterally
Cardiac: Normal S1/S2, Regular Rate and Rhythm
GI: Soft, mild appropriate tenderness, PEG in place
Extremities: No Clubbing, Cyanosis, or Edema
Neuro: Nonfocal/Grossly Intact
Psych: Calm, Cooperative
Derm: No Visible lesions
Anticipated Discharge: Within 24 hours
Subjective/Interval History
-
Date of Service: June 25, 2024
Patient denies nausea, denies vomiting. No chest pain, no shortness of breath. No fever, no vomiting.
Objective Data
-
Labs:
Laboratory Results
06/25/24
06:08
WBC 9.6
Hgb 10.6 L
Hct 32.3 L
Plt Count 147 D
Sodium 136
Potassium 4.2
Chloride 108 H
Carbon Dioxide 16 L
BUN 11
Creatinine 1.1
Glucose 44 L*
Calcium 7.5 L
Vital Signs:
Vital Signs
Temp Pulse Resp BP Pulse Ox
98.6 F 68 16 130/58 93
06/25/24 08:05 06/25/24 08:05 06/25/24 08:05 06/25/24 08:05 06/25/24 08:05
I&O
06/24/24 06/25/24 06/26/24
06:59 06:59 06:59
Intake Total 1320 / 1320
Output Total 400 / 400 100 / 100
Balance 920 / 920 -100 / -100
[2024-06-25 12:58] LABS: Glucose - Point of Care 92 mg/dl (70-99)
[2024-06-25] MEDS: OASIS PO ×3 (14:10→21:59)
[2024-06-25] MEDS: TYLENOL 650 MG PO (15:29)
[2024-06-25] MEDS: ROCEPHIN 1000 MG IV (15:30)
[2024-06-25] MEDS: STERILE WATER FOR INJECTION 10 ML IV (15:30)
[2024-06-25 15:33] VITALS: BP 130/48
[2024-06-25 16:47] LABS: Glucose - Point of Care 81 mg/dl (70-99)
--- NOTE | 2024-06-25 17:17 | PTCARENOTE ---
Peg tube in Left upper chest. flushed well + gurgle no residual noted. Pt ordered Jevity 1.5 at 10 ml for first 8 hours with 40 ml flush. PT recieved extensive education on tube feeding, Safety precuations with HOB 90 degrees, aspiration
precautions and purpose of TB. pt ate only bites of regular lunch tray. meds given as prescribed. Pt is watching football with call cain in hand
[2024-06-25] MEDS: LIPITOR 40 MG PO (21:57)
[2024-06-25] MEDS: ELIQUIS 2.5 MG PO (21:57)
[2024-06-25] MEDS: REMERON ODT 15 MG PO (21:59)
[2024-06-25 23:48] VITALS: BP 115/46
[2024-06-25 23:55] LABS: Glucose - Point of Care 113 mg/dl (70-99)
[2024-06-26] MEDS: FLAGYL 500 MG 100 IV ×2 (02:06→09:32)
[2024-06-26 05:56] VITALS: BMI 22.3
[2024-06-26 06:12] LABS: Glucose - Point of Care 105 mg/dl (70-99)
[2024-06-26 06:33] LABS: Hematocrit 32.9 % (39.0-52.0); Mean Corp Hgb Conc. 33.4 g/dL (33.0-37.0); Mean Corpuscular Hgb 29.1 pg (27.0-31.0); Mean Platelet Volume 9.8 fL (7.4-10.4); Platelet Count 157 10^3/uL (130-400); Red Blood Cell Count 3.78 10^6/uL (4.70-6.10); Red Cell Dist. Width 19.7 % (11.5-14.5); White Blood Cell Count 8.8 10^3/uL (4.8-10.8)
[2024-06-26] MEDS: SYNTHROID 100 MCG PO (06:35)
[2024-06-26 06:58] LABS: Blood Urea Nitrogen 12 mg/dl (9-20); Calcium 7.5 mg/dl (8.4-10.2); Carbon Dioxide 24 mmol/L (22-30); Chloride 109 mmol/L (98-107); Estimated Creatinine Clearance 45 ml/min; Glucose 117 mg/dl (70-99); Phosphorus 2.4 mg/dl (2.5-4.5); Potassium 3.7 mmol/L (3.5-5.1); Sodium 138 mmol/L (135-145); eGFR > 60.00
[2024-06-26] MEDS: SPIRIVA RESPIMAT 2.5 MCG 2 PUFF INH (07:56)
[2024-06-26] MEDS: SYMBICORT 80/4.5 MCG INHALER 2 PUFF INH (07:56)
[2024-06-26 08:23] LABS: Glucose - Point of Care 107 mg/dl (70-99)
[2024-06-26] MEDS: SODIUM BICARBONATE 1300 MG PO (08:31)
[2024-06-26] MEDS: PROTONIX 40 MG PO (08:31)
[2024-06-26] MEDS: PACERONE 200 MG PO (08:32)
[2024-06-26] MEDS: VITAMIN B1 100 MG PO (08:32)
[2024-06-26] MEDS: FARXIGA 10 MG PO (08:33)
[2024-06-26] MEDS: PROSCAR 5 MG PO (08:33)
[2024-06-26] MEDS: TOPROL XL 100 MG PO (08:33)
[2024-06-26] MEDS: PLAVIX 75 MG PO (08:33)
[2024-06-26] MEDS: NORVASC 5 MG PO (08:33)
[2024-06-26] MEDS: ELIQUIS 2.5 MG PO (08:33)
[2024-06-26] MEDS: IMDUR (EXTENDED RELEASE) 60 MG PO (08:33)
[2024-06-26] MEDS: ZETIA 10 MG PO (08:33)
[2024-06-26] MEDS: ULORIC 40 MG PO (08:33)
[2024-06-26] MEDS: OASIS PO ×4 (08:34→22:50)
[2024-06-26] MEDS: NEUTRA-PHOS POWDER PACKET 250 MG TUBE ×4 (09:31→22:45)
--- NOTE | 2024-06-26 10:58 | VATNOTE ---
Called by PCN to assess IV site for suspected infiltration. Agree with assessment, and IV removed. Attempted restart x3, each time cannulating the vein but being unable to advance the cannula without infiltration. 2nd VAT RN to attempt restart.
--- NOTE | 2024-06-26 11:15 | VATNOTE ---
2nd IV nurse unavailable. Ultrasound guided IV placed by this RN at this time to avoid further delay of care.
[2024-06-26 13:16] LABS: Glucose - Point of Care 120 mg/dl (70-99)
--- NOTE | 2024-06-26 15:02 | CM ---
Spoke with attending, patient medically stable for discharge. Patient needs supplies for PEG as well as Jevity. Placed a call to: [facility], [facility], and [facility] however all were closed for today. Left message asking Janis at [facility] to return call.
RN, attending updated that efforts are being made to obtain supplies so that patient can be discharged.
Plan: Case management will continue to follow and assist with discharge planning. Home with feeding tube and VN.
[2024-06-26 15:10] VITALS: BP 117/47
[2024-06-26] MEDS: STERILE WATER FOR INJECTION IV (16:21)
[2024-06-26] MEDS: FLAGYL 500 MG PO ×2 (16:21→22:45)
[2024-06-26] MEDS: SODIUM BICARBONATE IV (18:32)
[2024-06-26] MEDS: SYMBICORT 80/4.5 MCG INHALER INH (19:54)
[2024-06-26] MEDS: ELIQUIS PO ×2 (20:48→20:58)
[2024-06-26 21:40] LABS: Glucose - Point of Care 126 mg/dl (70-99)
[2024-06-26] MEDS: LIPITOR 40 MG PO (22:45)
[2024-06-26] MEDS: REMERON ODT 15 MG PO (22:45)
[2024-06-26 22:47] VITALS: BP 127/54
[2024-06-27 00:48] LABS: Glucose - Point of Care 142 mg/dl (70-99)
[2024-06-27] MEDS: SYNTHROID 100 MCG PO (05:49)
[2024-06-27 06:00] VITALS: BMI 22.2
[2024-06-27 06:15] LABS: Glucose - Point of Care 96 mg/dl (70-99)
[2024-06-27 07:42] VITALS: BP 140/46
[2024-06-27 07:49] LABS: Hematocrit 31.2 % (39.0-52.0); Hemoglobin 10.6 g/dL (13.0-18.0); Mean Corpuscular Hgb 29.5 pg (27.0-31.0); Mean Corpuscular Volume 86.9 fL (80.0-94.0); Mean Platelet Volume 9.6 fL (7.4-10.4); Platelet Count 182 10^3/uL (130-400); Red Blood Cell Count 3.59 10^6/uL (4.70-6.10); Red Cell Dist. Width 19.9 % (11.5-14.5); White Blood Cell Count 9.6 10^3/uL (4.8-10.8)
[2024-06-27 07:57] LABS: Blood Urea Nitrogen 12 mg/dl (9-20); Calcium 7.6 mg/dl (8.4-10.2); Carbon Dioxide 23 mmol/L (22-30); Chloride 111 mmol/L (98-107); Estimated Creatinine Clearance 54 ml/min; Glucose 121 mg/dl (70-99); Magnesium 1.7 mg/dl (1.6-2.3); Phosphorus 2.2 mg/dl (2.5-4.5); Sodium 141 mmol/L (135-145); eGFR > 60.00
[2024-06-27] MEDS: SYMBICORT 80/4.5 MCG INHALER 2 PUFF INH (08:07)
[2024-06-27] MEDS: SPIRIVA RESPIMAT 2.5 MCG 2 PUFF INH (08:08)
[2024-06-27] MEDS: TOPROL XL 100 MG PO (08:54)
[2024-06-27] MEDS: PACERONE 200 MG PO (08:54)
[2024-06-27] MEDS: NORVASC 5 MG PO (08:54)
[2024-06-27] MEDS: PROTONIX 40 MG PO (08:54)
[2024-06-27] MEDS: PLAVIX 75 MG PO (08:54)
[2024-06-27] MEDS: ULORIC 40 MG PO (08:54)
[2024-06-27] MEDS: IMDUR (EXTENDED RELEASE) 60 MG PO (08:54)
[2024-06-27] MEDS: VITAMIN B1 100 MG PO (08:54)
[2024-06-27] MEDS: PROSCAR 5 MG PO (08:54)
[2024-06-27] MEDS: FARXIGA 10 MG PO (08:54)
[2024-06-27] MEDS: ZETIA 10 MG PO (08:54)
[2024-06-27] MEDS: FLAGYL 500 MG PO (08:54)
[2024-06-27] MEDS: ELIQUIS 2.5 MG PO ×2 (08:55→20:30)
[2024-06-27] MEDS: OASIS PO ×4 (08:55→21:49)
[2024-06-27] MEDS: NOVOLOG FLEXPEN-LOW RESISTANCE SC ×3 (08:55→17:34)
[2024-06-27] MEDS: NEUTRA-PHOS POWDER PACKET 250 MG TUBE ×4 (08:57→21:37)
[2024-06-27 09:33] VITALS: BP 160/56; PULSE 65; O2SAT 93
--- NOTE | 2024-06-27 09:38 | W.PN.HOSP.TC ---
Addendum entered and electronically signed by Tracey Bazan MD 06/27/24 14:16:
Patient will need enteral feeds, greater than 90 days because of anorexia, malnutrition resulting acute renal failure.
Original Note:
Today's Communication/Plan
-
stop Flagyl
DC when PEG tube supplies set up
Assessment / Plan
Assessment / Plan
HPI: 83-year-old man presented with poor p.o. intake. Patient had COVID 2 months ago and ever since his p.o. intake has been poor. He has a metallic taste in his mouth, lost 15 pounds in 2 months, this is third hospitalization for volume depletion
and acute kidney injury
A/P:
# Pneumonia on chest x-ray
Suspect aspiration
Status post Rocephin for 5 days
-given normal current respiratory status and patient received 5 days treatment; flagyl can worsen metallic taste - will stop (not necessary in treatment of aspiration PNA)
# Possible E. coli UTI
Status post Rocephin for 5 days
# Clinical deconditioning with loss of appetite, poor PO intake and FTT, since COVID infection 2 months ago
# Severe protein calorie malnutrition-dietary evaluation.
# Hypoglycemia due to poor PO intake
Recent CT scan of the abdomen and pelvis on 05/03/2024 without any masses or indicative of malignancy
Calorie count ordered. Continue supplements
Cont Regular diet without restriction, encourage intake patient's p.o. intake is still not adequate and hence may need a PEG tube.
COVID negative. CRP/ESR negative which r/o underlying inflammatory/infectious conditions
[place] likely depression could be contributing to his CUONG and listlessness
TSH WNL at 3.39
Added Remeron, increased to 15 mg HS, weaned off of Zoloft slowly.
# Prerenal BRITTANIE on CKD stage III
BRITTANIE has resolved, creatinine 1.1, was 2.0 on admission
Holding Lasix and Aldactone
#Non-anion gap metabolic acidosis
Resolved on sodium bicarb, will discontinue
# Dysgeusia for the past 2 months with metallic taste, started since COVID infection 2 months ago
Patient was started with steroids for long COVID symptoms. Discontinued steroids since not helping him
Patient wants PEG. Plavix washout-last dose was 06/19/2024
Status post EGD with PEG placement 06/24/2024
Okay to resume regular diet and start tube feeds 06/25/2024 as per GI
Asked nursing to teach family tube feeds 06/26
Asked case management to set up for supplies 06/26
# Hypophosphatemia
Repleted and resolved
# Oral thrush on exam-status post nystatin
# Depression- Remeron started on 06/16/2024. Zoloft tapered off.
# Coronary artery disease with history of CABG 1995 and stents-continue , Imdur. Cleared by GI to resume Plavix 06/25
# Chronic HFrEF and also stage II diastolic dysfunction
Hold Lasix and Aldactone. Resume Jardiance
Daily weights and intake output charting
# Mild thrombocytopenia-follow
# Valvular heart disease-moderate to severe MR, moderate to severe TR, mild to moderate AI
# Paroxysmal atrial fibrillation-History of ablation 2021-continue amiodarone, Toprol-XL, cleared by GI to resume Eliquis 06/25
# History of NSVT status post ICD 2018-continue Amiodarone
# Essential Hypertension-continue Amlodipine, Metoprolol, Imdur with hold parameter
# Hyperlipidemia-continue atorvastatin and Zetia
# COPD-continue Trelegy. Chronic respiratory failure on home oxygen
# Hypothyroidism-continue Synthroid 100 mcg daily
# GERD/Batres's esophagus/hiatal hernia-continue Protonix
# Gout-continue febuxostat
# Enlarged prostate-continue finasteride
# Sleep apnea-CPAP
# Spinal stenosis
DVT prophylaxis-continue Eliquis
Full code
Updated daughter Milagros Gan- 06/26/2024
Total time spent to see the patient on the floor, examine the patient, review data and lab results, discuss treatment plan with patient, nursing staff around 51 minutes.
Physical Exam
General: No acute distress
HEENT: Normocephalic, Atraumatic, EOMI, MMM
Respiratory: Clear to Auscultation bilaterally
Cardiac: Normal S1/S2, Regular Rate and Rhythm
GI: Soft, mild appropriate tenderness, PEG in place
Extremities: No Clubbing, Cyanosis, or Edema
Neuro: Nonfocal/Grossly Intact
Psych: Calm, Cooperative
Derm: No Visible lesions
Anticipated Discharge: Within 24 hours
Subjective/Interval History
-
Date of Service: June 27, 2024
feeling ok
no issues with TF; no nausea/vomiting or pain
Objective Data
-
Labs:
Laboratory Results
06/27/24
07:27
WBC 9.6
Hgb 10.6 L
Hct 31.2 L
Plt Count 182
Sodium 141
Potassium 4.0
Chloride 111 H
Carbon Dioxide 23
BUN 12
Creatinine 0.9
Glucose 121 H
Calcium 7.6 L
Vital Signs:
Vital Signs
Temp Pulse Resp BP Pulse Ox
98.2 F 69 16 140/46 91
06/27/24 07:42 06/27/24 08:11 06/27/24 08:11 06/27/24 07:42 06/27/24 08:11
I&O
06/26/24 06/27/24 06/28/24
06:59 06:59 06:59
Intake Total 1180 / 1180 1800 / 1800
Balance 1180 / 1180 1800 / 1800
Review of Systems
-
History Source: Patient
All other systems: Reviewed and negative
Physical Exam
-
General: Well Developed, Well Nourished, No Apparent Distress, Comfortable and Appears Chronically Ill
HEENT: Nose Appears Normal and Ears Appear Normal
Respiratory: Clear to Auscultation and Non Labored Respirations; Negative Accessory Resp Muscle Use
Cardiac: Regular Rhythm and S1/S2
GI: Soft, Nontender, Nondistended, Normal Bowel Sounds and Peg Tube
Musculoskeletal: No Edema
Skin: Warm and Dry
Neuro: Awake and Alert
Psych: Calm, Depressed and Other (no appetite)
Data Reviewed
-
Diagnostic Radiology: Report Reviewed by me
Labs: Labs Reviewed by me
--- NOTE | 2024-06-27 12:00 | CM ---
Addendum entered by AMILCAR Navarro 06/27/24 16:51:
Janis should be in receipt of: PEG surgery report, MD Progress notes including reason/note why enteral feeds are necessary, and a note including feeds will be required for greater than 90 days, H&P, insurance card, face sheet, dietary and nutrition
notes, VN agency, Patient's Social, (last 4 digits)
Still needed: Name and phone number of MD who will be writing enteral feeding orders post hospitalization, whether it is bolus vs continuous feeds, (It is both) a picture of type of adapter (PEG) needs to be photographed.
CM will need to fax this information to [facility] tomorrow.
[phone]
Addendum entered by AMILCAR Navarro 06/27/24 16:44:
Faxed all requested information to Janis at [facility]. Still need picture of PEG. Patient's RN stated that she will get one.
Addendum entered by AMILCAR Navarro 06/27/24 12:42:
Received return call from Janis at [facility] who stated that she needs' The surgical report for the PEG placement. The following GI doctor, Most recent labs, a note from the attending stating that 'due to clinical diagnosis patient will need
enteral feeds greater than 90 days because of clinical diagnosis.
Fax to [phone].
Received hospice consult yesterday. Patient's daughter was asked if she was in agreement with consult and she denied wanting to consider or needing to know anything about hospice.
Will fax all clinical above.
Original Note:
Placed another call to Janis at [facility] who stated that she had to return call as she was in a meeting. Will await return call.
Plan: Case management will continue to follow and assist with discharge planning. Home with VN and tube feeds.
[2024-06-27 12:39] LABS: Glucose - Point of Care 132 mg/dl (70-99)
--- NOTE | 2024-06-27 12:52 | VNURNOTE ---
[facility] liaison spoke w/patient's primary nurse Kadi. Requested tube feed teaching to daughter. Nurse stated daughter not in yet but she agreed to teach her when she arrives. Awaiting confirmation from CM on status of TF formula and equipment.
Patient will need equipment in home prior to DC.Tentative plan for early DC 06/28 and same day [facility] visit.
--- NOTE | 2024-06-27 13:25 | PN.CDI ---
CDI
- -
CDI:
Physician Documentation Request
Admit Date: 06/15/24 21:10
Dear Doctor,
Please review the following and provide your response in the progress notes.
Clinical Indicators:
Wound Care note on 06/21: 'gluteal cleft with small stage 2 vs evolving stage 3 PI'
Physician documentation of the type and location of wounds is required for compliant documentation. Based on the above clinical findings and your assessment, please provide the following in your progress note:
1. Location of the ulcer/wound, including laterality.
2. Type (etiology) of ulcer/wound:
- Pressure (decubitus) ulcer
- Other
- Unable to determine
4. If a pressure ulcer, please also include the stage* of the ulcer:
- Stage 1 - Skin intact, non-blanchable redness
- Stage 2 - Partial thickness loss of dermis, includes intact or open blister
- Stage 3 - Full thickness tissue not including bone, tendon or muscle
- Stage 4 - Full thickness tissue loss, including exposed bone, tendon or muscle
- Unstageable - Full thickness loss in which the base of the ulcer is covered by slough (yellow, camejo, king, green or brown) and/or eschar (camejo, brown or black) in the wound bed.
- Unable to determine
Use of terms such as suspected, likely, concern for, or probable (associated with a specific diagnosis that is being evaluated, monitored, or treated as if it exists) are acceptable and can be coded in the inpatient setting, when documented at the
time of discharge.
Thank you,
Ashley [place]
CDI Specialist
Please use your independent medical judgment in providing your response.
*Source: National Pressure Ulcer Advisory Panel (NPUAP)
[2024-06-27] MEDS: STERILE WATER FOR INJECTION IV (14:27)
[2024-06-27 17:31] LABS: Glucose - Point of Care 139 mg/dl (70-99)
[2024-06-27] MEDS: SYMBICORT 80/4.5 MCG INHALER INH (19:28)
[2024-06-27 21:12] LABS: Glucose - Point of Care 140 mg/dl (70-99)
[2024-06-27] MEDS: REMERON ODT 15 MG PO (21:37)
[2024-06-27] MEDS: LIPITOR 40 MG PO (21:37)
[2024-06-27 23:44] VITALS: BP 138/51
[2024-06-28 06:00] VITALS: BMI 22.4
[2024-06-28] MEDS: SYNTHROID 100 MCG PO (06:11)
--- NOTE | 2024-06-28 07:11 | W.PN.HOSP.TC ---
Addendum entered and electronically signed by Tracey Bazan MD 06/28/24 18:08:
CXR read as pneumonia but clinically patient appeared fluid overloaded with elevated JVP and weight gain
will monitor response to Lasix and assess
low treshold to resume abx if develops fever
Original Note:
Today's Communication/Plan
-
CXR
likely give lasix post labs result and CXR results
test norovirus and C. Diff
Assessment / Plan
Assessment / Plan
HPI: 83-year-old man presented with poor p.o. intake. Patient had COVID 2 months ago and ever since his p.o. intake has been poor. He has a metallic taste in his mouth, lost 15 pounds in 2 months, this is third hospitalization for volume depletion
and acute kidney injury
A/P:
# Pneumonia on chest x-ray
Suspect aspiration
Status post Rocephin for 5 days
-given normal current respiratory status and patient received 5 days treatment; flagyl can worsen metallic taste - will stop (not necessary in treatment of aspiration PNA)
Shortness of Breath
-patient more short of breath this morning - will repeat CXR, add on BMP and BNP
# Possible E. coli UTI
Status post Rocephin for 5 days
Diarrhea this AM - test norovirus and C. Diff
# Clinical deconditioning with loss of appetite, poor PO intake and FTT, since COVID infection 2 months ago
# Severe protein calorie malnutrition-dietary evaluation.
# Hypoglycemia due to poor PO intake
# Dysgeusia for the past 2 months with metallic taste, started since COVID infection 2 months ago
COVID negative. CRP/ESR negative which r/o underlying inflammatory/infectious conditions
Recent CT scan of the abdomen and pelvis on 05/03/2024 without any masses or indicative of malignancy
Cont Regular diet without restriction
He is now s/p PEG placement 06/24/24
TSH WNL at 3.39
Added Remeron, increased to 15 mg HS, weaned off of Zoloft slowly.
-OK for DC when PEG and TF supplies set up (earliest 06/30 per CM)
# Prerenal BRITTANIE on CKD stage III
BRITTANIE has resolved, creatinine 1.1, was 2.0 on admission
diuretics were held
#Non-anion gap metabolic acidosis
Resolved on sodium bicarb, will discontinue
# Hypophosphatemia
Repleted and resolved
# Oral thrush on exam-status post nystatin
# Depression- Remeron started on 06/16/2024. Zoloft tapered off.
# Coronary artery disease with history of CABG 1995 and stents-continue , Imdur. Cleared by GI to resume Plavix 06/25
# Chronic HFrEF and also stage II diastolic dysfunction - acute exacerbation noticed morning 06/28
[employer] Lasix and Aldactone were onhold, concern for fluid overload this AM
obtain CXR
expect to give IV lasix post AM labs
Daily weights and intake output charting
# Mild thrombocytopenia-follow
gluteal cleft with small stage 2 vs evolving stage 3 PI'
-appreciate wound care
# Valvular heart disease-moderate to severe MR, moderate to severe TR, mild to moderate AI
# Paroxysmal atrial fibrillation-History of ablation 2021-continue amiodarone, Toprol-XL, cleared by GI to resume Eliquis 06/25
# History of NSVT status post ICD 2017-continue Amiodarone
# Essential Hypertension-continue Amlodipine, Metoprolol, Imdur with hold parameter
# Hyperlipidemia-continue atorvastatin and Zetia
# COPD-continue Trelegy. Chronic respiratory failure on home oxygen
# Hypothyroidism-continue Synthroid 100 mcg daily
# GERD/Batres's esophagus/hiatal hernia-continue Protonix
# Gout-continue febuxostat
# Enlarged prostate-continue finasteride
# Sleep apnea-CPAP
# Spinal stenosis
DVT prophylaxis-continue Eliquis
Full code
Total time spent to see the patient on the floor, examine the patient, review data and lab results, discuss treatment plan with patient, nursing staff around 51 minutes.
Physical Exam
General: No acute distress
HEENT: Normocephalic, Atraumatic, EOMI, MMM
Respiratory: Clear to Auscultation bilaterally
Cardiac: Normal S1/S2, Regular Rate and Rhythm
GI: Soft, mild appropriate tenderness, PEG in place
Extremities: No Clubbing, Cyanosis, or Edema
Neuro: Nonfocal/Grossly Intact
Psych: Calm, Cooperative
Derm: No Visible lesions
Anticipated Discharge: 24 - 48 hours
Subjective/Interval History
-
Date of Service: June 28, 2024
patient complains of diarrhea this morning x 2 and shortness of breath
Objective Data
-
Vital Signs:
Vital Signs
Temp Pulse Resp BP Pulse Ox
98.5 F 64 16 138/51 93
06/27/24 23:44 06/27/24 23:44 06/27/24 23:44 06/27/24 23:44 06/27/24 23:44
I&O
06/27/24 06/28/24 06/29/24
06:59 06:59 06:59
Intake Total 1800 / 1800 240 / 240
Output Total 125 / 125
Balance 1800 / 1800 115 / 115
Review of Systems
-
History Source: Patient
All other systems: Reviewed and negative
Physical Exam
-
General: Well Developed, Well Nourished, Appears Chronically Ill and Other (more tachypneic this morning)
HEENT: Nose Appears Normal and Ears Appear Normal
Respiratory: Clear to Auscultation and Non Labored Respirations; Negative Accessory Resp Muscle Use
Cardiac: Regular Rhythm and S1/S2
GI: Soft, Nontender, Nondistended, Normal Bowel Sounds and Peg Tube
Musculoskeletal: No Edema
Skin: Warm and Dry
Neuro: Awake and Alert
Psych: Calm, Depressed and Other (no appetite)
Data Reviewed
-
Diagnostic Radiology: Report Reviewed by me
Labs: Labs Reviewed by me
[2024-06-28 07:25] VITALS: BP 159/67
[2024-06-28] MEDS: SPIRIVA RESPIMAT 2.5 MCG INH (07:27)
[2024-06-28] MEDS: SYMBICORT 80/4.5 MCG INHALER INH (07:28)
[2024-06-28 08:11] LABS: Glucose - Point of Care 129 mg/dl (70-99)
[2024-06-28 09:07] LABS: Magnesium 1.8 mg/dl (1.6-2.3)
[2024-06-28] MEDS: NOVOLOG FLEXPEN-LOW RESISTANCE SC ×2 (09:15→11:56)
[2024-06-28] MEDS: ULORIC 40 MG PO (09:17)
[2024-06-28] MEDS: ZETIA 10 MG PO (09:18)
[2024-06-28] MEDS: FARXIGA 10 MG PO (09:18)
[2024-06-28] MEDS: PLAVIX 75 MG PO (09:18)
[2024-06-28] MEDS: PROTONIX 40 MG PO (09:18)
[2024-06-28] MEDS: PACERONE 200 MG PO (09:18)
[2024-06-28] MEDS: PROSCAR 5 MG PO (09:18)
[2024-06-28] MEDS: NORVASC 5 MG PO (09:18)
[2024-06-28] MEDS: TOPROL XL 100 MG PO (09:18)
[2024-06-28] MEDS: ELIQUIS 2.5 MG PO ×2 (09:18→20:46)
[2024-06-28] MEDS: VITAMIN B1 100 MG PO (09:20)
[2024-06-28] MEDS: NEUTRA-PHOS POWDER PACKET 250 MG TUBE ×4 (09:20→20:52)
--- NOTE | 2024-06-28 09:20 | CM ---
Addendum entered by Ashley Beckford 06/28/24 09:32:
Family Brii is planned for Thursday; important to have patient home by then per Milagros.
Original Note:
CM called to Janis at [facility] and per Janis they are unable to confirm ability for insurance to cover tube feedings/pump until at least 06/30/24. CM reviewed with Radha Clark covering Liaison for VN and updated physician and patient nurse. CM
updated Janis re PCP and need to clarify connector, white or purple. CM will call to update patient family re; change in plan. CM will continue to follow for discharge planning needs.
Plan; discharge home after confirmed Tube Feeds and pump are delivered and insurance is approved. Plan now for 06/30/24.
[2024-06-28] MEDS: IMDUR (EXTENDED RELEASE) 60 MG PO (09:21)
[2024-06-28] MEDS: OASIS PO ×4 (09:24→21:01)
[2024-06-28 11:39] LABS: Glucose - Point of Care 130 mg/dl (70-99)
[2024-06-28 12:24] LABS: Blood Urea Nitrogen 15 mg/dl (9-20); Calcium 7.6 mg/dl (8.4-10.2); Carbon Dioxide 19 mmol/L (22-30); Chloride 109 mmol/L (98-107); Estimated Creatinine Clearance 55 ml/min; Glucose 116 mg/dl (70-99); Potassium 4.3 mmol/L (3.5-5.1); Sodium 142 mmol/L (135-145); eGFR > 60.00
[2024-06-28 12:47] LABS: NT-proBNP 13600 pg/ml
[2024-06-28] MEDS: LASIX 80 MG IV (12:47)
[2024-06-28] MEDS: FLUSH (NSS) 2 FLUSH IV (12:52)
[2024-06-28 15:27] VITALS: BP 116/43
[2024-06-28] MEDS: STERILE WATER FOR INJECTION IV (15:57)
[2024-06-28 17:05] LABS: Glucose - Point of Care 150 mg/dl (70-99)
[2024-06-28] MEDS: NOVOLOG FLEXPEN-LOW RESISTANCE 1 UNITS SC (18:36)
[2024-06-28] MEDS: VISBIOME 1 CAP PO (18:38)
[2024-06-28] MEDS: SYMBICORT 80/4.5 MCG INHALER 2 PUFF INH (19:27)
[2024-06-28 19:35] VITALS: BP 120/47
[2024-06-28] MEDS: REMERON ODT 15 MG PO (20:52)
[2024-06-28] MEDS: LIPITOR 40 MG PO (20:52)
[2024-06-28 21:38] LABS: Glucose - Point of Care 147 mg/dl (70-99)
[2024-06-28 23:18] VITALS: BP 117/44
[2024-06-29 03:42] VITALS: BP 130/57
[2024-06-29] MEDS: SYNTHROID 100 MCG PO (05:11)
[2024-06-29 06:00] VITALS: BMI 22.6
[2024-06-29 06:43] LABS: Hematocrit 30.2 % (39.0-52.0); Mean Corp Hgb Conc. 33.1 g/dL (33.0-37.0); Mean Corpuscular Hgb 29.6 pg (27.0-31.0); Mean Corpuscular Volume 89.3 fL (80.0-94.0); Mean Platelet Volume 10.6 fL (7.4-10.4); Platelet Count 185 10^3/uL (130-400); Red Blood Cell Count 3.38 10^6/uL (4.70-6.10); Red Cell Dist. Width 20.1 % (11.5-14.5); White Blood Cell Count 11.9 10^3/uL (4.8-10.8)
[2024-06-29 07:05] LABS: Blood Urea Nitrogen 23 mg/dl (9-20); Calcium 7.4 mg/dl (8.4-10.2); Carbon Dioxide 29 mmol/L (22-30); Chloride 105 mmol/L (98-107); Estimated Creatinine Clearance 50 ml/min; Glucose 132 mg/dl (70-99); Magnesium 1.6 mg/dl (1.6-2.3); Sodium 140 mmol/L (135-145); eGFR > 60.00
[2024-06-29 07:10] LABS: Procalcitonin 0.41 ng/ml (0.0-0.25)
[2024-06-29] MEDS: SPIRIVA RESPIMAT 2.5 MCG 2 PUFF INH (07:31)
[2024-06-29] MEDS: SYMBICORT 80/4.5 MCG INHALER 2 PUFF INH ×2 (07:31→17:14)
[2024-06-29 07:32] VITALS: BP 131/46
[2024-06-29 07:52] LABS: Glucose - Point of Care 138 mg/dl (70-99)
[2024-06-29] MEDS: ZETIA 10 MG PO (08:58)
[2024-06-29] MEDS: VITAMIN B1 100 MG PO (08:58)
[2024-06-29] MEDS: ELIQUIS 2.5 MG PO ×2 (08:58→21:07)
[2024-06-29] MEDS: IMDUR (EXTENDED RELEASE) 60 MG PO (08:58)
[2024-06-29] MEDS: TOPROL XL 100 MG PO (08:58)
[2024-06-29] MEDS: ULORIC 40 MG PO (08:58)
[2024-06-29] MEDS: FARXIGA 10 MG PO (08:58)
[2024-06-29] MEDS: VISBIOME 1 CAP PO (08:58)
[2024-06-29] MEDS: PACERONE 200 MG PO (08:58)
[2024-06-29] MEDS: PROTONIX 40 MG PO (08:58)
[2024-06-29] MEDS: NEUTRA-PHOS POWDER PACKET 250 MG TUBE (08:58)
[2024-06-29] MEDS: PLAVIX 75 MG PO (08:58)
[2024-06-29] MEDS: PROSCAR 5 MG PO (08:58)
[2024-06-29] MEDS: NORVASC 5 MG PO (08:58)
[2024-06-29] MEDS: NOVOLOG FLEXPEN-LOW RESISTANCE SC ×2 (08:59→12:18)
[2024-06-29] MEDS: OASIS PO ×4 (08:59→21:07)
[2024-06-29] MEDS: LASIX 80 MG IV (09:01)
--- NOTE | 2024-06-29 10:31 | PTCARENOTE ---
pt made two attempts to get oob to bathroom without calling for nurse. Pt for video monitoring but there is none. as soon as one is available it will be brought down. pt is high fall risk. he has peg tube. pt fwith increased confusion and
hallucinations today. md aware
--- NOTE | 2024-06-29 10:38 | W.PN.HOSP.TC ---
Today's Communication/Plan
-
start IV Unasyn
s/p 2 doses IV Lasix
PT/OT
Daughter updated this AM
Assessment / Plan
Assessment / Plan
HPI: 83-year-old man presented with poor p.o. intake. Patient had COVID 2 months ago and ever since his p.o. intake has been poor. He has a metallic taste in his mouth, lost 15 pounds in 2 months, this is third hospitalization for volume depletion
and acute kidney injury
A/P:
Aspiration pneumonia
-patient treated earlier in hospital course with IV Ceftriaxone and several days of Flagyl
-increased SOB 06/28 with CXR showing b/l pneumonia. Procalcitonin up this morning and patient confuse
-will start IV Unasyn (day 1)
# Possible E. coli UTI
Status post Rocephin for 5 days
# Chronic HFrEF and also stage II diastolic dysfunction - acute exacerbation noticed morning 06/28
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
now s/p 2 doses IV lasix
-likely resume oral diuretics tomorrow
Diarrhea- test norovirus and C. Diff - negative
# Clinical deconditioning with loss of appetite, poor PO intake and FTT, since COVID infection 2 months ago
# Severe protein calorie malnutrition-dietary evaluation.
# Hypoglycemia due to poor PO intake
# Dysgeusia for the past 2 months with metallic taste, started since COVID infection 2 months ago
COVID negative. CRP/ESR negative which r/o underlying inflammatory/infectious conditions
Recent CT scan of the abdomen and pelvis on 05/03/2024 without any masses or indicative of malignancy
TSH WNL at 3.39
He is now s/p PEG placement 06/24/24
Added Remeron, increased to 15 mg HS, weaned off of Zoloft slowly.
awaiting PEG and TF supplies to be set up
# Prerenal BRITTAINE on CKD stage III
BRITTANIE has resolved, creatinine 1.1, was 2.0 on admission
diuretics were held
#Non-anion gap metabolic acidosis
Resolved on sodium bicarb, will discontinue
# Hypophosphatemia
Repleted and resolved
# Oral thrush on exam-status post nystatin
# Depression- Remeron started on 06/16/2024. Zoloft tapered off.
# Coronary artery disease with history of CABG 1995 and stents-continue , Imdur. Cleared by GI to resume Plavix 06/25
# Mild thrombocytopenia-follow
gluteal cleft with small stage 2 vs evolving stage 3 PI'
-appreciate wound care
# Valvular heart disease-moderate to severe MR, moderate to severe TR, mild to moderate AI
# Paroxysmal atrial fibrillation-History of ablation 2021-continue amiodarone, Toprol-XL, cleared by GI to resume Eliquis 06/25
# History of NSVT status post ICD 2017-continue Amiodarone
# Essential Hypertension-continue Amlodipine, Metoprolol, Imdur with hold parameter
# Hyperlipidemia-continue atorvastatin and Zetia
# COPD-continue Trelegy. Chronic respiratory failure on home oxygen
# Hypothyroidism-continue Synthroid 100 mcg daily
# GERD/Batres's esophagus/hiatal hernia-continue Protonix
# Gout-continue febuxostat
# Enlarged prostate-continue finasteride
# Sleep apnea-CPAP
# Spinal stenosis
DVT prophylaxis-continue Eliquis
Full code
Total time spent to see the patient on the floor, examine the patient, review data and lab results, discuss treatment plan with patient, nursing staff around 51 minutes.
Physical Exam
General: No acute distress
HEENT: Normocephalic, Atraumatic, EOMI, MMM
Respiratory: Clear to Auscultation bilaterally
Cardiac: Normal S1/S2, Regular Rate and Rhythm
GI: Soft, mild appropriate tenderness, PEG in place
Extremities: No Clubbing, Cyanosis, or Edema
Neuro: Nonfocal/Grossly Intact
Psych: Calm, Cooperative
Derm: No Visible lesions
Anticipated Discharge: > 48 hours
Subjective/Interval History
-
Date of Service: June 29, 2024
a bit more confused this morning
states his breathing is better
Objective Data
-
Labs:
Laboratory Results
06/29/24
06:11
WBC 11.9 H
Hgb 10.0 L
Hct 30.2 L
Plt Count 185
Sodium 140
Potassium 4.0
Chloride 105
Carbon Dioxide 29
BUN 23 H
Creatinine 1.0
Glucose 132 H
Calcium 7.4 L
Vital Signs:
Vital Signs
Temp Pulse Resp BP Pulse Ox
98.3 F 67 16 131/46 94
06/29/24 07:32 06/29/24 07:36 06/29/24 07:36 06/29/24 07:32 06/29/24 07:36
I&O
06/28/24 06/29/24 06/30/24
06:59 06:59 06:59
Intake Total 240 / 240 120 / 120
Output Total 125 / 125 450 / 450
Balance 115 / 115 -330 / -330
Review of Systems
-
History Source: Patient
All other systems: Reviewed and negative
Physical Exam
-
General: Well Developed, Well Nourished, Appears Chronically Ill and Other (less)
HEENT: Nose Appears Normal and Ears Appear Normal
Respiratory: Clear to Auscultation and Non Labored Respirations; Negative Accessory Resp Muscle Use
Cardiac: Regular Rhythm and S1/S2
GI: Soft, Nontender, Nondistended, Normal Bowel Sounds and Peg Tube
Musculoskeletal: No Edema
Skin: Warm and Dry
Neuro: Awake and Alert
Psych: Calm, Depressed and Other (no appetite)
Data Reviewed
-
Diagnostic Radiology: Report Reviewed by me
Labs: Labs Reviewed by me
--- NOTE | 2024-06-29 11:15 | PTCARENOTE ---
PT with too loose stools this shift
[2024-06-29 11:44] LABS: Glucose - Point of Care 134 mg/dl (70-99)
[2024-06-29 11:52] LABS: Phosphorus 3.6 mg/dl (2.5-4.5)
[2024-06-29 11:53] VITALS: BP 143/50
[2024-06-29] MEDS: UNASYN IV ×2 (12:25→16:48)
[2024-06-29] MEDS: STERILE WATER FOR INJECTION IV (12:25)
[2024-06-29] MEDS: IMODIUM 2 MG PO (13:05)
[2024-06-29 13:14] LABS: Urine Albumin Negative (Neg - Trace); Urine Bilirubin Negative (Negative); Urine Character Clear (Clear); Urine Color Straw; Urine Glucose 2+ (Negative); Urine Ketone Negative (Negative); Urine Leukocyte Negative (Negative); Urine Nitrite Negative (Negative); Urine Occult Blood Negative (Negative); Urine Urobilinogen Negative (Neg - 1+)
[2024-06-29 16:05] VITALS: BP 118/46
[2024-06-29 16:53] LABS: Glucose - Point of Care 161 mg/dl (70-99)
[2024-06-29] MEDS: NOVOLOG FLEXPEN-LOW RESISTANCE 1 UNITS SC (16:58)
[2024-06-29 19:00] VITALS: BP 110/89
[2024-06-29] MEDS: REMERON ODT 15 MG PO (21:07)
[2024-06-29] MEDS: LIPITOR 40 MG PO (21:07)
[2024-06-29 21:32] LABS: Glucose - Point of Care 156 mg/dl (70-99)
[2024-06-29 23:00] VITALS: BP 115/56
[2024-06-30] VITALS (7 sets, daily range): BP systolic 117–135; BP diastolic 48–60; PULSE 73; O2SAT 93; BMI 22.4
[2024-06-30] MEDS: UNASYN IV ×2 (01:05→05:14)
[2024-06-30] MEDS: SYNTHROID 100 MCG PO (05:14)
[2024-06-30] MEDS: SPIRIVA RESPIMAT 2.5 MCG INH (07:20)
[2024-06-30] MEDS: SYMBICORT 80/4.5 MCG INHALER INH (07:20)
[2024-06-30 08:08] LABS: Glucose - Point of Care 156 mg/dl (70-99)
[2024-06-30 08:12] LABS: % Basophils 0.3 % (0-2); % Eosinophils 2.7 % (0-6); % Immature Granulocytes 0.5 % (0-0.5); % Lymphocytes 7.5 % (20.5-51.1); % Monocytes 5.6 % (1.7-9.3); % Neutrophils 83.4 % (42.2-75.2); Absolute Eosinophils 0.3 10^3/uL (0-0.7); Absolute Immature Granulocytes 0.1 10^3/uL (0-0.05); Absolute Lymphocytes 0.9 10^3/uL (1.2-3.4); Absolute Monocytes 0.7 10^3/uL (0.1-0.6); Absolute Neutrophils 9.6 10^3/uL (1.4-6.5); Hematocrit 30.6 % (39.0-52.0); Hemoglobin 9.8 g/dL (13.0-18.0); Mean Corpuscular Hgb 28.8 pg (27.0-31.0); Mean Platelet Volume 11.4 fL (7.4-10.4); Nucleated Red Blood Cells % 0 % (-); Platelet Count 167 10^3/uL (130-400); Red Cell Dist. Width 19.9 % (11.5-14.5); White Blood Cell Count 11.6 10^3/uL (4.8-10.8)
[2024-06-30] MEDS: NOVOLOG FLEXPEN-LOW RESISTANCE 1 UNITS SC ×2 (08:16→16:39)
[2024-06-30] MEDS: FARXIGA 10 MG PO (08:20)
[2024-06-30] MEDS: ELIQUIS 2.5 MG PO ×2 (08:20→19:57)
[2024-06-30] MEDS: ZETIA 10 MG PO (08:20)
[2024-06-30] MEDS: VITAMIN B1 100 MG PO (08:20)
[2024-06-30] MEDS: PLAVIX 75 MG PO (08:20)
[2024-06-30] MEDS: PROTONIX 40 MG PO (08:20)
[2024-06-30] MEDS: OASIS 1 SPRAY PO (08:20)
[2024-06-30] MEDS: ULORIC 40 MG PO (08:20)
[2024-06-30] MEDS: NORVASC 5 MG PO (08:20)
[2024-06-30] MEDS: PROSCAR 5 MG PO (08:20)
[2024-06-30] MEDS: VISBIOME 1 CAP PO (08:20)
[2024-06-30] MEDS: IMDUR (EXTENDED RELEASE) 60 MG PO (08:20)
[2024-06-30] MEDS: PACERONE 200 MG PO (08:20)
[2024-06-30] MEDS: TOPROL XL 100 MG PO (08:20)
[2024-06-30 08:38] LABS: Blood Urea Nitrogen 26 mg/dl (9-20); Calcium 7.6 mg/dl (8.4-10.2); Carbon Dioxide 31 mmol/L (22-30); Chloride 103 mmol/L (98-107); Estimated Creatinine Clearance 49 ml/min; Glucose 124 mg/dl (70-99); Potassium 4.1 mmol/L (3.5-5.1); Sodium 141 mmol/L (135-145); eGFR > 60.00
--- NOTE | 2024-06-30 08:43 | W.PN.HOSP.TC ---
Today's Communication/Plan
-
continue antibiotics
IV lasix
wean down O2 as able
Assessment / Plan
Assessment / Plan
HPI: 83-year-old man presented with poor p.o. intake. Patient had COVID 2 months ago and ever since his p.o. intake has been poor. He has a metallic taste in his mouth, lost 15 pounds in 2 months, this is third hospitalization for volume depletion
and acute kidney injury
A/P:
Aspiration pneumonia
-patient treated earlier in hospital course with IV Ceftriaxone and several days of Flagyl
-increased SOB 06/28 with CXR showing b/l pneumonia. Procalcitonin up and patient confused therefore abx started on 06/29
-IV Unasyn (day 2) - convert to liquid Augmentin via Tube
# Chronic HFrEF and also stage II diastolic dysfunction, acute exacerbation noticed morning 06/28
Hypoxic Respiratory Insufficiency
EF 35-40% 03/29
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
-initiated IV lasix - will increase to BID; patient currently requiring 5L O2 and heart failure likely contributing
# Possible E. coli UTI
Status post Rocephin for 5 days
Diarrhea- test norovirus and C. Diff - negative
# Clinical deconditioning with loss of appetite, poor PO intake and FTT, since COVID infection 2 months ago
# Severe protein calorie malnutrition-dietary evaluation.
# Hypoglycemia due to poor PO intake
# Dysgeusia for the past 2 months with metallic taste, started since COVID infection 2 months ago
COVID negative. CRP/ESR negative which r/o underlying inflammatory/infectious conditions
Recent CT scan of the abdomen and pelvis on 05/03/2024 without any masses or indicative of malignancy
TSH WNL at 3.39
He is now s/p PEG placement 06/24/24
Added Remeron, increased to 15 mg HS, weaned off of Zoloft slowly.
awaiting PEG and TF supplies to be set up
# Prerenal BRITTANIE on CKD stage III
-resolved with fluids, holding diuretics
-monitor renal function closely with diuresis
#Non-anion gap metabolic acidosis
Resolved on sodium bicarb, will discontinue
# Hypophosphatemia
Repleted and resolved
# Oral thrush on exam-status post nystatin
# Depression- Remeron started on 06/16/2024. Zoloft tapered off.
# Coronary artery disease with history of CABG 1995 and stents-continue , Imdur. Cleared by GI to resume Plavix 06/25
# Mild thrombocytopenia-follow
gluteal cleft with small stage 2 vs evolving stage 3 PI'
-appreciate wound care
# Valvular heart disease-moderate to severe MR, moderate to severe TR, mild to moderate AI
# Paroxysmal atrial fibrillation-History of ablation 2021-continue amiodarone, Toprol-XL, cleared by GI to resume Eliquis 06/25
# History of NSVT status post ICD 2017-continue Amiodarone
# Essential Hypertension-continue Amlodipine, Metoprolol, Imdur with hold parameter
# Hyperlipidemia-continue atorvastatin and Zetia
# COPD-continue Trelegy. Chronic respiratory failure on home oxygen
# Hypothyroidism-continue Synthroid 100 mcg daily
# GERD/Batres's esophagus/hiatal hernia-continue Protonix
# Gout-continue febuxostat
# Enlarged prostate-continue finasteride
# Sleep apnea-CPAP
# Spinal stenosis
DVT prophylaxis-continue Eliquis
Full code
Total time spent to see the patient on the floor, examine the patient, review data and lab results, discuss treatment plan with patient, nursing staff around 51 minutes.
P
Anticipated Discharge: 24 - 48 hours
Subjective/Interval History
-
Date of Service: June 30, 2024
seems to be breathing more comfortably this morning
Objective Data
-
Labs:
Laboratory Results
12/26/24
06:44
WBC 11.6 H
Hgb 9.8 L
Hct 30.6 L
Plt Count 167
Sodium 141
Potassium 4.1
Chloride 103
Carbon Dioxide 31 H
BUN 26 H
Creatinine 1.0
Glucose 124 H
Calcium 7.6 L
Vital Signs:
Vital Signs
Temp Pulse Resp BP Pulse Ox
98.3 F 75 20 130/56 94
06/30/24 07:46 06/30/24 07:46 06/30/24 07:46 06/30/24 07:46 06/30/24 07:46
I&O
06/29/24 06/30/24 07/01/24
06:59 06:59 06:59
Intake Total 120 / 120
Output Total 450 / 450
Balance -330 / -330
Review of Systems
-
History Source: Patient
All other systems: Reviewed and negative
Physical Exam
-
General: Well Developed, Well Nourished, Appears Chronically Ill and Other (less)
HEENT: Nose Appears Normal and Ears Appear Normal
Respiratory: Clear to Auscultation and Non Labored Respirations; Negative Accessory Resp Muscle Use
Cardiac: Regular Rhythm, S1/S2 and JVD
GI: Soft, Nontender, Nondistended, Normal Bowel Sounds and Peg Tube
Musculoskeletal: No Edema
Skin: Warm and Dry
Neuro: Awake and Alert
Psych: Calm and Other
Data Reviewed
-
Diagnostic Radiology: Report Reviewed by me
Labs: Labs Reviewed by me
[2024-06-30] MEDS: LASIX 80 MG IV ×2 (10:29→16:27)
[2024-06-30 12:14] LABS: Glucose - Point of Care 137 mg/dl (70-99)
--- NOTE | 2024-06-30 12:16 | PN.CDI ---
CDI
- -
CDI:
Physician Documentation Request
Admit Date: 06/15/24 21:10
Dear Doctor Beni,
Patient admitted with BRITTANIE.
06/30 PN,'Aspiration pneumonia -patient treated earlier in hospital course with IV Ceftriaxone and several days of Flagyl-increased SOB 06/28 with CXR showing b/l pneumonia. Procalcitonin up and patient confused therefore abx started on 06/29-IV
Unasyn (day 2) - convert to liquid Augmentin via Tube.'
On admission, WBC 15.3 and RR> 20.
Selected Entries
06/15/24
16:01 06/15/24
16:30 06/15/24
16:45
Resp Rate 27 26 21
06/15/24
19:00 06/15/24
19:08 06/15/24
20:15
Resp Rate 20 22 23
Please clarify which of the following most accurately describes the status of the patient's infection:
Sepsis, POA
Aspiration pneumonia only
Other
Sepsis
- Systemic manifestations of infection, with 2 or more SIRS criteria which include:
- Fever >100.4 degrees F or hypothermia < 96.8 degrees F
- Leukocytosis - WBC > 12,000 or leukopenia - WBC < 4,000 or > 10% bands
- Tachycardia > 90 beats per minute
- Tachypnea - RR > 20 breaths per minute or PaCO2 , 32mmHg
Source: Merck Manual 2013
- Indicate the known or suspected organism
- Indicate the known or suspected underlying infection, such as pneumonia
Localized Infection Only, Without Systemic Illness
- indicate the site/source, such as pneumonia
Other
Unable to Determine
Use of terms such as suspected, likely, concern for, or probable (associated with a specific diagnosis that is being evaluated, monitored, or treated as if it exists) are acceptable and can be coded in the inpatient setting, when documented at the
time of discharge.
Thank you,
Kayli COELHO,RN,CCDS
CDI Specialist
Available via [place] text
Please use your independent medical judgment in providing your response.
[2024-06-30] MEDS: NOVOLOG FLEXPEN-LOW RESISTANCE SC (12:21)
[2024-06-30] MEDS: OASIS PO ×2 (12:32→17:09)
[2024-06-30] MEDS: STERILE WATER FOR INJECTION IV (12:36)
--- NOTE | 2024-06-30 12:41 | PN.CDI ---
CDI
- -
CDI:
Physician Documentation Request
Admit Date: 06/15/24 21:10
Dear Doctor Beni,
Patient admitted with BRITTANIE.
06/20 PN, 'Hypoxic Respiratory Insufficiency....patient currently requiring 5L O2.'
Selected Entries
06/30/24
03:00 06/30/24
07:45 06/30/24
07:45
Nasal Cannula flow liters per minute 5 5 5
06/30/24
07:46 06/30/24
09:36 06/30/24
12:19
Nasal Cannula flow liters per minute 5 5 5
Please clarify which of the following accurately represents the patient's respiratory status:
Acute hypoxic respiratory failure
Hypoxia only
Other
Additional information for Respiratory Failure:
Recognized criteria for Respiratory Failure (Source: [facility] Hospitalist May 2013)
ABGs: (1 or more) Symptoms Please indicate type if known
1. p)2 <60 or RA SPO2 <91% on RA 1. Tachypnea, SOB, dyspnea Hypoxic
2. pCO2 50 and pH <7.35 2. Use of accessory muscles Hypercapnic
3. pO2 decrease of pCO2 increase by 3. Pallor or cyanosis Hypoxic and Hypercapnic
10 mmHg from baseline if known 4. Anxiety or restlessness Unable to determine
5. Unable to speak in full sentences
Supplemental O2 of > 40% (5LPM) Intubation is not required
Use of terms such as suspected, likely, concern for, or probable (associated with a specific diagnosis that is being evaluated, monitored, or treated as if it exists) are acceptable and can be coded in the inpatient setting, when documented at the
time of discharge.
Thank you,
Kayli COELHO,RN,CCDS
CDI Specialist
Available via [place] text
Please use your independent medical judgment in providing your response.
--- NOTE | 2024-06-30 13:56 | VNURNOTE ---
Confirmed with nurse Marie that patient has EnFit connector. Requested extra syringes be sent home with him when ready for DC. Spoke with Rose Marie at [facility], [place]. Insurance auth and Rx still pending. updated TARA Stoddard. [facility] Intake updated.
[2024-06-30 16:35] LABS: Glucose - Point of Care 157 mg/dl (70-99)
[2024-06-30] MEDS: SYMBICORT 80/4.5 MCG INHALER 2 PUFF INH (19:22)
[2024-06-30] MEDS: AUGMENTIN 875 MG/125 MG 1 TABLET PO (19:57)
[2024-06-30 21:34] LABS: Glucose - Point of Care 179 mg/dl (70-99)
[2024-06-30] MEDS: LIPITOR 40 MG PO (21:48)
[2024-06-30] MEDS: REMERON ODT 15 MG PO (21:49)
[2024-06-30] MEDS: OASIS 2 SPRAY PO (21:49)
--- NOTE | 2024-07-01 02:53 | PTCARENOTE ---
RN spot checked patients O2 for labored breathing and pt was found to have an O2 of 90% on 5L. Overnight FRANCHISE DEVELOPMENT MANAGER notified and suggested raise HOB and readjust patient and have him cough and deep breathe. Pt's saturations improved slightly. RN to continue
to monitor
[2024-07-01 03:25] VITALS: BP 127/48
[2024-07-01] MEDS: SYNTHROID PO (05:27)
[2024-07-01 06:00] VITALS: BMI 22.2
[2024-07-01 07:00] VITALS: BP 111/52
[2024-07-01 07:28] LABS: Glucose - Point of Care 164 mg/dl (70-99)
[2024-07-01] MEDS: SPIRIVA RESPIMAT 2.5 MCG 2 PUFF INH (07:38)
[2024-07-01] MEDS: SYMBICORT 80/4.5 MCG INHALER 2 PUFF INH ×2 (07:39→18:03)
[2024-07-01] MEDS: VISBIOME 1 CAP TUBE (08:07)
[2024-07-01] MEDS: PROTONIX 40 MG PO (08:07)
[2024-07-01] MEDS: PLAVIX 75 MG PO (08:07)
[2024-07-01] MEDS: PROSCAR 5 MG PO (08:07)
[2024-07-01] MEDS: OASIS 1 SPRAY PO (08:07)
[2024-07-01] MEDS: NORVASC 5 MG PO (08:08)
[2024-07-01] MEDS: TOPROL XL 100 MG PO (08:08)
[2024-07-01] MEDS: ZETIA 10 MG PO (08:08)
[2024-07-01] MEDS: LASIX 80 MG IV ×2 (08:08→15:57)
[2024-07-01] MEDS: VITAMIN B1 100 MG PO (08:08)
[2024-07-01] MEDS: ELIQUIS 2.5 MG PO ×2 (08:08→20:38)
[2024-07-01] MEDS: IMDUR (EXTENDED RELEASE) 60 MG PO (08:08)
[2024-07-01] MEDS: FARXIGA 10 MG PO (08:08)
[2024-07-01] MEDS: AUGMENTIN 875 MG/125 MG 1 TABLET PO ×2 (08:08→20:38)
[2024-07-01] MEDS: PACERONE 200 MG PO (08:08)
[2024-07-01] MEDS: NOVOLOG FLEXPEN-LOW RESISTANCE 1 UNITS SC ×3 (08:08→16:14)
[2024-07-01] MEDS: ULORIC 40 MG PO (08:08)
[2024-07-01 08:27] LABS: Blood Urea Nitrogen 33 mg/dl (9-20); Calcium 7.7 mg/dl (8.4-10.2); Carbon Dioxide 33 mmol/L (22-30); Chloride 101 mmol/L (98-107); Estimated Creatinine Clearance 45 ml/min; Glucose 151 mg/dl (70-99); Potassium 4.2 mmol/L (3.5-5.1); Sodium 138 mmol/L (135-145); eGFR > 60.00
[2024-07-01 08:31] LABS: % Basophils 0.4 % (0-2); % Eosinophils 1.7 % (0-6); % Immature Granulocytes 0.8 % (0-0.5); % Lymphocytes 6.4 % (20.5-51.1); % Monocytes 6.5 % (1.7-9.3); % Neutrophils 84.2 % (42.2-75.2); Absolute Eosinophils 0.2 10^3/uL (0-0.7); Absolute Immature Granulocytes 0.1 10^3/uL (0-0.05); Absolute Lymphocytes 0.7 10^3/uL (1.2-3.4); Absolute Monocytes 0.7 10^3/uL (0.1-0.6); Absolute Neutrophils 9.2 10^3/uL (1.4-6.5); Hematocrit 29.1 % (39.0-52.0); Hemoglobin 9.2 g/dL (13.0-18.0); Mean Corp Hgb Conc. 31.6 g/dL (33.0-37.0); Mean Corpuscular Hgb 28.4 pg (27.0-31.0); Mean Corpuscular Volume 89.8 fL (80.0-94.0); Mean Platelet Volume 11.7 fL (7.4-10.4); Nucleated Red Blood Cells % 0 % (-); Platelet Count 158 10^3/uL (130-400); Red Blood Cell Count 3.24 10^6/uL (4.70-6.10); Red Cell Dist. Width 19.7 % (11.5-14.5); White Blood Cell Count 10.9 10^3/uL (4.8-10.8)
--- NOTE | 2024-07-01 10:42 | W.PN.HOSP.TC ---
Addendum entered and electronically signed by Tracey Bazan MD 07/01/24 11:10:
patient is not septic - elevated RR more likely 2/2 heart failure
acute hypoxic respiraotry failure needing 5L O2 - wean as able with diuresis
Original Note:
Today's Communication/Plan
-
diuresis
Augmentin
TF forms filled out in chart
Assessment / Plan
Assessment / Plan
HPI: 83-year-old man presented with poor p.o. intake. Patient had COVID 2 months ago and ever since his p.o. intake has been poor. He has a metallic taste in his mouth, lost 15 pounds in 2 months, this is third hospitalization for volume depletion
and acute kidney injury
A/P:
Aspiration pneumonia
-patient treated earlier in hospital course with IV Ceftriaxone and several days of Flagyl
-increased SOB 06/28 with CXR showing b/l pneumonia. Procalcitonin up and patient confused therefore abx started on 06/29
-DAy 3 antibitoics - Augmentin
# Chronic HFrEF and also stage II diastolic dysfunction, acute exacerbation noticed morning 06/28
Hypoxic Respiratory Insufficiency
EF 35-40% 03/29
-[employer] Lasix and Aldactone were on hold on admit with BRITTANIE
-initiated IV lasix -increased to BID - patient with good urine output; hopefully O2 needs are weaned down soon
# Possible E. coli UTI
Status post Rocephin for 5 days
Diarrhea- test norovirus and C. Diff - negative
# Clinical deconditioning with loss of appetite, poor PO intake and FTT, since COVID infection 2 months ago
# Severe protein calorie malnutrition-dietary evaluation.
# Hypoglycemia due to poor PO intake
# Dysgeusia for the past 2 months with metallic taste, started since COVID infection 2 months ago
COVID negative. CRP/ESR negative which r/o underlying inflammatory/infectious conditions
Recent CT scan of the abdomen and pelvis on 05/03/2024 without any masses or indicative of malignancy
TSH WNL at 3.39
He is now s/p PEG placement 06/24/24
Added Remeron, increased to 15 mg HS, weaned off of Zoloft slowly.
awaiting PEG and TF supplies to be set up
# Prerenal BRITTANIE on CKD stage III
-resolved with fluids, holding diuretics
-monitor renal function closely with diuresis
#Non-anion gap metabolic acidosis
Resolved on sodium bicarb, will discontinue
# Hypophosphatemia
Repleted and resolved
# Oral thrush on exam-status post nystatin
# Depression- Remeron started on 06/16/2024. Zoloft tapered off.
# Coronary artery disease with history of CABG 1995 and stents-continue , Imdur. Cleared by GI to resume Plavix 06/25
# Mild thrombocytopenia-follow
gluteal cleft with small stage 2 vs evolving stage 3 PI'
-appreciate wound care
# Valvular heart disease-moderate to severe MR, moderate to severe TR, mild to moderate AI
# Paroxysmal atrial fibrillation-History of ablation 2021-continue amiodarone, Toprol-XL, cleared by GI to resume Eliquis 06/25
# History of NSVT status post ICD 2017-continue Amiodarone
# Essential Hypertension-continue Amlodipine, Metoprolol, Imdur with hold parameter
# Hyperlipidemia-continue atorvastatin and Zetia
# COPD-continue Trelegy. Chronic respiratory failure on home oxygen
# Hypothyroidism-continue Synthroid 100 mcg daily
# GERD/Batres's esophagus/hiatal hernia-continue Protonix
# Gout-continue febuxostat
# Enlarged prostate-continue finasteride
# Sleep apnea-CPAP
# Spinal stenosis
DVT prophylaxis-continue Eliquis
Full code
Total time spent to see the patient on the floor, examine the patient, review data and lab results, discuss treatment plan with patient, nursing staff around 51 minutes.
P
Anticipated Discharge: > 48 hours
Subjective/Interval History
-
Date of Service: July 01, 2024
short of breath today
urinating frequently
Objective Data
-
Labs:
Laboratory Results
07/01/24
07:33
WBC 10.9 H
Hgb 9.2 L
Hct 29.1 L
Plt Count 158
Sodium 138
Potassium 4.2
Chloride 101
Carbon Dioxide 33 H
BUN 33 H
Creatinine 1.1
Glucose 151 H
Calcium 7.7 L
Vital Signs:
Vital Signs
Temp Pulse Resp BP Pulse Ox
98.0 F 72 16 111/52 93
07/01/24 07:00 07/01/24 07:41 07/01/24 07:41 07/01/24 07:00 07/01/24 07:45
I&O
06/30/24 07/01/24 07/02/24
06:59 06:59 06:59
Output Total 200 / 200
Balance -200 / -200
Review of Systems
-
History Source: Patient
All other systems: Reviewed and negative
Physical Exam
-
General: Well Developed, Well Nourished, Appears Chronically Ill and Other (more tachypnei michelle )
HEENT: Nose Appears Normal
Respiratory: Clear to Auscultation and Non Labored Respirations; Negative Accessory Resp Muscle Use
Cardiac: Regular Rhythm, S1/S2 and JVD
GI: Soft, Nontender, Nondistended, Normal Bowel Sounds and Peg Tube
Musculoskeletal: No Edema
Skin: Warm and Dry
Neuro: Awake and Alert
Psych: Calm and Other
Data Reviewed
-
Diagnostic Radiology: Report Reviewed by me
Labs: Labs Reviewed by me
--- NOTE | 2024-07-01 10:54 | CM ---
Addendum entered by AMILCAR Navarro 07/01/24 16:34:
Received return call from Rose Marie who stated the following: Per our RD, I don't see any clinical indication for automated flushes overnight. Pt has a PEG and should be able to flush via syringe to meet his fluid needs. He could flush with 60ml (1
syringe) before & after all feeds, which would honestly probably be easier for him at home. But if they truly feel he needs the Feed/Flush bags, we need additional clinical documentation to support the need.
Will defer to RD/medical staff.
Addendum entered by AMILCAR Navarro 07/01/24 12:10:
Milagros, Patient's daughter confirmed that she spoke with attending this morning and was made aware by her of patient's current medical status. Emotional support provided as patient overwhelmed.
Addendum entered by AMILCAR Navarro 07/01/24 11:53:
Reviewed attending's notes and spoke with patient's RN Marie, who stated that patient has been requiring up to 6 liters of o2 in the past 24 hrs. Per attending, 'acute hypoxic respiratory failure needing 5L O2 - wean as able with diuresis'
patient in room with condom cath with the hope that it can be removed once he is more stable and diuresed. Will need to watch for home o2 needs as patient thus far not able to wean from 5 liters.
Placed a call to Milagros, patient's daughter to update. Inquired as to plan, as patient is still requiring acute level care and notification was received this am that she and family needed patient discharged today as there is a social event he needs
to get to, tomorrow. Patient's daughter expressed understanding and objectivity regarding where patient is physically and stated that she retracts the request that he be discharged today and fully acknowledged that patient is not stable for
discharge.
Provided Milagros with CM contact information. She is aware that [facility] still exploring coverage by patient's secondary for tube feeds and equipment and is very helpful that patient will receive coverage.
Original Note:
Late entry note from 06/30: Spoke with Rose Marie from [facility] who is coordinating the Enteral Feeds for patient for Home and is coordinating with [facility]. Rose Marie explained that Medicare denied the authorization for tube feeds as he is also able to
eat PO. At this point attempts are being made at sending request for auth through patient's secondary, [facility]. She stated that the only piece of documentation that she needs from is the Enteral Prescriber Order Form. This needs to be signed by
the attending and state the following information: For home consider Jevity 1.5 two feeds of 240 ml intermitted over 1 hr and nocturnal feeds of 75 ml hr 10pm to 8 am (8 Hour)
25 ml Flush with nocturnal feeds and 50 ml flush before and after each feed to provide an additional 350 ml fluid a day.
Spoke with attending who stated that she can sign paperwork first thing in am on 07/01. Told attending that documentation for completion along with recs from , in red folder in physical chart. Attending acknowledged. Once Prescriber Order Form
completed will fax to [phone] and this would be the last piece of documentation, needed from the hospital, per Rose Marie/David Hyde
07-01 (today) Checked red folder and form completed by attending. Faxed over all paperwork to fax # above and Rose Marie confirmed that there is nothing more that can be done from acute care, however they are still awaiting confirmation regarding
whether Michael will approve tube feeds as she has not as of yet received any verification. Until she receives authorization from the secondary insurance, [facility] will be unable to provide the supplies, and tube feeds as there needs to be a
payer source. Rose Marie stated that she would call back as soon as she received this information. Sonja from [facility] updated. She stated that she will call to f/u [facility] to determine status and confirm receipt of final documentation needed
from acute care.
Plan: Case management will continue to follow and assist with discharge planning. Home with PEG, and supplies from [facility] for diet and administration of Jevity 1.5.
[2024-07-01 11:00] VITALS: BP 148/59
--- NOTE | 2024-07-01 11:44 | VNURNOTE ---
Call placed to [facility], spoke with Kourtney. Confirmed receipt of TF Rx. Faxed picture of PEG tube connector (EnFit). Per Elvia [facility] most likely can deliver tomorrow. She will call back to confirm.
Called PCP and updated regarding PEG status, hospitalization course, and plan for [facility] resumption (once DC'ed). Requested call back today regarding confirmation that PCP will follow TF as outpt.
Spoke with daughter Milagros. Reinforced with her that [facility] will call prior to set up visits. Per Milagros she was told by that patient not ready for DC 'until after weekend.' At time of call, she had not spoken to her dad yet. Will continue to
update [facility] Intake as appropriate.
[2024-07-01 11:48] LABS: Glucose - Point of Care 166 mg/dl (70-99)
[2024-07-01] MEDS: OASIS PO ×3 (12:21→21:44)
[2024-07-01] MEDS: STERILE WATER FOR INJECTION IV (12:22)
--- NOTE | 2024-07-01 13:26 | VNURNOTE ---
Rec'ed call back from Macy at PCP[facility]. She confirmed PCP Dr Emilia Rodriguez will follow TFs once DC'ed. [facility] will continue to follow hospital course.
[2024-07-01 15:00] VITALS: BP 128/48
[2024-07-01 15:01] LABS: Magnesium 1.7 mg/dl (1.6-2.3)
--- NOTE | 2024-07-01 15:52 | PTOTSP ---
CHART REVIEWED AND SPOKE WITH RN. RN AND THERAPIST CONTACTED PATIENT BEDSIDE. PATIENT REFUSING THERAPY STATING 'NOT RIGHT NOW.' WITH INCREASED ENCOURAGEMENT, PATIENT CONTINUED TO REFUSE. PATIENT HAS REFUSED 3 TIMES IN A ROW, WILL DISCHARGE FROM
THERAPY AT THIS TIME. RN AWARE. PLEASE RECONSULT IF PATIENT IN AGREEMENT WITH THERAPY SERVICES.
[2024-07-01] MEDS: MAGNESIUM SULFATE 50 IV (15:56)
[2024-07-01 16:12] LABS: Glucose - Point of Care 172 mg/dl (70-99)
[2024-07-01 19:00] VITALS: BP 117/49
[2024-07-01 20:38] VITALS: BMI 22.2
[2024-07-01] MEDS: LIPITOR 40 MG PO (20:39)
[2024-07-01 22:04] LABS: Glucose - Point of Care 186 mg/dl (70-99)
[2024-07-01 23:00] VITALS: BP 125/46
[2024-07-02] MEDS: REMERON ODT PO ×2 (00:33→21:32)
[2024-07-02 03:00] VITALS: BP 123/50
[2024-07-02 06:00] VITALS: BMI 22.2
[2024-07-02] MEDS: SYNTHROID 100 MCG PO (06:15)
[2024-07-02 07:00] VITALS: BP 121/50
[2024-07-02 07:13] LABS: Hematocrit 28.9 % (39.0-52.0); Hemoglobin 9.1 g/dL (13.0-18.0); Mean Corp Hgb Conc. 31.5 g/dL (33.0-37.0); Mean Corpuscular Volume 88.9 fL (80.0-94.0); Mean Platelet Volume 10.8 fL (7.4-10.4); Platelet Count 168 10^3/uL (130-400); Red Blood Cell Count 3.25 10^6/uL (4.70-6.10); Red Cell Dist. Width 19.5 % (11.5-14.5); White Blood Cell Count 10.8 10^3/uL (4.8-10.8)
[2024-07-02 07:33] LABS: Blood Urea Nitrogen 43 mg/dl (9-20); Calcium 7.9 mg/dl (8.4-10.2); Carbon Dioxide 33 mmol/L (22-30); Chloride 99 mmol/L (98-107); Estimated Creatinine Clearance 35 ml/min; Glucose 162 mg/dl (70-99); Magnesium 2.3 mg/dl (1.6-2.3); Sodium 139 mmol/L (135-145); eGFR 49.25
--- NOTE | 2024-07-02 08:01 | PTCARENOTE ---
PCT came out of room and verbalized that patient pulled peg tube out. small amount of blood at site. site covered with 4x4. I asked patient why he pulled it out and he responded, 'My belly hurted!' vss, Dr. Horn notified and discussed with me
to notify Dr. Bazan as patient with need surgery consult. video monitor maintained, will continue to monitor.
[2024-07-02] MEDS: SPIRIVA RESPIMAT 2.5 MCG 2 PUFF INH (08:19)
[2024-07-02] MEDS: SYMBICORT 80/4.5 MCG INHALER 2 PUFF INH ×2 (08:19→21:26)
--- NOTE | 2024-07-02 09:06 | PHA.VAN.IN ---
Assessment
- Assessment
Renal Function may be Overestimated due to: age
Concomitant Antimicrobials: amoxicillin
Plan
- Plan
Initial / Loading Dose: 1500mg
Maintenance Regimen: prn by level
Monitoring: Random 07/03 in am
MRSA Screen: Ordered per protocol
Pharmacokinetics Vancomycin I
- -
Patient Age: 84
Patient Sex: Male
Vancomycin Day #: 1
Indication: Pulmonary/Respiratory
Requesting Provider: Dr. Bazan
Height / Weight:
Height 5 ft 7 in
Actual Weight 64.274 kg
IBW in k.1
- Vital Signs / Lab Results
Temp Pulse Resp BP Pulse Ox
97.8 F 68 20 121/50 93
07/02/24 07:00 07/02/24 08:24 07/02/24 08:24 07/02/24 07:00 07/02/24 08:24
Lab Results - Hematology
06/30/24 07/01/24 07/02/24
06:44 07:33 06:37
WBC 11.6 H 10.9 H 10.8
Lab Results - Chemistry
06/30/24 07/01/24 07/02/24
06:44 07:33 06:37
BUN 26 H 33 H 43 H
Creatinine 1.0 1.1 1.4 H
Estimated Creat Clear 49 45 35
Lab Results - Urine
06/29/24
13:08
Urine Nitrite (Reflex) Negative
Leukocyte Esterase Rfl Negative
[2024-07-02 09:09] LABS: Glucose - Point of Care 182 mg/dl (70-99)
[2024-07-02] MEDS: VITAMIN B1 100 MG PO (09:29)
[2024-07-02] MEDS: VISBIOME 1 CAP TUBE (09:30)
[2024-07-02] MEDS: ZETIA 10 MG PO (09:30)
[2024-07-02] MEDS: IMDUR (EXTENDED RELEASE) 60 MG PO (09:30)
[2024-07-02] MEDS: NORVASC 5 MG PO (09:30)
[2024-07-02] MEDS: PROTONIX 40 MG PO (09:30)
[2024-07-02] MEDS: ELIQUIS 2.5 MG PO (09:30)
[2024-07-02] MEDS: PROSCAR 5 MG PO (09:30)
[2024-07-02 09:31] LABS: COVID-19 Antigen Negative (Negative)
[2024-07-02] MEDS: FARXIGA 10 MG PO (09:31)
[2024-07-02] MEDS: TOPROL XL 100 MG PO (09:31)
[2024-07-02] MEDS: ULORIC 40 MG PO (09:31)
[2024-07-02] MEDS: AUGMENTIN 875 MG/125 MG 1 TABLET PO (09:32)
[2024-07-02] MEDS: PACERONE 200 MG PO (09:33)
[2024-07-02] MEDS: PLAVIX 75 MG PO (09:33)
[2024-07-02] MEDS: MUCINEX 600 MG PO (09:36)
[2024-07-02] MEDS: VANCOCIN 530 MG IV (09:36)
[2024-07-02] MEDS: NOVOLOG FLEXPEN-LOW RESISTANCE 1 UNITS SC (09:42)
[2024-07-02] MEDS: OASIS 2 SPRAY PO ×3 (09:43→17:49)
--- NOTE | 2024-07-02 10:17 | W.PN.HOSP.TC ---
Today's Communication/Plan
-
IV Unasyn
add on IV Vanc
consult ID
gentle IVF
not cleared for procedure with elevated O2 needs
daughter updated - confirmed this is within patient's goals of care
Assessment / Plan
Assessment / Plan
HPI: 83-year-old man presented with poor p.o. intake. Patient had COVID 2 months ago and ever since his p.o. intake has been poor. He has a metallic taste in his mouth, lost 15 pounds in 2 months, this is third hospitalization for volume depletion
and acute kidney injury
A/P:
Aspiration pneumonia
-patient treated earlier in hospital course with IV Ceftriaxone and several days of Flagyl
-increased SOB 06/28 with CXR showing b/l pneumonia. Procalcitonin up and patient confused therefore abx started on 06/29
-DAy 4 antibiotics - add on IV Vanc; MRSA swab and consult ID
# Chronic HFrEF and also stage II diastolic dysfunction, acute exacerbation noticed morning 06/28
Hypoxic Respiratory Insufficiency
EF 35-40% 03/29
-ELECTRICAL SIGN WIRER Lasix and Aldactone were on hold on admit with BRITTANIE
-initiated IV lasix -increased to BID - O2 needs have remained up and patient with BRITTANIE - therefore hold further diuresis today. Gentle IVF given loss of PEG (see below)
# Possible E. coli UTI
Status post Rocephin for 5 days
Diarrhea- test norovirus and C. Diff - negative
# Clinical deconditioning with loss of appetite, poor PO intake and FTT, since COVID infection 2 months ago
# Severe protein calorie malnutrition-dietary evaluation.
# Hypoglycemia due to poor PO intake
# Dysgeusia for the past 2 months with metallic taste, started since COVID infection 2 months ago
COVID negative. CRP/ESR negative which r/o underlying inflammatory/infectious conditions
Recent CT scan of the abdomen and pelvis on 05/03/2024 without any masses or indicative of malignancy
TSH WNL at 3.39
- s/p PEG placement 06/24/24
-continue Remeron
-morning of 07/02 - patient ripped out PEG - would need GS to replace but patient not cleared for procedures with increased Oxygen needs
awaiting PEG and TF supplies to be set up
# Prerenal BRITTANIE on CKD stage III
-resolved with fluids, holding diuretics
-monitor renal function closely with diuresis
#Non-anion gap metabolic acidosis
Resolved on sodium bicarb, will discontinue
# Hypophosphatemia
Repleted and resolved
# Oral thrush on exam-status post nystatin
# Depression- Remeron started on 06/16/2024. Zoloft tapered off.
# Coronary artery disease with history of CABG 1995 and stents-continue , Imdur. Cleared by GI to resume Plavix 06/25
# Mild thrombocytopenia-follow
gluteal cleft with small stage 2 vs evolving stage 3 PI'
-appreciate wound care
# Valvular heart disease-moderate to severe MR, moderate to severe TR, mild to moderate AI
# Paroxysmal atrial fibrillation-History of ablation 2021-continue amiodarone, Toprol-XL, cleared by GI to resume Eliquis 06/25
# History of NSVT status post ICD 2017-continue Amiodarone
# Essential Hypertension-continue Amlodipine, Metoprolol, Imdur with hold parameter
# Hyperlipidemia-continue atorvastatin and Zetia
# COPD-continue Trelegy. Chronic respiratory failure on home oxygen
# Hypothyroidism-continue Synthroid 100 mcg daily
# GERD/Batres's esophagus/hiatal hernia-continue Protonix
# Gout-continue febuxostat
# Enlarged prostate-continue finasteride
# Sleep apnea-CPAP
# Spinal stenosis
DVT prophylaxis-continue Eliquis
Full code
Total time spent to see the patient on the floor, examine the patient, review data and lab results, discuss treatment plan with patient, nursing staff around 51 minutes.
P
Anticipated Discharge: > 48 hours
Subjective/Interval History
-
Date of Service: July 02, 2024
confused this morning, thinks he is going to a wedding
Objective Data
-
Labs:
Laboratory Results
07/02/24
06:37
WBC 10.8
Hgb 9.1 L
Hct 28.9 L
Plt Count 168
Sodium 139
Potassium 4.0
Chloride 99
Carbon Dioxide 33 H
BUN 43 H
Creatinine 1.4 H
Glucose 162 H
Calcium 7.9 L
Vital Signs:
Vital Signs
Temp Pulse Resp BP Pulse Ox
97.8 F 77 20 121/50 93
07/02/24 07:00 07/02/24 09:31 07/02/24 08:24 07/02/24 09:31 07/02/24 08:24
I&O
07/01/24 07/02/24 07/03/24
06:59 06:59 06:59
Intake Total 480 / 480
Output Total 200 / 200 800 / 800
Balance -200 / -200 -320 / -320
Review of Systems
-
History Source: Patient
All other systems: Reviewed and negative
Physical Exam
-
General: Well Developed, Well Nourished and Appears Chronically Ill
HEENT: Nose Appears Normal
Respiratory: Clear to Auscultation and Non Labored Respirations; Negative Accessory Resp Muscle Use
Cardiac: Regular Rhythm, S1/S2 and JVD
GI: Soft, Nontender, Nondistended and Normal Bowel Sounds
Musculoskeletal: No Edema
Skin: Warm and Dry
Neuro: Awake and Alert
Psych: Confused and Other
Data Reviewed
-
Diagnostic Radiology: Report Reviewed by me
Labs: Labs Reviewed by me
[2024-07-02 11:00] VITALS: BP 123/52
[2024-07-02 11:52] LABS: Glucose - Point of Care 114 mg/dl (70-99)
[2024-07-02] MEDS: NOVOLOG FLEXPEN-LOW RESISTANCE SC ×2 (12:23→17:45)
[2024-07-02] MEDS: LR 1000 IV (12:53)
--- NOTE | 2024-07-02 14:52 | W.PN.UPDATE ---
Update Note
Progress Note Update
patient is high risk with pulled PEG
I called daughter Milagros and discussed gravity of situation for perforation or peritonitis. I also discussed his clinical decline, heart failure, kidney injury and on-going respiratory failure from pneumonia.
Milagros requests family meeting - family will be in later today. I stated if he were my family member I would recommend hospice and comfort care. We also discussed trauma involved in CPR and extremely low likelihood of survival if he had a cardiac
arrest. We will discuss this again at family meeting.
[2024-07-02 15:00] VITALS: BP 101/67
--- NOTE | 2024-07-02 15:18 | CON.GS ---
Addendum entered and electronically signed by Bo Ceron MD 07/02/24 20:08:
I saw and examined the patient independently.
The Senior Loss Control Specialist's note was reviewed and I agree with the note, assessment and plan except where noted below.
Comment: This is an 84-year-old male with significant medical history and comorbidities with recent endoscopic PEG tube placement on 06/24/2024. He is reported to have dislodged/pulled the tube out this morning. He does endorse some pain at the
site but he is not grossly tender to palpation and there is no sign of peritonitis at this time. Clinically he has no white count and his vital signs are stable. General surgery was consulted to assist with replacement of the tube given how
recently it was placed.
Agree with avoiding bedside replacement or manipulation of the tract.
Would get an upright x-ray to evaluate for free air, or if able CT abdomen pelvis with p.o. IV contrast
In this setting however an endoscopic rescue PEG with placement of T-fasteners would likely be the least morbid option.
Update: Patient's family would like to proceed with hospice care.
General surgery will sign off for now, please call with any questions or concerns.
Original Note:
Consultation
-
Date/Time Consultation Requested: 07/02/24 1326
Requesting Provider: Beni
Reason for Consultation: PEG dislodgement
Medical History
-
Chief Complaint: dislodged feeding tube
History of Present Illness:
Mr. Gan is an 84 yo male with h/o CAD with CABG/Stent, HFrEF, ICD, PAF with ablation, CKD, pulm htn, COPD on chronic O2 and recent covid 19 infection admitted with aspiration pneumonia and complications secondary to poor PO intake and FTT. He is
confused and unable to provide much history. Per nursing staff, they have been unable to fully orient him. Given his poor PO intake, a PEG tube was placed on 06/24 for tube feedings and was in place up until this morning when the patient pulled it
out. He notes that he had some discomfort to the site and so he removed it. He makes no promises that he would not pull it out again if replaced, but notes that he 'probably would not'. There is minimal bleeding to the site with mild localized
tenderness. The abdomen is grossly nontender and nondistended.
Past Medical History
Past Medical History: Arrhythmias (PAF with ablation, ICD), CAD, CHF (EF 35-40%), COPD (chronic O2), GERD (Batres's, hiatal hernia), Hypothyroidism, Psychiatric (depression), Renal Failure (CKD), Valvular Disease (mod to severe MR, moderate to
severe TR, mild to moderate AR) and Other (RAVINDRA on CPAP, BPH, gout, pulmonary htn)
Past Surgical History: Cardiac (cabg, stent) and Other (PEG on 06/24/24)
Social History
Tobacco: Former Smoker
Alcohol: Occasional
Living: With Family
Family History
Family History: Reviewed & Not Pertinent
Allergies / Home Medications
Allergy/AdvReac Type Severity Reaction Status Date / Time
allopurinol Allergy Rash Verified 06/15/24 13:20
meloxicam [From Mobic] Allergy Nausea/dizz Verified 06/15/24 13:20
iness/vomit
ing
meperidine HCl [From Demerol] Allergy Vomiting Verified 06/15/24 13:20
�Medication �Instructions �Recorded �Confirmed �Type
febuxostat 40 mg tablet 40 mg PO DAILY Gout 04/10/14 06/15/24 History
finasteride 5 mg tablet 5 mg PO DAILY Urinary issue 04/20/20 06/15/24 History
metoprolol succinate 100 mg 100 mg PO DAILY Heart 04/20/20 06/15/24 History
tablet,extended release 24 hr disease/condition
nitroglycerin 0.4 mg sublingual 0.4 mg sublingual [id number] PRN 04/20/20 06/15/24 History
tablet chest pain
albuterol sulfate 90 mcg/actuation 2 puff inhalation R Q4HPRN PRN 03/05/21 06/15/24 History
aerosol inhaler sob/wheezing
pantoprazole 40 mg tablet,delayed 40 mg PO DAILY Gastrointestinal 03/06/21 06/15/24 History
release issue
atorvastatin 40 mg tablet 40 mg PO HS High cholesterol 09/20/21 06/15/24 History
ezetimibe 10 mg tablet 10 mg PO DAILY High cholesterol 09/20/21 06/15/24 History
clopidogrel 75 mg tablet 75 mg PO DAILY Blood clot 08/01/22 06/15/24 Rx
prevention/tx #0 tabs
fluticasone fur. 100 mcg-umeclid 1 inh inhalation R DAILY 04/03/24 06/15/24 History
62.5 mcg-vilant 25 mcg Lung/Breathing Issues
inhalat.powder (Trelegy Ellipta)
apixaban 2.5 mg tablet (Eliquis) 2.5 mg PO BID Arrhythmia #0 tabs 05/23/24 06/15/24 Rx
empagliflozin 10 mg tablet 10 mg PO DAILY Heart 05/23/24 06/15/24 Rx
(Jardiance) disease/condition #0 tabs
furosemide 80 mg tablet 80 mg PO MOWEFR Heart 05/23/24 06/15/24 Rx
disease/condition #0 tabs
isosorbide mononitrate 60 mg 60 mg PO DAILY Heart 05/23/24 06/15/24 Rx
tablet,extended release 24 hr disease/condition #0 tabs
levothyroxine 100 mcg tablet 100 mcg PO DAILY Thyroid #0 tabs 05/23/24 06/15/24 Rx
otjdzami-iwv-XF 0.4 mg-calcium 162 1 tab PO DAILY Supplement #0 tabs 05/23/24 06/15/24 Rx
mg-iron 18 [id number]
tablet (Centravites)
vitamins A,C,J-aaqj-wcfvxd 4,296 1 cap PO DAILY Eye condition #0 05/23/24 06/15/24 Rx
mcg-226 mg-90 mg capsule caps
(PreserVision AREDS)
amiodarone 200 mg tablet 200 mg PO DAILY Arrhythmia 06/02/24 06/15/24 History
amlodipine 5 mg tablet (Norvasc) 5 mg PO DAILY Blood Pressure 06/02/24 06/15/24 History
potassium 99 mg tablet 99 mg PO MOWEFR Electrolyte 06/02/24 06/15/24 History
Repletion
spironolactone 25 mg tablet 25 mg PO DAILY Fluid 06/02/24 06/15/24 History
Retention/Swelling
zinc sulfate 50 mg zinc (220 mg) 50 mg PO DAILY 30 days #30 caps 06/07/24 06/15/24 Rx
capsule
sertraline 50 mg tablet 50 mg PO DAILY Mental 06/15/24 06/15/24 History
Health/Anxiety
prednisone 10 mg tablet See Rx Instructions .Route 06/16/24 06/15/24 History
.COMPLEX Anti-Inflammatory
Review of Systems
-
Unable to obtain full review of systems at this time due to: Dementia
History Source: Patient and Family
All other systems: Negative unless noted
A 10 point review of systems was completed, and was negative except as per HPI.
Physical Exam
Vital Signs
Temp Pulse Resp BP Pulse Ox
97.7 F 70 18 123/52 93
07/02/24 11:00 07/02/24 11:00 07/02/24 11:00 07/02/24 11:00 07/02/24 11:00
07/01/24 07/02/24 07/03/24
06:59 06:59 06:59
Actual Weight 64.127 kg 64.274 kg
Body Mass Index (BMI) 22.2
Lab Results
07/02/24 06:37
07/02/24 06:37
WBC 10.8 10^3/uL (4.8-10.8) 07/02/24 06:37
Hgb 9.1 g/dL (13.0-18.0) L 07/02/24 06:37
Hct 28.9 % (39.0-52.0) L 07/02/24 06:37
Plt Count 168 10^3/uL (130-400) 07/02/24 06:37
Abs Immat Gran (auto) 0.1 10^3/uL (0-0.05) H 07/01/24 07:33
Neutrophils % 84.2 % (42.2-75.2) H 07/01/24 07:33
Physical Exam
General: No Apparent Distress
HEENT: Normocephalic
Respiratory: Non Labored Respirations
GI: Soft, Non Distended and Tender (locally to prior PEG site, some minimal bleeding at site)
Skin: Warm and Dry
Neuro: Awake, Alert and Oriented (x1); Negative AO x 3
Psych: Agitated (states this whole situation is the doctor's fault)
Data Reviewed
-
Labs: Labs Reviewed by me and Discussed with Physician
Old Records: Reviewed
Assessment / Plan
-
84 yo male h/o CAD with CABG/Stent, HFrEF, ICD, PAF with ablation, CKD, pulm htn, COPD on chronic O2 and recent covid 19 infection admitted with complications secondary to poor PO intake and FTT with PEG tube placement on 06/24 for tube feedings. He
is confused today and pulled out his PEG tube earlier this morning. There is minimal bleeding and some localized discomfort to the site. He is afebrile with stable vital signs. No leukocytosis.
Since his PEG placement was so recent (8 days ago), he is high risk for complications from this dislodgement which would require emergent surgery for correction; including peritonitis and peritoneal contamination from gastric contents as the feeding
tube tract has not had chance to adequately heal. Unfortunately, he is also high risk for surgical intervention given his multiple cardiac and pulmonary comorbid conditions and current anticoagulation. I also suspect if PEG were to be replaced, this
may occur again; thus, optimizing his nutrition post operatively would be challenging.
Fortunately, he is exhibiting no signs of peritonitis currently. Exam with minimal discomfort localized to site. VSS and without active fevers.
--ABD XR to evaluate for free air
--Family meeting planned today to discuss goals of care
[2024-07-02 17:05] LABS: Glucose - Point of Care 107 mg/dl (70-99)
--- NOTE | 2024-07-02 17:31 | W.PN.UPDATE ---
Update Note
Progress Note Update
Reported by medical team that patient has pulled his PEG tube which was placed 06/24/2024. Patient is currently on 5 L oxygen. Recommend urgent surgical evaluation / abdominal imaging since PEG was placed 8 days ago (unmatured fistula tract ). I
will not recommend repeating EGD at this point especially without an established fistula tract. Patient will be at high risk for any surgical intervention as well considering his medical comorbidities. discussed with medical team/surgery. Medical
team to discuss about goals of care with family today.
--- NOTE | 2024-07-02 18:00 | W.PN.UPDATE ---
Update Note
Progress Note Update
[facility] discussion had with family. We discussed patient's frailty, respiratory failure 2/2 aspiration pneumonia, acute kidney injury and delicate volume balance. We discussed that now that PEG is ripped out he is at risk for peritonitis and he is not
a procedural candidate to replace it as he has high oxygen needs. Even if PEG can be safely placed he is at risk at ripping it out again in the future.
Decision made to pursue hospice and comfort care. I told family I would stop fluids, antibiotics and non-comfort medications. I will have morphine there as needed for pain or shortness of breath. Hospice team consulted. Patient likely meets
inpatient criteria given respiratory status and risk of peritonitis with pulled PEG.
--- NOTE | 2024-07-02 18:30 | PTCARENOTE ---
Dr. Bazan had a family meeting and daughter is agreeable to pursuing comfort/hospice care. telemetry d/c'd and DNR ordered, IVf's d/c'd per new orders, will continue to monitor.
[2024-07-02] MEDS: OASIS PO (21:32)
[2024-07-02] MEDS: MUCINEX PO (21:32)
[2024-07-02] MEDS: MORPHINE SULFATE 2 MG IV ×2 (22:38→23:40)
[2024-07-02 23:00] VITALS: BP 103/53
--- NOTE | 2024-07-02 23:03 | PTCARENOTE ---
Addendum entered by Patricia Dias RN 07/02/24 23:51:
This RN notified LIABILITY CLAIMS ADJUSTER about change in patients clinical status. Pt requiring increased levels of oxygen and remains 80% on 6L. Pt. tachypneic with paradoxical breathing and use of accessory muscles. Pt making groaning noises. PRN morphine and ativan
given. Pt scoring a 9 on non-verbal dyspnea assessment. LIABILITY CLAIMS ADJUSTER called daughter to update on pt's changes and see if they would like to come to be with him. Will continue with PRN meds and end of life assessments.
Original Note:
PRN morphine dose given for dyspnea at rest and Q4hr end of life assessments ongoing per order for end of life care.
[2024-07-02] MEDS: ATIVAN 0.5 MG IV (23:11)
[2024-07-02] MEDS: OASIS 1 SPRAY PO (23:15)
--- NOTE | 2024-07-02 23:39 | W.PN.UPDATE ---
Addendum entered and electronically signed by LAZARA Thomas 07/03/24 01:24:
Called to patient's room by RN, pronounced patient @1:00 a.m. Family notified, spoke to patient's daughter, Milagros. Family will not be in to see patient tonight. Post mortem care done and patient taken to room M.
Original Note:
Update Note
Progress Note Update
RN noted patient's respiratory status is declining, requiring greater supplemental O2, respirations increased. Called and spoke with patient's daughter, Milagros, to let know patient's status and his decline. She may not be able to come in overnight
but would like to continue with plan for comfort care and administration of medication to assist in patient's comfort.
--- NOTE | 2024-07-03 01:15 | W.PN.DEATH ---
Pronouncement of
-
Called to see patient to pronounce.
No spontaneous heart tones or respirations noted.
Patient not responsive to verbal stimuli.
Patient is pronounced .
Time of : 01:00
Date of : 07/03/24
Family Notified: Yes (Spoke with patient's daughter Milagros.)
--- NOTE | 2024-07-03 01:42 | PTCARENOTE ---
Addendum entered by Patricia Dias RN 07/03/24 01:48:
pt belongings labeled and [place] [facility] [place] ring remains on.
Original Note:
This RN entered pt room and found pt to be apneic. VS unable to be obtained, no pulses felt. LACQUER MAKER notified and came up to bedside. Pt. time of pronounced 0100. LACQUER MAKER notified family, family opted not to come in to . Post mortem care completed
and [facility] notified. Pt does not meet criteria for donation per [facility] staff member, Israel Drew.
--- NOTE | 2024-07-03 14:20 | W.DCSUMMARY ---
Discharge Summary
Discharge Data
Date of Admission: 06/15/24
Date of Discharge: 07/03/24
-
Pending Results: No
Hospital Course
Admission: 06/15/24
Time of 1AM, 07/03/24
Cause of : Hypoxic Respiratory Failure secondary to Aspiration Pneumonia, ripped PEG Tube
Primary care physician : Dr. Emilia Rodriguez
Hospital Course :
83-year-old man with hx CAD, CHF, Atrial Fibrillation, CKD, Covid 2 months ago resulting in anorexia and multiple admissions for BRITTANIE 2/2 volume depletion presents to the ER with poor oral intake and report of 15lb weight loss over past two months.
He was found to have BRITTANIE with creatinine 2.0.
Patient had a PEG placement on 06/24/24. Hospital course complicated by worsening respiratory failure in setting of aspiration pneumonia, possible component of heart failure. He was diuresed and given IV antibiotics with persistent high O2 needs
(5L). On the morning of 07/02, he ripped out his PEG tube. Case discussed with GI and GS. Initially no signs of peritonitis. He was a poor procedural candidate given tenuous respiratory status. [facility] discussion had with family and decision made
to proceed with hospice and comfort care. He became increasingly short of breath that evening, treated with IV morphine. He passed at 1AM and family was notified.
Discharge Plan
-
Patient Disposition:
Date/Time
Date/Time: 07/03/24 03:13
Discharge Date and Time
Discharge Date/Time: 07/03/24 03:13
Print Language: AZERBAIJANI
== END 2024-07-03 03:13 | disposition expired | DRG 682 ==
LOC: 3 WEST ACU 21:10
PROVIDERS: Family Medicine; Hospitalist; Internal Medicine; Nurse Practitioner Family; Physician Assistant Medical; Student in an Organized Health Care Education/Training Program; Surgery; ADMITTING PHYSICIAN Internal Medicine; ATTENDING PHYSICIAN Student in an Organized Health Care Education/Training Program; CONSULT PHYSICIAN Student in an Organized Health Care Education/Training Program; CONSULT PHYSICIAN Surgery; EMERGENCY PHYSICIAN Emergency Medicine; FAMILY PHYSICIAN Family Medicine; OTHER PHYSICIAN Psychiatry & Neurology Psychiatry
PROC: 0DH63UZ Insertion of Feeding Device into Stomach, Percutaneous Approach (ICD-10-PCS; 2024-06-24)
DX: N17.9 Acute kidney failure, unspecified (principal); I50.23 Acute on chronic systolic (congestive) heart failure; L89.153 Pressure ulcer of sacral region, stage 3; J18.9 Pneumonia, unspecified organism; J69.0 Pneumonitis due to inhalation of food and vomit; J96.21 Acute and chronic respiratory failure with hypoxia; J44.0 Chronic obstructive pulmonary disease with (acute) lower respiratory infection; I13.0 Hypertensive heart and chronic kidney disease with heart failure and stage 1 through stage 4 chronic kidney disease, or unspecified chronic kidney disease; I47.20 Ventricular tachycardia, unspecified; E46 Unspecified protein-calorie malnutrition; B37.0 Candidal stomatitis; N39.0 Urinary tract infection, site not specified; T85.528A Displacement of other gastrointestinal prosthetic devices, implants and grafts, initial encounter; E87.20 Acidosis, unspecified; R62.7 Adult failure to thrive; E03.9 Hypothyroidism, unspecified; E78.00 Pure hypercholesterolemia, unspecified; K21.9 Gastro-esophageal reflux disease without esophagitis; R43.2 Parageusia; E86.9 Volume depletion, unspecified; I08.3 Combined rheumatic disorders of mitral, aortic and tricuspid valves; I27.20 Pulmonary hypertension, unspecified; N40.0 Benign prostatic hyperplasia without lower urinary tract symptoms; G47.33 Obstructive sleep apnea (adult) (pediatric); M10.9 Gout, unspecified; I48.0 Paroxysmal atrial fibrillation; I25.10 Atherosclerotic heart disease of native coronary artery without angina pectoris; B96.20 Unspecified Escherichia coli [E. coli] as the cause of diseases classified elsewhere; F32.A Depression, unspecified; D69.6 Thrombocytopenia, unspecified; E16.2 Hypoglycemia, unspecified; E86.0 Dehydration; Y84.8 Other medical procedures as the cause of abnormal reaction of the patient, or of later complication, without mention of misadventure at the time of the procedure; Y92.230 Patient room in hospital as the place of occurrence of the external cause; K44.9 Diaphragmatic hernia without obstruction or gangrene; K22.70 Barrett's esophagus without dysplasia; R63.4 Abnormal weight loss; E83.39 Other disorders of phosphorus metabolism; L89.152 Pressure ulcer of sacral region, stage 2; N18.32 Chronic kidney disease, stage 3b; R44.1 Visual hallucinations; Z95.1 Presence of aortocoronary bypass graft; Z87.891 Personal history of nicotine dependence; Z95.5 Presence of coronary angioplasty implant and graft; Z90.49 Acquired absence of other specified parts of digestive tract; I25.2 Old myocardial infarction; Z87.01 Personal history of pneumonia (recurrent); Z79.890 Hormone replacement therapy; Z79.01 Long term (current) use of anticoagulants; Z79.02 Long term (current) use of antithrombotics/antiplatelets; Z86.16 Personal history of COVID-19; Z68.22 Body mass index [BMI] 22.0-22.9, adult; Z11.52 Encounter for screening for COVID-19; Z88.5 Allergy status to narcotic agent; Z88.6 Allergy status to analgesic agent; Z88.8 Allergy status to other drugs, medicaments and biological substances; Z79.51 Long term (current) use of inhaled steroids; Z79.84 Long term (current) use of oral hypoglycemic drugs; Z95.810 Presence of automatic (implantable) cardiac defibrillator; Z99.81 Dependence on supplemental oxygen
CPT/HCPCS: 71046; 80048; 80053; 81003; 81015; 82306; 82962; 83036; 83735; 83880; 84100; 84145; 84443; 85025; 85027; 85652; 86140; 87040; 87070; 87086; 87088; 87186; 87324; 87449; 87502; 87798; 87811; 92610; 93005; 94640; 96360; 97110; 97116; 97162; 97166; 97530; 99285